=== PATIENT | female | born 1975 | race Caucasian/White ===

== ENCOUNTER 2016-07-18 12:30 | Inpatient (IN) | payer OTHER, MEDICARE ==
[~2016-07-18] VITALS: Ht 170.2 cm; Wt 90.7 kg
--- NOTE | 2016-07-18 12:38 | NUR ---
SENT BY DR. ARRIAZA FOR ADMISSION FOR OSTEOMYLITIS TO BOTH FEET (TOES). C/O PAIN IN BOTH LEGS WITH FEET BURNING. PMH: NEUROPATHY.
--- NOTE | 2016-07-18 13:27 | NUR ---
PT TO ROOM 10, AWAITING PROVIDER EVAL AT THIS TIME
--- NOTE | 2016-07-18 13:42 | ED SKIN/ALLERGY COMPLAINT ---
History of Present Illness General Chief Complaint: Lower Extremity Problems Stated Complaint: PT SENT BY DR SHEPHERD ? BIALATERAL TOE INFECTION Source: patient, old records Exam Limitations: no limitations Vital Signs & Intake/Output Vital Signs & Intake/Output Vital Signs Date Time Temp Pulse Resp B/P Pulse O2 O2 Flow FiO2 Ox Delivery Rate 07/18 1438 98.5 99 16 113/53 98 Room Air 07/18 1405 99 Room Air 07/18 1239 98.6 85 18 126/77 95 Room Air Allergies Coded Allergies: Sulfa (Sulfonamide Antibiotics) (Severe, FACILA SWELLING 07/18/16) Reconcile Medications Aripiprazole 5 MG TABLET 1 TAB PO DAILY MENTAL HEALTH (Reported) Triage Note: SENT BY DR. ARRIAZA FOR ADMISSION FOR OSTEOMYLITIS TO BOTH FEET (TOES). C/O PAIN IN BOTH LEGS WITH FEET BURNING. PMH: NEUROPATHY. Triage Nurses Notes Reviewed? yes Onset: Last week Duration: week(s):, constant, continues in ED, getting worse Timing: recent history Severity: severe Location: feet Possible Factors: no cause identified No Modifying Factors: none Associated Symptoms: blisters, change in skin texture, edema, rash, swelling/ mass/lumps LMP (ages 10-50): unknown : No Patient currently breastfeeds: No HPI: Patient reports worsening pain swelling redness to bilateral toes and feet occurring 2 days prior to admission. She denies fever chills nausea vomiting diarrhea abdominal pain chest pain shortness breath headache dysuria. She revealed to nursing that she is an IV heroin abuser. Past History Travel History Traveled to [place] past 21 day No Medical History Any Pertinent Medical History? see below for history Endocrine: NEUROPATHY Surgical History Surgical History: non-contributory Psychosocial History What is your primary language [place]ar[place] Tobacco Use: Never used ETOH Use: denies use Family History Hx Contributory? No Review of Systems Review of Systems Constitutional: Reports: no symptoms. EENTM: Reports: no symptoms. Respiratory: Reports: no symptoms. Cardiovascular: Reports: no symptoms. GI: Reports: no symptoms. Genitourinary: Reports: no symptoms. Musculoskeletal: Reports: see HPI, joint pain, joint swelling. Skin: Reports: see HPI, erythema, rash. Neurological/Psychological: Reports: no symptoms. Hematologic/Endocrine: Reports: no symptoms. Immunologic/Allergic: Reports: no symptoms. All Other Systems: Reviewed and Negative Physical Exam Physical Exam General Appearance: well developed/nourished, alert, awake, anxious, severe distress, obese Head: atraumatic, normal appearance Eyes: Bilateral: normal appearance, PERRL, EOMI. Ears, Nose, Throat: normal pharynx, normal ENT inspection, hearing grossly normal Neck: normal inspection, supple, full range of motion, no midline tenderness Respiratory: normal breath sounds, chest non-tender, no respiratory distress, quiet respiration, lungs clear Cardiovascular: regular rate/rhythm, normal peripheral pulses, norml femoral pulses equa Peripheral Pulses: 4+ carotid (R), 4+ carotid (L) Gastrointestinal: normal bowel sounds, soft, non-tender, no organomegaly Back: normal inspection, normal range of motion, no vertebral tenderness Extremities: inflammation, injury present, limited range of motion, swelling, tenderness Neurologic/Psych: awake, alert, oriented x 3, normal mood/affect Reflexes: 2+: bicep (R), bicep (L). Skin: rash Skin Problem Location: lower extremities (bilateral feet toes) Skin Problem Character: drainage, erythema, rash, swelling, tenderness, thickening Lymphatic: no anterior cervical gabe Progress Differential Diagnosis: abscess/cellulitis, contact dermatitis, osteomyelitis Plan of Care: Orders Procedure Date/time Status Regular Diet 07/18 L Active C-REACTIVE PROTEIN 07/18 1426 Active MRI-FEET BILAT 07/18 1353 Active OXYGEN SETUP (GEN) 07/18 1336 Active Saline Lock 07/18 1336 Active Admit to inpatient 07/18 1336 Active Vital Signs 07/18 1336 Active Activity/Ambulation 07/18 1336 Active Code Status 07/18 1336 Active BLOOD CULTURE 07/18 1334 Active HIGH SENSITIVITY CRP 07/18 1334 Active HUMAN BETA HCG SCREEN 07/18 1334 Active GLYCOSYLATED HGB 07/18 1334 Active WESTERGREN SED RATE 07/18 1334 Active COMPREHENSIVE METABOLIC PANEL 07/18 1334 Active CBC WITHOUT DIFFERENTIAL 07/18 1334 Active Laboratory Tests 07/18/16 1426: Hemoglobin A1c Pending 07/18/16 1426: Anion Gap 10, Estimated GFR > 60, BUN/Creatinine Ratio 18.3, Glucose 115 H, Calcium 8.6, Total Bilirubin 0.6, AST 17, ALT 26, Alkaline Phosphatase 114, C- Reactive Prot, Quant Pending, C-React Prot High Sens > 15.0 H, Total Protein 7.1, Albumin 3.2 L, Globulin 3.9, Albumin/Globulin Ratio 0.8 L, Total Beta HCG Pending, CBC w Diff NO MAN DIFF REQ, RBC 4.08 L, MCV 72.8 L, MCH 23.6 L, RDW 15.2 H, MPV 6.9 L, Gran % 84.3 H, Lymphocytes % 10.9 L, Monocytes % 4.0, Eosinophils % 0.6, Basophils % 0.2, Absolute Granulocytes 10.1 H, Absolute Lymphocytes 1.3, Absolute Monocytes 0.5, Absolute Eosinophils 0.1, Absolute Basophils 0, PUBS MCHC 32.4 L, ESR Westergren Pending Microbiology 07/18 1430 BLOOD: Blood Culture - RECD 07/18 142 BLOOD: Blood Culture - RECD Diagnostic Imaging: Viewed by Me: Radiology Read. Discussed w/RAD: Radiology Read. Radiology Impression: Significant soft tissue swelling involving the first, second and third toes of the right foot. Cortical destruction and cortical indistinctness involving the distal phalanges of the first and second toes of the right foot. Also noted is cortical lucency along the lateral aspect of the distal phalanx of the third toe. These findings are suspicious for acute osteomyelitis., Progressive changes in the distal phalanx 1st toe consistent with ongoing osteomyelitis with new change in distal phalanx 2nd toe. Departure Departure Time of Disposition: 1435 Disposition: STILL A PATIENT Condition: Stable Clinical Impression Primary Impression: Osteomyelitis of foot, left, acute Secondary Impressions: Osteomyelitis of foot, right, acute Referrals: PATIENT HAS NO PRIMARY CARE DR (PCP/Family) Departure Forms: Customer Survey General Discharge Information Admission Note Spoke With: SAVANNAH PACHECO,MELIA Lobo Documentation of Exam: Documentation of any treatments & extenuating circumstances including Concerns Regarding Discharge (functional status, medication knowledge or non-compliance, living conditions, etc.) that warrant an admission rather than observation: Podiatry evaluation serial lab exams IV antibiotics psychiatric evaluation for opiate dependence prevent withdrawal
--- NOTE | 2016-07-18 14:06 | NUR ---
PT TO ED C/O BILATERAL FOOT INFECTIONS, FOOTS APPEAR GROSSLY SWOLLEN, RED, TENDER WITH PURULENT DRAINAGE FROM R SECOND TOE. SLIGHT STREAKING NOTED ON BILATERAL FEET TO APPROX ANKLE HEIGHT. PT STATES SHE HAS "BAD NEUROPATHY" IN BOTH FEET AND IS UNSURE OF WHEN THE WOUNDS BEGAN TO APPEAR. PT SAW DR. ARRIAZA YESTERDAY A NEW PATIENT AND WAS THEN REFERRED TO ED FOR ADMISSION FOR SUSPECTED OSTEO. PT DENIES ANY FEVERS, WEAKNESS, NVD. PT ENDORSES "IM A HEROIN ADDICT, I JUST DONT WANT TO GO INTO WITHDRAWALS WHILE IM HERE" MULTIPLE TRACK PRARA NOTED ON BIILATERAL ARMS, HANDS AND ANKLES. PT DENIES SHOOTING IN ANKLES.
--- NOTE | 2016-07-18 14:14 | RADIOLOGY REPORT ---
EXAMINATION: XR FOOT, LEFT CLINICAL INFORMATION: Erythematous edematous toes with ulcers. COMPARISON: 11/24/2015 TECHNIQUE: AP, lateral, and oblique views of the left foot. FINDINGS: Since the previous study there has been progressive changes with destruction of the distal phalanx of the 1st digit. In addition, there has been a lytic area developing in the distal phalanx of the 2nd digit. In the 3rd digit, the distal phalanx is missing. Flexion deformities are present at the toes. No other definite abnormality is seen. IMPRESSION: Progressive changes in the distal phalanx 1st toe consistent with ongoing osteomyelitis with new change in distal phalanx 2nd toe.
--- NOTE | 2016-07-18 14:20 | RADIOLOGY REPORT ---
EXAMINATION: XR FOOT, RIGHT CLINICAL INFORMATION: Edematous and erythematous right toes. Evaluate for osteomyelitis. COMPARISON: None. TECHNIQUE: AP, lateral, and oblique views of the right foot. FINDINGS: Multiple views of the right foot and right toes demonstrate significant soft tissue swelling involving the first, second and third digits of the right foot. Of note, there is cortical indistinctness of cortical destruction involving the distal phalanges of the first and second digits of the right foot, suspicious for acute osteomyelitis. There is also cortical indistinctness and lucency along the lateral aspect of the distal phalanx of the third toe which is suspicious for osteomyelitis. IMPRESSION: Significant soft tissue swelling involving the first, second and third toes of the right foot. Cortical destruction and cortical indistinctness involving the distal phalanges of the first and second toes of the right foot. Also noted is cortical lucency along the lateral aspect of the distal phalanx of the third toe. These findings are suspicious for acute osteomyelitis.
[2016-07-18 14:49] LABS: ABSOLUTE BASOPHIL COUNT 0 /CUMM (0.0-0.2); ABSOLUTE EOSINOPHIL COUNT 0.1 /CUMM (0.0-0.7); ABSOLUTE GRANULOCYTE CT 10.1 /CUMM (1.4-6.5); ABSOLUTE LYMPH COUNT 1.3 /CUMM (1.2-3.4); ABSOLUTE MONOCYTE COUNT 0.5 /CUMM (0.10-0.60); BASOPHIL % 0.2 % (0.0-2.0); EOSINOPHIL % 0.6 % (0-5); GRANULOCYTE % 84.3 % (42.2-75.2); HEMATOCRIT 29.7 % (37-47); MEAN CORPUSCULAR HGB 23.6 PG (27.0-31.0); MEAN CORPUSCULAR HGB CONC 32.4 G/DL (33.0-37.0); MEAN CORPUSCULAR VOLUME 72.8 FL (81.0-99.0); MEAN PLATELET VOLUME 6.9 FL (7.4-10.4); PLATELET COUNT 431 /CUMM (130-400); RBC DISTRIBUTION WIDTH 15.2 % (11.5-14.5); RED BLOOD CELL CT 4.08 /CUMM (4.20-5.40)
--- NOTE | 2016-07-18 14:59 | NUR ---
PT MEDICATED WITH UNASYN PER EMAR
[2016-07-18] MEDS ORDERED: CLONAZEPAM2 M2 PO (15:25)
[2016-07-18] MEDS ORDERED: ARIPIPRAZOLE5 M1 PO (15:25)
[2016-07-18] MEDS ORDERED: CITALOPRAM HBR40 MG PO (15:26)
--- NOTE | 2016-07-18 15:30 | NUR ---
PT GIVEN FOOD TRAY OFFERS NO COMPLAINTS AT THIS TIME
--- NOTE | 2016-07-18 15:55 | NUR ---
PT GIVEN FOOD TRAY ATE 100% OF WHAT WAS ON TRAY AND STATES SHE WAS STILL HUNGRY SECOND TRAY ORDERED
--- NOTE | 2016-07-18 16:07 | Admission Certification ---
Admission Certification Certification Statement - As attending physician, I certify that at the time of - admission, based on clinical presentation, severity of - symptoms, need for further diagnostic testing and - therapeutic interventions, and risk of adverse outcomes - without in-hospital treatment, in my clinical assessment, - this patient requires an acute hospital stay for a minimum - of two nights or longer. I have also considered psychsocial - factors such as support system, advanced age, financial - issues, cognitive issues, and failed out-patient treatments, - past re-admission history, safety of patient, and lack of - compliance as applicable. Specific rationale supporting this admission is: active IVDU with b/l osteomyelitis
--- NOTE | 2016-07-18 16:13 | Cons- Podiatry ---
General Information and HPI Consulting Request Date of Consult: 07/18/16 Requested By: SAVANNAH PACHECO,MELIA Lobo History of Present Illness: Sophia is a 41-year-old female with a long-standing history of nonhealing ulcers to her first second and third digits bilateral feet. Sophia also suffers from idiopathic peripheral neuropathy. The patient has been treating her lesions with inadequate local wound care. She denies systemic signs of infection. Denies nausea vomiting fever chills. Of note, the patient is a current user of IV heroin. Allergies/Medications Allergies: Coded Allergies: Sulfa (Sulfonamide Antibiotics) (Severe, FACILA SWELLING 07/18/16) Home Med List: Aripiprazole 5 MG TABLET 1 TAB PO DAILY MENTAL HEALTH (Reported) Citalopram Hydrobromide (Citalopram HBr) 40 MG TABLET 1 TAB PO DAILY MENTAL HEALTH (Reported) Clonazepam 2 MG TABLET 1 TAB PO TID ANXIETY (Reported) Past History Medical History Endocrine: NEUROPATHY Surgical History Pertinent Surgical History: non-contributory Psychosocial History ETOH Use: denies use Review of Systems Review of Systems: Unremarkable except for that noted in history of present illness Exam & Diagnostic Data Vital Signs and I&O Vital Signs Date Time Temp Pulse Resp B/P Pulse O2 O2 Flow FiO2 Ox Delivery Rate 07/18 1438 98.5 99 16 113/53 98 Room Air 07/18 1405 99 Room Air 07/18 1239 98.6 85 18 126/77 95 Room Air Intake & Output 07/18 1600 07/18 0800 07/18 0000 07/17 1600 07/17 0800 07/17 0000 Intake Total 40 Output Total Balance 40 Intake, Oral 40 Patient 200 lb Weight Physical Exam: Necrotic and infected digits noted to the first second third toes right foot and the first second and fourth toes left foot. Cellulitis extending to the dorsal midfoot bilaterally. Following are noted from the necrotic lesion to the distal tip of the right second digit. 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 Consider an MRI to rule out occult progression of her osteomyelitis proximal to the metatarsophalangeal joints. Will schedule patient for debridement of left right feet tomorrow. Nothing by mouth past midnight. Consult Acknowledgment - Thank you for your consult request.
--- NOTE | 2016-07-18 16:19 | NUR ---
BED ASSIGNMENT [phone]
--- NOTE | 2016-07-18 16:52 | History & Physical ---
HAMILTON SEBASTIAN MD 07/18/16 7983: General Information and HPI MD Statement: I have seen and personally examined SUSI TRENT and documented this H&P. The patient is a 41 year old F who presented with a patient stated chief complaint of bilateral feet ulcerations. Source of Information: patient Exam Limitations: no limitations History of Present Illness: Ms. Trent is a 41 year old female with PMH IV drug abuse (using IV heroine, 1 bundle 4 times a day), bipolar depression, anxiety and severe bilateral peripheral neuropathy who was sent in to the [facility] ED today by Dr. Clarence Campbell MD for bilateral feet osteomyelitis. Patient reports that last Saturday, she noted she noted blisters on both big toes, and since that time she had noticed worsening of the ulcerations bilaterally. Of note, patient reports that about 1 month ago, she had X-rays of bilateral toes that showed fractures of both big toes. Due to these ulcerations and associated bilateral lower extremity erythema and associated swelling, patient followed up with Dr. Campbell 2 days ago and he urged her to present to the ED. She did not have a ride at that time and therefore deferred coming to the ED until today. Associated symptoms include bilateral feet ulcerations, pus drainage, bilateral swelling of legs with left > right and erythema/warmth of both legs. Social history is significant for a 20 year history of IVDU. Patient had previously stopped heroine and was in a methadone program in [facility] however this past April she relapsed and started doing heroine again. She reports she was on 125 mg PO methadone during her years at the methadone program. Reproductive history is significant for normal menstrual cycles every 28 days that last 4 days and consist of a normal flow. Allergies/Medications Allergies: Coded Allergies: Sulfa (Sulfonamide Antibiotics) (Severe, FACILA SWELLING 07/18/16) Home Med list Aripiprazole 5 MG TABLET 1 TAB PO DAILY MENTAL HEALTH (Reported) Citalopram Hydrobromide (Citalopram HBr) 40 MG TABLET 1 TAB PO DAILY MENTAL HEALTH (Reported) Clonazepam 2 MG TABLET 1 TAB PO TID ANXIETY (Reported) Compliance With Home Meds: UNKNOWN Past History Travel History Traveled to [place] past 21 day No Medical History Psychiatric: bipolar disease, IV drug abuse Endocrine: NEUROPATHY Surgical History Surgical History: non-contributory Past Family/Social History Psychosocial History Where do you live? Home Who Do You Live With? 2 roomates Services at Home: None Primary Language: Thai Smoking Status: Former Smoker ETOH Use: denies use Illicit Drug Use: heroin Living Will? no Functional Ability ADLs Independent: dressing, eating, toileting, bathing. Ambulation: independent Sexual History Sexually Active Yes Employment History Employment Disability Review of Systems Review of Systems Constitutional: Denies: chills, fever. EENTM: Denies: blurred vision, visual changes, hearing changes, nasal congestion. Cardiovascular: Denies: chest pain, palpitations. Respiratory: Denies: cough, short of breath, sputum production. GI: Denies: abdominal pain, bloating, constipation, diarrhea, distention, nausea, vomiting. Genitourinary: Denies: dysuria, frequency. Musculoskeletal: Reports: joint pain (Minimal toe pain). Skin: Reports: change in skin color, erythema, lesions. Neurological/Psychological: Reports: anxiety, numbness, paresthesia. Denies: confusion, headache. Hematologic/Endocrine: Denies: bruising, bleeding. Immunologic/Allergic: Denies: splenectomy. All Other Systems: Reviewed and Negative Exam & Diagnostic Data Last 24 Hrs of Vital Signs/I&O Vital Signs Date Time Temp Pulse Resp B/P Pulse O2 O2 Flow FiO2 Ox Delivery Rate 07/18 1837 97.5 61 18 94/50 96 07/18 1438 98.5 99 16 113/53 98 Room Air 07/18 1405 99 Room Air 07/18 1239 98.6 85 18 126/77 95 Room Air Intake & Output 07/18 1600 07/18 0800 07/18 0000 Intake Total 40 Output Total Balance 40 Intake, Oral 40 Patient 200 lb Weight Physical Exam General Appearance Alert, Oriented X3, Cooperative, No Acute Distress Skin Bilateral lower extremity erythema, R>L. Bilateral toe ulcerations with obvious pus drainage. No obvious bone visible. HEENT Atraumatic, EOMI, Mucous Membr. moist/pink Neck Supple, +2 Carotid Pulse wo Bruit Lymphatic Cervical nl Cardiovascular Regular Rate, Normal S1, Normal S2 Lungs Clear to Auscultation, Normal Air Movement Abdomen Normal Bowel Sounds, Soft, No Tenderness Neurological Normal Speech, Normal Tone Extremities No Clubbing, No Cyanosis, Edema of bilateral lower extremities, right leg more profound and noted to be slightly warm to touch. non tender, no calf tenderness. Vascular Pulses Symmetrical Last 24 Hrs of Labs/Serafin: Laboratory Tests 07/18/16 1426: Hemoglobin A1c Pending 07/18/16 1426: Anion Gap 10, Estimated GFR > 60, BUN/Creatinine Ratio 18.3, Glucose 115 H, Calcium 8.6, Iron Pending, TIBC Pending, Ferritin Pending, Total Bilirubin 0.6, AST 17, ALT 26, Alkaline Phosphatase 114, C-Reactive Prot, Quant > 9.0 H, C- React Prot High Sens > 15.0 H, Total Protein 7.1, Albumin 3.2 L, Globulin 3.9, Albumin/Globulin Ratio 0.8 L, Total Beta HCG NEGATIVE, CBC w Diff NO MAN DIFF REQ, RBC 4.08 L, MCV 72.8 L, MCH 23.6 L, RDW 15.2 H, MPV 6.9 L, Gran % 84.3 H, Lymphocytes % 10.9 L, Monocytes % 4.0, Eosinophils % 0.6, Basophils % 0.2, Absolute Granulocytes 10.1 H, Absolute Lymphocytes 1.3, Absolute Monocytes 0.5, Absolute Eosinophils 0.1, Absolute Basophils 0, PUBS MCHC 32.4 L, ESR Westergren 122 H, Hepatitis A IgM Ab Pending, Hep Bs Antigen Pending, Hep B Core IgM Ab Conf Pending, Hepatitis C Antibody Pending, HIV 1&2 Ab Western Blot Pending Microbiology 07/18 1430 BLOOD: Blood Culture - RECD 07/18 1425 BLOOD: Blood Culture - RECD Diagnostic Data Other Results IMPRESSION: Progressive changes in the distal phalanx 1st toe consistent with ongoing osteomyelitis with new change in distal phalanx 2nd toe. EXAMINATION: XR FOOT, LEFT CLINICAL INFORMATION: Erythematous edematous toes with ulcers. COMPARISON: 11/24/2015 TECHNIQUE: AP, lateral, and oblique views of the left foot. FINDINGS: Since the previous study there has been progressive changes with destruction of the distal phalanx of the 1st digit. In addition, there has been a lytic area developing in the distal phalanx of the 2nd digit. In the 3rd digit, the distal phalanx is missing. Flexion deformities are present at the toes. No other definite abnormality is seen. IMPRESSION: Progressive changes in the distal phalanx 1st toe consistent with ongoing osteomyelitis with new change in distal phalanx 2nd toe. Assessment/Plan Assessment: Ms. 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 Campbell for bilateral feet osteomyelitis. Patient noticed ulcers on bilateral big toes last Saturday, and since that time the ulcerations have worsened to include the soft tissue overlaying all her toes as well as have caused bilateral lower extremity edema, left greater than right. In the ED: Vital signs showed T 98.6, HR 85, RR 18, BP 126/77 and O2 saturation of 95% on RA. Labs showed leukocytosis to 12 without bandemia, microcytic anemia with H&H 9.6/29.7 and MCV 72.8, Plt 431, ESR 122, CRP > 9 and normal BEP. Beta- HCG is negative. Patient had right foot Xray showing significant soft tissue swelling and cortical destruction of first and second toes. Left foot Xray showed first toe osteomyelitis and likely 2nd toe osteomyelitis. Patient was admitted to the general medicine floor and the following is the management: 1. Osteomyelitis, bilateral feet with overlaying acute cellulitis * Podiatry consult with Dr. Campbell done while patient as in the ED, he suggested obtaining MRI bilateral feet which was ordered, f/u results * He will take patient to OR tomorrow for bilateral debridement * Patient NPO past midnight * Patient given IV unasyn in the ED * 1 bag NS at 75 cc/h * Will continue patient on Vancomycin 1 g IV Q12 H * Monitor for fever, watch leukocytosis * For RLE edema/swelling, due to the fact that it is larger than the left, we will rule out DVT with doppler, follow up results * For pain, we will do IV dilaudid for severe pain, IV morphine for moderate and PO tylenol for mild 2. IVDU * Patient counseled on risks of continued IVDU * Social work and psych consult placed, f/u recommendations * Patient requesting methadone 125 mg PO daily as this was her prior dose, however she has not been on methadone in several months * We will order a 1 x dose of 40 mg PO methadone tonight * 20 mg PO BID starting tomorrow * Monitor for withdrawl * F/U UA/Utox * F/U hepatitis panel and HIV 3. Bipolar depression * Continue abilify daily * Celexa 40 mg PO daily 4. Microcytic anemia * Patient notes normal menstrual cycles without significant bleeding * Follow up iron studies 5. Peripher neuropathy * Consider workup for DM, we have ordered HgA1C, f/u results FULL CODE DVTP: Heparin SC NPO at midnight pending OR tomorrow Mild-severe pain pathway As Ranked By This Provider Problem List: 1. Osteomyelitis of foot, right, acute 2. Osteomyelitis of foot, left, acute 3. IV drug abuse Core Measures/Miscellaneous Acute Coronary Syndrome ACS Diagnosis: No Cerebrovascular Accident CVA/TIA Diagnosis: No Congestive Heart Failure CHF Diagnosis: No Venous Thromboembolism VTE Risk Factors: Age > 40, Obesity, Smoking VTE Prophylaxis Ordered Inpt: Mech & Pharm No Mech VTE prophylaxis d/t: No contraindications No VTE Pharm Prophylaxis d/t: No contraindications VTE Diagnosis: No VTE Type: NONE VTE Confirmed by (Test): NONE Severe Sepsis Severe Sepsis Present: No Septic Shock Septic Shock Present: No Miscellaneous Documentation Attending Case Discussed With: SAVANNAH PACHECO,MELIA Lobo Primary Care Physician: PATIENT HAS NO PRIMARY CARE DR Patient sees these Specialists Unknown. Level of Patient Care: General Medicine MELIA NUÑEZ MD 07/18/162035: Attending MD Review Statement Attending Statement Attending MD Statement: examined this patient, discuss w/resident/PA/HOME HEALTH ATTENDANT, agreed w/resident/PA/HOME HEALTH ATTENDANT, reviewed EMR data (avail), reviewed images Attending Assessment/Plan: 41 year with PMH depression, chronic benzo dependence and active IVDU sent in by Dr Campbell for bilateral osteomyelitis of toes of both feet ( distal phalanges of 1st and 2nd toes bilaterally). Both feet are very erythematous and edematous with some purulent drainage from right second toe. Given the overlying cellulitis, will give IV vanco to cover for possible MRSA. Pt already got one does of IV Unasyn in the ER . Pt will go to the OR tomorrow for debridement and possible bone biopsy to help with choice of abx. ESR is pending and blood c/s drawn in the ER Cont Citalopram, aripripazole and Alprazolam. Given active heroin use, pt is worried about opiate withdrawal. Will give her Methadone today 40mg and follow for signs of opiate withdrawal closely. Will consult psych to help with opiate withdrawal. Microctyic anemia, will chek iron indices and guaiac all stool. HIV and hepatitis testing DVT prophylaxis and f/u. ESSIE DIANA MDBRANDONMARIANO 07/18/16 2150: Resident Review Statement Resident Statement: examined this patient, discussed with sports management internship, agreed with sports management internship, reviewed EMR data (avail), discussed with nursing, discussed with case mgmt, reviewed images, amended to note Other Findings: 41 yo female with pmh of bipolar disorder/anxiety, IV heroin abuse (> 20yrs), peripheral neuropathy, hx of osteomyelitis was sent from Dr. Campbell office due to suspected cellulitis and osteomyelitis of bilateral feet. She denies any trauma. She developed blisters on bilateral toes during the weekend and 2DA she was seen by Dr. Campbell due to worsening swelling and redness. She noted purulent drainage from Rt. 2nd toe today, and she feels numb with underlying neuropathy. She denies fever/chills, chest pain/palpitation, shortness of breath, nausea/vomiting, abdominal pain. Previously, she had osteomyelitis on Lt. 3rd toe s/p distal phalanx amputation in [facility] ( December/2014). She has long standing IVDU hx > 20yrs, and she was on methadone program for 10 years from [facility]), last dose 125mg daily. She left the program and continued using IV heroin 1 bundle 4 times a day. She shares a needle with 1 person. Former smoker 1 ppd x 10yrs, denies alcohol or other drug abuse. Regular period without massive bleeding. She follows Dr. Howard, psychiatrist in [place]. V/S: 97.5F MN 61 RR 18 BP 94/50 96% on RA, on exam alert, oriented x 3, anxious, HEENT: EOM intact, PERRLA, poor dentition, moist mucosa, neck: supple, no cervical LAD, heart: regular, normal S1/S2, no murmurs, lungs: CTA, abdomen, soft, non-tender, normal bowel sounds, motor: 5/5, skin: needle stick makrs on bilateral forearm, bilateral LE pitting edema Rt > Lt, redness/warmness, necrotic Lt. 1st/2nd toes, Rt. 1st/2nd/3rd toes with purulent discharge from Rt. 2nd toe Labs: WBC 12, granulocytosis, ESR 122, Hb/Hct 9.6/29.7 MCV 72.8, Na 137, K 4.8, BUN/Cr 11/0.6, glucose 115, CRP chris, beta HCG negative X-ray Lt. foot: Progressive changes in the distal phalanx 1st toe consistent with ongoing osteomyelitis with new change in distal phalanx 2nd toe, x-ray Rt. foot: Significant soft tissue swelling involving the first, second and third toes of the right foot. Cortical destruction and cortical indistinctness involving the distal phalanges of the first and second toes of the right foot. Also noted is cortical lucency along the lateral aspect of the distal phalanx of the third toe. These findings are suspicious for acute osteomyelitis. 1. Acute cellulitis of Rt. foot with bilateral feet osteomyelitis: Pt meets criteria of sepsis with leukocytosis & hypotension. Blood cultures were sent and IV unasyn was given in ED. Will give IV vancomycin for probable MRSA cellulitis/ osteomyelitis with IVDU. Continue IV hydration, pain control with pathway. Check US for bilateral LE pitting edema Rt > Lt. NPO after midnight for OR bone bx and debridement. Folow up MRI findings 2. chronic IVDU: She was on 125mg methadone before. As opiate withdrawal is concerned, will give one dose of methadone 40mg after checking EKG (QTc prolongation). Will get psychiatry consult regardig methadone taper. Will obtain social consult as well. Check HIV/hepatitis panel, Utox. 3. Bipolar disorder/anxiety: continue home dose aripiprazole, citalopram, clonazepam. 4. Microcytic anemia: monitor Hb/Hct, check guiac stool, iron studies 5. Peripheral neuropahty: check HbA1c, Vit B12/folate/Vit D DVT ppx: SC heparin, full code
--- NOTE | 2016-07-18 17:04 | NUR ---
PT BROUGHT TO MRI VIA
[2016-07-18 22:13] VITALS: BP 112/60
--- NOTE | 2016-07-18 22:58 | NUR ---
PATIENT IN WITH WOUNDS TO BILATERAL FEET ESPECIALLY THE TOES. TOES WITH EDEMA, BLACK CALLOUS AND REDNESS ON TOP OF TOES. FEET WITH EDEMA RIGHT > LEFT. RESIDENT THOMAS AWARE. DRY DRESSING PLACED TO BOTH FEET AFTER PATIENT FEET WERE WASHED AND DRIED. PATIENT WAS TAKEN TO ULTRASOUND SHORTLY AFTER HER FEET WERE CLEANED. UNABLE TO STAGE WOUNDS AT THIS TIME. WILL CONTINUE TO MONITOR.
--- NOTE | 2016-07-18 23:15 | ULTRASOUND REPORT ---
EXAMINATION: US TRIPLEX LOWER EXTREMITY, BILATERAL CLINICAL INFORMATION: Bilateral lower extremity edema. COMPARISON: None TECHNIQUE: Color-flow triplex imaging with spectral analysis and compression Doppler were performed on the bilateral lower extremities. FINDINGS: Respiratory variation, normal compression and augmented flow are noted throughout the bilateral lower extremities. The visualized common femoral vein, superficial femoral vein, profunda femoral vein, popliteal vein and midcalf peroneal and posterior tibial venous segments show no evidence of deep venous thrombosis. There is no Morgan's cyst. Prominent bilateral inguinal lymph nodes. The largest on the right measures 1.8 cm. The largest on the left measures 2.3 cm. IMPRESSION: Normal triplex scan without evidence of deep venous thrombosis involving the bilateral lower extremities. Prominent bilateral inguinal lymph nodes.
[2016-07-19 05:53] VITALS: BP 120/62
--- NOTE | 2016-07-19 07:47 | PN- Housestaff ---
See Addendum Subjective Follow-up For: Osteomyelitis of bilateral feet IVDU (heroin) Subjective: Patient seen and examined at bedside this AM. She is mildly anxious for OR procedure and is concerned about withdrawing as she is NPO and cannot have her methadone. Patient continues to endorse bilateral feet pain 2/2 osteomyelitis/ cellulitis. Review of Systems Constitutional: Denies: chills, fever. EENTM: Denies: blurred vision, visual changes, hearing changes, nasal congestion. Cardiovascular: Denies: chest pain, palpitations. Respiratory: Denies: cough, short of breath. Gastrointestinal: Denies: abdominal pain. Genitourinary: Denies: dysuria. Musculoskeletal: Reports: joint pain (Bilateral toes). Denies: neck pain. Skin: Reports: erythema, lesions. Neurological/Psychological: Reports: see HPI. Denies: confusion, headache. Hematologic/Endocrine: Denies: bleeding. Immunologic/Allergic: Denies: splenectomy. Objective Last 24 Hrs of Vital Signs/I&O Vital Signs Date Time Temp Pulse Resp B/P Pulse O2 O2 Flow FiO2 Ox Delivery Rate 07/19 0553 98.1 64 20 120/62 98 Room Air 07/18 2213 97.1 67 18 112/60 97 Room Air 07/18 1837 97.5 61 18 94/50 96 07/18 1438 98.5 99 16 113/53 98 Room Air 07/18 1405 99 Room Air 07/18 1239 98.6 85 18 126/77 95 Room Air Intake & Output 07/19 1600 07/19 0800 07/19 0000 Intake Total 300 755 Output Total 225 Balance 75 755 Intake, IV 275 Intake, Oral 300 480 Output, Urine 225 Patient 200 lb Weight Physical Exam General Appearance: Alert, Oriented X3, Cooperative, No Acute Distress Other Physical Findings: Skin Bilateral lower extremity erythema, R>L. Bilateral toe ulcerations with obvious pus drainage. No obvious bone visible. HEENT Atraumatic, EOMI, Mucous Membr. moist/pink Neck Supple, +2 Carotid Pulse wo Bruit Lymphatic Cervical nl Cardiovascular Regular Rate, Normal S1, Normal S2 Lungs Clear to Auscultation, Normal Air Movement Abdomen Normal Bowel Sounds, Soft, No Tenderness Neurological Normal Speech, Normal Tone Extremities No Clubbing, No Cyanosis, Edema of bilateral lower extremities, right leg more profound and noted to be slightly warm to touch. non tender, no calf tenderness. Vascular Pulses Symmetrical Current Medications: Current Medications Sig/Mainor Start time Last Medication Dose Route Stop Time Status Admin Acetaminophen 650 MG Q6P PRN 07/18 1999 AC PO Ampicillin Sodium/ 0 .STK-MED ONE 07/18 1440 DC Sulbactam Sodium .ROUTE Ampicillin Sodium/ 3,000 MG ONCE ONE 07/18 1345 DC 07/18 Sulbactam Sodium IV 07/18 1414 1455 Sodium Chloride 100 ML Aripiprazole 5 MG DAILY 07/19 1000 AC PO Cholecalciferol 1,000 IU DAILY 07/19 1000 AC PO Citalopram 40 MG DAILY 07/19 1000 AC Hydrobromide PO Clonazepam 2 MG TID 07/18 2200 AC 07/18 PO 07/25 2159 2108 Cyanocobalamin 1,000 MCG DAILY 07/19 1000 AC PO Cyanocobalamin 1,000 MCG Q30D 07/19 0900 CAN IM Heparin Sodium 5,000 UNIT Q8 07/18 220 DC 07/18 (Porcine) SC 07/18 2201 2109 Hydromorphone HCl 1 MG Q6P PRN 07/18 1999 AC 07/18 IV 2108 Ketorolac 30 MG ONCE ONE 07/18 1345 DC 07/18 Tromethamine IV 07/18 1346 1436 Ketorolac 0 .STK-MED ONE 07/18 1339 DC Tromethamine .ROUTE Methadone HCl 20 MG 0800,1700 07/19 0800 AC PO Methadone HCl 40 MG ONCE ONE 07/18 2200 DC 07/18 PO 07/18 220 2108 Morphine Sulfate 2 MG Q6P PRN 07/18 1999 AC IV Sodium Chloride 1,000 ML Q13H 07/18 1930 DC 08 IV 07/19 0829 2017 Vancomycin HCl 1,000 MG Q12 07/18 2200 AC 07/18 Dextrose/Water 250 ML IV 2213 Last 24 Hrs of Lab/Serafin Results Last 24 Hrs of Labs/Mics: Laboratory Tests 07/19/16 0705: Sodium Pending, Potassium Pending, Chloride Pending, Carbon Dioxide Pending, Anion Gap Pending, BUN Pending, Creatinine Pending, BUN/Creatinine Ratio Pending , CBC w Diff Pending, WBC Pending, RBC Pending, Hgb Pending, Hct Pending, MCV Pending, MCH Pending, RDW Pending, Plt Count Pending, MPV Pending, PUBS MCHC Pending 07/19/16 0515: Methadone Screen Pending, Barbiturate Screen Pending, Ur Phencyclidine Scrn Pending, Amphetamines Screen Pending, U Benzodiazepines Scrn Pending, Urine Cocaine Screen Pending, Urine Cannabis Screen Pending, Urine Color Pending, Urine Clarity Pending, Urine pH Pending, Ur Specific [place] Pending, Urine Protein Pending, Urine Ketones Pending, Urine Nitrite Pending, Urine Bilirubin Pending, Urine Urobilinogen Pending, Ur Leukocyte Esterase Pending, Ur Microscopic Pending, Urine Hemoglobin Pending, Urine Glucose Pending 07/18/16 1426: Hemoglobin A1c Pending 07/18/16 1426: Anion Gap 10, Estimated GFR > 60, BUN/Creatinine Ratio 18.3, Glucose 115 H, Calcium 8.6, Iron 21 L, TIBC 274, Ferritin 72.1, Total Bilirubin 0.6, AST 17, ALT 26, Alkaline Phosphatase 114, C-Reactive Prot, Quant > 9.0 H, C-React Prot High Sens > 15.0 H, Total Protein 7.1, Albumin 3.2 L, Globulin 3.9, Albumin/ Globulin Ratio 0.8 L, Vitamin B12 199 L, 25-OH Vitamin D Total 11.0 L, Folate 7.1, Total Beta HCG NEGATIVE, CBC w Diff NO MAN DIFF REQ, RBC 4.08 L, MCV 72.8 L, MCH 23.6 L, RDW 15.2 H, MPV 6.9 L, Gran % 84.3 H, Lymphocytes % 10.9 L, Monocytes % 4.0, Eosinophils % 0.6, Basophils % 0.2, Absolute Granulocytes 10.1 H, Absolute Lymphocytes 1.3, Absolute Monocytes 0.5, Absolute Eosinophils 0.1, Absolute Basophils 0, PUBS MCHC 32.4 L, ESR [place] 122 H, Hepatitis A IgM Ab Pending, Hep Bs Antigen Pending, Hep B Core IgM Ab Conf Pending, Hepatitis C Antibody Pending, HIV 1&2 Ab Western Blot NONREACTIVE Microbiology 07/18 1430 BLOOD: Blood Culture - RECD 07/18 1425 BLOOD: Blood Culture - RECD Orders Radiology Findings: R foot Xray: IMPRESSION: Significant soft tissue swelling involving the first, second and third toes of the right foot. Cortical destruction and cortical indistinctness involving the distal phalanges of the first and second toes of the right foot. Also noted is cortical lucency along the lateral aspect of the distal phalanx of the third toe. These findings are suspicious for acute osteomyelitis. Left foot Xray: IMPRESSION: Progressive changes in the distal phalanx 1st toe consistent with ongoing osteomyelitis with new change in distal phalanx 2nd toe. Miscellaneous Findings: Venous Doppler: MPRESSION: Normal triplex scan without evidence of deep venous thrombosis involving the bilateral lower extremities. Prominent bilateral inguinal lymph nodes. Assessment/Plan Assessment: Ms. 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 Campbell for bilateral feet osteomyelitis. Patient noticed ulcers on bilateral big toes last Saturday, and since that time the ulcerations have worsened to include the soft tissue overlaying all her toes as well as have caused bilateral lower extremity edema, left greater than right. In the ED: Vital signs showed T 98.6, HR 85, RR 18, BP 126/77 and O2 saturation of 95% on RA. Labs showed leukocytosis to 12 without bandemia, microcytic anemia with H&H 9.6/29.7 and MCV 72.8, Plt 431, ESR 122, CRP > 9 and normal BEP. Beta- HCG is negative. Patient had right foot Xray showing significant soft tissue swelling and cortical destruction of first and second toes. Left foot Xray showed first toe osteomyelitis and likely 2nd toe osteomyelitis. Patient was admitted to the general medicine floor and the following is the management: 1. Osteomyelitis, bilateral feet with overlaying acute cellulitis * Podiatry consult with Dr. Campbell done while patient as in the ED, he suggested obtaining MRI bilateral feet which was ordered, f/u results * He will take patient to OR today for bilateral debridement, currently NPO * Patient given IV unasyn in the ED * Will continue patient on Vancomycin 1 g IV Q12 H due to severity of infection * Monitor for fever, watch leukocytosis * For RLE edema/swelling, due to the fact that it is larger than the left, we ruled out DVT with negative RLE doppler * For pain, we will do IV dilaudid for severe pain, IV morphine for moderate and PO tylenol for mild * PT consult placed, f/u recommendations 2. IVDU * Patient counseled on risks of continued IVDU * Social work and psych consult placed, f/u recommendations * Patient requesting methadone 125 mg PO daily as this was her prior dose, however she has not been on methadone in several months * We ordered a 1 x dose of 40 mg PO methadone last night, she will be started on 20 mg PO BID today * Monitor for withdrawl * F/U UA/Utox * Hepatitis panel pending, HIV non-reactive 3. Bipolar depression * Continue abilify daily * Celexa 40 mg PO daily 4. Microcytic anemia * Patient notes normal menstrual cycles without significant bleeding * Iron studies normal except for low Fe, we have started ferrous sulfate daily 5. Peripher neuropathy * Vit B12 very low, patient reports she has been vegan for 10 years, likely contributing/causing bilateral peripheral neuropathy * Vit B12 injections1,000 mcg daily due to low levels * Vit D 50,000 U PO 1xweek also ordered due to low levels * We have ordered HgA1C, f/u results FULL CODE DVTP: Heparin SC NPO at midnight pending OR tomorrow Mild-severe pain pathway Problem List: 1. Osteomyelitis of foot, left, acute 2. Osteomyelitis of foot, right, acute 3. IV drug abuse Pain Ratin Pain Location: Bilateral feet Pain Goal: Pain 4 or less Pain Plan: Dilaudid for severe pain, morphine for moderate and tylenol for mild pain. Tomorrow's Labs & Rationales: CBC (post op).
[2016-07-19 08:56] LABS: ABSOLUTE BASOPHIL COUNT 0 /CUMM (0.0-0.2); ABSOLUTE EOSINOPHIL COUNT 0.1 /CUMM (0.0-0.7); ABSOLUTE GRANULOCYTE CT 6.4 /CUMM (1.4-6.5); ABSOLUTE LYMPH COUNT 1.2 /CUMM (1.2-3.4); ABSOLUTE MONOCYTE COUNT 0.4 /CUMM (0.10-0.60); BASOPHIL % 0.3 % (0.0-2.0); EOSINOPHIL % 1.8 % (0-5); GRANULOCYTE % 78.2 % (42.2-75.2); HEMATOCRIT 26.7 % (37-47); MEAN CORPUSCULAR VOLUME 72.8 FL (81.0-99.0); MEAN PLATELET VOLUME 7.3 FL (7.4-10.4); PLATELET COUNT 358 /CUMM (130-400); RBC DISTRIBUTION WIDTH 15.4 % (11.5-14.5); RED BLOOD CELL CT 3.67 /CUMM (4.20-5.40); WHITE BLOOD CELL COUNT 8.2 /CUMM (4.8-10.8)
--- NOTE | 2016-07-19 09:02 | MRI REPORT ---
EXAMINATION: MR FOOT WITHOUT CONTRAST, RIGHT CLINICAL INFORMATION: Bilateral foot ulcers, drainage. COMPARISON: X-ray of the right foot 07/18/2016. TECHNIQUE: MRI of the right foot was performed without contrast. The study is markedly limited because of motion artifact. The patient was unable to hold still for the examination. The field of view is limited to the forefoot beginning at the mid portion of the metatarsals and extending distally. FINDINGS: 2ND TOE: There is abnormal soft tissue over the plantar aspect of the 2nd toe which appears to be at the level of the metatarsophalangeal joint. The abnormal signal extends from the skin to the joint capsule and likely the bone of the proximal phalanx. There is likely an overlying ulceration. There may be some metallic artifact contributing to some of the signal change and distortion at the skin or just deep to the skin surface. The signal abnormality extending to the joint capsule and/or bone measures up to 14 mm transverse and 13 mm AP. This could partially reflect a sinus tract along with surrounding infectious inflammatory change in the soft tissues. Because of the prominent motion artifact, it is difficult to assess the bone with certainty with regard to the signal intensity. Fine bony detail is also limited because of the artifact. Despite this limitation, I suspect that there is abnormal signal throughout all of the phalanges of the second toe beginning at the base of the proximal phalanx and extending throughout the distal phalanx. Radiographs demonstrate marked destruction of the distal phalanx which is not well seen on this examination in part due to the small size of the bone, marked bone destruction visible on the radiographs, as well as the motion artifact. There is a mild joint effusion of the 2nd metatarsophalangeal joint. This raises the question of concomitant septic arthritis given the changes in the overlying soft tissues as well as in the proximal phalanx. However, no definite marrow signal within the metatarsal head and the partially more proximal metatarsal. GREAT TOE: 1st Metatarsophalangeal Joint - Moderate joint effusion. Probable diffuse mild abnormal signal throughout most of the proximal phalanx without evidence for bone destruction. Marked signal abnormality within the distal phalanx, not well defined, likely related to destructive changes better defined on prior radiographs. Additional prominent localized abnormal signal overlying the IP joint extending from the skin or just deep to the skin to the IP joint compatible with focal inflammatory changes of the soft tissues. I do not see a definite ulceration. 3RD TOE: Difficult to evaluate because of the marked motion artifact. I suspect diffuse signal abnormality throughout the middle and distal phalanx. No definite involvement of the proximal phalanx. Mild effusion of the metatarsophalangeal joint. Effusion of the PIP joint. I do not see an overlying ulceration. 4TH TOE: Limited evaluation because of motion artifact. No definite abnormal marrow signal. Mild effusion of the metatarsophalangeal joint. 5TH TOE: Limited evaluation because of the motion artifact. Possible mild edema in the head of the 5th metatarsal of uncertain significance. This could simply reflect some arthrosis. No definite effusion. MUSCLES/TENDONS: Diffuse signal abnormality throughout all the muscles of the forefoot compatible with edema and/or myositis. No focal fluid collection or abscess is seen. SUBCUTANEOUS SOFT TISSUES: Diffuse signal abnormality throughout the subcutaneous soft tissues, most prominent dorsal. This is compatible with a combination of edema and/or cellulitis. No soft tissue collection noted dorsally. IMPRESSION: Limited examination because of marked motion artifact despite repeating sequences multiple times. The patient apparently could not hold still throughout the examination. Despite this limitation, there is some diagnostic information available. 2nd Toe: Probable ulceration and a sinus tract extending from the skin to the level of the 2nd metatarsophalangeal joint. The findings most compatible with osteomyelitis involving the proximal, middle and distal phalanges. Possible involvement of the metatarsophalangeal joint given the effusion, however, no definite involvement of the metatarsal. Great Toe: Findings indicative of osteomyelitis with destructive changes of the distal phalanx. Probable involvement of the proximal phalanx given the likely abnormal signal extending to the level of the metatarsophalangeal joint. There is also mild effusion of the metatarsophalangeal joint raising the question of concomitant septic arthritis, however, no definite involvement of the metatarsal. 3rd Toe: Findings most consistent with osteomyelitis involving the middle and distal phalanx without definite involvement proximal to this. Mild nonspecific effusion of the PIP joint and metatarsophalangeal joint. Limited evaluation of the 4th and 5th toes. No definite osteomyelitis. Questionable edema in the head of the 5th metatarsal of uncertain significance, this may simply reflect arthrosis. No effusion of the joint.
--- NOTE | 2016-07-19 09:40 | MRI REPORT ---
EXAMINATION: MR FOOT WITHOUT CONTRAST, LEFT CLINICAL INFORMATION: Osteomyelitis. COMPARISON: X-ray of the left foot performed same day. MRI and x-ray of the right foot performed same day. TECHNIQUE: MRI of the left foot was performed without contrast. Sequences were modified in an attempt to decrease motion artifact as the patient was unable to hold still throughout the examination. Because of the artifact, the exam is significantly limited with respect to the diagnostic information available. Despite this limitation, there is some information present. FINDINGS: GREAT TOE: Heterogeneous abnormal signal throughout the poorly visualized distal phalanx. Given the appearance of a fracture on radiographs, this is compatible with reactive change related to a fracture and/or pathologic fracture related to osteomyelitis. There does appear to be some overlying abnormality in the plantar aspect of the toe in the distal phalanx which could reflect chronic fibrotic inflammatory change. The distal phalanx is slightly plantar subluxed at the IP joint. Mild minimal effusion of the IP joint. Marrow signal of the proximal phalanx and the 1st metatarsal appears intact. 2ND TOE: Limited evaluation because of artifact. Diffuse abnormal signal involving the middle and distal phalanx if still present. This corresponds to the area of fracture on radiographs. Some of the abnormal signal may be related to reactive changes related to the fracture; however, in the clinical setting presented, osteomyelitis with pathologic fracture is likely. The marrow signal in the proximal phalanx and metatarsal is intact. There may be some overlying inflammatory changes in the plantar soft tissues. 3RD TOE: No definite abnormal signal in the remaining portion of the toe. There appears to been surgery with amputation distal to the PIP joint. This could be confirmed clinically. 4TH TOE: Diffuse signal abnormality within the middle and distal phalanx with comminuted overlying soft tissue abnormality circumferentially. This likely reflects osteomyelitis and overlying soft tissue infection/cellulitis. Questionable ulceration at the tip of the toe measuring approximately 1 cm. The marrow signal in the proximal phalanx and metatarsal appears to be intact. There is a mild effusion of the 4th metatarsophalangeal joint of uncertain significance. 5TH TOE: Limited evaluation because of the artifact. No definite marrow signal or joint abnormality. MUSCLES/TENDONS: Diffuse signal abnormality within the muscles of the foot compatible with myositis. A small 5 mm fluid collection along the dorsal musculature overlying the mid portion of the 2nd metatarsal which may reflect a small abscess (see axial image 1, series 6). SUBCUTANEOUS SOFT TISSUES: Diffuse signal abnormality throughout the subcutaneous soft tissues, particularly dorsally, which could reflect a combination of cellulitis and/or edema. No localized fluid collection. IMPRESSION: Limited examination because of significant motion artifact. Great toe: Probable osteomyelitis with pathologic fracture of the distal phalanx of the great toe. Second toe: Probable osteomyelitis of the middle and distal phalanx with destructive changes of the bone better depicted on prior radiographs. Postsurgical changes of the 3rd toe. No definite osteomyelitis. Fourth toe: Probable osteomyelitis of the middle and distal phalanx with overlying ulceration. Limited evaluation of the 5th toe. No definite osteomyelitis. Generalized myositis. Possible small fluid collection along the dorsal aspect of the 2nd metatarsal which could reflect a small abscess. Generalized edema and/or cellulitis of the soft tissues.
--- NOTE | 2016-07-19 15:01 | Operative Report ---
Operative/Inv Procedure Report Surgery Date: 07/19/16 Name of Procedure: 1 open incision and drainage deep to the deep fascia with exposure of the extensor and flexor tendon and tendon sheath multiple sites right foot 2 open incision and drainage deep to the deep fascia with exposure of the extensor and flexor tendon and tendon sheath multiple sites left foot 3 partial first second third ray resection right foot 4 partial first second and fourth ray resections left foot 5 intraoperative administration of ankle block anesthesia 6 excisional debridement Pre-Operative Diagnosis: 1 open infected wound right foot 2 open infected wound left foot 3 osteomyelitis right foot 4 osteomyelitis left foot 5 idiopathic neuropathy Post-Operative Diagnosis: The same Estimated Blood Loss: less than 50ml Surgeon/Elevator Adjuster: GRACE ARRIAZA DPM Anesthesia: moderate sedation, block Operative/Procedure Note Note: After obtaining informed consent the patient was brought to the operating room and placed on the operating table in the supine position. The patient isn't securely fastened to the operating table utilizing safety belt. After administration of IV sedation, 10 mL of 0.5% Marcaine plain was infiltrated about the patient's right and left ankles. The right left ankles were then scrubbed prepped and draped in usual aseptic manner. Attention was directed the right foot where a large full-thickness necrotic was identified. A 15 blade was utilized sharp sharply revised skin margins. Dissection was then carried down deep to the D fashion with exposure of the extensor and flexor tendon and tendon sheath multiple sites, both proximal and distally. All necrotic nonviable infected tissue sharply evacuated from the wound bed. A fishmouth incision compassing the distal first second third rays was then marked out digits were disarticulated and passed from the operative field. Specimen was harvested for both microbiologic and pathologic inspection. Nipple was then irrigated 3 L normal sterile saline fissure 50,000 units of bacitracin. Following this the foot was redraped and the surgeon's top pleasure changed clean gloves. Any bleeding vessels identified were cauterized or ligated as encountered. Nipple was then packed with 1 inch iodoform and 3-0 nylon retention sutures were placed. The foot was then dressed with 4 x 4's Kerlix and ABDs pad and an Allan wrap. Attention was then directed left foot where again a large necrotic was identified. A 15 blade visualized sharply revised skin margins. The dissection was then carried down deep to the D fashion with exposure of the extensor and flexor tendon and tendon sheath multiple sites, both proximally and distally. All necrotic nonviable infected tissue sharply evacuated from the wound bed. Fishmouth incision incision compassing the digits of then marked out with a skin marker. The skin was incised with 15 blade and deepened down to the capture structures the level metatarsal phalangeal joints. The digits were then disarticulated and specimen was sent for both microbiologic and pathologic inspection. Nipple was then irrigated with 3 L normal sterile saline infusion 50,000 units of bacitracin. Following this the foot was redraped and the surgeon's top gloves were changed clean gloves. Any bleeding vessels identified were cauterized a lace encountered. Nipple was then packed with iodoform and 3- 0 nylon retention sutures were placed the incisions were then dressed with 4 x 4 's EBD tense Kerlix and an Allan wrap. The patient was noted to tolerate both procedure and anesthesia well and the patient was transported from the operating room to recovery by sent stable.
--- NOTE | 2016-07-19 16:30 | NUR ---
PT RETURNED FROM OR VIA STRETCHER. ASSISTED TO BED. VITALS OBTAINED AND STABLE. DRESSINGS TO BILATERAL FEET, PT S/P AMPUTATION OF GREAT, 2ND, AND 3RD TOES TO FEET. SMALL AMOUNT OF BLOODY DRAINAGE NOTED TO LATERAL ASPECT OF RIGHT FOOT, OTHERWISE DRESSINGS C/D/I. AFTER SETTLED, PT REQUESTING PAIN MEDICATION. PT INFORMED THAT SHE HAS METHADONE ORDERED TO BE GIVEN AT THIS TIME PT IS AN ACTIVE HEROINE ABUSER. PT STATING "OK GREAT. I PROBABLY SHOULDNT TELL YOU THIS BUT I HAVE STUFF ON ME AND WAS GOING TO USE IT IF I NEEDED TO BUT IF I GET THE METHADONE I MIGHT NOT HAVE TO". PT INFORMED THAT SECURITY HAD TO BE CALLED BECAUSE OF HER STATEMENT. PT THEN STATES "WELL I DONT HAVE ANYTHING ON ME BUT I WAS GOING TO HAVE MY FRIEND BRING IT IN IF I HAD TO". PT AGAIN INFORMED THAT THIS BEHAVIOR IS NOT ALLOWED IN THE HOSPITAL. SECURITY UP TO PT'S BEDSIDE TO SEARCH BELONGINGS. NURSING [address] FOREMAN PAGED AND INFORMED. SPOOLING SUPERVISOR SUSAN AT BEDSIDE DURING SEARCH. 2 SYRINGES AND 1 PIPE FOUND AND DISGARDED BY NURSE DOUGH PANNER SUSAN IN SHARPS CONTAINER OUTSIDE OF PATIENT'S ROOM. SECURITY ALSO CONFISCATED A PAIR OF SCISSORS AND A KNIFE. THESE BELONGINGS TAKEN TO SECURITY DESK TO BE STORED PER THE [employer]. PT ALSO HAS A PAIR OF NAIL CLIPPERS AND A CLINICAL TRIALS MANAGER THAT WERE BOTH REMOVED FROM ROOM AND PLACED IN LOCKED MEDICATION ROOM ON UNIT BY NURSE DOUGH PANNER SUSAN. PT INFORMED THAT VISITORS WILL BE SCREENED IF SUSPICION OF DRUGS AND THAT VISITORS MAY BE RESTRICTED IF THERE ARE ANY FURTHER ISSUES. PT ALSO INFORMED THAT IF SHE DOES NOT FEEL THAT METHADONE DOSE IS SUFFICIENT TO HELD WITH WITHDRAWL SYMPTOMS TO LET RN KNOW. DR. KOHLER INFORMED OF INCIDENT AND STATES TO CALL IF DOSAGE NOT SUFFICIENT AND THAT IT WILL BE CONSIDERED TO UP TO DOSE. WILL MONITOR.
[2016-07-19 16:47] VITALS: BP 104/70
--- NOTE | 2016-07-19 17:00 | NUR ---
CALL PLACED TO DR ARRIAZA TO GET WEIGHT BEARING ORDER. PER DR ARRIAZA, OK TO BEAR WEIGHT TO BILATERAL HEELS.
--- NOTE | 2016-07-19 18:35 | Cons- Psychiatry ---
Psychiatric Consult Date of Consult: 07/19/16 Reason for Consult: "Opiate withdrawal" History of Present Illness: This 41-year-old female was sent to the hospital by Dr. Campbell for osteomyelitis. She is expected to have surgery and bilateral feet today. Per the HPI, the patient has a current IV heroin addiction, currently injecting one bundle 4 times per day. Also, history of bipolar depression, anxiety. She has a history of methadone maintenance, but relapsed in April 2016. Yesterday, she had exhibited signs of opiate withdrawal, and methadone 40 mg was administered as a one-time dose. The patient is also receiving opiate pain medications, as well as clonazepam, citalopram 40 mg daily and Abilify 5 mg daily. Urine toxicology on 07/19/2016 at 0515 is positive for cocaine, methadone and opiates, with nonzero result for cannabis. The patient presented to triage on 07/18/2016 at 1238, and had received methadone 40 mg and hydromorphone before urine toxicology was drawn. Allergies: Coded Allergies: Sulfa (Sulfonamide Antibiotics) (Severe, FACILA SWELLING 07/18/16) Current Medications: Current Medications Sig/Mainor Start time Last Medication Dose Route Stop Time Status Admin Acetaminophen 650 MG Q6P PRN 07/18 1999 AC PO Aripiprazole 5 MG DAILY 07/19 1000 AC 07/19 PO 0942 Cholecalciferol 1,000 IU DAILY 07/19 1000 AC 07/19 PO 0941 Citalopram 40 MG DAILY 07/19 1000 AC 07/19 Hydrobromide PO 0942 Clonazepam 2 MG TID 07/18 2200 AC 07/19 PO 07/25 2158 1630 Cyanocobalamin 1,000 MCG DAILY 07/19 1042 AC 07/19 IM 07/23 1001 1635 Cyanocobalamin 1,000 MCG DAILY 07/19 1000 DC 07/19 PO 0942 Cyanocobalamin 1,000 MCG Q30D 07/19 0900 CAN IM Ergocalciferol 50,000 IU ONCE A WEEK 07/19 1100 AC 07/19 PO 1635 Ferrous Sulfate 325 MG DAILY 07/19 1000 AC 07/19 PO 1635 Heparin Sodium 5,000 UNIT Q8 07/18 2199 DC 07/18 (Porcine) SC 07/18 220 210 Hydromorphone HCl 1 MG Q6P PRN 07/18 1999 DC 07/19 IV 0859 Methadone HCl 20 MG 0800,1700 07/19 0800 AC 07/19 PO 07/20 0000 1633 Methadone HCl 40 MG ONCE ONE 07/18 2199 DC 07/18 PO 07/18 2200 210 Morphine Sulfate 2 MG Q4-6 PRN PRN 07/19 1045 AC IV Morphine Sulfate 2 MG Q6P PRN 07/18 1999 DC IV Patient Medication 1 ED .STK-MED ONE 07/19 1335 MO Teaching ED 07/19 1336 Sodium Chloride 1,000 ML Q13H 07/18 1929 DC 07/18 IV 07/19 Vancomycin HCl 1,000 MG Q12 07/19 2199 AC Dextrose/Water 250 ML IV Vancomycin HCl 1,000 MG Q12 07/18 2199 DC 07/18 Dextrose/Water 250 ML IV 2212 Past History Past Medical History Neurological: NONE EENT: NONE Cardiovascular: NONE Respiratory: NONE Gastrointestinal: NONE Hepatic: NONE Renal: NONE Musculoskeletal: NONE Psychiatric: bipolar disease, IV drug abuse, heroin addiction Endocrine: hypothyroidism, NEUROPATHY Blood Disorders: NONE Cancer(s): NONE [employer] WORKER/Reproductive: NONE Past Surgical History Surgical History: non-contributory Assessment/Plan Mental Status Mental Status Exam: I visited the patient briefly this morning, , to 02/27/2017, after she had received hydromorphone and clonazepam. She was able to have a brief conversation with me, but became somnolent, and unable to continue the interview. The patient was oriented to person, place, day and reason for visit. She denied auditory or visual hallucinations, and presented no gonzales delusions. The patient denied suicidal or homicidal ideation. Insight and judgment are moderate. Thought processes are logical and linear. Thought content is future oriented and goal directed, the patient mentioning that she would like to return to school. Lab Results: Laboratory Tests 07/19 07/19 0705 0515 Chemistry Sodium (137 - 145 mmol/L) 139 Potassium (3.5 - 5.1 mmol/L) 4.7 Chloride (98 - 107 mmol/L) 103 Carbon Dioxide (22 - 30 mmol/L) 29 Anion Gap (5 - 16) 7 BUN (7 - 17 mg/dL) 20 H Creatinine (0.5 - 1.0 mg/dL) 0.7 Estimated GFR (>60 ml/min) > 60 BUN/Creatinine Ratio (7 - 25 %) 28.6 H Hematology CBC w Diff NO MAN DIFF REQ WBC (4.8 - 10.8 /CUMM) 8.2 RBC (4.20 - 5.40 /CUMM) 3.67 L Hgb (12.0 - 16.0 G/DL) 8.8 L Hct (37 - 47 %) 26.7 L MCV (81.0 - 99.0 FL) 72.8 L MCH (27.0 - 31.0 PG) 24.0 L RDW (11.5 - 14.5 %) 15.4 H Plt Count (130 - 400 /CUMM) 358 MPV (7.4 - 10.4 FL) 7.3 L Gran % (42.2 - 75.2 %) 78.2 H Lymphocytes % (20.5 - 51.1 %) 14.3 L Monocytes % (1.7 - 9.3 %) 5.4 Eosinophils % (0 - 5 %) 1.8 Basophils % (0.0 - 2.0 %) 0.3 Absolute Granulocytes (1.4 - 6.5 /CUMM) 6.4 Absolute Lymphocytes (1.2 - 3.4 /CUMM) 1.2 Absolute Monocytes (0.10 - 0.60 /CUMM) 0.4 Absolute Eosinophils (0.0 - 0.7 /CUMM) 0.1 Absolute Basophils (0.0 - 0.2 /CUMM) 0 PUBS MCHC (33.0 - 37.0 G/DL) 33.0 Toxicology Urine Opiates Screen (>2000 NG/ML) > 4000.00 H Methadone Screen (>300 NG/ML) > 735 H Barbiturate Screen (>200 NG/ML) 62 Ur Phencyclidine Scrn (>25 NG/ML) 7.20 Amphetamines Screen (>1000 NG/ML) < 100 U Benzodiazepines Scrn (>200 NG/ML) < 85 Urine Cocaine Screen (>300 NG/ML) > 1000 H Urine Cannabis Screen (>50 NG/ML) 5.20 Urines Urinalysis LIGHT H Urine Color (YEL,AMB,STR) AYDE Urine Clarity (CLEAR) CLEAR Urine pH (5.0 - 8.0) 6.0 Ur Specific [place] (1.001 - 1.035) 1.025 Urine Protein (NEG,<30 MG/DL) TRACE H Urine Ketones (NEG) NEG Urine Nitrite (NEG) NEG Urine Bilirubin (NEG) NEG Urine Urobilinogen (0.1 - 1.0 EU/dl) 0.2 Ur Leukocyte Esterase (NEG) NEG Ur Microscopic SEDIMENT EXAMINED Urine RBC (0 - 5 /HPF) 50-75 H Urine WBC (0 - 2 /HPF) 5-10 H Ur Epithelial Cells (NONE,FEW) MANY H Urine Mucus (FEW,NONE) PACKD H Urine Hemoglobin (NEG) MOD H Urine Glucose (N MG/DL) NEG 07/18 07/18 1426 1426 Chemistry Sodium (137 - 145 mmol/L) 137 Potassium (3.5 - 5.1 mmol/L) 4.8 Chloride (98 - 107 mmol/L) 98 Carbon Dioxide (22 - 30 mmol/L) 29 Anion Gap (5 - 16) 10 BUN (7 - 17 mg/dL) 11 Creatinine (0.5 - 1.0 mg/dL) 0.6 Estimated GFR (>60 ml/min) > 60 BUN/Creatinine Ratio (7 - 25 %) 18.3 Glucose (65 - 99 mg/dL) 115 H Hemoglobin A1c (<5.7) 5.8 H Calcium (8.4 - 10.2 mg/dL) 8.6 Iron (37 - 170 ug/dL) 21 L TIBC (265 - 497 ug/dL) 274 Ferritin (6.24 - 137 ng/mL) 72.1 Total Bilirubin (0.2 - 1.3 mg/dL) 0.6 AST (14 - 36 U/L) 17 ALT (9 - 52 U/L) 26 Alkaline Phosphatase (<127 U/L) 114 C-Reactive Prot, Quant (<1.0 mg/dL) > 9.0 H C-React Prot High Sens (1.0 - 3.0 mg/L) > 15.0 H Total Protein (6.3 - 8.2 g/dL) 7.1 Albumin (3.5 - 5.0 g/dL) 3.2 L Globulin (1.9 - 4.2 gm/dL) 3.9 Albumin/Globulin Ratio (1.1 - 2.2 %) 0.8 L Vitamin B12 (239 - 931 pg/mL) 199 L 25-OH Vitamin D Total (30 - 100 ng/ml) 11.0 L Folate (2.76 - 20.0 ng/mL) 7.1 Total Beta HCG (NEGATIVE) NEGATIVE Hematology CBC w Diff NO MAN DIFF REQ WBC (4.8 - 10.8 /CUMM) 12.0 H RBC (4.20 - 5.40 /CUMM) 4.08 L Hgb (12.0 - 16.0 G/DL) 9.6 L Hct (37 - 47 %) 29.7 L MCV (81.0 - 99.0 FL) 72.8 L MCH (27.0 - 31.0 PG) 23.6 L RDW (11.5 - 14.5 %) 15.2 H Plt Count (130 - 400 /CUMM) 431 H MPV (7.4 - 10.4 FL) 6.9 L Gran % (42.2 - 75.2 %) 84.3 H Lymphocytes % (20.5 - 51.1 %) 10.9 L Monocytes % (1.7 - 9.3 %) 4.0 Eosinophils % (0 - 5 %) 0.6 Basophils % (0.0 - 2.0 %) 0.2 Absolute Granulocytes (1.4 - 6.5 /CUMM) 10.1 H Absolute Lymphocytes (1.2 - 3.4 /CUMM) 1.3 Absolute Monocytes (0.10 - 0.60 /CUMM) 0.5 Absolute Eosinophils (0.0 - 0.7 /CUMM) 0.1 Absolute Basophils (0.0 - 0.2 /CUMM) 0 PUBS MCHC (33.0 - 37.0 G/DL) 32.4 L ESR Westergren (0 - 20 MM) 122 H Serology Hepatitis A IgM Ab (NONREACTIVE) NONREACTIVE Hep Bs Antigen (NONREACTIVE) NONREACTIVE Hep B Core IgM Ab Conf (NONREACTIVE) NONREACTIVE Hepatitis C Antibody (NONREACTIVE) NONREACTIVE HIV 1&2 Ab Western Blot (NONREACTIVE) NONREACTIVE Diffential Diagnosis: Opiate dependence, severe Cocaine use disorder Cannabis use disorder By patient report bipolar spectrum disorder NOS Impression: I discussed our treatment for opiate withdrawal with the patient. We are not licensed to participate as a methadone maintenance facility, but we are able to provide interim dosing of methadone for withdrawal purposes, provided that this is taper to off before discharge. At this time, we do not know the length of the patient's stay, so we will proceed on the assumption that we can safely provide a 5 day taper from methadone. The patient indicates that she would like to call [facility] in [place], and arrange for a walk-in appointment when she is discharged, so that she can initiate methadone maintenance the same day. We hope to have a more complete interview with the patient tomorrow, Saturday, to 03/29/2017, as the patient was somnolent after receiving medications this morning, and went to the OR in the late morning, and was unavailable for further interview. EKG of 07/18/2016 at 2008: Sinus rhythm, 64 BPM, QTC 446 ms. Provisional Treatment Plan: 1. Please initiate the following methadone taper for opiate withdrawal: a. Methadone 20 mg PO 2 times per day for 2 doses, then b. Methadone 15 mg PO 2 times per day for 2 doses, then c. Methadone 10 mg PO 2 times per day for 2 doses, then d. Methadone 5 mg PO 2 times per day for 2 doses, then stop 2. Continue the following psychotropic medications, as reported in the medication claim history: a. Citalopram 40 mg by mouth daily b. Clonazepam 2 mg PO 2 times per day c. Aripiprazole 5 mg by mouth daily. Hold for cardiac arrhythmia or QTC greater than 475 ms. 3. We will try to contact the patient's psychiatric provider. We will continue to follow along with you, and anticipate visiting the patient tomorrow, to 03/29/2017. Thank you for asking us to participate in Sophia's care. Philip Estrada APRN, pager [phone].
[2016-07-19 21:43] VITALS: BP 126/64
[2016-07-20 06:23] VITALS: BP 120/68
--- NOTE | 2016-07-20 07:26 | PN- Housestaff ---
See Addendum Subjective Follow-up For: Bilateral feel osteomyelitis Subjective: Patient seen and examined at bedside this AM. She reports she feels well and offers no complaints. We have informed her that she will go back to the OR with Dr. Campbell on Saturday for closure of her wounds. Review of Systems Constitutional: Denies: chills, fever. EENTM: Denies: blurred vision, visual changes. Cardiovascular: Denies: chest pain. Respiratory: Denies: cough. Gastrointestinal: Denies: abdominal pain. Genitourinary: Denies: dysuria. Musculoskeletal: Reports: joint pain (Bilateral toes). Denies: back pain. Skin: Reports: lesions (S/P debridement by Shannan). Neurological/Psychological: Reports: anxiety. Denies: headache. Hematologic/Endocrine: Denies: bruising, bleeding. Objective Last 24 Hrs of Vital Signs/I&O Vital Signs Date Time Temp Pulse Resp B/P Pulse O2 O2 Flow FiO2 Ox Delivery Rate 07/20 0623 98.2 77 20 120/68 97 Room Air 07/19 2143 97.9 73 20 126/64 98 07/19 1647 95.7 64 18 104/70 95 Room Air Intake & Output 07/20 1600 07/20 0800 07/20 0000 Intake Total 500 850 Output Total 300 Balance 500 550 Intake, IV 250 Intake, Oral 500 600 Output, Urine 300 Physical Exam General Appearance: Alert, Oriented X3, Cooperative, No Acute Distress Skin: Bilateral feet covered in dry dressing s/p OR with Shannan HEENT: Atraumatic, Mucous Membr. moist/pink Neck: Supple, No JVD Lymphatic: Cervical nl Cardiovascular: Regular Rate, Normal S1, Normal S2 Lungs: Normal Air Movement Abdomen: Normal Bowel Sounds, Soft, Obese Neurological: Normal Speech, Normal Tone Extremities: No Clubbing, No Cyanosis, Track carney noted in B/L UE, + edema of BL LE Vascular: Pulses Symmetrical Current Medications: Current Medications Sig/Mainor Start time Last Medication Dose Route Stop Time Status Admin Acetaminophen 650 MG Q6P PRN 07/18 1999 AC 07/20 PO 110 Aripiprazole 5 MG DAILY 07/19 999 AC 07/20 PO 0807 Cholecalciferol 1,000 IU DAILY 07/19 999 AC 07/20 PO 0808 Citalopram 40 MG DAILY 07/19 999 AC 07/20 Hydrobromide PO 0807 Clonazepam 2 MG TID 07/18 2200 AC 07/20 PO 07/25 2159 0808 Cyanocobalamin 1,000 MCG DAILY 07/19 1042 AC 07/20 IM 07/23 1001 0811 Ergocalciferol 50,000 IU ONCE A WEEK 07/19 1100 AC 07/19 PO 1635 Fentanyl Citrate 200 MCG .STK-MED ONE 07/19 1326 DC IM 07/19 1327 Ferrous Sulfate 325 MG DAILY 07/19 1000 AC 07/20 PO 0807 Hydromorphone HCl 2 MG .STK-MED ONE 07/19 1533 DC IM 07/19 1534 Methadone HCl 5 MG BID 07/22 1000 UNVr PO 07/22 220 Methadone HCl 10 MG BID 07/21 1000 UNVr PO 07/21 220 Methadone HCl 15 MG BID 07/20 1000 r 07/20 PO 07/20 2300 0808 Methadone HCl 20 MG 0800,1700 07/19 0800 DC 07/19 PO 07/20 0000 1633 Midazolam HCl 2 MG .STK-MED ONE 07/19 1326 DC IM 07/19 1327 Morphine Sulfate 2 MG Q4-6 PRN PRN 07/19 1045 AC 07/20 IV 1102 Ondansetron HCl 4 MG ONCE ONE 07/19 1999 DC 07/19 IV 07/19 Patient Medication 1 ED .STK-MED ONE 07/19 1335 DC Teaching ED 07/19 1336 Vancomycin HCl 1,000 MG Q12 07/19 2199 AC 07/20 Dextrose/Water 250 ML IV 0809 Last 24 Hrs of Lab/Serafin Results Last 24 Hrs of Labs/Mics: Laboratory Tests 07/20/16 0640: CBC w Diff NO MAN DIFF REQ, RBC 3.69 L, MCV 73.0 L, MCH 24.0 L, RDW 15.5 H, MPV 7.3 L, Gran % 73.4, Lymphocytes % 17.9 L, Monocytes % 5.6, Eosinophils % 2.7, Basophils % 0.4, Absolute Granulocytes 5.4, Absolute Lymphocytes 1.3, Absolute Monocytes 0.4, Absolute Eosinophils 0.2, Absolute Basophils 0, PUBS MCHC 32.9 L Microbiology 07/19 1430 EXTREMITIE: Gross Specimen Examination - RECD 07/19 1430 EXTREMITIE: Gram Stain - RECD 07/19 1410 EXTREMITIE: Gross Specimen Examination - RECD 07/19 1410 EXTREMITIE: Gram Stain - RECD Orders Miscellaneous Findings: Left foot MRI: IMPRESSION: Limited examination because of significant motion artifact. Great toe: Probable osteomyelitis with pathologic fracture of the distal phalanx of the great toe. Second toe: Probable osteomyelitis of the middle and distal phalanx with destructive changes of the bone better depicted on prior radiographs. Postsurgical changes of the 3rd toe. No definite osteomyelitis. Fourth toe: Probable osteomyelitis of the middle and distal phalanx with overlying ulceration. Limited evaluation of the 5th toe. No definite osteomyelitis. Generalized myositis. Possible small fluid collection along the dorsal aspect of the 2nd metatarsal which could reflect a small abscess. Generalized edema and/or cellulitis of the soft tissues. RT Foot MRI: IMPRESSION: Limited examination because of marked motion artifact despite repeating sequences multiple times. The patient apparently could not hold still throughout the examination. Despite this limitation, there is some diagnostic information available. 2nd Toe: Probable ulceration and a sinus tract extending from the skin to the level of the 2nd metatarsophalangeal joint. The findings most compatible with osteomyelitis involving the proximal, middle and distal phalanges. Possible involvement of the metatarsophalangeal joint given the effusion, however, no definite involvement of the metatarsal. Great Toe: Findings indicative of osteomyelitis with destructive changes of the distal phalanx. Probable involvement of the proximal phalanx given the likely abnormal signal extending to the level of the metatarsophalangeal joint. There is also mild effusion of the metatarsophalangeal joint raising the question of concomitant septic arthritis, however, no definite involvement of the metatarsal. 3rd Toe: Findings most consistent with osteomyelitis involving the middle and distal phalanx without definite involvement proximal to this. Mild nonspecific effusion of the PIP joint and metatarsophalangeal joint. Limited evaluation of the 4th and 5th toes. No definite osteomyelitis. Questionable edema in the head of the 5th metatarsal of uncertain significance, this may simply reflect arthrosis. No effusion of the joint. Assessment/Plan Assessment: Ms. 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 Campbell for bilateral feet osteomyelitis. Patient noticed ulcers on bilateral big toes last Saturday, and since that time the ulcerations have worsened to include the soft tissue overlaying all her toes as well as have caused bilateral lower extremity edema, left greater than right. In the ED: Vital signs showed T 98.6, HR 85, RR 18, BP 126/77 and O2 saturation of 95% on RA. Labs showed leukocytosis to 12 without bandemia, microcytic anemia with H&H 9.6/29.7 and MCV 72.8, Plt 431, ESR 122, CRP > 9 and normal BEP. Beta- HCG is negative. Patient had right foot Xray showing significant soft tissue swelling and cortical destruction of first and second toes. Left foot Xray showed first toe osteomyelitis and likely 2nd toe osteomyelitis. Patient was admitted to the general medicine floor and the following is the management: 1. Osteomyelitis, bilateral feet with overlaying acute cellulitis * Podiatry consult with Dr. Campbell appreciated * B/L feet MRI shows probable osteomyelitis in several toes of BL feet * Patient POD#1 from debridement and partial resection of bilateral feet for osteomyelitis * Patient to be taken back to OR on [facility] with Dr. Campbell for further revision and closure of wounds * F/U biopsy results * Patient given IV unasyn in the ED * Will continue patient on Vancomycin 1 g IV Q12 H due to severity of infection * Monitor for fever, watch leukocytosis * For RLE edema/swelling, due to the fact that it is larger than the left, we ruled out DVT with negative RLE doppler * For pain, we will do IV morphine Q6P for moderate-severe pain and PO tylenol for mild pain * PT consult placed, f/u recommendations 2. IVDU * Patient counseled on risks of continued IVDU * Social work and psych consult placed, f/u recommendations * Patient requesting methadone 125 mg PO daily as this was her prior dose, however she has not been on methadone in several months * As per psych recommendations, we have started patient on a methadone taper: 20 mg x 2 doses, 15 mg x 2 doses, 10 mg x 2 doses, 5 mg x 2 doses then STOP (she will finish this while admitted0 * Monitor for withdrawl * Hepatitis panel nonreactive, HIV non-reactive 3. Bipolar depression * Continue abilify daily * Celexa 40 mg PO daily 4. Microcytic anemia * Patient notes normal menstrual cycles without significant bleeding * Iron studies normal except for low Fe, we have started ferrous sulfate daily 5. Peripher neuropathy * Vit B12 very low, patient reports she has been vegan for 10 years, likely contributing/causing bilateral peripheral neuropathy * Vit B12 injections 1,000 mcg daily due to low levels * Vit D 50,000 U PO 1 x week also ordered due to low levels * We have ordered HgA1C, 5.8, will have PCP monitor FULL CODE DVTP: Heparin SC CC2 diet Mild-severe pain pathway Problem List: 1. Osteomyelitis of foot, left, acute 2. Osteomyelitis of foot, right, acute 3. IV drug abuse Pain Ratin Pain Location: Bilateral feet Pain Goal: Pain 4 or less Pain Plan: Tylenol for mild pain, morphine for severe pain. Tomorrow's Labs & Rationales: BEP (worsening BUN), magnesium.
[2016-07-20 08:10] LABS: ABSOLUTE BASOPHIL COUNT 0 /CUMM (0.0-0.2); ABSOLUTE EOSINOPHIL COUNT 0.2 /CUMM (0.0-0.7); ABSOLUTE GRANULOCYTE CT 5.4 /CUMM (1.4-6.5); ABSOLUTE LYMPH COUNT 1.3 /CUMM (1.2-3.4); ABSOLUTE MONOCYTE COUNT 0.4 /CUMM (0.10-0.60); BASOPHIL % 0.4 % (0.0-2.0); EOSINOPHIL % 2.7 % (0-5); GRANULOCYTE % 73.4 % (42.2-75.2); MEAN CORPUSCULAR HGB CONC 32.9 G/DL (33.0-37.0); MEAN PLATELET VOLUME 7.3 FL (7.4-10.4); PLATELET COUNT 370 /CUMM (130-400); RBC DISTRIBUTION WIDTH 15.5 % (11.5-14.5); RED BLOOD CELL CT 3.69 /CUMM (4.20-5.40); WHITE BLOOD CELL COUNT 7.4 /CUMM (4.8-10.8)
--- NOTE | 2016-07-20 13:03 | NUR ---
PATIENT ASKED FOR MORE PAIN MEDICATION. CONTACTED MD HAMILTON SEBASTIAN TO ASK FOR MORE PAIN MEDICATION AND DR. SEBASTIAN DID NOT WANT TO PRESCRIBE ANTHING MORE THAN WHAT IS ORDERED. WILL CONTINUE TO MONITOR.
[2016-07-20 14:23] VITALS: BP 120/80
--- NOTE | 2016-07-20 18:19 | Cons- Infect Disease ---
General Information and HPI Consulting Request Date of Consult: 07/20/16 Requested By: RAIFTA ZAMORA MD Reason for Consult: Osteomyelitis of multiple toes of both feet Source of Information: patient History of Present Illness: This is a 41-year-old woman with a history of active IV drug abuse, peripheral neuropathy of unclear etiology, status post partial left third toe amputation over 1 1/2 years prior to admission, with chronic nonhealing ulcers of the first , second and third toes of the right foot and first, second and fourth toes of the left foot, admitted on July 18 after she was sent to the emergency room for further evaluation. On admission she was afebrile. Exam revealed purulent drainage from the right second toe. Laboratory data revealed a white blood cell count of 12,000, ESR 122, BUN/creatinine 11 and 0.6, with normal liver enzymes. Urinalysis 50-75 RBC/5-10 WBCs. Urine tox screen revealed cocaine, methadone and opiates/morphine. Dopplers of both lower extremities were negative. X-ray of the left foot revealed progressive changes in the distal phalanx of the first toe consistent with osteomyelitis and new change in the distal phalanx of the second toe. X-ray of the right foot revealed cortical destruction involving the distal phalanges of the first and second toes with cortical lucency along the lateral aspect of the distal phalanx of the third toe. MRI of the left foot revealed probable osteomyelitis of the first, second and fourth toes. MRI of the right foot revealed evidence of osteomyelitis of the first, second and third toes. She was initially given Unasyn and was then changed to Vancomycin. On July 19 she was taken to the OR for partial first, second and third ray resections of the right foot and partial first, second and fourth ray resections of the left foot. Postop she was continued on Vancomycin. She has remained afebrile since admission and white blood cell count quickly normalized. At present she reports mild discomfort in both feet. Allergies/Medications Allergies: Coded Allergies: Sulfa (Sulfonamide Antibiotics) (Severe, FACILA SWELLING 07/18/16) Home Med List: Aripiprazole 5 MG TABLET 1 TAB PO DAILY MENTAL HEALTH (Reported) Citalopram Hydrobromide (Citalopram HBr) 40 MG TABLET 1 TAB PO DAILY MENTAL HEALTH (Reported) Clonazepam 2 MG TABLET 1 TAB PO TID ANXIETY (Reported) Past History Travel History Traveled to [place] past 21 day No Medical History Blood Transfusion Hx: No Neurological: peripheral neuropathy EENT: NONE Cardiovascular: NONE Respiratory: NONE Gastrointestinal: NONE Hepatic: NONE Renal: NONE Musculoskeletal: NONE Psychiatric: bipolar disease, IV drug abuse, heroin addiction Endocrine: hypothyroidism Blood Disorders: NONE Cancer(s): NONE CHIEF WARDEN/Reproductive: NONE History of MRSA: No History of VRE: No History of CDIFF: No Isolation History: Standard Surgical History Surgical History: status post partial amputation of the left third toe Psychosocial History Where Do You Live? Home Who Do You Live With? 2 roomates Services at Home: None Primary Language: Romansh Smoking Status: Former Smoker ETOH Use: denies use Illicit Drug Use: heroin Living Will? no Functional Ability ADLs Independent: dressing, eating, toileting, bathing. Ambulation: independent Sexual History Sexually Active: Yes Employment History Employment: Disability Review of Systems Review of Systems All Other Systems: Reviewed and Negative Exam & Diagnostic Data Last 24 Hrs of Vital Signs/I&O Vital Signs Date Time Temp Pulse Resp B/P Pulse O2 O2 Flow FiO2 Ox Delivery Rate 07/20 1423 98.1 58 18 120/80 99 Room Air 07/20 0623 98.2 77 20 120/68 97 Room Air 07/19 2143 97.9 73 20 126/64 98 Intake & Output 07/20 1600 07/20 0800 07/20 0000 Intake Total 850 500 850 Output Total 300 Balance 850 500 550 Intake, IV 250 250 Intake, Oral 600 500 600 Output, Urine 300 Physical Exam Other Physical Findings: She is lethargic, dozing off periodically, but easily arousable and in no acute distress. She is afebrile. Skin reveals track carney. HEENT exam is negative. Neck is supple with no adenopathy. Lungs are clear. Heart regular rhythm with no murmur. Abdomen is obese, soft, nontender with positive bowel sounds. Back no CVA tenderness. Extremities dressings intact over both feet. Neuro is without focality. Last 24 Hours of Lab Results: Laboratory Tests 07/20 0640 Hematology CBC w Diff NO MAN DIFF REQ WBC (4.8 - 10.8 /CUMM) 7.4 RBC (4.20 - 5.40 /CUMM) 3.69 L Hgb (12.0 - 16.0 G/DL) 8.9 L Hct (37 - 47 %) 27.0 L MCV (81.0 - 99.0 FL) 73.0 L MCH (27.0 - 31.0 PG) 24.0 L RDW (11.5 - 14.5 %) 15.5 H Plt Count (130 - 400 /CUMM) 370 MPV (7.4 - 10.4 FL) 7.3 L Gran % (42.2 - 75.2 %) 73.4 Lymphocytes % (20.5 - 51.1 %) 17.9 L Monocytes % (1.7 - 9.3 %) 5.6 Eosinophils % (0 - 5 %) 2.7 Basophils % (0.0 - 2.0 %) 0.4 Absolute Granulocytes (1.4 - 6.5 /CUMM) 5.4 Absolute Lymphocytes (1.2 - 3.4 /CUMM) 1.3 Absolute Monocytes (0.10 - 0.60 /CUMM) 0.4 Absolute Eosinophils (0.0 - 0.7 /CUMM) 0.2 Absolute Basophils (0.0 - 0.2 /CUMM) 0 PUBS MCHC (33.0 - 37.0 G/DL) 32.9 L Last 24 Hours of Serafin Results: Blood cultures 2 July 18 negative OR cultures of the right foot and left foot July 19 pending Diagnostic Data Recent Imaging Findings: X-ray of the left foot revealed progressive changes in the distal phalanx of the first toe consistent with osteomyelitis and new change in the distal phalanx of the second toe. X-ray of the right foot revealed cortical destruction involving the distal phalanges of the first and second toes with cortical lucency along the lateral aspect of the distal phalanx of the third toe. MRI of the left foot revealed probable osteomyelitis of the first, second and fourth toes. MRI of the right foot revealed evidence of osteomyelitis of the first, second and third toes. Assessment/Plan Assessment/Plan Impression: This is a 41-year-old woman, active IV drug abuser, with a history of a peripheral neuropathy, admitted on July 18 with chronic ulcerations of multiple toes of both feet, with x-ray and MRI evidence of osteomyelitis involving the left first, second and fourth toes and the right first, second and third toes, status post amputations of these toes yesterday, with cultures pending. Based on her MRI and OR findings there was extension of the infection to the metatarsophalangeal joints; therefore she will likely require a prolonged course of IV antibiotics (i.e. 4 weeks) postop. She can be continued on Vancomycin pending OR cultures. Suggestion: 1. Follow-up OR cultures 2. Await return to the OR next week 3. Will likely require a PICC 4. Continue Vancomycin pending above Joy Aviles MD will be covering me until July 30 Consult Acknowledgment - Thank you for your consult request.
--- NOTE | 2016-07-20 20:36 | PN- Psychiatry ---
Assessment/Plan Impression: Yesterday, when we initiated the methadone taper, we assumed a 5 day length of stay, with the understanding that the taper would be completed by the time of discharge. We understand as of today that the patient will be here probably through Saturday after noon, as she is having her wounds closed and her feet on Saturday. The patient is in agreement to enter into methadone maintenance, and reports that she can walk into [facility] methadone clinic in [place] and be treated the same day, which will likely occur on Saturday. The patient is in agreement to extend her methadone taper through Saturday. If the patient needs an additional dose of methadone 5 mg to last through Saturday evening, before presenting at the methadone clinic, that will be acceptable. Suggestion: 1. I have reinitiated the methadone taper today, : a. Methadone 20 mg PO 2 times per day for 2 doses beginning 07/20/2016 2200, then b. Methadone 15 mg PO 2 times per day for 2 doses beginning 07/21/2016 2200, then c. Methadone 10 mg PO 2 times per day for 2 doses beginning 07/22/2016 2200, then d. Methadone 5 mg PO 2 times per day for 2 doses beginning 07/23/2016 2200, then stop 2. If the patient needs an additional one or two doses of methadone 5 mg for 07/24/2016, to cover her until presentation to [facility] on Saturday, that will be acceptable. We will be available to review the scheduled with you in the patient on Saturday or Saturday next week. 3. Please continue aripiprazole 5 mg by mouth daily for bipolar disorder 4. Please continue citalopram 40 mg by mouth daily for bipolar depression 5. Please change the clonazepam to 2 mg PO 2 times per day, beginning on 2016. This is the home dosing listed in the medication claim history. We will continue to follow along with you. Philip Estrada APRN, pager [phone]. Subjective Subjective: The patient is alert and oriented, sitting on her bed calmly. She denies suicidal or homicidal ideation. She denies auditory or visual hallucinations, and presents no gonzales delusions.
--- NOTE | 2016-07-20 22:20 | NUR ---
DRESSING REINFORCED TO RIGHT LOWER EXTREMITY. DR. SHEPHERD NOTIFIED THAT THERE WAS SOME OLD BLOODY DRAINAGE ON DRESSING NO ACTIVE BLEEDING. NO NEW ORDERS AT THIS TIME. wILL CONTINUE TO MONITOR.
[2016-07-20 22:54] VITALS: BP 118/70
[2016-07-21 07:01] VITALS: BP 112/86
--- NOTE | 2016-07-21 13:40 | PN- Housestaff ---
Subjective Follow-up For: Osteomyelitis Subjective: Patient seen and examined at bedside. She appears mildly sedated and was asleep while seated on the bed. He was awakened by her simple verbal commands and she was oriented 3. Does not endorse any acute complaint of chest pain, palpitations, shortness of breath, fever, chills, abdominal pain, nausea, vomiting. Review of Systems Constitutional: Reports: no symptoms. Objective Last 24 Hrs of Vital Signs/I&O Vital Signs Date Time Temp Pulse Resp B/P Pulse O2 O2 Flow FiO2 Ox Delivery Rate 07/21 1505 98.9 74 20 122/74 96 07/21 0701 97.9 76 18 112/86 97 Room Air 07/20 2254 97.8 76 18 118/70 97 Room Air Intake & Output 07/21 1600 07/21 0800 07/21 0000 Intake Total 1600 390 Output Total Balance 1600 390 Intake, IV 270 Intake, Oral 1600 120 Physical Exam General Appearance: Alert, Oriented X3, appears mildly sedated Other Physical Findings: Skin: Bilateral feet covered in dry dressing s/p OR with Shannan HEENT: Atraumatic, Mucous Membr. moist/pink Neck: Supple, No JVD Lymphatic: Cervical nl Cardiovascular: Regular Rate, Normal S1, Normal S2 Lungs: Normal Air Movement Abdomen: Normal Bowel Sounds, Soft, Obese Neurological: Normal Speech, Normal Tone Extremities: No Clubbing, No Cyanosis, Track carney noted in B/L UE, + edema of BL LE Vascular: Pulses Symmetric Assessment/Plan Assessment: Ms. 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 Campbell for bilateral feet osteomyelitis. Patient noticed ulcers on bilateral big toes last Saturday, and since that time the ulcerations have worsened to include the soft tissue overlaying all her toes as well as have caused bilateral lower extremity edema, left greater than right. Patient was admitted to the general medicine floor and the following is the management: 1. Osteomyelitis, bilateral feet with overlaying acute cellulitis * Podiatry on board (appreciated) * Patient POD#2 from debridement and partial resection of bilateral feet for osteomyelitis * OR cultures are positive for staph aureus and group B strep. Current coverage is vancomycin will consider 2. IVDU * Patient counseled on risks of continued IVDU * Social work and psych consult placed, f/u recommendations * Patient requesting methadone 125 mg PO daily as this was her prior dose, however she has not been on methadone in several months * As per psych recommendations, we have started patient on a methadone taper: 20 mg x 2 doses, 15 mg x 2 doses, 10 mg x 2 doses, 5 mg x 2 doses then STOP (she will finish this while admitted0 * Monitor for withdrawl * Hepatitis panel nonreactive, HIV non-reactive 3. Bipolar depression * Continue abilify daily * Celexa 40 mg PO daily 4. Microcytic anemia * Patient notes normal menstrual cycles without significant bleeding * Iron studies normal except for low Fe, we have started ferrous sulfate daily 5. Peripher neuropathy * Vit B12 very low, patient reports she has been vegan for 10 years, likely contributing/causing bilateral peripheral neuropathy * Vit B12 injections 1,000 mcg daily due to low levels * Vit D 50,000 U PO 1 x week also ordered due to low levels FULL CODE DVTP: Heparin SC CC2 diet Mild-severe pain pathway Problem List: 1. Osteomyelitis of foot, right, acute 2. Osteomyelitis of foot, left, acute Pain Ratin Pain Location: Leg Pain Goal: Pain 4 or less Pain Plan: Patient is already on methadone Tomorrow's Labs & Rationales: BEP-ON VANC
--- NOTE | 2016-07-21 14:48 | PN- Att Addend ---
Attending MD Review Statement Attending Statement Attending MD Statement: examined this patient, discuss w/resident/PA/CUSTOMER EXPERIENCE CONSULTANT, agreed w/resident/PA/CUSTOMER EXPERIENCE CONSULTANT, reviewed EMR data (avail), discussed w/nursing Attending Assessment/Plan: Laboratory Tests 07/21 06 Chemistry Sodium (137 - 145 mmol/L) 141 Potassium (3.5 - 5.1 mmol/L) 4.2 Chloride (98 - 107 mmol/L) 102 Carbon Dioxide (22 - 30 mmol/L) 32 H Anion Gap (5 - 16) 8 BUN (7 - 17 mg/dL) 13 Creatinine (0.5 - 1.0 mg/dL) 0.7 Estimated GFR (>60 ml/min) > 60 BUN/Creatinine Ratio (7 - 25 %) 18.6 Magnesium (1.6 - 2.3 mg/dL) 2.0 Microbiology 07/19 1429 EXTREMITIE: Gross Specimen Examination - RES STAPH AUREUS BETA STREP GROUP B 07/19 1429 EXTREMITIE: Gram Stain - RES 07/19 1409 EXTREMITIE: Gross Specimen Examination - RES STAPH AUREUS BETA STREP GROUP B 07/19 1409 EXTREMITIE: Gram Stain - RES Vital Signs Date Time Temp Pulse Resp B/P Pulse O2 O2 Flow FiO2 Ox Delivery Rate 07/21 0701 97.9 76 18 112/86 97 Room Air 07/20 2254 97.8 76 18 118/70 97 Room Air Pt admitted with non healing wounds on toes of both feets.found to have osteomyelitis of toes on both feets on MRI. A/p- Osteomyleitis of both feet toes-Went to OR 07/19- underwent amputation and partial ray resection of multiple toes both feet. Cont iv vancomycin. IVDU with heroin iv abuse- cont methadone taper for now. Cont prn morphine for pain. d/w pt the improtance of quitting iv drug use . Pt wants to have dilaudid but gets very drowsy with dilaudid so explained her that we are not putting her back on dilaudid. Vit B12 def- started on b12 shots. Vit D def- cont on high dose supplementation.
[2016-07-21 15:05] VITALS: BP 122/74
--- NOTE | 2016-07-21 15:15 | PN- Infect Dx ---
Subjective Subjective: No fever. B/l feet mild discomfort. No BM today. Review of Systems Comments: 10 points reviewed as noted, otherwise negative. Objective Last 24 Hrs of Vital Signs/I&O Vital Signs Date Time Temp Pulse Resp B/P Pulse O2 O2 Flow FiO2 Ox Delivery Rate 07/21 1505 98.9 74 20 122/74 96 07/21 0701 97.9 76 18 112/86 97 Room Air 07/20 2254 97.8 76 18 118/70 97 Room Air Intake & Output 07/21 1600 07/21 0800 07/21 0000 Intake Total 1600 390 Output Total Balance 1600 390 Intake, IV 270 Intake, Oral 1600 120 Physical Exam Other Physical Findings: NAD; well nourished. She is afebrile. Skin reveals track carney. HEENT exam is negative. Neck is supple with no adenopathy. Lungs are clear. Heart regular rhythm with no murmur. Abdomen is soft, nontender with positive bowel sounds. Back no CVA tenderness. Extremities dressings intact over both feet. Neuro A&O x3, no CN deficit. Results Last 24 Hours of Lab Results: Laboratory Tests 07/21 06 Chemistry Sodium (137 - 145 mmol/L) 141 Potassium (3.5 - 5.1 mmol/L) 4.2 Chloride (98 - 107 mmol/L) 102 Carbon Dioxide (22 - 30 mmol/L) 32 H Anion Gap (5 - 16) 8 BUN (7 - 17 mg/dL) 13 Creatinine (0.5 - 1.0 mg/dL) 0.7 Estimated GFR (>60 ml/min) > 60 BUN/Creatinine Ratio (7 - 25 %) 18.6 Magnesium (1.6 - 2.3 mg/dL) 2.0 Last 24 Hours of Serafin Results: SPEC #: [id number] TRISTIAN: 07/19/16 STATUS: RES RECD: 07/19/[address]: GRACE ARRIAZA DPM SOURCE: EXTREMITIE ENTR: 07/19/16-[address]: NOAH PACHECO, RAFITA Menendez SPDESC: FOOT R SAVANNAH PACHECO,MELIA Lobo PATIENT HAS NO PRIMARY CARE DR ORDERED: XTRMOR COMMENT: ADDITIONAL INFORMATION: RIGHT FOOT BONE CULTURE Procedure Result > GRAM STAIN Final 07/21/16-1246 WHITE BLOOD CELLS NONE GRAM POSITIVE COCCI MODERATE IN CHAINS GRAM NEGATIVE RODS FEW > EXTREMITIES OR SPECIMEN Preliminary 07/21/16-1346 Heavy growth of: 1.STAPH AUREUS ISOLATED NOTE THIS IS A PRELIMINARY REPORT: IF: patient has had significant exposure to a healthcare setting in the past three (3) months, THEN: suspect Methicillin Resistant Staph aureus and place patient on Contact precautions PENDING susceptibility results TO FOLLOW 2.BETA STREP GROUP B Penicillin and Ampicillin are drugs of choice for beta-hemolytic streptococcal infections. Susceptibility testing of penicillins and other beta-lactams are not routinely performed because non-susceptible isolates have only rarely been reported. Note: If patient is allergic to Penicillin, the laboratory can perform Clindamycin testing upon request. Please call within 5 days of final report. Called to/Readback by ABRIL by [facility] 07/21/16 1340 Recent Imaging Studies: [facility] DATE: 07/18/16-1720 EXAM TYPE: MRI - MRI-LT FOOT W/O NOEL EXAMINATION: MR FOOT WITHOUT CONTRAST, LEFT CLINICAL INFORMATION: Osteomyelitis. COMPARISON: X-ray of the left foot performed same day. MRI and x-ray of the right foot performed same day. TECHNIQUE: MRI of the left foot was performed without contrast. Sequences were modified in an attempt to decrease motion artifact as the patient was unable to hold still throughout the examination. Because of the artifact, the exam is significantly limited with respect to the diagnostic information available. Despite this limitation, there is some information present. FINDINGS: GREAT TOE: Heterogeneous abnormal signal throughout the poorly visualized distal phalanx. Given the appearance of a fracture on radiographs, this is compatible with reactive change related to a fracture and/or pathologic fracture related to osteomyelitis. There does appear to be some overlying abnormality in the plantar aspect of the toe in the distal phalanx which could reflect chronic fibrotic inflammatory change. The distal phalanx is slightly plantar subluxed at the IP joint. Mild minimal effusion of the IP joint. Marrow signal of the proximal phalanx and the 1st metatarsal appears intact. 2ND TOE: Limited evaluation because of artifact. Diffuse abnormal signal involving the middle and distal phalanx if still present. This corresponds to the area of fracture on radiographs. Some of the abnormal signal may be related to reactive changes related to the fracture; however, in the clinical setting presented, osteomyelitis with pathologic fracture is likely. The marrow signal in the proximal phalanx and metatarsal is intact. There may be some overlying inflammatory changes in the plantar soft tissues. 3RD TOE: No definite abnormal signal in the remaining portion of the toe. There appears to been surgery with amputation distal to the PIP joint. This could be confirmed clinically. 4TH TOE: Diffuse signal abnormality within the middle and distal phalanx with comminuted overlying soft tissue abnormality circumferentially. This likely reflects osteomyelitis and overlying soft tissue infection/cellulitis. Questionable ulceration at the tip of the toe measuring approximately 1 cm. The marrow signal in the proximal phalanx and metatarsal appears to be intact. There is a mild effusion of the 4th metatarsophalangeal joint of uncertain significance. 5TH TOE: Limited evaluation because of the artifact. No definite marrow signal or joint abnormality. MUSCLES/TENDONS: Diffuse signal abnormality within the muscles of the foot compatible with myositis. A small 5 mm fluid collection along the dorsal musculature overlying the mid portion of the 2nd metatarsal which may reflect a small abscess (see axial image 1, series 6). SUBCUTANEOUS SOFT TISSUES: Diffuse signal abnormality throughout the subcutaneous soft tissues, particularly dorsally, which could reflect a combination of cellulitis and/or edema. No localized fluid collection. IMPRESSION: Limited examination because of significant motion artifact. Great toe: Probable osteomyelitis with pathologic fracture of the distal phalanx of the great toe. Second toe: Probable osteomyelitis of the middle and distal phalanx with destructive changes of the bone better depicted on prior radiographs. Postsurgical changes of the 3rd toe. No definite osteomyelitis. Fourth toe: Probable osteomyelitis of the middle and distal phalanx with overlying ulceration. Limited evaluation of the 5th toe. No definite osteomyelitis. Generalized myositis. Possible small fluid collection along the dorsal aspect of the 2nd metatarsal which could reflect a small abscess. Generalized edema and/or cellulitis of the soft tissues. DICTATED BY: CLAUDIA FINNEY MD DATE/TIME DICTATED:07/19/16834 ROUTE SUPERVISOR:TRICIA DATE/TIME TRANSCRIBED:07/19/16834 CONFIDENTIAL, DO NOT COPY WITHOUT APPROPRIATE AUTHORIZATION. <Electronically signed in Other Vendor System> SIGNED BY: CLAUDIA FINNEY MD 07/19 0941 Assessment/Plan Impression: 41-year-old woman, active IV drug abuser, with a history of a peripheral neuropathy, admitted on July 18 with chronic ulcerations of multiple toes of both feet, with x-ray and MRI evidence of osteomyelitis involving the left first , second and fourth toes and the right first, second and third toes, status post amputations of these toes on 07/19/16, with cultures + s. aureus S pending and Strep gr B. Based on MRI and OR findings there was extension of the infection to the metatarsophalangeal joints; therefore she will likely require a prolonged course of IV antibiotics (i.e. 4-6 weeks postop). Suggestion: 1. Follow-up OR cultures (S. aureus sensitivity) 2. Awaits return to the OR next week 3. Will likely require a PICC. 4. Continue Vancomycin pending above; dose per pharmacy; goal trough 15-20.
[2016-07-21 22:46] VITALS: BP 122/62
[2016-07-22 06:46] VITALS: BP 110/60
--- NOTE | 2016-07-22 07:59 | PN- Housestaff ---
Subjective Follow-up For: Bilateral osteomyelitis Subjective: Patient is seen and examined at bedside. Patient still appears somewhat drowsy , but she is easily awakened and is alert and oriented. He does not offer any acute complaints including fever, chills, increased foot pain, palpitation, chest pain, abdominal pain or dysuria. No acute overnight event reported by nursing staff. Review of Systems Constitutional: Reports: no symptoms. Objective Last 24 Hrs of Vital Signs/I&O Vital Signs Date Time Temp Pulse Resp B/P Pulse O2 O2 Flow FiO2 Ox Delivery Rate 07/22 1451 98.0 82 20 120/64 92 07/22 0800 Room Air 07/22 0646 98.3 75 18 110/60 95 Room Air 07/21 2246 98.3 74 20 122/62 97 Room Air Intake & Output 07/22 1600 07/22 0800 07/22 0000 Intake Total 217 237 0417 Output Total Balance 674 082 2574 Intake, IV 250 300 270 Intake, Oral 251 079 3855 Number 1 Bowel Movements Physical Exam General Appearance: Oriented X3, Cooperative, somewhat drowsy Other Physical Findings: Skin: Bilateral feet covered in dry dressing s/p OR with Shannan HEENT: Atraumatic, Mucous Membr. moist/pink Neck: Supple, No JVD Lymphatic: Cervical nl Cardiovascular: Regular Rate, Normal S1, Normal S2 Lungs: Normal Air Movement Abdomen: Normal Bowel Sounds, Soft, Obese Neurological: Normal Speech, Normal Tone Extremities: No Clubbing, No Cyanosis, Track carney noted in B/L UE, + edema of BL LE Vascular: Pulses Symmetric Current Medications: Current Medications Sig/Mainor Start time Last Medication Dose Route Stop Time Status Admin Acetaminophen 650 MG .STK-MED ONE 07/22 0419 DC PO 07/22 0420 Acetaminophen 650 MG Q6P PRN 07/18 1999 AC 07/22 PO 0422 Aripiprazole 5 MG DAILY 07/19 999 AC 07/22 PO 1016 Cholecalciferol 1,000 IU DAILY 07/19 1000 AC 07/22 PO 1016 Citalopram 40 MG DAILY 07/19 1000 AC 07/22 Hydrobromide PO 1016 Clonazepam 2 MG TID 07/18 2200 AC 07/22 PO 07/25 2159 1016 Cyanocobalamin 1,000 MCG DAILY 07/19 1042 AC 07/22 IM 07/23 1001 1017 Ergocalciferol 50,000 IU ONCE A WEEK 07/19 1100 AC 07/19 PO 1635 Ferrous Sulfate 325 MG DAILY 07/19 1000 AC 07/22 PO 1016 Methadone HCl 5 MG BID 07/23 2199 AC PO 07/24 1001 Methadone HCl 10 MG BID 07/22 2200 AC PO 07/23 1001 Methadone HCl 15 MG BID 07/21 2200 DC 07/22 PO 07/22 1001 1017 Morphine Sulfate 2 MG Q6P PRN 07/20 1300 AC 07/22 IV 0607 Nicotine 14 MG DAILY 07/20 1644 AC 07/22 TOP 1016 Vancomycin HCl 1,000 MG Q8 07/22 0600 AC 07/22 Dextrose/Water 250 ML IV 1309 Vancomycin HCl 1,000 MG Q12 07/19 2200 DC 07/21 Dextrose/Water 250 ML IV 07/28 2300 2245 Last 24 Hrs of Lab/Serafin Results Last 24 Hrs of Labs/Mics: Laboratory Tests 07/22/16 0615: Anion Gap 8, Estimated GFR > 60, BUN/Creatinine Ratio 11.4, CBC w Diff NO MAN DIFF REQ, RBC 3.89 L, MCV 72.1 L, MCH 24.1 L, RDW 14.8 H, MPV 7.0 L, Gran % 55.9, Lymphocytes % 33.7, Monocytes % 5.4, Eosinophils % 4.5, Basophils % 0.5, Absolute Granulocytes 3.8, Absolute Lymphocytes 2.3, Absolute Monocytes 0.4, Absolute Eosinophils 0.3, Absolute Basophils 0, PUBS MCHC 33.5 07/21/162124: Vancomycin Trough 7.2 L Assessment/Plan Assessment: Ms. 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 Campbell for bilateral feet osteomyelitis. Patient noticed ulcers on bilateral big toes last Saturday, and since that time the ulcerations have worsened to include the soft tissue overlaying all her toes as well as have caused bilateral lower extremity edema, left greater than right. Patient was admitted to the general medicine floor and the following is the management: 1. Osteomyelitis, bilateral feet with overlaying acute cellulitis * Podiatry on board (appreciated) * Patient POD#3from debridement and partial resection of bilateral feet for osteomyelitis * Switch vancomycin to 1 g every 8 hours per ID recommendation based on low trough level * OR cultures are positive for staph aureus and group B strep. Current coverage is vancomycin which is sufficient for coverage of both bugs. 2. IVDU * Patient counseled on risks of continued IVDU * Social work and psych consult placed, f/u recommendations * Patient requesting methadone 125 mg PO daily as this was her prior dose, however she has not been on methadone in several months * As per psych recommendations, we have started patient on a methadone taper: 20 mg x 2 doses, 15 mg x 2 doses, 10 mg x 2 doses, 5 mg x 2 doses then STOP (she will finish this while admitted * Monitor for withdrawl * Hepatitis panel nonreactive, HIV non-reactive 3. Bipolar depression * Continue abilify daily * Celexa 40 mg PO daily 4. Microcytic anemia * Patient notes normal menstrual cycles without significant bleeding * Iron studies normal except for low Fe, we have started ferrous sulfate daily 5. Peripher neuropathy * Vit B12 very low, patient reports she has been vegan for 10 years, likely contributing/causing bilateral peripheral neuropathy * Vit B12 injections 1,000 mcg daily due to low levels * Vit D 50,000 U PO 1 x week also ordered due to low levels FULL CODE DVTP: Heparin SC CC2 diet Mild-severe pain pathway Problem List: 1. Osteomyelitis of foot, left, acute 2. Osteomyelitis of foot, right, acute Pain Ratin Pain Location: Foot Pain Goal: Remain pain free Pain Plan: Cerumen for for mild pain Patient already on methadone which will be sufficient for moderate pain Tomorrow's Labs & Rationales: BEP-vancomycin CBC trending leukocytosis Vanco trough-therapeutic monitoring
[2016-07-22 09:21] LABS: ABSOLUTE BASOPHIL COUNT 0 /CUMM (0.0-0.2); ABSOLUTE EOSINOPHIL COUNT 0.3 /CUMM (0.0-0.7); ABSOLUTE GRANULOCYTE CT 3.8 /CUMM (1.4-6.5); ABSOLUTE LYMPH COUNT 2.3 /CUMM (1.2-3.4); ABSOLUTE MONOCYTE COUNT 0.4 /CUMM (0.10-0.60); BASOPHIL % 0.5 % (0.0-2.0); EOSINOPHIL % 4.5 % (0-5); GRANULOCYTE % 55.9 % (42.2-75.2); HEMATOCRIT 28.1 % (37-47); MEAN CORPUSCULAR HGB 24.1 PG (27.0-31.0); MEAN CORPUSCULAR HGB CONC 33.5 G/DL (33.0-37.0); MEAN CORPUSCULAR VOLUME 72.1 FL (81.0-99.0); PLATELET COUNT 429 /CUMM (130-400); RBC DISTRIBUTION WIDTH 14.8 % (11.5-14.5); RED BLOOD CELL CT 3.89 /CUMM (4.20-5.40); WHITE BLOOD CELL COUNT 6.8 /CUMM (4.8-10.8)
--- NOTE | 2016-07-22 12:16 | PN- Infect Dx ---
Subjective Subjective: No new c/o. denies fever, chills, abd pain, cough. Comfortable. Review of Systems Comments: 10 points reviewed as noted, otherwise negative. Objective Last 24 Hrs of Vital Signs/I&O Vital Signs Date Time Temp Pulse Resp B/P Pulse O2 O2 Flow FiO2 Ox Delivery Rate 07/22 0800 Room Air 07/22 0646 98.3 75 18 110/60 95 Room Air 07/21 2246 98.3 74 20 122/62 97 Room Air 07/21 1505 98.9 74 20 122/74 96 Intake & Output 07/22 1600 07/22 0800 07/22 0000 Intake Total 800 2770 Output Total Balance 800 2770 Intake, IV 300 270 Intake, Oral 500 2500 Physical Exam Other Physical Findings: NAD; well nourished. She is afebrile. Skin reveals track carney. HEENT exam is negative. Neck is supple with no adenopathy. Lungs are clear. Heart regular rhythm with no murmur. Abdomen is soft, nontender with positive bowel sounds. Back no CVA tenderness. Extremities dressings intact over both feet. Neuro A&O x3, no CN deficit. Results Last 24 Hours of Lab Results: Laboratory Tests 07/22 07/21 0615 2125 Chemistry Sodium (137 - 145 mmol/L) 138 Potassium (3.5 - 5.1 mmol/L) 4.7 Chloride (98 - 107 mmol/L) 101 Carbon Dioxide (22 - 30 mmol/L) 29 Anion Gap (5 - 16) 8 BUN (7 - 17 mg/dL) 8 Creatinine (0.5 - 1.0 mg/dL) 0.7 Estimated GFR (>60 ml/min) > 60 BUN/Creatinine Ratio (7 - 25 %) 11.4 Hematology CBC w Diff NO MAN DIFF REQ WBC (4.8 - 10.8 /CUMM) 6.8 RBC (4.20 - 5.40 /CUMM) 3.89 L Hgb (12.0 - 16.0 G/DL) 9.4 L Hct (37 - 47 %) 28.1 L MCV (81.0 - 99.0 FL) 72.1 L MCH (27.0 - 31.0 PG) 24.1 L RDW (11.5 - 14.5 %) 14.8 H Plt Count (130 - 400 /CUMM) 429 H MPV (7.4 - 10.4 FL) 7.0 L Gran % (42.2 - 75.2 %) 55.9 Lymphocytes % (20.5 - 51.1 %) 33.7 Monocytes % (1.7 - 9.3 %) 5.4 Eosinophils % (0 - 5 %) 4.5 Basophils % (0.0 - 2.0 %) 0.5 Absolute Granulocytes (1.4 - 6.5 /CUMM) 3.8 Absolute Lymphocytes (1.2 - 3.4 /CUMM) 2.3 Absolute Monocytes (0.10 - 0.60 /CUMM) 0.4 Absolute Eosinophils (0.0 - 0.7 /CUMM) 0.3 Absolute Basophils (0.0 - 0.2 /CUMM) 0 PUBS MCHC (33.0 - 37.0 G/DL) 33.5 Toxicology Vancomycin Trough (10.0 - 20.0 ug/mL) 7.2 L Last 24 Hours of Serafin Results: SPEC #: [id number] TRISTIAN: 07/19/16 STATUS: RES RECD: 07/19/[address]: GARCE ARRIAZA DPM SOURCE: [facility] ENTR: 07/19/[address]: NOAH PACHECO, RAFITA Menendez SPDESC: FOOT LEFT SAVANNAH PACHECO,MELIA Lobo PATIENT HAS NO PRIMARY CARE DR ORDERED: XTRMOR COMMENT: ADDITIONAL INFORMATION: LEFT FOOT BONE CULTURE Procedure Result > GRAM STAIN Final 07/21/16-1247 WHITE BLOOD CELLS NONE GRAM POSITIVE COCCI MODERATE IN CHAINS > EXTREMITIES OR SPECIMEN Preliminary 07/21/16-1344 Heavy growth of: 1.STAPH AUREUS ISOLATED NOTE THIS IS A PRELIMINARY REPORT: IF: patient has had significant exposure to a healthcare setting in the past three (3) months, THEN: suspect Methicillin Resistant Staph aureus and place patient on Contact precautions PENDING susceptibility results TO FOLLOW 2.BETA STREP GROUP B Penicillin and Ampicillin are drugs of choice for beta-hemolytic streptococcal infections. Susceptibility testing of penicillins and other beta-lactams are not routinely performed because non-susceptible isolates have only rarely been reported. Note: If patient is allergic to Penicillin, the laboratory can perform Clindamycin testing upon request. Please call within 5 days of final report. Called to/Readback by ABRIL by [facility] 07/21/16 3664 Recent Imaging Studies: N/A Assessment/Plan Impression: 41-year-old woman, active IV drug abuser, with a history of a peripheral neuropathy, anemia, bipolar disorder admitted on July 18 with chronic ulcerations of multiple toes of both feet, with x-ray and MRI evidence of cellulitris/osteomyelitis involving the left first, second and fourth toes and the right first, second and third toes, status post amputations of these toes on 07/19/16, with cultures + S. aureus S pending and Strep gr B. Based on MRI and OR findings there was extension of the infection to the metatarsophalangeal joints; will require a prolonged course of IV antibiotics (i.e. 4-6 weeks postop). Suggestion: 1. Follow-up OR cultures (S. aureus sensitivity still pending) 2. Awaits return to the OR next week 3. PICC line early next week. 4. Continue Vancomycin pending above; redosed (trough below 10); goal trough 15-20. Case d/w attending physician.
--- NOTE | 2016-07-22 14:16 | PN- Att Addend ---
Attending MD Review Statement Attending Statement Attending MD Statement: examined this patient, discuss w/resident/PA/[employer], agreed w/resident/PA/[employer], reviewed EMR data (avail), discussed w/nursing Attending Assessment/Plan: Laboratory Tests 07/22 07/21 1769 9315 Chemistry Sodium (137 - 145 mmol/L) 138 Potassium (3.5 - 5.1 mmol/L) 4.7 Chloride (98 - 107 mmol/L) 101 Carbon Dioxide (22 - 30 mmol/L) 29 Anion Gap (5 - 16) 8 BUN (7 - 17 mg/dL) 8 Creatinine (0.5 - 1.0 mg/dL) 0.7 Estimated GFR (>60 ml/min) > 60 BUN/Creatinine Ratio (7 - 25 %) 11.4 Hematology CBC w Diff NO MAN DIFF REQ WBC (4.8 - 10.8 /CUMM) 6.8 RBC (4.20 - 5.40 /CUMM) 3.89 L Hgb (12.0 - 16.0 G/DL) 9.4 L Hct (37 - 47 %) 28.1 L MCV (81.0 - 99.0 FL) 72.1 L MCH (27.0 - 31.0 PG) 24.1 L RDW (11.5 - 14.5 %) 14.8 H Plt Count (130 - 400 /CUMM) 429 H MPV (7.4 - 10.4 FL) 7.0 L Gran % (42.2 - 75.2 %) 55.9 Lymphocytes % (20.5 - 51.1 %) 33.7 Monocytes % (1.7 - 9.3 %) 5.4 Eosinophils % (0 - 5 %) 4.5 Basophils % (0.0 - 2.0 %) 0.5 Absolute Granulocytes (1.4 - 6.5 /CUMM) 3.8 Absolute Lymphocytes (1.2 - 3.4 /CUMM) 2.3 Absolute Monocytes (0.10 - 0.60 /CUMM) 0.4 Absolute Eosinophils (0.0 - 0.7 /CUMM) 0.3 Absolute Basophils (0.0 - 0.2 /CUMM) 0 PUBS MCHC (33.0 - 37.0 G/DL) 33.5 Toxicology Vancomycin Trough (10.0 - 20.0 ug/mL) 7.2 L Vital Signs Date Time Temp Pulse Resp B/P Pulse O2 O2 Flow FiO2 Ox Delivery Rate 07/22 0800 Room Air 07/22 0646 98.3 75 18 110/60 95 Room Air Pt admitted with non healing wounds on toes of both feets.found to have osteomyelitis of toes on both feets on MRI. A/p- Osteomyleitis of both feet toes-Went to OR 07/19- underwent amputation and partial ray resection of multiple toes both feet. Cont iv vancomycin. Vancomycin trough level low, increased dose to q8h and will check trough level saturday night. IVDU with heroin iv abuse- cont methadone taper for now. Cont prn morphine for pain. d/w pt the improtance of quitting iv drug use . Pt wants to have dilaudid but gets very drowsy with dilaudid so explained her that we are not putting her back on dilaudid. Vit B12 def- started on b12 shots. will switch to po at discharge. Vit D def- cont on high dose supplementation.
[2016-07-22 14:51] VITALS: BP 120/64
--- NOTE | 2016-07-22 15:05 | NUR ---
Referral receiveds on via electronic eating disorder specialist. This patient is a 41 year old woma, admitted to the hospital with IVDA,cellulitis,?osteomyelitis. Patient with a history of participation in a methadone maintenance program until the fall. She had been attending [facility] in [place] until she began to use actively. Methadone has been initiated while here in the hospital and there is speculation that the patient wished to reinitiate this treatment. She is scheduled for the OR on Saturday; infectious disease reports that the patient will likely need a PICC and IV antibiotics. As the patient is not currently connected to a methadone maintenance program, we will need to coordinate services. Will follow and coordinate with case management and psychiatry.
[2016-07-22 22:34] VITALS: BP 124/68
--- NOTE | 2016-07-22 22:59 | NUR ---
PATIENT ALERT AND ORIENTED X 3. PATIENT WAS CALM AND COOPERATIVE ALL SHIFT UNTIL 2229. PATIENT STATES " I WANT TO GO HOME, I HAVE AN EMERGENCY". " CAN THE DOCTOR LET ME GO HOME FOR A FEW MINUTES ? I WILL COME BACK. THE MEDICAL CLAIMS REPRESENTATIVE ALLYSSA WAS CALLED AND ASKED TO CAOME AND SPEAK WITH THE PATIENT. WILL CONTINUE TO MONITOR.
[2016-07-23 06:30] VITALS: BP 112/76
--- NOTE | 2016-07-23 06:57 | PN- Housestaff ---
See Addendum Subjective Follow-up For: Bilateral feet osteomyelitis IVDU Subjective: Patient seen and examined at bedside this AM. She is requesting discharge soon. She is amenable for surgery tomorrow and understands she will need a PICC line placed for 2 week IV antibiotics. Review of Systems Constitutional: Denies: chills, fever, malaise. EENTM: Denies: blurred vision, visual changes. Cardiovascular: Denies: chest pain, palpitations. Respiratory: Denies: cough, short of breath. Gastrointestinal: Denies: abdominal pain. Genitourinary: Denies: dysuria. Musculoskeletal: Reports: joint pain (Bilateral feet). Denies: neck pain. Skin: Denies: rash. Neurological/Psychological: Reports: paresthesia. Denies: confusion, headache. Hematologic/Endocrine: Denies: polyuria, polydipsia. Immunologic/Allergic: Denies: splenectomy. Objective Last 24 Hrs of Vital Signs/I&O Vital Signs Date Time Temp Pulse Resp B/P Pulse O2 O2 Flow FiO2 Ox Delivery Rate 07/23 0630 97.9 65 18 112/76 97 Room Air 07/22 2234 97.8 72 20 124/68 99 Room Air 07/22 1451 98.0 82 20 120/64 92 Intake & Output 07/23 1600 07/23 0800 07/23 0000 Intake Total 240 480 Output Total Balance 240 480 Intake, Oral 240 480 Physical Exam General Appearance: Alert, Oriented X3, Cooperative, No Acute Distress Skin: + track carney noted bilateral arms. HEENT: Atraumatic, Mucous Membr. moist/pink Neck: Supple, No JVD Lymphatic: Cervical nl Cardiovascular: Regular Rate, Normal S1, Normal S2, No Murmurs Lungs: Clear to Auscultation, Normal Air Movement Abdomen: Normal Bowel Sounds, Soft, No Tenderness Neurological: Normal Speech, Normal Tone Extremities: No Clubbing, No Cyanosis, Bilateral feet covered in dry dressing Current Medications: Current Medications Sig/Mainor Start time Last Medication Dose Route Stop Time Status Admin Acetaminophen 650 MG Q6P PRN 07/18 1999 AC 07/22 PO 0422 Aripiprazole 5 MG DAILY 07/19 999 AC 07/22 PO 1016 Cholecalciferol 1,000 IU DAILY 07/19 999 AC 07/22 PO 1016 Citalopram 40 MG DAILY 07/19 999 AC 02/12 Hydrobromide PO 1016 Clonazepam 2 MG TID 07/18 2200 AC 07/22 PO 07/25 2159 2151 Cyanocobalamin 1,000 MCG DAILY 07/19 1042 AC 07/22 IM 07/23 1001 1017 Ergocalciferol 50,000 IU ONCE A WEEK 07/19 1100 AC 07/19 PO 1635 Ferrous Sulfate 325 MG DAILY 07/19 1000 AC 07/22 PO 1016 Methadone HCl 5 MG BID 07/23 2200 AC PO 07/24 1001 Methadone HCl 10 MG BID 07/22 2200 AC 07/22 PO 07/23 1001 2151 Methadone HCl 15 MG BID 07/21 2200 DC 07/22 PO 07/22 1001 1017 Morphine Sulfate 2 MG Q6P PRN 07/20 1300 AC 07/23 IV 0603 Nicotine 14 MG DAILY 07/20 1644 AC 07/23 TOP 0649 Vancomycin HCl 1,000 MG Q8 07/22 0600 AC 07/23 Dextrose/Water 250 ML IV 0551 Last 24 Hrs of Lab/Serafin Results Last 24 Hrs of Labs/Mics: Laboratory Tests 07/23/16 0645: Methadone Screen Pending, Barbiturate Screen Pending, Ur Phencyclidine Scrn Pending, Amphetamines Screen Pending, U Benzodiazepines Scrn Pending, Urine Cocaine Screen Pending, Urine Cannabis Screen Pending Assessment/Plan Assessment: Ms. 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 Campbell for bilateral feet osteomyelitis. Patient noticed ulcers on bilateral big toes last Saturday, and since that time the ulcerations have worsened to include the soft tissue overlaying all her toes as well as have caused bilateral lower extremity edema, left greater than right. Patient was admitted to the general medicine floor and the following is the management: 1. Osteomyelitis, bilateral feet with overlaying acute cellulitis * B/L feet MRI shows probable osteomyelitis in several toes of BL feet * Patient POD#4 from debridement and partial resection of bilateral feet for osteomyelitis * Patient to be taken back to OR on [facility] with Dr. Campbell for further revision and closure of wounds * Biopsy showing staph aureus, beta strep group B * Patient has been on vancomycin 1 g IV Q12 H to continue (day # 5 antibiotic therapy), however this has been discontinued and patient started on IV cefazolin * We ruled out DVT with negative RLE doppler * For pain, IV morphine Q6P for moderate-severe pain and PO tylenol for mild pain * Patient will require PICC line as per podiatry, will check INR this AM then obtain PICC for total 14 day course of abx (will discuss STR with case management as patient cannot be discharged home with PICC due to IVDU) 2. IVDU * Patient counseled on risks of continued IVDU * Social work and psych consult placed and appreciated * As per psych recommendations, we have continued patient on a methadone taper: she is currently at 10 mg PO x 1 then will have 2 doses left (5 mg PO BID x2) * Monitor for withdrawl * Hepatitis panel nonreactive, HIV non-reactive 3. Bipolar depression * Continue abilify daily * Celexa 40 mg PO daily 4. Microcytic anemia * Patient notes normal menstrual cycles without significant bleeding * Iron studies normal except for low Fe, we have started ferrous sulfate daily 5. Peripher neuropathy * Vit B12 very low, patient reports she has been vegan for 10 years, likely contributing/causing bilateral peripheral neuropathy * Vit B12 injections 1,000 mcg daily due to low levels * Vit D 1,000 IU daily also ordered * Will discharge patient ed PO B12 FULL CODE DVTP: Heparin SC CC2 diet Mild-severe pain pathway Problem List: 1. Osteomyelitis of foot, left, acute 2. Osteomyelitis of foot, right, acute 3. IV drug abuse Pain Ratin Pain Location: Bilateral feet Pain Goal: Pain 4 or less Pain Plan: IV morphine 2 mg Q6P for severe pain. Tomorrow's Labs & Rationales: CBC (preop)
[2016-07-23 08:44] LABS: PT 11.3 SEC (9.4-12.5)
[2016-07-23 10:03] LABS: ABSOLUTE BASOPHIL COUNT 0 /CUMM (0.0-0.2); ABSOLUTE EOSINOPHIL COUNT 0.3 /CUMM (0.0-0.7); ABSOLUTE GRANULOCYTE CT 4.7 /CUMM (1.4-6.5); ABSOLUTE LYMPH COUNT 1.9 /CUMM (1.2-3.4); ABSOLUTE MONOCYTE COUNT 0.3 /CUMM (0.10-0.60); BASOPHIL % 0.4 % (0.0-2.0); EOSINOPHIL % 3.9 % (0-5); GRANULOCYTE % 64.4 % (42.2-75.2); HEMATOCRIT 28.5 % (37-47); MEAN CORPUSCULAR HGB 23.6 PG (27.0-31.0); MEAN CORPUSCULAR HGB CONC 32.7 G/DL (33.0-37.0); MEAN CORPUSCULAR VOLUME 72.2 FL (81.0-99.0); MEAN PLATELET VOLUME 6.9 FL (7.4-10.4); PLATELET COUNT 401 /CUMM (130-400); RED BLOOD CELL CT 3.95 /CUMM (4.20-5.40); WHITE BLOOD CELL COUNT 7.3 /CUMM (4.8-10.8)
--- NOTE | 2016-07-23 12:56 | Transfer of Care Summary ---
Hospital Course Course Hospital Course: Ms. 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 Campbell for bilateral feet osteomyelitis. Patient noticed ulcers on bilateral big toes last Saturday, and since that time the ulcerations have worsened to include the soft tissue overlaying all her toes as well as have caused bilateral lower extremity edema, left greater than right. In the ED: Vital signs showed T 98.6, HR 85, RR 18, BP 126/77 and O2 saturation of 95% on RA. Labs showed leukocytosis to 12 without bandemia, microcytic anemia with H&H 9.6/29.7 and MCV 72.8, Plt 431, ESR 122, CRP > 9 and normal BEP. Beta- HCG is negative. Patient had right foot Xray showing significant soft tissue swelling and cortical destruction of first and second toes. Left foot Xray showed first toe osteomyelitis and likely 2nd toe osteomyelitis. Physical exam on admission showed: General Appearance Alert, Oriented X3, Cooperative, No Acute Distress Skin Bilateral lower extremity erythema, R>L. Bilateral toe ulcerations with obvious pus drainage. No obvious bone visible. HEENT Atraumatic, EOMI, Mucous Membr. moist/pink Neck Supple, +2 Carotid Pulse wo Bruit Lymphatic Cervical nl Cardiovascular Regular Rate, Normal S1, Normal S2 Lungs Clear to Auscultation, Normal Air Movement Abdomen Normal Bowel Sounds, Soft, No Tenderness Neurological Normal Speech, Normal Tone Extremities No Clubbing, No Cyanosis, Edema of bilateral lower extremities, right leg more profound and noted to be slightly warm to touch. non tender, no calf tenderness. Vascular Pulses Symmetrical Patient was admitted to the general medicine floor and the following wass the management: 1. Bilateral feet osteomyelitis: Patient was evaluated by Dr. Campbell while in the emergency room and suggested patient be made NPO on first night of admission for open incision/drainage of mutiple sites on bilateral feet with partial first /second/third ray resection of right foot as well as partial first/second/fourth ray resections of left foot. Patient did not have closure of these wounds and patient had bilateral feet covered in dry dressing. She was placed on IV vancomycin from day of admission due to concerns for MRSA (in setting of IVDU). OR culture results returned and showed growth of staph aureus as well as beta strep group B, so per ID recommendations we transitioned patient to IV cefazolin 2 gm Q8H today 07/23/16. Patient is schedule for OR tomorrow 07/24/16 for closure and will be made NPO tonight pending this procedure. She is also scheduled for PICC line tomorrow as she is on day 11/21 of antibiotic therapy. Follow up podiatry recommendations after OR tomorrow for follow up and wound care dressing changes. Patient will likely require STR placement due to history of IVDU and PICC line placement for antibiotics. 2. IVDU: Patient reported 1 bundle of heroine 4 times a day since April. Prior to that, she was on a methadone program receiving 125 of methadone daily, as per patient. Patient was placed on 40 mg PO methadone night of admission and she was tapered as per psych instructions. The taper was as follows: methadone 20 mg PO 2 times per day for 2 doses, methadone 15 mg PO 2 times per day for 2 doses, methadone 10 mg PO 2 times per day for 2 doses and methadone 5 mg PO 2 times per day for 2 doses then stop. Patient also had both a hepatitis and HIV panel drawn which were both negative for infection. Patient has 2 more doses of methadone (ordered). Complete methadone taper in patient and continue current patient safety monitor to monitor closely for visitors bringing drugs. 3. Bipolar depression: Patient denied SI/HI on admission and during her stay. She was continued on abilify daily and celexa 40 mg PO daily. Continue these after discharge and follow up with her outpatient psychiatrist is highly recommended. 4. Microcytic anemia: H&H on admission noted to be low to 9.6/29.7 with MCV 72.8. Patient questioned on her menstrual cycles on admission and noted normal length/flow with each menstruation. Iron studies were drawn and normal except for low Fe levels. Patient was started on ferrous sulfate daily and will be discharged on this medication. 5. Peripheral neuropathy: Likely secondary to low vitamin B12. Vitamin B12 low to 199 (HgA1C slightly high to 5.8, hyperglycemia likely not the cause of neuropathy). Patient was started on 1g SC Vitamin B12 x 7 days then will be switched to oral B12 and given a prescription for this on discharge. 6. Code status: FULL 7. DVT Prophylaxis: Early ambulation, patient very mobile, SC heparin to start 2 /16 Complications: None. Assessment/Plan: 1. Follow up OR procedure tomorrow 07/24/16 2. Follow ID recommendations on length of therapy (IV cefazolin 2 g Q8H) 3. PICC line to be placed tomorrow 07/24/16 4. Discuss with case management STR options for 2 week abx therapy 5. Highly encourage abstinence from drugs 6. Continue sitter to monitor closely for drug use 7. Continue to follow recommendations from the following specialists: Podiatry, ID, Psych Attending MD Review Statement Documenting Attending: NOAH PACHECO,RAFITA Menendez
[2016-07-23 13:37] VITALS: BP 130/90
--- NOTE | 2016-07-23 14:27 | PN- Infect Dx ---
Subjective Subjective: Mild discomfort b/l feet; per RN patient pulling on the dressing; alredy changed twice today. No fever/chills. Review of Systems Comments: 10 points reviewed as noted, otherwise negative. Objective Last 24 Hrs of Vital Signs/I&O Vital Signs Date Time Temp Pulse Resp B/P Pulse O2 O2 Flow FiO2 Ox Delivery Rate 07/23 1337 97.9 73 20 130/90 999 Room Air 07/23 0630 97.9 65 18 112/76 97 Room Air 07/22 2234 97.8 72 20 124/68 99 Room Air 07/22 1451 98.0 82 20 120/64 92 Intake & Output 07/23 1600 07/23 0800 07/23 0000 Intake Total 240 480 Output Total Balance 240 480 Intake, Oral 240 480 Physical Exam Other Physical Findings: NAD; well nourished. She is afebrile. Skin reveals track carney. HEENT exam is negative. Neck is supple with no adenopathy. Lungs are clear. Heart regular rhythm with no murmur. Abdomen is soft, nontender with positive bowel sounds. Back no CVA tenderness. Extremities dressings over both feet; L foot dressing w/ SS drainage. Neuro A&O x3, no CN deficit. Results Last 24 Hours of Lab Results: Laboratory Tests 07/23 07/23 07/23 0810 0710 0645 Chemistry Sodium (137 - 145 mmol/L) 138 Potassium (3.5 - 5.1 mmol/L) 4.5 Chloride (98 - 107 mmol/L) 98 Carbon Dioxide (22 - 30 mmol/L) 31 H Anion Gap (5 - 16) 9 BUN (7 - 17 mg/dL) 9 Creatinine (0.5 - 1.0 mg/dL) 0.7 Estimated GFR (>60 ml/min) > 60 BUN/Creatinine Ratio (7 - 25 %) 12.9 Coagulation PT (9.4 - 12.5 SEC) 11.3 INR (0.90 - 1.19) 1.08 Hematology CBC w Diff NO MAN DIFF REQ WBC (4.8 - 10.8 /CUMM) 7.3 RBC (4.20 - 5.40 /CUMM) 3.95 L Hgb (12.0 - 16.0 G/DL) 9.3 L Hct (37 - 47 %) 28.5 L MCV (81.0 - 99.0 FL) 72.2 L MCH (27.0 - 31.0 PG) 23.6 L RDW (11.5 - 14.5 %) 15.0 H Plt Count (130 - 400 /CUMM) 401 H MPV (7.4 - 10.4 FL) 6.9 L Gran % (42.2 - 75.2 %) 64.4 Lymphocytes % (20.5 - 51.1 %) 26.6 Monocytes % (1.7 - 9.3 %) 4.7 Eosinophils % (0 - 5 %) 3.9 Basophils % (0.0 - 2.0 %) 0.4 Absolute Granulocytes (1.4 - 6.5 /CUMM) 4.7 Absolute Lymphocytes (1.2 - 3.4 /CUMM) 1.9 Absolute Monocytes (0.10 - 0.60 /CUMM) 0.3 Absolute Eosinophils (0.0 - 0.7 /CUMM) 0.3 Absolute Basophils (0.0 - 0.2 /CUMM) 0 PUBS MCHC (33.0 - 37.0 G/DL) 32.7 L Toxicology Urine Opiates Screen (>2000 NG/ML) 2231.00 H Methadone Screen (>300 NG/ML) 709 H Barbiturate Screen (>200 NG/ML) < 60 Ur Phencyclidine Scrn (>25 NG/ML) < 6.00 Amphetamines Screen (>1000 NG/ML) < 100 U Benzodiazepines Scrn (>200 NG/ML) 123 Urine Cocaine Screen (>300 NG/ML) 170 Urine Cannabis Screen (>50 NG/ML) < 5.00 Last 24 Hours of Serafin Results: SPEC #: [id number] TRISTIAN: 07/19/16 STATUS: COMP RECD: 07/19/161517 SUBM DR: GRACE ARRIAZA DPM SOURCE: EXTREMITIE ENTR: 07/19/[address]: NOAH PACHECO, RAFITA Menendez SPDESC: FOOT LEFT SAVANNAH PACHECO,MELIA Lobo PATIENT HAS NO PRIMARY CARE DR ORDERED: XTRMOR COMMENT: ADDITIONAL INFORMATION: LEFT FOOT BONE CULTURE Procedure Result > GRAM STAIN Final 07/21/16-1247 WHITE BLOOD CELLS NONE GRAM POSITIVE COCCI MODERATE IN CHAINS > EXTREMITIES OR SPECIMEN Final 07/23/16-1223 Heavy growth of: 1.STAPH AUREUS ISOLATED 2.BETA STREP GROUP B Penicillin and Ampicillin are drugs of choice for beta-hemolytic streptococcal infections. Susceptibility testing of penicillins and other beta-lactams are not routinely performed because non-susceptible isolates have only rarely been reported. Note: If patient is allergic to Penicillin, the laboratory can perform Clindamycin testing upon request. Please call within 5 days of final report. Called to/Readback by ABRIL by [facility] 07/21/16 1340 NO ANAEROBES ISOLATED. 1. STAPH AUREUS RX ABN ------ --- 1. STAPH AUREUS RX AB ------ -- CEFAZOLIN S AMOXICILLIN/CLAVULINIC ACID S AMPICILLIN/SULBACTAM S TETRACYCLINE S TRIMETHOPRIM/SULFAMETHOXAZOLE S AZITHROMYCIN S CLINDAMYCIN S ERYTHROMYCIN S OXACILLIN S VANCOMYCIN S Recent Imaging Studies: n/a Assessment/Plan Impression: 41-year-old woman, active IV drug abuser, with a history of a peripheral neuropathy, anemia, bipolar disorder admitted on July 18 with chronic ulcerations of multiple toes of both feet, with x-ray and MRI evidence of cellulitris/osteomyelitis involving the left first, second and fourth toes and the right first, second and third toes, status post amputations of these toes on 07/19/16, with cultures + MSSA and Strep gr B. Based on MRI and OR findings there was extension of the infection to the metatarsophalangeal joints; will require a prolonged course of IV antibiotics (i.e. 4-6 weeks postop). Suggestion: 1. D/C Vancomycin; starting Cefazolin 2 gm q 8 h; monitor side effects. 2. Awaits return to the OR tomorrow. 3. PICC line early next week. 4. Local wound care.
[2016-07-23 23:53] VITALS: BP 114/48
--- NOTE | 2016-07-24 04:58 | PN- Housestaff ---
Subjective Follow-up For: Bilateral feet osteomyelitis IVDU Subjective: Patient is seen at bedside, has no complaints, reports pain on the feet when walking, no fever, chills. Patient is NPO to go to the OR and close the wounds on the toes of the right and left feet. Review of Systems Constitutional: Denies: chills, fever, weakness. EENTM: Reports: no symptoms. Cardiovascular: Reports: no symptoms. Respiratory: Reports: no symptoms. Gastrointestinal: Reports: no symptoms. Genitourinary: Reports: no symptoms. Musculoskeletal: Reports: joint pain (on the toes b/l). Skin: Reports: lesions (open wounds due to infecitons). Objective Last 24 Hrs of Vital Signs/I&O Vital Signs Date Time Temp Pulse Resp B/P Pulse O2 O2 Flow FiO2 Ox Delivery Rate 07/24 0752 97.5 60 20 100/66 96 Room Air 07/23 2353 98.2 73 20 114/48 98 Room Air 07/23 1337 97.9 73 20 130/90 999 Room Air Intake & Output 07/24 1600 07/24 0800 07/24 0000 Intake Total 75 500 Output Total Balance 75 500 Intake, IV 75 Intake, Oral 500 Physical Exam General Appearance: Alert, Oriented X3, Cooperative, No Acute Distress Skin: open wounds on the toes of both feet, partially sutured, covered with tampons and gauzes, will be closed today in the OR. there is serous discharge mixed with blood on the dressings. no purulent or malodorous discharge was noted. HEENT: Atraumatic, PERRLA, EOMI, Mucous Membr. moist/pink Neck: Supple Cardiovascular: Regular Rate, Normal S1, Normal S2, No Murmurs Lungs: Clear to Auscultation, Normal Air Movement Abdomen: Normal Bowel Sounds, Soft, No Tenderness, No Hepatospenomegaly Neurological: Normal Speech, Strength at 5/5 X4 Ext, Normal Tone, Sensation Intact, Cranial Nerves 3-12 NL Extremities: No Cyanosis, Normal Pulses, No Tenderness/Swelling, toes appear edematous Vascular: Normal Pulses, Pulses Symmetrical Last 24 Hrs of Lab/Serafin Results Last 24 Hrs of Labs/Mics: Laboratory Tests 07/24/16 0605: CBC w Diff NO MAN DIFF REQ, RBC 4.01 L, MCV 72.7 L, MCH 24.0 L, RDW 14.8 H, MPV 6.8 L, Gran % 64.1, Lymphocytes % 27.5, Monocytes % 4.1, Eosinophils % 3.7, Basophils % 0.6, Absolute Granulocytes 5.1, Absolute Lymphocytes 2.2, Absolute Monocytes 0.3, Absolute Eosinophils 0.3, Absolute Basophils 0, PUBS MCHC 33.0 07/23/16 2100: Vancomycin Trough Cancelled Assessment/Plan Assessment: Ms. 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 Campbell for bilateral feet osteomyelitis. Patient noticed ulcers on bilateral big toes last Saturday, and since that time the ulcerations have worsened to include the soft tissue overlaying all her toes as well as have caused bilateral lower extremity edema, left greater than right. Patient was admitted to the general medicine floor and the following is the management: 1. Osteomyelitis, bilateral feet with overlaying acute cellulitis * B/L feet MRI shows probable osteomyelitis in several toes of BL feet * Patient POD#4 from debridement and partial resection of bilateral feet for osteomyelitis * Patient to be taken back to OR on [facility] with Dr. Campbell for further revision and closure of wounds * Biopsy showing staph aureus, beta strep group B * Patient has been on vancomycin 1 g IV Q12 H to continue (day # 5 antibiotic therapy), however this has been discontinued and patient started on IV cefazolin * We ruled out DVT with negative RLE doppler * For pain, IV morphine Q6P for moderate-severe pain and PO tylenol for mild pain * Patient will require PICC line as per podiatry, will check INR this AM then obtain PICC for total 14 day course of abx (will discuss STR with case management as patient cannot be discharged home with PICC due to IVDU) 2. IVDU * Patient counseled on risks of continued IVDU * Social work and psych consult placed and appreciated * As per psych recommendations, we have continued patient on a methadone taper: she is currently at 10 mg PO x 1 then will have 2 doses left (5 mg PO BID x2) * Monitor for withdrawl * Hepatitis panel nonreactive, HIV non-reactive 3. Bipolar depression * Continue abilify daily * Celexa 40 mg PO daily 4. Microcytic anemia * Patient notes normal menstrual cycles without significant bleeding * Iron studies normal except for low Fe, we have started ferrous sulfate daily 5. Peripher neuropathy * Vit B12 very low, patient reports she has been vegan for 10 years, likely contributing/causing bilateral peripheral neuropathy * Vit B12 injections 1,000 mcg daily due to low levels * Vit D 1,000 IU daily also ordered * Will discharge patient ed PO B12 FULL CODE DVTP: Heparin SC CC2 diet Mild-severe pain pathway Problem List: 1. Osteomyelitis of foot, right, acute 2. Osteomyelitis of foot, left, acute Pain Ratin Pain Location: toes, currently no pain Pain Goal: Pain 4 or less Pain Plan: morphine Tomorrow's Labs & Rationales: CBC osteomyelitis
[2016-07-24 07:52] VITALS: BP 100/66; BP 120/68
[2016-07-24 08:02] LABS: ABSOLUTE BASOPHIL COUNT 0 /CUMM (0.0-0.2); ABSOLUTE EOSINOPHIL COUNT 0.3 /CUMM (0.0-0.7); ABSOLUTE GRANULOCYTE CT 5.1 /CUMM (1.4-6.5); ABSOLUTE LYMPH COUNT 2.2 /CUMM (1.2-3.4); ABSOLUTE MONOCYTE COUNT 0.3 /CUMM (0.10-0.60); BASOPHIL % 0.6 % (0.0-2.0); EOSINOPHIL % 3.7 % (0-5); GRANULOCYTE % 64.1 % (42.2-75.2); HEMATOCRIT 29.1 % (37-47); MEAN CORPUSCULAR VOLUME 72.7 FL (81.0-99.0); MEAN PLATELET VOLUME 6.8 FL (7.4-10.4); PLATELET COUNT 402 /CUMM (130-400); RBC DISTRIBUTION WIDTH 14.8 % (11.5-14.5); RED BLOOD CELL CT 4.01 /CUMM (4.20-5.40)
--- NOTE | 2016-07-24 13:09 | NUR ---
PATIENT SNUCK FOOD FROM KITCHEN AND WENT IN BATHROOM TO EAT IT, PATIENT DENIES THIS HAVING OCCURED, MST AND PATIENT SAFETY MONITOR CONFIRM THAT THIS DID IN FACT OCCUR, ANESTHESIOLOGY NOTIFIED BECAUSE PATIENT TO OR THIS AFTERNOON, THEY ARE CURRENTLY MAKING DECISION TO WHETHER PATIENT WILL BE GOING TO OR AND WILL LET US KNOW, DR GASPAR WAS MADE AWARE OF SITUATION, PATIENT ADIMATLY DENIES EATING, AND WISHES TO SIGN OUT AMA IF PROCEDURE WILL NOT BE DONE. WILL MONITOR,
--- NOTE | 2016-07-24 13:42 | PN- Att Addend ---
Attending MD Review Statement Attending Statement Attending MD Statement: examined this patient, discuss w/resident/PA/CUPOLA MELTER HELPER, agreed w/resident/PA/CUPOLA MELTER HELPER, reviewed EMR data (avail), discussed w/nursing Attending Assessment/Plan: Laboratory Tests 07/24/16 0605: CBC w Diff NO MAN DIFF REQ, RBC 4.01 L, MCV 72.7 L, MCH 24.0 L, RDW 14.8 H, MPV 6.8 L, Gran % 64.1, Lymphocytes % 27.5, Monocytes % 4.1, Eosinophils % 3.7, Basophils % 0.6, Absolute Granulocytes 5.1, Absolute Lymphocytes 2.2, Absolute Monocytes 0.3, Absolute Eosinophils 0.3, Absolute Basophils 0, PUBS MCHC 33.0 07/23/16 2100: Vancomycin Trough Cancelled Vital Signs Date Time Temp Pulse Resp B/P Pulse O2 O2 Flow FiO2 Ox Delivery Rate 07/24 0752 97.5 60 20 100/66 96 Room Air 07/23 2353 98.2 73 20 114/48 98 Room Air Pt admitted with non healing wounds on toes of both feets.found to have osteomyelitis of toes on both feets on MRI. A/p- Osteomyleitis of both feet toes-Went to OR 07/19- underwent amputation and partial ray resection of multiple toes both feet. Currently on iv vancomycin. Wound culture growing MSSA, switched abx to cefazolin. Plan is to go to the OR today on 07/24/16 and we will get a PICC line today in anticipation of discharge to [facility]. IVDU with heroin iv abuse- was put on methadone taper which she finished on 07/23. Cont prn morphine for pain. d/w pt the improtance of quitting iv drug use . Pt wants to have dilaudid but gets very drowsy with dilaudid so explained her that we are not putting her back on dilaudid. Pt also is resistant to being tapered off methadone fast but given the pt drowsiness even on low dose of methadone and prn morphine, i am very cautious for increasing the dose of methadone or prolonging the taper. pt is not showing any signs of withdrawl. Vit B12 def- started on b12 shots. will switch to po at discharge. Vit D def- cont on high dose supplementation.
--- NOTE | 2016-07-24 14:03 | NUR ---
SURGERY CANCELED FOR TODAY, DR SPICER NOTIFIED. WILL SPEAK TO MARY ABOUT SITUATION.
--- NOTE | 2016-07-24 15:02 | PN- Infect Dx ---
Subjective Subjective: OR cancelled as the patient ate. No fever. "Everything hurts". Review of Systems Comments: 10 points reviewed as noted, otherwise negative. Objective Last 24 Hrs of Vital Signs/I&O Vital Signs Date Time Temp Pulse Resp B/P Pulse O2 O2 Flow FiO2 Ox Delivery Rate 07/24 0752 97.5 60 20 100/66 96 Room Air 07/23 2353 98.2 73 20 114/48 98 Room Air Intake & Output 07/24 1600 07/24 0800 07/24 0000 Intake Total 75 500 Output Total Balance 75 500 Intake, IV 75 Intake, Oral 500 Physical Exam Other Physical Findings: NAD; well nourished. She is afebrile. Skin reveals track carney. HEENT exam is negative. Neck is supple with no adenopathy. Lungs are clear. Heart regular rhythm with no murmur. Abdomen is soft, nontender with positive bowel sounds. Back no CVA tenderness. Extremities dressings over both feet; L foot dressing in place. Neuro A&O x3, no CN deficit. Results Last 24 Hours of Lab Results: Laboratory Tests 07/24 07/23 0605 2100 Hematology CBC w Diff NO MAN DIFF REQ WBC (4.8 - 10.8 /CUMM) 8.0 RBC (4.20 - 5.40 /CUMM) 4.01 L Hgb (12.0 - 16.0 G/DL) 9.6 L Hct (37 - 47 %) 29.1 L MCV (81.0 - 99.0 FL) 72.7 L MCH (27.0 - 31.0 PG) 24.0 L RDW (11.5 - 14.5 %) 14.8 H Plt Count (130 - 400 /CUMM) 402 H MPV (7.4 - 10.4 FL) 6.8 L Gran % (42.2 - 75.2 %) 64.1 Lymphocytes % (20.5 - 51.1 %) 27.5 Monocytes % (1.7 - 9.3 %) 4.1 Eosinophils % (0 - 5 %) 3.7 Basophils % (0.0 - 2.0 %) 0.6 Absolute Granulocytes (1.4 - 6.5 /CUMM) 5.1 Absolute Lymphocytes (1.2 - 3.4 /CUMM) 2.2 Absolute Monocytes (0.10 - 0.60 /CUMM) 0.3 Absolute Eosinophils (0.0 - 0.7 /CUMM) 0.3 Absolute Basophils (0.0 - 0.2 /CUMM) 0 PUBS MCHC (33.0 - 37.0 G/DL) 33.0 Toxicology Vancomycin Trough Cancelled Last 24 Hours of Serafin Results: n/a Recent Imaging Studies: n/a Assessment/Plan Impression: 41-year-old woman, active IV drug abuser, with a history of a peripheral neuropathy, anemia, bipolar disorder admitted on July 18 with chronic ulcerations of multiple toes of both feet, with x-ray and MRI evidence of cellulitris/osteomyelitis involving the left first, second and fourth toes and the right first, second and third toes, status post amputations of these toes on 07/19/16, with cultures + MSSA and Strep gr B. Based on MRI and OR findings there was extension of the infection to the metatarsophalangeal joints; will require a prolonged course of IV antibiotics (i.e. 4-6 weeks postop). Suggestion: 1. Continue Cefazolin 2 gm q 8 h D#08/07;monitor side effects. CBC, BMP, ESR weekly while on iv antibiotics 2. Awaits return to the OR 07/25. 3. PICC line planned for 07/25. 4. Local wound care.
[2016-07-24 15:25] VITALS: BP 110/58
--- NOTE | 2016-07-24 16:22 | NUR ---
PTS LFA PIV INFILATRATED AT END OF ABX , WAS REMOVED, NEW PIV TO BE PLACES LATER THIS SHIFT
[2016-07-24 21:39] VITALS: BP 100/60
--- NOTE | 2016-07-25 | NUR ---
PT REPORTS "I FEEL LIKE I AM JUMPING OUT OF MY SKIN, AND I'M ANXIOUS. I THINK I AM WITHDRAWING". HERNANDO NOBLE MD PAGED AND MADE AWARE. PT DENIES NAUSEA VOMITTING. MD AT BEDSIDE TO ASSESS. WILL FOLLOW UP.
[2016-07-25 06:30] VITALS: BP 108/60
--- NOTE | 2016-07-25 07:01 | PN- Housestaff ---
Subjective Follow-up For: Bilateral feet osteomyelitis IVDU Subjective: Patient reports she is sweating, feels she want's t get out of her skin, feels anxious and requests methadone. Does not report any pain in her feet. Is going to the OR today for wound closure. Review of Systems Constitutional: Denies: chills, fever, weakness. EENTM: Reports: no symptoms. Cardiovascular: Denies: chest pain, palpitations. Respiratory: Denies: cough, short of breath, sputum production. Gastrointestinal: Denies: abdominal pain, changes in stool. Genitourinary: Reports: no symptoms. Musculoskeletal: Reports: no symptoms. Skin: Reports: no symptoms. Neurological/Psychological: Reports: anxiety. Objective Last 24 Hrs of Vital Signs/I&O Vital Signs Date Time Temp Pulse Resp B/P Pulse O2 O2 Flow FiO2 Ox Delivery Rate 07/25 0630 97.2 85 18 108/60 96 Room Air 07/24 2139 98.9 71 20 100/60 97 07/24 1525 97.7 60 18 110/58 97 Room Air Intake & Output 07/25 1600 07/25 0800 07/25 0000 Intake Total 600 Output Total Balance 600 Intake, IV 100 Intake, Oral 500 Number 0 Bowel Movements Physical Exam General Appearance: Alert, Oriented X3, Cooperative, No Acute Distress, appears drowsy, does not appear sweaty or anxious Skin: open wounds on both feet, covered with Kerlix, dressing appears dry HEENT: Atraumatic, EOMI Neck: Supple, No JVD Cardiovascular: Regular Rate, Normal S1, Normal S2, No Murmurs Lungs: Clear to Auscultation, Normal Air Movement Abdomen: Normal Bowel Sounds, Soft, No Tenderness, No Hepatospenomegaly Neurological: Normal Speech, Normal Tone Extremities: edema on distal feet and the toes Vascular: Normal Pulses, Pulses Symmetrical Last 24 Hrs of Lab/Serafin Results Last 24 Hrs of Labs/Mics: Laboratory Tests 07/25/16 0600: CBC w Diff NO MAN DIFF REQ, RBC 4.14 L, MCV 72.3 L, MCH 23.9 L, RDW 14.9 H, MPV 6.8 L, Gran % 60.9, Lymphocytes % 30.9, Monocytes % 4.2, Eosinophils % 3.6, Basophils % 0.4, Absolute Granulocytes 4.7, Absolute Lymphocytes 2.4, Absolute Monocytes 0.3, Absolute Eosinophils 0.3, Absolute Basophils 0, PUBS MCHC 33.1 Assessment/Plan Assessment: Ms. 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 Campbell for bilateral feet osteomyelitis. Patient noticed ulcers on bilateral big toes last Saturday, and since that time the ulcerations have worsened to include the soft tissue overlaying all her toes as well as have caused bilateral lower extremity edema, left greater than right. Patient was admitted to the general medicine floor and the following is the management: 1. Osteomyelitis, bilateral feet with overlaying acute cellulitis * B/L feet MRI shows probable osteomyelitis in several toes of BL feet * Patient POD#6 from debridement and partial resection of bilateral feet for osteomyelitis * Patient to be taken back to OR tday with Dr. Campbell for further revision and closure of wounds * Biopsy showing staph aureus, beta strep group B * Patient has been on vancomycin 1 g IV Q12 H to continue (day # 7 antibiotic therapy), however this has been discontinued and patient started on IV cefazolin * We ruled out DVT with negative RLE doppler * For pain, IV morphine Q6P for moderate-severe pain and PO tylenol for mild pain * Patient will require PICC line as per podiatry, will check INR this AM then obtain PICC for total 14 day course of abx (will discuss STR with case management as patient cannot be discharged home with PICC due to IVDU) 2. IVDU Patient counseled on risks of continued IVDU. Hepatitis panel nonreactive, HIV non-reactive. * Social work and psych consult placed and appreciated * As per psych recommendations, we have completed methadone taper * Monitor for withdrawl * 0.1 mg clonidine ID PRN for withdrawal 3. Bipolar depression * Continue abilify daily * Celexa 40 mg PO daily 4. Microcytic anemia * Patient notes normal menstrual cycles without significant bleeding * Iron studies normal except for low Fe, we have started ferrous sulfate daily 5. Peripher neuropathy Vit B12 very low, patient reports she has been vegan for 10 years, likely contributing/causing bilateral peripheral neuropathy * Vit B12 injections 1,000 mcg daily due to low levels * Vit D 1,000 IU daily also ordered * Will discharge patient ed PO B12 FULL CODE DVTP: Heparin SC CC2 diet Mild-severe pain pathway Problem List: 1. IV drug abuse 2. Osteomyelitis of foot, left, acute 3. Osteomyelitis of foot, right, acute Pain Ratin Pain Location: feet Pain Goal: Pain 4 or less Pain Plan: morphine 2mg Q6 PRN Tomorrow's Labs & Rationales: CBC (anemia, osteomyelitis)
[2016-07-25 07:47] LABS: ABSOLUTE BASOPHIL COUNT 0 /CUMM (0.0-0.2); ABSOLUTE EOSINOPHIL COUNT 0.3 /CUMM (0.0-0.7); ABSOLUTE GRANULOCYTE CT 4.7 /CUMM (1.4-6.5); ABSOLUTE LYMPH COUNT 2.4 /CUMM (1.2-3.4); ABSOLUTE MONOCYTE COUNT 0.3 /CUMM (0.10-0.60); BASOPHIL % 0.4 % (0.0-2.0); EOSINOPHIL % 3.6 % (0-5); GRANULOCYTE % 60.9 % (42.2-75.2); HEMATOCRIT 29.9 % (37-47); MEAN CORPUSCULAR HGB 23.9 PG (27.0-31.0); MEAN CORPUSCULAR HGB CONC 33.1 G/DL (33.0-37.0); MEAN CORPUSCULAR VOLUME 72.3 FL (81.0-99.0); MEAN PLATELET VOLUME 6.8 FL (7.4-10.4); PLATELET COUNT 403 /CUMM (130-400); RBC DISTRIBUTION WIDTH 14.9 % (11.5-14.5); RED BLOOD CELL CT 4.14 /CUMM (4.20-5.40); WHITE BLOOD CELL COUNT 7.7 /CUMM (4.8-10.8)
[2016-07-25 14:00] VITALS: BP 112/64
--- NOTE | 2016-07-25 17:02 | NUR ---
PT ARRIVED TO FLOOR VIA STRETCHER FROM PACU, AO, RA, VSS, NO C/O PAIN AT THIS TIME, R FOOT POST OP DSG INTACT SCANT AMT OF BLDY DRAINAGE NOTED, L FOOT POTS OP DSG INTACT, SURGICAL BOOTS IN PLACE, NON-WEIGHT BEARING TO R FOOT, OOB INDEPENDENTLY, PT REPORTED SHE WANTED TO LEAVE. SITTER AT BEDSIDE, WILL CONTINUE TO MONITOR.
[2016-07-25 17:05] VITALS: BP 128/80
--- NOTE | 2016-07-25 17:25 | Operative Report ---
Operative/Inv Procedure Report Surgery Date: 07/25/16 Name of Procedure: 1 open incision and drainage deep to the deep fascia with exposure of the extensor and flexor tendon and tendon sheath multiple sites right foot 2 open incision and drainage deep to the deep fascia with exposure of the extensor and flexor tendon and tendon sheath multiple sites left foot 3 delayed primary closure of open surgical wound with local random advancement flap right foot 4 delayed primary closure of open surgical wound with local random advancement flap left foot 5 revisional ray resection right foot 6 revisional ray resection left foot 7 intraoperative administration of ankle block anesthesia 8 excisional debridement Pre-Operative Diagnosis: 1 open necrotic wound right foot 2 open necrotic wound left foot 3 osteomyelitis right foot 4 osteomyelitis left foot Post-Operative Diagnosis: Same Estimated Blood Loss: less than 50ml Surgeon/Project Management It Specialist: GRACE ARRIAZA DPM Anesthesia: moderate sedation, block Operative/Procedure Note Note: After obtaining informed consent the patient was brought to the operating room and placed on the operating table in the supine position. The patient isn't securely fastened to the operating table utilizing safety belt. After administration of IV sedation, 10 mL of 0.5% Marcaine plain was obtained about the patient's right and left ankles. The right left feet were then scrubbed prepped and draped in usual aseptic manner. Attention was directed to right foot, where a large full-thickness necrotic was identified. A 15 blade visualized sharply revised skin margins. He dissection was then carried down deep to the fashion with exposure of the extensor and flexor tendon and tendon sheath multiple sites, both proximally and distally. Mild infected tissue sharply evacuated from the wound bed. Dissection and continued onto the periosteum overlying the distal first ray which was incised reflected. Sagittal bone saw was utilized to resect the distal osseous segment. The specimen was sent for pathologic inspection. Nipple was then irrigated with 3 L normal sterile saline fissure 50,000 units of bacitracin. Following this the foot was redraped and the surgeon's top was changed clean gloves. Any bleeding vessels identified were cauterized or ligated as encountered. A dorsal flap was then developed with undermining, mobilization and advancement of the adjacent tissue towards the central portion the wound. This was held at its deep side with 3-0 Vicryl. Plantarly, the moring ligaments released and the adjacent tissues were again undermined and mobilized and advanced towards the open portion the wound. The septae stitches reapproximated 3-0 Vicryl and the skin edges reapproximated 3-0 nylon. Incision was then dressed with Xeroform 4 x 4's Kerlix and an Allan wrap. Attention was then directed to the left foot, where again a large full- thickness necrotic was identified. A 15 blade visualized sharply revised skin margins. He dissection was then carried down deep to the deep fascia with exposure of the extensor and flexor tendon and tendon sheath multiple sites with proximally and distally. All necrotic nonviable infected tissue sharply evacuated from the wound bed. The distal exposed ray of the fourth metatarsal was resected with a sagittal bone saw and the specimen sent for pathologic inspection. The open wound was then irrigated with 3 L normal sterile saline fissure 50,000 units of bacitracin. Following this the foot was redraped and the surgeon's top pleasure changed clean gloves. Any bleeding vessels identified were cauterized or ligated as encountered. A dorsal flap was then developed with undermining, mobilization and advancement of the adjacent tissue. The flap was rotated inferiorly and held centrally at its deep side with 3-0 Vicryl. Plantarly, the moring ligaments were released and the adjacent tissues were again undermined and mobilized. The flap was then rotated superiorly and held at its central aspect with 3-0 Vicryl. The subtenons tissues were then reapproximated 4-0 Vicryl and the skin is reapproximated 4-0 nylon. Incision was then dressed with Xeroform 4 x 4's Kerlix and an Allan wrap. The patient is noted tolerate both procedure and anesthesia well and the patient was transported from the operating room to recovery by sent stable best assess intact to both the dorsal and plantar flaps.
--- NOTE | 2016-07-25 17:56 | Event Note ---
Event Note Event Note: Situation: Patient was demanding to leave AMA. Brief Assesment: * Pt had had a procedure for foot osteomyelits with Dr Campbell and was scheduled for PICC line placement for IV ABX and eventual placement to STR. * Reiterated multiple times that it ws not medically safe for her to leave the hospital with an active osteomyelitis infection which requires ABX IV therapy. Explained the risks involved including worsening osteomyelitis,sepsis and even . Tried to persuade patient that she should atleast wait for the PICC line placement and instruction on ABX IV . * Pt main reason of wanting to leave was the fact that she wanted methadone tablets. She had just been tapered off during this hospitalization. * Patient was informed that if she was to be given methadone, she will lose her placement at [facility] as most facilities do not accept active methadone taking patients. * Patient fears of methadone withdrawal were addressed. She was informed that we had followed psych reccomendation and she was tapered off appropriate, and was not currently showing any signs or symptoms of withdrawal. * Patient was still admant, despite her father's and medical team persuasion to stay at the hospital. Her father commented to me by stating "she just wants to go do drugs, I know her". Assesment and Plan * Contacted Dr Campbell who reccomended that we give her 7-10 day oral Augmentin course and persuade her to follow up with him. * Medical team Attendant was also notified of the impending AMA. * Patient signed AMA form, was instructed to follow up with Dr juan, she took the Augmentin script and left.
[2016-07-25] MEDS ORDERED: AUGMENTIN 875-1 EACH PO (18:22)
--- NOTE | 2016-07-25 18:38 | Patient Discharge Instructions ---
Discharge Instructions General Discharge Information You were seen/treated for: osteomyelitis (infection involving your bones) Special Instructions: Please follow up with Dr Campbell by tomorrow (07/26/2016) Please seek immediate medical attention if you develop any fevers, or continuous bleeding form your feet. As reiterated, it is very risky for you to leave the hospital against medical advise, you medically need IV antibiotics . Acute Coronary Syndrome Inclusion Criteria At DC or during hospital stay patient has or had the following: ACS DIAGNOSIS No Discharge Core Measures Meds if any: Prescribed or Continued at Discharge Meds if any: NOT Prescribed or Continued at Discharge Congestive Heart Failure Inclusion Criteria At DC or during hospital stay patient has or had the following: CHF DIAGNOSIS No Discharge Core Measures Meds if any: Prescribed or Continued at Discharge JERMAINE/ARB for EF <40% No Meds if any: NOT Prescribed or Continued at Discharge Cerebrovascular accident Inclusion Criteria At DC or during hospital stay patient has or had the following: CVA/TIA Diagnosis No Discharge Core Measures Meds if any: Prescribed or Continued at Discharge Meds if any: NOT Prescribed or Continued at Discharge Venous thromboembolism Inclusion Criteria VTE Diagnosis No VTE Type NONE VTE Confirmed by (Test) NONE Discharge Core Measures - Per Current guidelines, there needs to be overlap - treatment for the first 5 days of Warfarin therapy. - If discharged on Warfarin prior to 5 days of - overlap therapy, the patient will need to be - assessed for post discharge needs including - *Post discharge parental anticoagulation - *Warfarin and/or parental anticoagulation education - *Follow up date to check INR post discharge At least 5 days overlap therapy as Inpatient No Meds if any: Prescribed or Continued at Discharge Note: Overlap Therapy is Warfarin and Anticoagulant Meds if any: NOT Prescribed or Continued at Discharge
--- NOTE | 2016-07-25 18:42 | NUR ---
PT INSISTANT ON LEAVING, PT SPOKE TO BOTH APPLICATION PERFORMANCE ENGINEER LAURA AND RESIDENT RAJIV ABOUT THE RISKS OF LEAVING, PT STILL CHOSE TO LEAVE AMA. IV TAKEN OUT, ITEMS IN SAFE GIVEN BACK TO PATIENT, AND PATIENT WAS INSTRUCTED TO STOP AT SECURITY FOR THE REST OF HER BELONGINGS, PT REFUSED TO STAY FOR D/C PAPERWORK BUT RECEIVED HER PERSCRIPTION FOR IV ABX. AMA PAPERWORK SIGNED. PT AMBULATED SELF OFF FLOOR.
--- NOTE | 2016-07-25 19:00 | NUR ---
CORRECTION ON PREVIOUS NOTE- PT RECEIVED PO ABX (NOT IV).
--- NOTE | 2016-07-25 21:24 | PN- Att Addend ---
Attending MD Review Statement Attending Statement Attending MD Statement: examined this patient, discuss w/resident/PA/COMMISSIONED POLICE OFFICER, agreed w/resident/PA/COMMISSIONED POLICE OFFICER, reviewed EMR data (avail), discussed w/nursing Attending Assessment/Plan: Pt went to OR today with podiatry for secondary closure of the wounds and revisions of the previous srugery. Pt after surgery decided to sign out AMA. was explained the risks associated with leaving AMA especially with recent osteomyelitis in multiple toes of both feets requiring amputations. Pt with her h/o IVDU is at risk for endocarditis, sepsis and other infectious diseases. Pt did not want to stay and was given augmentin PO at time of discharge and she was told to f/u with podiatry.
--- NOTE | 2016-07-26 05:58 | Discharge Summary ---
Visit Information Visit Dates Admission Date: 07/18/16 Discharge Date: 07/25/16 Hospital Course Course Attending Physician: NOAH PACHECO,RAFITA Menendez Primary Care Physician: PATIENT HAS NO PRIMARY CARE DR Hospital Course: Ms. 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 Campbell for bilateral feet osteomyelitis. Patient noticed worsening ulcers on bilateral big toes and included the soft tissue overlaying all her toes, which caused bilateral lower extremity edema, left greater than right. Patient was admitted to the general medicine floor and the following were addressed during her stay: Bilateral feet osteomyelitis: Patient was evaluated by Dr. Campbell while in the emergency room and suggested patient be made NPO on first night of admission for open incision/drainage of multiple sites on bilateral feet with partial first/ second/third ray resection of right foot as well as partial first/second/fourth ray resections of left foot. Patient did not have closure of these wounds and patient had bilateral feet covered in dry dressing. She was placed on IV vancomycin from day of admission due to concerns for MRSA (in setting of IVDU). OR culture results returned and showed growth of staph aureus as well as beta strep group B, so per ID recommendations we transitioned patient to IV cefazolin 2 gm Q8H on 07/23/16. Patient went to the OR on 07/25/16 for closure. She was supposed to get a PICC line before discharge for continuation of IV antibiotic treatment (received 7 days out of 14 days required), but left AMA after coming back from the OR. We were also suppoed to discuss STR with case management as patient could be discharged home with PICC due to IVDU. We explained to her that (considering her h/o IVDU) she is at risk for endocarditis, sepsis and other infectious diseases. Patient did not want to stay and was given augmentin PO at time of discharge and she was told to f/u with podiatry. IVDU: Patient reported consuming 1 bundle of heroine 4 times a day since April 2016. Prior to that, she was on a methadone program receiving 125 of methadone daily, as per patient. Patient was placed on 40 mg PO methadone on the night of admission and she was tapered as per psych instructions. The taper was as follows: methadone 20 mg PO 2 times per day for 2 doses, methadone 15 mg PO 2 times per day for 2 doses, methadone 10 mg PO 2 times per day for 2 doses and methadone 5 mg PO 2 times per day for 2 doses then stop. Patient also had both a hepatitis and HIV panel drawn which were both negative for infection. Patient completed methadone taper inpatient and was continued on safety monitor to monitor closely for visitors bringing drugs. Bipolar depression: Patient denied SI/HI on admission and during her stay. She was continued on abilify daily and celexa 40 mg PO daily. These were continued after discharge and she was advised to follow up with her outpatient psychiatrist. Microcytic anemia: H&H on admission noted to be low to 9.6/29.7 with MCV 72.8. Patient questioned on her menstrual cycles on admission and noted normal length/ flow with each menstruation. Iron studies were drawn and normal except for low Fe levels. Patient was started on ferrous sulfate daily, she was supposed to be discharged on this medication but she left AMA at night. Peripheral neuropathy: Likely secondary to low vitamin B12. Vitamin B12 low to 199 (HgA1C slightly high to 5.8, hyperglycemia likely not the cause of neuropathy). Patient was started on 1g SC Vitamin B12 x 7 days, she was supposed to be switched to oral B12 and given a prescription for this on discharge, she left AMA at night. Allergies: Coded Allergies: Sulfa (Sulfonamide Antibiotics) (Severe, FACILA SWELLING 07/18/16) Significant Procedures: SERVICE DATE: 07/18/160686 EXAM TYPE: MRI - MRI-RT FOOT W/O NOEL EXAMINATION: MR FOOT WITHOUT CONTRAST, RIGHT CLINICAL INFORMATION: Bilateral foot ulcers, drainage. COMPARISON: X-ray of the right foot 07/18/2016. TECHNIQUE: MRI of the right foot was performed without contrast. The study is markedly limited because of motion artifact. The patient was unable to hold still for the examination. The field of view is limited to the forefoot beginning at the mid portion of the metatarsals and extending distally. FINDINGS: 2ND TOE: There is abnormal soft tissue over the plantar aspect of the 2nd toe which appears to be at the level of the metatarsophalangeal joint. The abnormal signal extends from the skin to the joint capsule and likely the bone of the proximal phalanx. There is likely an overlying ulceration. There may be some metallic artifact contributing to some of the signal change and distortion at the skin or just deep to the skin surface. The signal abnormality extending to the joint capsule and/or bone measures up to 14 mm transverse and 13 mm AP. This could partially reflect a sinus tract along with surrounding infectious inflammatory change in the soft tissues. Because of the prominent motion artifact, it is difficult to assess the bone with certainty with regard to the signal intensity. Fine bony detail is also limited because of the artifact. Despite this limitation, I suspect that there is abnormal signal throughout all of the phalanges of the second toe beginning at the base of the proximal phalanx and extending throughout the distal phalanx. Radiographs demonstrate marked destruction of the distal phalanx which is not well seen on this examination in part due to the small size of the bone, marked bone destruction visible on the radiographs, as well as the motion artifact. There is a mild joint effusion of the 2nd metatarsophalangeal joint. This raises the question of concomitant septic arthritis given the changes in the overlying soft tissues as well as in the proximal phalanx. However, no definite marrow signal within the metatarsal head and the partially more proximal metatarsal. GREAT TOE: 1st Metatarsophalangeal Joint - Moderate joint effusion. Probable diffuse mild abnormal signal throughout most of the proximal phalanx without evidence for bone destruction. Marked signal abnormality within the distal phalanx, not well defined, likely related to destructive changes better defined on prior radiographs. Additional prominent localized abnormal signal overlying the IP joint extending from the skin or just deep to the skin to the IP joint compatible with focal inflammatory changes of the soft tissues. I do not see a definite ulceration. 3RD TOE: Difficult to evaluate because of the marked motion artifact. I suspect diffuse signal abnormality throughout the middle and distal phalanx. No definite involvement of the proximal phalanx. Mild effusion of the metatarsophalangeal joint. Effusion of the PIP joint. I do not see an overlying ulceration. 4TH TOE: Limited evaluation because of motion artifact. No definite abnormal marrow signal. Mild effusion of the metatarsophalangeal joint. 5TH TOE: Limited evaluation because of the motion artifact. Possible mild edema in the head of the 5th metatarsal of uncertain significance. This could simply reflect some arthrosis. No definite effusion. MUSCLES/TENDONS: Diffuse signal abnormality throughout all the muscles of the forefoot compatible with edema and/or myositis. No focal fluid collection or abscess is seen. SUBCUTANEOUS SOFT TISSUES: Diffuse signal abnormality throughout the subcutaneous soft tissues, most prominent dorsal. This is compatible with a combination of edema and/or cellulitis. No soft tissue collection noted dorsally. IMPRESSION: Limited examination because of marked motion artifact despite repeating sequences multiple times. The patient apparently could not hold still throughout the examination. Despite this limitation, there is some diagnostic information available. 2nd Toe: Probable ulceration and a sinus tract extending from the skin to the level of the 2nd metatarsophalangeal joint. The findings most compatible with osteomyelitis involving the proximal, middle and distal phalanges. Possible involvement of the metatarsophalangeal joint given the effusion, however, no definite involvement of the metatarsal. Great Toe: Findings indicative of osteomyelitis with destructive changes of the distal phalanx. Probable involvement of the proximal phalanx given the likely abnormal signal extending to the level of the metatarsophalangeal joint. There is also mild effusion of the metatarsophalangeal joint raising the question of concomitant septic arthritis, however, no definite involvement of the metatarsal. 3rd Toe: Findings most consistent with osteomyelitis involving the middle and distal phalanx without definite involvement proximal to this. Mild nonspecific effusion of the PIP joint and metatarsophalangeal joint. Limited evaluation of the 4th and 5th toes. No definite osteomyelitis. Questionable edema in the head of the 5th metatarsal of uncertain significance, this may simply reflect arthrosis. No effusion of the joint. DICTATED BY: CLAUDIA FINNEY MD DATE/TIME DICTATED:07/19/16804 CAT SWAMPER:TRICIA DATE/TIME TRANSCRIBED:07/19/16804 SERVICE DATE: 07/18/16 EXAM TYPE: MRI - MRI-LT FOOT W/O NOEL EXAMINATION: MR FOOT WITHOUT CONTRAST, LEFT CLINICAL INFORMATION: Osteomyelitis. COMPARISON: X-ray of the left foot performed same day. MRI and x-ray of the right foot performed same day. TECHNIQUE: MRI of the left foot was performed without contrast. Sequences were modified in an attempt to decrease motion artifact as the patient was unable to hold still throughout the examination. Because of the artifact, the exam is significantly limited with respect to the diagnostic information available. Despite this limitation, there is some information present. FINDINGS: GREAT TOE: Heterogeneous abnormal signal throughout the poorly visualized distal phalanx. Given the appearance of a fracture on radiographs, this is compatible with reactive change related to a fracture and/or pathologic fracture related to osteomyelitis. There does appear to be some overlying abnormality in the plantar aspect of the toe in the distal phalanx which could reflect chronic fibrotic inflammatory change. The distal phalanx is slightly plantar subluxed at the IP joint. Mild minimal effusion of the IP joint. Marrow signal of the proximal phalanx and the 1st metatarsal appears intact. 2ND TOE: Limited evaluation because of artifact. Diffuse abnormal signal involving the middle and distal phalanx if still present. This corresponds to the area of fracture on radiographs. Some of the abnormal signal may be related to reactive changes related to the fracture; however, in the clinical setting presented, osteomyelitis with pathologic fracture is likely. The marrow signal in the proximal phalanx and metatarsal is intact. There may be some overlying inflammatory changes in the plantar soft tissues. 3RD TOE: No definite abnormal signal in the remaining portion of the toe. There appears to been surgery with amputation distal to the PIP joint. This could be confirmed clinically. 4TH TOE: Diffuse signal abnormality within the middle and distal phalanx with comminuted overlying soft tissue abnormality circumferentially. This likely reflects osteomyelitis and overlying soft tissue infection/cellulitis. Questionable ulceration at the tip of the toe measuring approximately 1 cm. The marrow signal in the proximal phalanx and metatarsal appears to be intact. There is a mild effusion of the 4th metatarsophalangeal joint of uncertain significance. 5TH TOE: Limited evaluation because of the artifact. No definite marrow signal or joint abnormality. MUSCLES/TENDONS: Diffuse signal abnormality within the muscles of the foot compatible with myositis. A small 5 mm fluid collection along the dorsal musculature overlying the mid portion of the 2nd metatarsal which may reflect a small abscess (see axial image 1, series 6). SUBCUTANEOUS SOFT TISSUES: Diffuse signal abnormality throughout the subcutaneous soft tissues, particularly dorsally, which could reflect a combination of cellulitis and/or edema. No localized fluid collection. IMPRESSION: Limited examination because of significant motion artifact. Great toe: Probable osteomyelitis with pathologic fracture of the distal phalanx of the great toe. Second toe: Probable osteomyelitis of the middle and distal phalanx with destructive changes of the bone better depicted on prior radiographs. Postsurgical changes of the 3rd toe. No definite osteomyelitis. Fourth toe: Probable osteomyelitis of the middle and distal phalanx with overlying ulceration. Limited evaluation of the 5th toe. No definite osteomyelitis. Generalized myositis. Possible small fluid collection along the dorsal aspect of the 2nd metatarsal which could reflect a small abscess. Generalized edema and/or cellulitis of the soft tissues. DICTATED BY: CLAUDIA FINNEY MD DATE/TIME DICTATED:07/19/16834 CAT SWAMPER:TRICIA DATE/TIME TRANSCRIBED:07/19/16834 SERVICE DATE: 07/18/16-1334 EXAM TYPE: RAD - XRY-FOOT COMPLETE, R EXAMINATION: XR FOOT, RIGHT CLINICAL INFORMATION: Edematous and erythematous right toes. Evaluate for osteomyelitis. COMPARISON: None. TECHNIQUE: AP, lateral, and oblique views of the right foot. FINDINGS: Multiple views of the right foot and right toes demonstrate significant soft tissue swelling involving the first, second and third digits of the right foot. Of note, there is cortical indistinctness of cortical destruction involving the distal phalanges of the first and second digits of the right foot, suspicious for acute osteomyelitis. There is also cortical indistinctness and lucency along the lateral aspect of the distal phalanx of the third toe which is suspicious for osteomyelitis. IMPRESSION: Significant soft tissue swelling involving the first, second and third toes of the right foot. Cortical destruction and cortical indistinctness involving the distal phalanges of the first and second toes of the right foot. Also noted is cortical lucency along the lateral aspect of the distal phalanx of the third toe. These findings are suspicious for acute osteomyelitis. DICTATED BY: DEBORAH SKY MD DATE/TIME DICTATED:07/18/161404 CAT SWAMPER:TRICIA DATE/TIME TRANSCRIBED:07/18/161404 SERVICE DATE: 07/18/16- EXAM TYPE: US - US-EXT BILAT VENOUS DOPPLER EXAMINATION: US TRIPLEX LOWER EXTREMITY, BILATERAL CLINICAL INFORMATION: Bilateral lower extremity edema. COMPARISON: None TECHNIQUE: Color-flow triplex imaging with spectral analysis and compression Doppler were performed on the bilateral lower extremities. FINDINGS: Respiratory variation, normal compression and augmented flow are noted throughout the bilateral lower extremities. The visualized common femoral vein, superficial femoral vein, profunda femoral vein, popliteal vein and midcalf peroneal and posterior tibial venous segments show no evidence of deep venous thrombosis. There is no Morgan's cyst. Prominent bilateral inguinal lymph nodes. The largest on the right measures 1.8 cm. The largest on the left measures 2.3 cm. IMPRESSION: Normal triplex scan without evidence of deep venous thrombosis involving the bilateral lower extremities. Prominent bilateral inguinal lymph nodes. DICTATED BY: JEREMY GRAY MD DATE/TIME DICTATED:07/18/162309 CAT SWAMPER:TRICIA DATE/TIME TRANSCRIBED:07/18/162309 Surgery Date: 07/25/16 Name of Procedure: 1 open incision and drainage deep to the deep fascia with exposure of the extensor and flexor tendon and tendon sheath multiple sites right foot 2 open incision and drainage deep to the deep fascia with exposure of the extensor and flexor tendon and tendon sheath multiple sites left foot 3 delayed primary closure of open surgical wound with local random advancement flap right foot 4 delayed primary closure of open surgical wound with local random advancement flap left foot 5 revisional ray resection right foot 6 revisional ray resection left foot 7 intraoperative administration of ankle block anesthesia 8 excisional debridement Pre-Operative Diagnosis: 1 open necrotic wound right foot 2 open necrotic wound left foot 3 osteomyelitis right foot 4 osteomyelitis left foot Post-Operative Diagnosis: Same Estimated Blood Loss: less than 50ml Surgeon/Software Licensing Analyst: GRACE CAMPBELL DPM Anesthesia: moderate sedation, block Operative/Procedure Note Note: After obtaining informed consent the patient was brought to the operating room and placed on the operating table in the supine position. The patient isn't securely fastened to the operating table utilizing safety belt. After administration of IV sedation, 10 mL of 0.5% Marcaine plain was obtained about the patient's right and left ankles. The right left feet were then scrubbed prepped and draped in usual aseptic manner. Attention was directed to right foot, where a large full-thickness necrotic was identified. A 15 blade visualized sharply revised skin margins. He dissection was then carried down deep to the fashion with exposure of the extensor and flexor tendon and tendon sheath multiple sites, both proximally and distally. Mild infected tissue sharply evacuated from the wound bed. Dissection and continued onto the periosteum overlying the distal first ray which was incised reflected. Sagittal bone saw was utilized to resect the distal osseous segment. The specimen was sent for pathologic inspection. Nipple was then irrigated with 3 L normal sterile saline fissure 50,000 units of bacitracin. Following this the foot was redraped and the surgeon's top was changed clean gloves. Any bleeding vessels identified were cauterized or ligated as encountered. A dorsal flap was then developed with undermining, mobilization and advancement of the adjacent tissue towards the central portion the wound. This was held at its deep side with 3-0 Vicryl. Plantarly, the moring ligaments released and the adjacent tissues were again undermined and mobilized and advanced towards the open portion the wound. The septae stitches reapproximated 3-0 Vicryl and the skin edges reapproximated 3-0 nylon. Incision was then dressed with Xeroform 4 x 4's Kerlix and an Allan wrap. Attention was then directed to the left foot, where again a large full- thickness necrotic was identified. A 15 blade visualized sharply revised skin margins. He dissection was then carried down deep to the deep fascia with exposure of the extensor and flexor tendon and tendon sheath multiple sites with proximally and distally. All necrotic nonviable infected tissue sharply evacuated from the wound bed. The distal exposed ray of the fourth metatarsal was resected with a sagittal bone saw and the specimen sent for pathologic inspection. The open wound was then irrigated with 3 L normal sterile saline fissure 50,000 units of bacitracin. Following this the foot was redraped and the surgeon's top pleasure changed clean gloves. Any bleeding vessels identified were cauterized or ligated as encountered. A dorsal flap was then developed with undermining, mobilization and advancement of the adjacent tissue. The flap was rotated inferiorly and held centrally at its deep side with 3-0 Vicryl. Plantarly, the moring ligaments were released and the adjacent tissues were again undermined and mobilized. The flap was then rotated superiorly and held at its central aspect with 3-0 Vicryl. The subtenons tissues were then reapproximated 4-0 Vicryl and the skin is reapproximated 4-0 nylon. Incision was then dressed with Xeroform 4 x 4's Kerlix and an Allan wrap. The patient is noted tolerate both procedure and anesthesia well and the patient was transported from the operating room to recovery by sent stable best assess intact to both the dorsal and plantar flaps. DICTATED BY: GRACE CAMPBELL DPM DATE/TIME DICTATED:07/25/161717 CAT SWAMPER:BENITO DATE/TIME TRANSCRIBED:07/25/161717 REPORT NUMBER:[id number] Pertinent Lab Results: 07/25/16 0600: CBC w Diff NO MAN DIFF REQ, RBC 4.14 L, MCV 72.3 L, MCH 23.9 L, RDW 14.9 H, MPV 6.8 L, Gran % 60.9, Lymphocytes % 30.9, Monocytes % 4.2, Eosinophils % 3.6, Basophils % 0.4, Absolute Granulocytes 4.7, Absolute Lymphocytes 2.4, Absolute Monocytes 0.3, Absolute Eosinophils 0.3, Absolute Basophils 0, PUBS MCHC 33.1 07/18/16 1426: Anion Gap 10, Estimated GFR > 60, BUN/Creatinine Ratio 18.3, Glucose 115 H, Calcium 8.6, Iron Pending, TIBC Pending, Ferritin Pending, Total Bilirubin 0.6, AST 17, ALT 26, Alkaline Phosphatase 114, C-Reactive Prot, Quant > 9.0 H, C- React Prot High Sens > 15.0 H, Total Protein 7.1, Albumin 3.2 L, Globulin 3.9, Albumin/Globulin Ratio 0.8 L, Total Beta HCG NEGATIVE, CBC w Diff NO MAN DIFF REQ, RBC 4.08 L, MCV 72.8 L, MCH 23.6 L, RDW 15.2 H, MPV 6.9 L, Gran % 84.3 H, Lymphocytes % 10.9 L, Monocytes % 4.0, Eosinophils % 0.6, Basophils % 0.2, Absolute Granulocytes 10.1 H, Absolute Lymphocytes 1.3, Absolute Monocytes 0.5, Absolute Eosinophils 0.1, Absolute Basophils 0, PUBS MCHC 32.4 L, ESR Westergren 122 H, Disposition Summary Disposition Principal Diagnosis: Osteomyelitis, bilateral feet with overlaying acute cellulitis Additional Diagnosis: IVDU Bipolar depression Microcytic anemia Peripheral neuropathy and vitmin B12 deficiency Discharge Disposition: left against medical adv Discharge Instructions General Discharge Information Code Status: Full Code Patient's Diet: Regular diet Patient's Activity: As tolerated Follow-Up Instructions/Appts: Please follow up with Dr Campbell by 07/26/2016 Please seek immediate medical attention if you develop any fevers, or continuous bleeding form your feet. As reiterated, it is very risky for you to leave the hospital against medical advise, you medically need IV antibiotics. Medications at Discharge Discharge Medications: Continue taking these medications: Aripiprazole (Aripiprazole) 5 MG TABLET 1 Tablet ORAL DAILY Qty = 30 Clonazepam (Clonazepam) 2 MG TABLET 1 Tablet ORAL TWICE DAILY Qty = 60 Citalopram Hydrobromide (Citalopram HBr) 40 MG TABLET 1 Tablet ORAL DAILY Qty = 30 Start taking the following new medications: Amoxicillin/Potassium Clav (Augmentin 875-125 Tablet) 875 MG-125 MG TABLET 1 Tablet ORAL TWICE DAILY Qty = 14 No Refills Copies To: ARSALAN GREENWOOD,GRACE Attending MD Review Statement Documenting Attending: RAFTIA ZAMORA MD Other Findings: agree with the above discharge plan.
== END 2016-07-25 18:35 | disposition left against medical advice (07) | DRG 464 ==
LOC: ENRESERVDT → ENRESERVTM → ERH 12:30 → ERHI 13:36 → 2NA 13:36
PROVIDERS: Emergency Medicine; Internal Medicine; Ophthalmology; Student in an Organized Health Care Education/Training Program; ADMIT Internal Medicine
PROC: 0Y6M0Z9 Detachment at Right Foot, Partial 1st Ray, Open Approach (ICD-10-PCS; principal; 2016-07-19)
PROC: 0HXMXZZ Transfer Right Foot Skin, External Approach (ICD-10-PCS; principal; 2016-07-19)
PROC: 0JBQ0ZZ Excision of Right Foot Subcutaneous Tissue and Fascia, Open Approach (ICD-10-PCS; principal; 2016-07-19)
PROC: 0JBR0ZZ Excision of Left Foot Subcutaneous Tissue and Fascia, Open Approach (ICD-10-PCS; principal; 2016-07-19)
PROC: 0Y6S0Z3 Detachment at Left 2nd Toe, Low, Open Approach (ICD-10-PCS; principal; 2016-07-19)
PROC: 0Y6P0Z3 Detachment at Right 1st Toe, Low, Open Approach (ICD-10-PCS; principal; 2016-07-19)
PROC: 0J9Q0ZZ Drainage of Right Foot Subcutaneous Tissue and Fascia, Open Approach (ICD-10-PCS; principal; 2016-07-19)
PROC: 0Y6Q0Z3 Detachment at Left 1st Toe, Low, Open Approach (ICD-10-PCS; principal; 2016-07-19)
PROC: 0Y6R0Z3 Detachment at Right 2nd Toe, Low, Open Approach (ICD-10-PCS; principal; 2016-07-19)
PROC: 0HXNXZZ Transfer Left Foot Skin, External Approach (ICD-10-PCS; principal; 2016-07-19)
PROC: 0Y6T0Z3 Detachment at Right 3rd Toe, Low, Open Approach (ICD-10-PCS; principal; 2016-07-19)
PROC: 0Y6W0Z3 Detachment at Left 4th Toe, Low, Open Approach (ICD-10-PCS; principal; 2016-07-19)
PROC: 0J9R0ZZ Drainage of Left Foot Subcutaneous Tissue and Fascia, Open Approach (ICD-10-PCS; principal; 2016-07-19)
PROC: 0Y6N0ZD Detachment at Left Foot, Partial 4th Ray, Open Approach (ICD-10-PCS; principal; 2016-07-19)
PROC: 0Y6M0ZB Detachment at Right Foot, Partial 2nd Ray, Open Approach (ICD-10-PCS; 2016-07-25)
PROC: 0HXNXZZ Transfer Left Foot Skin, External Approach (ICD-10-PCS; 2016-07-25)
PROC: 0J9Q0ZZ Drainage of Right Foot Subcutaneous Tissue and Fascia, Open Approach (ICD-10-PCS; 2016-07-25)
PROC: 0J9R0ZZ Drainage of Left Foot Subcutaneous Tissue and Fascia, Open Approach (ICD-10-PCS; 2016-07-25)
PROC: 0Y6N0Z9 Detachment at Left Foot, Partial 1st Ray, Open Approach (ICD-10-PCS; 2016-07-25)
PROC: 0Y6N0ZD Detachment at Left Foot, Partial 4th Ray, Open Approach (ICD-10-PCS; 2016-07-25)
PROC: 0Y6N0ZB Detachment at Left Foot, Partial 2nd Ray, Open Approach (ICD-10-PCS; 2016-07-25)
PROC: 0Y6M0ZC Detachment at Right Foot, Partial 3rd Ray, Open Approach (ICD-10-PCS; 2016-07-25)
DX: M86.8X7 Other osteomyelitis, ankle and foot (principal); L03.115 Cellulitis of right lower limb; G62.9 Polyneuropathy, unspecified; F11.10 Opioid abuse, uncomplicated; D50.9 Iron deficiency anemia, unspecified; E03.9 Hypothyroidism, unspecified; F31.9 Bipolar disorder, unspecified; F41.9 Anxiety disorder, unspecified; Z87.891 Personal history of nicotine dependence
CPT/HCPCS: 2NAP; 2NASP; 75657; 87070; 87075; 87184; 36415; 73630-LT; 73630-RT; 80307; 81001; 82436; 87040; 87071; 87147; 87389; 88304; 88305; 93005; 93010; 93970; J0690; J1644; J1885; J2001; J2405; J3370; J3420; J7042; J7060

== ENCOUNTER 2016-11-02 15:18 | Emergency (ER) | payer OTHER, MEDICARE ==
[~2016-11-02] VITALS: Ht 170.2 cm; Wt 90.7 kg
[~2016-11-02 15:18] MED LIST: ARIPIPRAZOLE5 M1 PO; AUGMENTIN 875-1 EACH PO; CITALOPRAM HBR40 MG PO; CLONAZEPAM2 M2 PO
[2016-11-02 15:21] VITALS: BP 144/91
--- NOTE | 2016-11-02 16:49 | ED UPPER/LOWER EXTREMITY COMPL ---
History of Present Illness General Chief Complaint: Foot or Ankle Injury Stated Complaint: RIGHT FOOT PAIN Vital Signs & Intake/Output Vital Signs & Intake/Output Vital Signs Date Time Temp Pulse Resp B/P B/P Pulse O2 O2 Flow FiO2 Mean Ox Delivery Rate 11/02 1521 97.9 104 18 144/91 98 Room Air Allergies Coded Allergies: Sulfa (Sulfonamide Antibiotics) (Severe, FACILA SWELLING 07/18/16) Reconcile Medications Amoxicillin/Potassium Clav (Augmentin 875-125 Tablet) 875 MG-125 MG TABLET 1 TAB PO BID infection Aripiprazole 5 MG TABLET 1 TAB PO DAILY MENTAL HEALTH (Reported) Citalopram Hydrobromide (Citalopram HBr) 40 MG TABLET 1 TAB PO DAILY MENTAL HEALTH (Reported) Clonazepam 2 MG TABLET 1 TAB PO BID anxiety (Reported) Triage Note: PT SENT BY DR ARRIAZA FOR R FOOT INFECTION, PT STATES THAT SHE HAD 4 TOES AMPUTATED FROM HER R FOOT IN JULY AND ITS NOT HEALING, COMPLAINS OF DRAINAGE, AFEBRILE AT THIS TIME. SENT FOR MRIAND ABT : No Patient currently breastfeeds: No Past History Travel History Traveled to [place] past 21 day No Medical History Neurological: peripheral neuropathy EENT: NONE Cardiovascular: NONE Respiratory: NONE Gastrointestinal: NONE Hepatic: NONE Renal: NONE Musculoskeletal: NONE Psychiatric: bipolar disease, IV drug abuse, heroin addiction Endocrine: hypothyroidism Blood Disorders: NONE Cancer(s): NONE MANAGER OF HUMAN RESOURCES/Reproductive: NONE History of MRSA: No History of VRE: No History of CDIFF: No Surgical History Surgical History: status post partial amputation of the left third toe Psychosocial History Who do you live with Friend Services at Home None What is your primary language Mongolian Tobacco Use: Never used ETOH Use: denies use Illicit Drug Use: denies illicit drug use Departure Departure Condition: Stable Referrals: PATIENT HAS NO PRIMARY CARE DR (PCP/Family) Departure Forms: Customer Survey General Discharge Information
== END 2016-11-02 16:00 | disposition admitted as inpatient to this hospital (09) ==
LOC: ERH 15:18
DX: T81.89XA Other complications of procedures, not elsewhere classified, initial encounter (principal); Z53.21 Procedure and treatment not carried out due to patient leaving prior to being seen by health care provider

== ENCOUNTER 2016-11-04 22:38 | Inpatient (IN) | payer OTHER, MEDICARE ==
[~2016-11-04] VITALS: Ht 170.2 cm; Wt 97.5 kg
--- NOTE | 2016-11-04 22:59 | ED UPPER/LOWER EXTREMITY COMPL ---
See Addendum History of Present Illness General Chief Complaint: Foot or Ankle Injury Stated Complaint: R FOOT BLEEDING, SURGERY IN JUL Source: patient Exam Limitations: no limitations Vital Signs & Intake/Output Vital Signs & Intake/Output Vital Signs Date Time Temp Pulse Resp B/P B/P Pulse O2 O2 Flow FiO2 Mean Ox Delivery Rate 11/046 99.3 110 20 125/82 97 Room Air ED Intake and Output 11/05 0000 11/04 1200 Intake Total Output Total Balance Patient 215 lb Weight Weight Reported by Patient Measurement Method Allergies Coded Allergies: Sulfa (Sulfonamide Antibiotics) (Severe, FACILA SWELLING 07/18/16) Reconcile Medications Amoxicillin/Potassium Clav (Augmentin 875-125 Tablet) 875 MG-125 MG TABLET 1 TAB PO BID infection Aripiprazole 5 MG TABLET 1 TAB PO DAILY MENTAL HEALTH (Reported) Citalopram Hydrobromide (Citalopram HBr) 40 MG TABLET 1 TAB PO DAILY MENTAL HEALTH (Reported) Clonazepam 2 MG TABLET 1 TAB PO BID anxiety (Reported) Triage Note: PRESENTS TO ED FOR EVALUATION OF RIGHT FOOT SURGICAL WOUND. SHE SUFFERS OF NEUROPATHY AND IN JULY HAD [address] HUDSON. WOUND BEGAN BLEEDING MINIMALLY 3 DAYS AGO AND HAS BEEN WORSENING SINCE. DENIED FEVER. Triage Nurses Notes Reviewed? yes Onset: Gradual Duration: week(s):, waxing and waning Timing: recent history Severity: moderate Pain/Injury Location: Right: Foot. Method of Injury: h/o osteo Modifying Factors: Improves With: rest. Associated Symptoms: swelling, redness : No Patient currently breastfeeds: No HPI: 41 yo woman h/o neuropathy, h/o 3 toe amputation in jul 2016, h/o osteomyelitis, presents with bleeding, redness, tenderness and discharge from the surgical wound site for the past several days. She notes redness, increased pain, extending up her leg. She has no fever, chills. Past History Travel History Traveled to [place] past 21 day No Medical History Any Pertinent Medical History? see below for history Neurological: peripheral neuropathy EENT: NONE Cardiovascular: NONE Respiratory: NONE Gastrointestinal: NONE Hepatic: NONE Renal: NONE Musculoskeletal: NONE Psychiatric: bipolar disease, IV drug abuse, heroin addiction Endocrine: hypothyroidism Blood Disorders: NONE Cancer(s): NONE NUT SIFTER/Reproductive: NONE History of MRSA: No History of VRE: No History of CDIFF: No Surgical History Surgical History: status post partial amputation of the left third toe Psychosocial History Who do you live with Friend Services at Home None What is your primary language Maltese Tobacco Use: Current Daily Use Daily Tobacco Use Amount/Type: => 5 Cigarettes daily Family History Hx Contributory? No Review of Systems Review of Systems Constitutional: Reports: no symptoms. EENTM: Reports: no symptoms. Respiratory: Reports: no symptoms. Cardiovascular: Reports: no symptoms. Gastrointestinal/Abdominal: Reports: no symptoms. Genitourinary: Reports: no symptoms. Musculoskeletal: Reports: no symptoms. Skin: Reports: no symptoms. Neurological/Psychological: Reports: no symptoms. Hematologic/Endocrine: Reports: no symptoms. Immunological: Reports: no symptoms. All Other Systems: Reviewed and Negative Physical Exam Physical Exam General Appearance: well developed/nourished, mild distress Head: atraumatic Neck: normal inspection, supple Cardiovascular/Respiratory: normal breath sounds, normal peripheral pulses Back: normal inspection Foot Right: 3 toes amputated, drainage, erythema, tenderness, warmth and erythema up mid calf with tenderness. 1cm plantar ulceration Skin: intact, normal color, warm/dry Progress Differential Diagnosis: post-op bleeding/infection... trauma vs contusion vs other. Plan of Care: Orders Procedure Date/time Status Nothing by Mouth 11/05 B Active Saline Lock 11/05 212 Active Misc Message 11/05 212 Active ED Holding Orders 11/05 212 Active Admit to inpatient 11/05 212 Active Vital Signs 11/05 212 Active Code Status 11/05 212 Active Patient Data 11/05 202 Active EKG 11/05 0157 Active BLOOD CULTURE 11/05 2319 Active BLOOD CULTURE 11/04 2316 Active WESTERGREN SED RATE 11/04 2316 Complete COMPREHENSIVE METABOLIC PANEL 11/04 2316 Complete CBC WITHOUT DIFFERENTIAL 11/04 2316 Complete Laboratory Tests 11/04/16 2331: Anion Gap 10, Estimated GFR > 60, BUN/Creatinine Ratio 12.5, Glucose 98, Calcium 8.8, Total Bilirubin 0.7, AST 17, ALT 22, Alkaline Phosphatase 127 H, Total Protein 7.2, Albumin 3.1 L, Globulin 4.1, Albumin/Globulin Ratio 0.8 L, CBC w Diff NO MAN DIFF REQ, RBC 4.01 L, MCV 68.8 L, MCH 22.1 L, RDW 17.6 H, MPV 6.6 L, Gran % 67.2, Lymphocytes % 22.3, Monocytes % 6.9, Eosinophils % 3.2, Basophils % 0.4, Absolute Granulocytes 5.6, Absolute Lymphocytes 1.9, Absolute Monocytes 0.6, Absolute Eosinophils 0.3, Absolute Basophils 0, PUBS MCHC 32.1 L , ESR Westergren 123 H Microbiology 11/04 2331 BLOOD: Blood Culture - RECD 11/04 2314 BLOOD: Blood Culture - RECD Diagnostic Imaging: Viewed by Me: Radiology Read. Discussed w/RAD: Radiology Read. Radiology Impression: right foot xray... new erosion of 1st digit. Comments: PATIENT: SUSI SANDOVAL PRESENT AGE: 41 PATIENT ACCOUNT NO: [id number] : 73 LOCATION: [facility] ORDERING PHYSICIAN: JAN ULRICH MD SERVICE DATE: 11/04/16 EXAM TYPE: RAD - XRY-FOOT COMPLETE, R EXAMINATION: XR FOOT, RIGHT CLINICAL INFORMATION: Right foot pain, infection. Question soft tissue gas. COMPARISON: 07/18/2016 TECHNIQUE: AP, lateral, and oblique views of the right foot. FINDINGS: Since the prior radiographs, there has been resection of the first digit at the proximal interphalangeal joint and amputation of the second and third digits from the metatarsophalangeal joints. No evidence of acute fracture. Soft tissue swelling is present throughout the forefoot. No definite soft tissue gas is noted, although superficial gas at the amputation site would be difficult to exclude. There is no gas extension along the remainder of the foot. Probable erosion at the distal aspect of the first digit proximal phalanx. This appears new from previous. IMPRESSION: Prominent soft tissue swelling of the forefoot at the amputation site. No definite soft tissue gas, although superficial gas at the distal aspect of the stump is difficult to exclude. New probable erosion of the distal aspect of the first digit proximal phalanx may represent osteomyelitis. DICTATED BY: JEREMY GRAY MD DATE/TIME DICTATED:11/04/162349 LINING BASTER:TRICIA DATE/TIME TRANSCRIBED:11/04/162349 CONFIDENTIAL, DO NOT COPY WITHOUT APPROPRIATE AUTHORIZATION. <Electronically signed in Other Vendor System> SIGNED BY: JEREMY GRAY MD 11/04 1561 Departure Departure Disposition: HOME OR SELF CARE Condition: Stable Clinical Impression Primary Impression: Acute osteomyelitis-ankle/foot Referrals: PATIENT HAS NO PRIMARY CARE DR (PCP/Family) Departure Forms: Customer Survey General Discharge Information Admission Note Spoke With: FELIX PACHECO,ADONIS Documentation of Exam: Documentation of any treatments & extenuating circumstances including Concerns Regarding Discharge (functional status, medication knowledge or non-compliance, living conditions, etc.) that warrant an admission rather than observation: discussed with dr. hudson who will evaluate patient in the AM... she will likely require biopsy/debridement... It would be best to obtain this prior to starting abx to refine abx choice. Thus, will hold off on abx now.
--- NOTE | 2016-11-04 23:56 | RADIOLOGY REPORT ---
EXAMINATION: XR FOOT, RIGHT CLINICAL INFORMATION: Right foot pain, infection. Question soft tissue gas. COMPARISON: 07/18/2016 TECHNIQUE: AP, lateral, and oblique views of the right foot. FINDINGS: Since the prior radiographs, there has been resection of the first digit at the proximal interphalangeal joint and amputation of the second and third digits from the metatarsophalangeal joints. No evidence of acute fracture. Soft tissue swelling is present throughout the forefoot. No definite soft tissue gas is noted, although superficial gas at the amputation site would be difficult to exclude. There is no gas extension along the remainder of the foot. Probable erosion at the distal aspect of the first digit proximal phalanx. This appears new from previous. IMPRESSION: Prominent soft tissue swelling of the forefoot at the amputation site. No definite soft tissue gas, although superficial gas at the distal aspect of the stump is difficult to exclude. New probable erosion of the distal aspect of the first digit proximal phalanx may represent osteomyelitis.
[2016-11-05 00:04] LABS: ABSOLUTE BASOPHIL COUNT 0 /CUMM (0.0-0.2); ABSOLUTE EOSINOPHIL COUNT 0.3 /CUMM (0.0-0.7); ABSOLUTE GRANULOCYTE CT 5.6 /CUMM (1.4-6.5); ABSOLUTE LYMPH COUNT 1.9 /CUMM (1.2-3.4); ABSOLUTE MONOCYTE COUNT 0.6 /CUMM (0.10-0.60); BASOPHIL % 0.4 % (0.0-2.0); EOSINOPHIL % 3.2 % (0-5); GRANULOCYTE % 67.2 % (42.2-75.2); HEMATOCRIT 27.6 % (37-47); MEAN CORPUSCULAR HGB 22.1 PG (27.0-31.0); MEAN CORPUSCULAR HGB CONC 32.1 G/DL (33.0-37.0); MEAN CORPUSCULAR VOLUME 68.8 FL (81.0-99.0); MEAN PLATELET VOLUME 6.6 FL (7.4-10.4); PLATELET COUNT 450 /CUMM (130-400); RBC DISTRIBUTION WIDTH 17.6 % (11.5-14.5); RED BLOOD CELL CT 4.01 /CUMM (4.20-5.40); WHITE BLOOD CELL COUNT 8.4 /CUMM (4.8-10.8)
--- NOTE | 2016-11-05 02:05 | History & Physical ---
[facility] [place] 11/05/16 0204: General Information and HPI MD Statement: I have seen and personally examined JAIME,SUSI and documented this H&P. The patient is a 41 year old F who presented with a patient stated chief complaint of [redness, tenderness,bleeding of right foot]. 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 Campbell for further evaluation of possible right foot infection. 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 Campbell who recommended her to go to ER for further evaluation of right foot erythema, swelling, tenderness, with bleeding. She denies purulent discharge and foul smell. She came to the ED, but due to the long wait time, and a family emergency, she was not able to be seen. She finally got a ride to the ED on 11/04/16. Since , the redness has progressed up to mid calf. She reports 7/10 pain. She has had to change her socks about every hour due to the bleed. She denies trauma to the foot. Patient was admitted back in Jul 2016 for osteomyelitis for which she underwent toe amputation of both feet. She signed out AMA at that time, but admit to completing 14 day course of antibiotics. SHe has not been taking B12 and iron because she did not know she had to take them. She has stopped taking levothyroxine on her own about 6 months ago. She used heroin up to about 1 month ago. She has been following up with the methadone program since then, and is currently on 40 mg of methadone daily ( takes it in the morning). She gets it from [facility], . She is requesting additional pain medication and she would leave if she does not get it. 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 2 roomates Services at Home: None Primary Language: Swiss Smoking Status: Current Everyday Smoker ETOH Use: denies use Illicit Drug Use: denies illicit drug use, hx of heroin use, now on methadone Living Will? no Functional Ability ADLs Independent: dressing, eating, toileting, bathing. Ambulation: independent Review of Systems Review of Systems Constitutional: Denies: chills, fever, malaise. EENTM: Denies: visual changes. Cardiovascular: Denies: chest pain, palpitations. Respiratory: Denies: cough, short of breath. GI: Denies: abdominal pain, bloating, constipation, diarrhea. Genitourinary: Reports: dysuria. Skin: Reports: see HPI, change in skin color. Exam & Diagnostic Data Last 24 Hrs of Vital Signs/I&O Vital Signs Date Time Temp Pulse Resp B/P B/P Pulse O2 O2 Flow FiO2 Mean Ox Delivery Rate 11/05 0323 98.5 77 18 118/74 97 Room Air 11/05 0234 98.4 69 18 110/60 96 Room Air 11/04 2315 98 Room Air 11/04 2246 99.3 110 20 125/82 97 Room Air Intake & Output 11/05 0800 11/05 0000 11/04 1600 Intake Total Output Total Balance Patient 97.522 kg Weight Weight Reported by Patient Measurement Method Physical Exam General Appearance Alert, Oriented X3, Cooperative, No Acute Distress Skin Temp/Moisture Exam: Warm/Dry Sepsis Skin Exam (color): Normal for Ethnicity HEENT Atraumatic, PERRLA, EOMI, Mucous Membr. moist/pink Neck Supple Cardiovascular Regular Rate, Normal S1, Normal S2, No Murmurs, Gallops, Rubs Lungs Clear to Auscultation, Normal Air Movement Abdomen Normal Bowel Sounds, Soft, No Tenderness Neurological Normal Speech, Strength at 5/5 X4 Ext Extremities right foot erythematous up to mid calf, + edema, purulent discharge from dorsal and plantar surface. , left foot - toes amputated, no signs of infection Vascular Normal Pulses, Pulses Symmetrical Body Front and Back (Adult) 1) redness and swelling Diagnostic Data EKG Results SR rate 71 QTc 435 Other Results EXAM TYPE: RAD - XRY-FOOT COMPLETE, R EXAMINATION: XR FOOT, RIGHT CLINICAL INFORMATION: Right foot pain, infection. Question soft tissue gas. COMPARISON: 07/18/2016 TECHNIQUE: AP, lateral, and oblique views of the right foot. FINDINGS: Since the prior radiographs, there has been resection of the first digit at the proximal interphalangeal joint and amputation of the second and third digits from the metatarsophalangeal joints. No evidence of acute fracture. Soft tissue swelling is present throughout the forefoot. No definite soft tissue gas is noted, although superficial gas at the amputation site would be difficult to exclude. There is no gas extension along the remainder of the foot. Probable erosion at the distal aspect of the first digit proximal phalanx. This appears new from previous. IMPRESSION: Prominent soft tissue swelling of the forefoot at the amputation site. No definite soft tissue gas, although superficial gas at the distal aspect of the stump is difficult to exclude. New probable erosion of the distal aspect of the first digit proximal phalanx may represent osteomyelitis. DICTATED BY: MARINA PACHECO,JEREMY DATE/TIME DICTATED:11/04/162349 Assessment/Plan Assessment: 41-year-old female with PMH neuropathy sp toe amputation of both feet due to osteomyelitis with OR cx grew MSSA and Beta strep group B, treated with 14 days of antibiotics, anemia with low iron and b12, hx of IVDA heroin now on methadone (last use 1 month ago), hypothyroidism (stopped taking levothyroxine 6 months ago on her own), bipolar disorder, depression, anxiety, was sent in by Dr. Campbell for further evaluation of right foot erythema, swelling, tenderness, with bleeding. On physical exam, there was purulent discharge from dorsal and plantar surface, and there was also foul smell. Xray of foot concerning for osteomyelitis. Patient admitted to for likely biopsy/debridement with Dr. Campbell. Problem list: # Likely osteomyelitis of right foot # Anemia # Hx of heroin abuse # Possible UTI # Hypothyroidism # Likely osteomyelitis - ESR 123 * Admit to general medicine * Dr. Campbell will see patient in am * Plan for OR for biopsy/debridement on Saturday? * Hold off abx until we obtain OR Cx * Follow BCX2 * Follow up US doppler to r/o DVT * Follow up MRI of foot # Anemia - H/H 8.9/27.6, hb was 9.9 on in Jul 2016, found to have low iron and b12 at that time * Resume B12 and ferrous sulfate - ferrous sulfate 325 bid & vitamin b12 1000 daily, make sure patient takes this at discharge * guaiac all stool # Hx of heroin abuse - She used heroin up to about 1 month ago. She has been following up with the methadone program since then, and is currently on 40 mg of methadone daily ( takes it in the morning). She gets it from [facility], . * Confirm methadone dose * Follow up Utox # Possible UTI - Reports dysuria * UA,UC but WATCH OFF ABX for biopsy of foot # Hypothryroidism, but stopped taking her meds on her own * Follow up TSH/FT4 # Nicotine dependence * Nicotine patch # Continue home meds klonopin 2mg bid celexa 40 mg daily abilify 5 mg daily Diet: Regular diet for now, NPO for 11/06 PP: morphine 2 mg iv q4-6prn severe, vicodin 1 tab q6p moderate, tylenol po q6p mild DVT ppx: mech and sc heparin FULL CODE As Ranked By This Provider Problem List: 1. Osteomyelitis of foot, right, acute Core Measures/Miscellaneous Acute Coronary Syndrome ACS Diagnosis: No Cerebrovascular Accident CVA/TIA Diagnosis: No Congestive Heart Failure CHF Diagnosis: No Venous Thromboembolism VTE Risk Factors: Acute medical illness, Age > 40 No Mech VTE prophylaxis d/t: No contraindications No VTE Pharm Prophylaxis d/t: No contraindications VTE Diagnosis: No VTE Type: NONE VTE Confirmed by (Test): NONE Severe Sepsis Severe Sepsis Present: No Septic Shock Septic Shock Present: No Miscellaneous Documentation Attending Case Discussed With: FELIX PACHECO,[facility] Primary Care Physician: PATIENT HAS NO PRIMARY CARE DR Patient sees these Specialists Podiatry Dr De La Paz Level of Patient Care: General Medicine RINKU KEITH 11/05/16 0209: General Information and HPI Allergies/Medications Home Med list Aripiprazole 5 MG TABLET 1 TAB PO DAILY MENTAL HEALTH (Reported) Citalopram Hydrobromide (Citalopram HBr) 40 MG TABLET 1 TAB PO DAILY MENTAL HEALTH (Reported) Clonazepam 2 MG TABLET 1 TAB PO BID anxiety (Reported) Resident Review Statement Resident Statement: examined this patient, discussed with intern brand, agreed with intern brand, discussed with family, reviewed EMR data (avail), discussed with nursing , discussed with case mgmt, reviewed images, amended to note Other Findings: 41-year-old female with a past medical history of hypothyroidism, bipolar disease, IV drug abuse, heroine addiction and peripheral neuropathy, history of osteomyelitis status post 32 amputations in July 2016 who presents to the ED with complaints of bleeding, redness, tenderness and discharge from the surgical wound site for the past several days. According to the patient she was in her usual state of health until a few days ago when she noticed swelling, pain and redness of her right lower extremity which was associated with discharge that was bloody from the plantar aspect of her foot as well as the site of the surgical incision. Of note after having signing out from the hospital AMA on Augmentin which she reportedly completed the course of. She staets that she F/U with Dr. Campbell as an outpatient. She last saw him this past and was advised to come to the ER for further evaluation. Patient states that she came to the ER but had some emergency at home and had to leave the ED. She denies any fever, chills, does endorse pain that she grades as a 7 out of 10. She denies any foul-smelling. She denies any history of trauma. Of note there was no wound VAC in place and she does not really have a wound dressing on. However for the past 1 day gestation is been having to change her sock every hour because of the discharge from her wound. Of note she was on levothyroxine for her hypothyroidism that she stopped taking on her own about 6 months ago. She was also started on Abilify and is on Celexa 40 mg daily for bipolar disorder. She states that she is also enrolled in the methadone clinic at [place] prednisone 40 mg daily. She last did IV heparin about a month ago. She denies any chest discomfort, shortness of breath, headache, lightheadedness, palpitations, dizziness, nausea, vomiting, abdominal pain, urinary complaints including burning micturition, however he does endorse swelling of her right lower extremity which is with the most part greater than left lower extremity. Going through records revealed that she was here in July 2016 when she underwent resection of the first second and third ray of both feet. She had signed out AMA and was discharged on Augmentin 875 mg twice a day for a total of 14 days. Vitals at the time of admission blood pressure 125/82, tachycardic to 110, MAXIMUM TEMPERATURE of 99.3 respiratory rate of 20 saturating 97% on room air. On physical exam, she is alert and oriented 3 and in no acute distress lying comfortably in bed. HEENT revealed PERRLA, moist mucous membranes. Examination of the neck did not reveal an elevated JVP, no cervical lymphadenopathy. Cardiovascular exam was benign with normal S1, S2, no murmurs rubs or gallops appreciated. Chest was clear to auscultation bilaterally. Abdominal exam was benign with abdomen soft, nontender, nondistended with normal bowel sounds heard in all 4 quadrants. Neuro exam is grossly unremarkable. Examination of the lower extremities revealed right lower extremity much more swollen compared to the left lower extremity, was erythematous and much warmer extending up to mid calf. Pulses were intact bilaterally. There is serous discharge from the plantar aspect of her right foot in addition to purulent discharge from the site of amputation at the 2nd, 3rd, and 4th digit. The is also amputation of the 2nd 3rd and 4th digit on the left foot with no signs of infection. Labs pertinent for microcytic anemia with an H&H of 8.9/27.6, MCV of 68.8 and a platelet count of 450,000. ESR elevated to 123. Serum chemistries revealed a sodium of 137, potassium of 4.0, bicarbonate of 28, BUN 10 and creatinine of 0.8. LFTs unremarkable with an AST/ALT 17/22 with an alkaline phosphatase of 127. X-ray of the foot was done which showed prominent soft tissue swelling of the forefoot at the amputation site, no definite soft tissue gas of the superficial gas at the distal aspect of the stomach is difficult to exclude prove. There is a new probable erosion of the distal aspect of the first digit proximal phalanx could represent osteomyelitis. Assessment and plan Admit patient to general medicine #Right foot cellulitis, questionable osteomyelitis Will obtain an MRI of the right foot. CRP elevated to 5.4, ESR of 123. Woods off antibiotics for now given that she has no leukocytosis, is afebrile, and would benefit from having treated after cultures are obtained form the OR. F/U BC x2 Podiatry consult with Dr. Jenkins in AM. F/U Doppler of LE to r/o DVT ED physician Dr. Katz spoke with Dr. Campbell and reportedly she is on the the scheduel for the OR for Saturday. Meanhwile will optimize pain control with Vicodin and Morphine 2mg Q4-6 PRN IV. #Hx of Hypothyroidism - Not compliant with medications - Check TSH, FT4. #Iron deficiency anemia - Continue on Ferrous sulphate 325mg BID, and Vitamin B12 1000mg daily - Guiac stools. #Heroin and Nicotine dependence - Patient states that she is on Methadone 40mg daily. Please confirm her dose from [facility], in [place]. 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 have her on Nicotine patch 14mg daily. #History of Bipolar Disorder - Continue on Abilify 5mg daily, Celexa 40mg daily - DVT prophylaxis - Heparin 5000IU TID SC - Diet - Regular for now, NPO after MN for possible debridement tomorrow. - Code Status - Full Code. FELIX PACHECO, [facility] 11/05/16 0530: Attending MD Review Statement Attending Statement Attending MD Statement: examined this patient, discuss w/resident/PA/SUPERVISOR DIAGNOSTIC, agreed w/resident/PA/SUPERVISOR DIAGNOSTIC Attending Assessment/Plan: 41 yo F with h/o IVDA, opiate dependence on methadone maintenance, hypothyroidism, bipolar disorder, chronic anemia, neuropathy, recently (Jul 2016 ) treated for bilateral feet osteomyelitis (MSSA) and underwent partial first/ second/third ray resection of right foot as well as partial first/second/fourth ray resections of left foot, with a plan for prolonged antibiotics. However, patient left AMA was advised to take Augmentin for total of 14 days. She continued to follow Dr. Campbell and saw him on November 01 for c/o right foot nonhealing ulcer/wound with erythema, swelling, pain and purulent discharge for the past 1 week. She was advised to come to the ER, which she did but left the ER prior to an eval. Symptoms worsened and is now associated with swelling of the right lower leg, hence she came to the ER. She is on methadone 40 mg daily ([facility]) since past 1 month and reports using IV heroin prior to that. VSS. Right LE swelling+, right foot erythematous, nonhealing ulcer around the incision site with purulent and serosanguinous discharge. Pulses well felt. Labs: no leukocytosis, microcytic anemia H/H 8.9/27.6, ESR 123, CRP 5.4, TSH 5.430, Free T4 normal. EKG: sinus tachycardia. Right foot Xray: soft tissue swelling of forefoot, no soft tissue gas. New probable erosion of distal aspect of first digit proximal phalanx may represent osteomyelitis. 1. Right foot nonhealing ulcer with cellulitis, need to rule out osteomyelitis. GM admit, panculture, MRI of right foot, Podiatry consult with a plan for bone biopsy on Saturday, NPO after MN on Saturday. Monitor off antibiotics. Eventual ID consult. RLE doppler to rule out DVT. Pain control with IV morphine, continue methadone after confirming patient's dose. 2. Chronic anemia likely combination of iron deficiency and B12 deficiency. Please initiate iron supplements and B12 daily. DVT ppx Lovenox. Full code. Please initiate iron supplements and B12 daily. DVT ppx Lovenox. Full code.
[2016-11-05 03:23] VITALS: BP 118/74
--- NOTE | 2016-11-05 04:19 | Admission Certification ---
Admission Certification Certification Statement - As attending physician, I certify that at the time of - admission, based on clinical presentation, severity of - symptoms, need for further diagnostic testing and - therapeutic interventions, and risk of adverse outcomes - without in-hospital treatment, in my clinical assessment, - this patient requires an acute hospital stay for a minimum - of two nights or longer. I have also considered psychsocial - factors such as support system, advanced age, financial - issues, cognitive issues, and failed out-patient treatments, - past re-admission history, safety of patient, and lack of - compliance as applicable. Specific rationale supporting this admission is: Right foot nonhealing ulcer with cellulitis, need to rule out underlying osteomyelitis.
[2016-11-05 09:05] LABS: ABSOLUTE BASOPHIL COUNT 0 /CUMM (0.0-0.2); ABSOLUTE EOSINOPHIL COUNT 0.4 /CUMM (0.0-0.7); ABSOLUTE GRANULOCYTE CT 4.2 /CUMM (1.4-6.5); ABSOLUTE LYMPH COUNT 1.8 /CUMM (1.2-3.4); ABSOLUTE MONOCYTE COUNT 0.6 /CUMM (0.10-0.60); BASOPHIL % 0.4 % (0.0-2.0); EOSINOPHIL % 5.7 % (0-5); GRANULOCYTE % 59.7 % (42.2-75.2); HEMATOCRIT 24.8 % (37-47); MEAN CORPUSCULAR HGB 22.3 PG (27.0-31.0); MEAN CORPUSCULAR HGB CONC 32.3 G/DL (33.0-37.0); MEAN PLATELET VOLUME 7.1 FL (7.4-10.4); PLATELET COUNT 361 /CUMM (130-400); WHITE BLOOD CELL COUNT 7.1 /CUMM (4.8-10.8)
--- NOTE | 2016-11-05 15:49 | PN- Att Addend ---
Attending Addendum Attending Brief Note Laboratory Tests 11/05/16 0644: Anion Gap 10, Estimated GFR > 60, BUN/Creatinine Ratio 12.5, CBC w Diff NO MAN DIFF REQ, RBC 3.60 L, MCV 69.0 L, MCH 22.3 L, RDW 18.0 H, MPV 7.1 L, Gran % 59.7, Lymphocytes % 26.0, Monocytes % 8.2, Eosinophils % 5.7 H, Basophils % 0.4 , Absolute Granulocytes 4.2, Absolute Lymphocytes 1.8, Absolute Monocytes 0.6, Absolute Eosinophils 0.4, Absolute Basophils 0, PUBS MCHC 32.3 L 11/05/16 0600: Urine Opiates Screen > 4000.00 H, Methadone Screen > 735 H, Barbiturate Screen 64, Ur Phencyclidine Scrn 9.30, Amphetamines Screen 126, U Benzodiazepines Scrn < 85, Urine Cocaine Screen > 1000.0 H, Urine Cannabis Screen 7.40, Urine Color YEL, Urine Clarity HAZY H, Urine pH 6.0, Ur Specific Taylor 1.020, Urine Protein TRACE H, Urine Ketones NEG, Urine Nitrite POS H, Urine Bilirubin NEG, Urine Urobilinogen 0.2, Ur Leukocyte Esterase SMALL H, Ur Microscopic SEDIMENT EXAMINED, Urine WBC > 75 H, Ur Epithelial Cells FEW, Urine Bacteria MANY H, Urine Hemoglobin MOD H, Urine Glucose NEG 11/04/16 2331: Anion Gap 10, Estimated GFR > 60, BUN/Creatinine Ratio 12.5, Glucose 98, Calcium 8.8, Iron 21 L, TIBC 289, Ferritin 29.0, Total Bilirubin 0.7, AST 17, ALT 22, Alkaline Phosphatase 127 H, C-Reactive Prot, Quant 5.4 H, Total Protein 7.2, Albumin 3.1 L, Globulin 4.1, Albumin/Globulin Ratio 0.8 L, TSH 5.430 H, Free T4 1.35, CBC w Diff NO MAN DIFF REQ, RBC 4.01 L, MCV 68.8 L, MCH 22.1 L, RDW 17.6 H, MPV 6.6 L, Gran % 67.2, Lymphocytes % 22.3, Monocytes % 6.9, Eosinophils % 3.2, Basophils % 0.4, Absolute Granulocytes 5.6, Absolute Lymphocytes 1.9, Absolute Monocytes 0.6, Absolute Eosinophils 0.3, Absolute Basophils 0, PUBS MCHC 32.1 L, ESR Westergren 123 H Vital Signs Date Time Temp Pulse Resp B/P B/P Pulse O2 O2 Flow FiO2 Mean Ox Delivery Rate 11/05 0323 98.5 77 18 118/74 97 Room Air 11/05 0234 98.4 69 18 110/60 96 Room Air 11/04 2315 98 Room Air 11/04 2246 99.3 110 20 125/82 97 Room Air Vision seen and examined at bedside. 41-year-old female with past medical history of IV drug abuse with heroine abuse currently on methadone. Last heroin abuse was about a month ago. Patient is planned for debridement of her right foot ulcer and wound tomorrow. We'll keep her nothing by mouth past midnight for the procedure tomorrow. Told patient not to eat anything after midnight. We will continue with the current management and hold her off antibiotics. We have started her on IV fluids in preparation for surgery tomorrow. Her UA is positive we'll follow up on urine cultures and start antibiotics tomorrow after the procedure is done.
[2016-11-05 15:58] VITALS: BP 110/70
[2016-11-05 22:23] VITALS: BP 110/56
[2016-11-06 06:40] VITALS: BP 110/60
--- NOTE | 2016-11-06 08:21 | PN- Housestaff ---
BOB PACHECO,DENTON 11/06/16 0821: Subjective Follow-up For: Right foot infection ? Osteomyelitis Complaints: frequency of urination, burning, pain Subjective: Patient is seen and examined at the bedside. She was conscious and cooperative. She was complaining of increased frequency of urination and burning. We discussed about antibiotic after the debridement and she was willing for that. Review of Systems Constitutional: Reports: weakness. Denies: chills, diaphoresis, fever, malaise. Cardiovascular: Denies: chest pain, edema, orthopena, palpitations. Respiratory: Denies: cough, hemoptysis, orthopnea, short of breath. Gastrointestinal: Denies: abdominal pain, bloating, constipation, distention. Genitourinary: Reports: dysuria, frequency, nocturia, pain. Musculoskeletal: Reports: joint pain. Skin: Reports: erythema. Comments: Right foot was partially amputated and swollen. There was three superficial ulcer which were draining yellowish greenish secretion. She is nothing by mouth for possible debridement today. Objective Last 24 Hrs of Vital Signs/I&O Vital Signs Date Time Temp Pulse Resp B/P B/P Pulse O2 O2 Flow FiO2 Mean Ox Delivery Rate 11/06 1418 97.7 73 18 110/60 98 11/06 1300 96.2 60 18 120/68 97 Room Air 11/06 0640 97.7 59 18 110/60 97 Room Air 11/05 2223 98.4 66 18 110/56 95 Room Air Intake & Output 11/06 1600 11/06 0800 11/06 0000 Intake Total 408 734 5125 Output Total Balance 800 794 0252 Intake, IV 800 800 Intake, Oral 300 0 450 Physical Exam General Appearance: Alert, Oriented X3, Cooperative, No Acute Distress Skin: right foot ulcer Cardiovascular: Normal S1, Normal S2 Lungs: Clear to Auscultation, Normal Air Movement Abdomen: Soft, No Tenderness Neurological: Normal Speech Extremities: right foot amputated with ulcer and greenish , yellowish secretion at the bases Vascular: cannot be palpated because of the pain and swelling on the wound Current Medications: Current Medications Sig/Mainor Start time Last Medication Dose Route Stop Time Status Admin Acetaminophen 650 MG Q6P PRN 11/05 0230 AC PO Acetaminophen/ 1 TAB Q6P PRN 11/05 0230 AC 11/06 Hydrocodone Bitart PO 0445 Aripiprazole 5 MG DAILY 11/05 1000 AC 11/06 PO 0804 Citalopram 40 MG DAILY 11/05 1000 AC 11/06 Hydrobromide PO 0804 Clonazepam 2 MG BID 11/05 1000 AC 11/06 PO 11/12 0959 0804 Cyanocobalamin 1,000 MCG DAILY 11/05 1000 AC 11/06 PO 0805 Ferrous Sulfate 325 MG BID 11/05 1000 AC 11/06 PO 0804 Heparin Sodium 5,000 UNIT Q8 11/05 0600 DC 11/05 (Porcine) SC 1207 Methadone HCl 30 MG DAILY 11/06 1000 AC PO Morphine Sulfate 2 MG Q4-6 PRN PRN 11/05 0230 AC 11/06 IV 1559 Nicotine 14 MG DAILY 11/05 1000 AC 11/05 TOP 0821 Patient Medication 1 ED .STK-MED ONE 11/06 1353 DC Teaching ED 11/06 1354 Sodium Chloride 1,000 ML Q10H 11/05 1130 DC 11/06 IV 0445 Last 24 Hrs of Lab/Serafin Results Last 24 Hrs of Labs/Mics: Microbiology 11/06 1030 EXTREMITIE: Gross Specimen Examination - RECD 11/06 1030 EXTREMITIE: Gram Stain - RECD 11/06 1028 EXTREMITIE: Culture & Sensitivity - CAN Cancelled: OR SPECIMEN 11/06 1028 EXTREMITIE: Gram Stain - CAN Cancelled: OR SPECIMEN 11/06 0950 URINE ROUT: Urine Culture - RECD Assessment/Plan Assessment: 41-year-old female with PMH neuropathy sp toe amputation of both feet due to osteomyelitis with OR cx grew MSSA and Beta strep group B, treated with 14 days of antibiotics, anemia with low iron and b12, hx of IVDA heroin now on methadone (last use 1 month ago), hypothyroidism (stopped taking levothyroxine 6 months ago on her own), bipolar disorder, depression, anxiety, was sent in by Dr. Campbell for further evaluation of possible right foot infection. Vital signs-temperature 97.9, pulse 73, respiratory rate 18, blood pressure 110/ 60, SPO2 98% on room air Pertinent labs -urine analysis -hazy, nitrite positive, bacteria many, opiates more than 4000, WBC more than 75 Hemoglobin 8.0, WBC 7.1, granulocyte 59.7, alkaline phosphatase 127, C-reactive protein 5.4, albumin 3.1, TSH 5.4, free T4 1.35 Plan - Right foot ulcer and osteomyelitis * We kept the patient nothing by mouth for debridement today * She had debridement of the wound and part of the toes amputated and sent for bacterial culture * Pain medication according to pain scale * IV antibiotics, according to ID * We will start patient on injection Unasyn 3 grams IV 6 hourly * Blood culture and bone culture UTI * We'll encouraged the patient to increase intake of fluids * We will start the patient on antibiotic * Strict intake output charting Opiate withdrawal * We will put the patient on methadone 30mg, dose she was getting from [facility]. * He will treat symptomatically with clonidine/meclizine/diclofenac. Diet -nothing by mouth until surgery, followed by a regular diet DVT prophylaxis-we will stop heparin before the surgery and will restart after the surgery CODE STATUS-full code Problem List: 1. Drug abuse 2. Acute osteomyelitis-ankle/foot Pain Ratin Pain Location: Right foot Pain Goal: Remain pain free Pain Plan: Mild to moderate to severe Tomorrow's Labs & Rationales: CBC, BEP DVT/Prophylaxis: mechanical, pharmacological CELESTE KRAUSE 11/06/16 1139: Attending MD Review Statement Attending Statement Attending MD Statement: examined this patient, discuss w/resident/PA/DIESEL ENGINE ENGINEER, agreed w/resident/PA/DIESEL ENGINE ENGINEER, discussed with family, reviewed EMR data (avail), discussed with nursing, discussed with case mgmt, reviewed images, amended to note Attending Assessment/Plan: "41 yo F with h/o IVDA, opiate dependence on methadone maintenance, hypothyroidism, bipolar disorder, chronic anemia, neuropathy, recently (Jul 2016 ) treated for bilateral feet osteomyelitis (MSSA) and underwent partial first/ second/third ray resection of right foot as well as partial first/second/fourth ray resections of left foot, with a plan for prolonged antibiotics" ASSESSMENT 1. history of IV drug abuse with heroine abuse currently on methadone. 2. Last heroin abuse was about a month ago. 3. Cellulitis r/o OM. 4. Patient is planned for debridement of her right foot ulcer and wound PLAN admit to inpatient medical services. started on methadone here, off abx, await biopsy results from this am, consult ID cont current care gi/dvt prophylaxis full code. abstinence from drugs education provided
--- NOTE | 2016-11-06 12:36 | Operative Report ---
Operative/Inv Procedure Report Surgery Date: 11/06/16 Name of Procedure: 1 open TMA right foot 2 intraoperative administration of ankle block anesthesia Pre-Operative Diagnosis: 1 open infected wound right foot 2 osteomyelitis right foot 3 diabetic peripheral neuropathy Post-Operative Diagnosis: The same Estimated Blood Loss: less than 50ml Surgeon/Front Office Medical Assistant: GRACE ARRIAZA DPM Anesthesia: moderate sedation, block Operative/Procedure Note Note: After obtaining informed consent the patient was brought to the operating room and placed on the operating table in the supine position. The patient isn't securely fastened to the operating table utilizing safety belt. After administration of IV sedation, 10 mL of 0.5% Marcaine plain was infiltrated about the patient's right ankle. The right foot and ankle within scrubbed prepped and draped in usual aseptic manner. Attention directed the right foot, where a fishmouth-type incision encompassing the distal first second third and fourth rays was marked out with a skin marker. A 15 blade was utilized to sharply revise the skin margins. Full-thickness flaps were then developed dorsally over the distal metatarsals. Sagittal bone saw was then utilized to cut the first second third and fourth and fifth metatarsals. The distal osseous segments was freed and specimen sent for both microbiologic and pathologic inspection. The open wound was then irrigated with 3 L normal sterile saline infusion 50,000 units of bacitracin. Following this, the foot was redraped and the surgeon's top gloves were exchanged for clean gloves. Any bleeding vessels identified were cauterized or ligated as encountered. Nipple was then packed with wet-to-dry clean 2-0 nylon retention sutures were placed. The foot was dressed with 4 x 4's Kerlix and an Allan wrap. The patient was noted to tolerate both procedure and anesthesia well and the patient was transported from the operating room to recovery with vital signs stable.
[2016-11-06 13:00] VITALS: BP 120/68
[2016-11-06 14:18] VITALS: BP 110/60
--- NOTE | 2016-11-06 16:41 | Cons- Infect Disease ---
General Information and HPI Consulting Request Date of Consult: 11/06/16 Requested By: CELESTE KRAUSE MD Reason for Consult: Osteomyelitis of the right foot Source of Information: patient, old records History of Present Illness: This is a 41-year-old woman with a history of active IV drug abuse, peripheral neuropathy of unclear etiology, hospitalized over 3 months prior to admission with chronic ulcerations of multiple toes of both feet, for which she underwent amputations of the left first, second and fourth toes and the right first, second and third toes, with the pathology positive for osteomyelitis and with cultures positive for Group B strep, Staph aureus and anaerobic gram-negative rods, taken back to the OR 6 days later for closure of the wounds and revisional ray resections of both feet, treated with Unasyn and discharged on Augmentin after she signed out AMA, refusing placement of a PICC and IV antibiotics, with eventual healing of the left foot, admitted on November 04 after she was referred to the emergency room by Podiatry because of nonhealing of the right foot, with a one-week history of pain, erythema, edema and drainage with undocumented fevers and chills and with dysuria. On admission she was afebrile. Laboratory data revealed a white blood cell count of 8000, ESR 123, BUN/creatinine 10 and 0.8, alkaline phosphatase 127, TSH 5.43. Urinalysis greater than 75 WBCs. X-ray of the right foot revealed prominent soft tissue swelling of the forefoot, with new probable erosion of the distal aspect of the first digit proximal phalanx. She was followed off antibiotics and has remained afebrile with a normal white blood cell count. She was taken to the OR today for an open right transmetatarsal amputation. Allergies/Medications Allergies: Coded Allergies: Sulfa (Sulfonamide Antibiotics) (Severe, FACILA SWELLING 07/18/16) Home Med List: Aripiprazole 5 MG TABLET 1 TAB PO DAILY MENTAL HEALTH (Reported) Citalopram Hydrobromide (Citalopram HBr) 40 MG TABLET 1 TAB PO DAILY MENTAL HEALTH (Reported) Clonazepam 2 MG TABLET 1 TAB PO BID anxiety (Reported) Past History Travel History Traveled to [place] past 21 day No Medical History Blood Transfusion Hx: No Neurological: peripheral neuropathy EENT: NONE Cardiovascular: NONE Respiratory: NONE Gastrointestinal: NONE Hepatic: NONE Renal: NONE Musculoskeletal: NONE Psychiatric: bipolar disease, IV drug abuse, heroin addiction Endocrine: hypothyroidism Blood Disorders: NONE Cancer(s): NONE MANAGER SERVICE DESK/Reproductive: NONE History of MRSA: No History of VRE: No History of CDIFF: No Isolation History: Standard Surgical History Surgical History: status post partial amputation of the left third toe Psychosocial History Where Do You Live? Home Who Do You Live With? 2 roomates Services at Home: None Primary Language: Kittitian Smoking Status: Current Everyday Smoker ETOH Use: denies use Illicit Drug Use: denies illicit drug use, hx of heroin use, now on methadone Living Will? no Functional Ability ADLs Independent: dressing, eating, toileting, bathing. Ambulation: independent Review of Systems Review of Systems Cardiovascular: Denies: chest pain. Respiratory: Denies: cough, short of breath. Genitourinary: Reports: dysuria. All Other Systems: Reviewed and Negative Exam & Diagnostic Data Last 24 Hrs of Vital Signs/I&O Vital Signs Date Time Temp Pulse Resp B/P B/P Pulse O2 O2 Flow FiO2 Mean Ox Delivery Rate 11/06 1418 97.7 73 18 110/60 98 11/06 1300 96.2 60 18 120/68 97 Room Air 11/06 0640 97.7 59 18 110/60 97 Room Air 11/05 2223 98.4 66 18 110/56 95 Room Air Intake & Output 11/06 1600 11/06 0800 11/06 0000 Intake Total 842 536 7287 Output Total Balance 115 858 5644 Intake, IV 800 800 Intake, Oral 300 0 450 Physical Exam Other Physical Findings: She is awake and alert in no acute distress. She is afebrile. Skin reveals a 2 x 3 cm tender, erythematous, raised lesion. HEENT exam is negative. Neck is supple with no adenopathy. Lungs are clear. Heart regular rhythm with no murmur. Abdomen is soft, nontender with positive bowel sounds. Back no CVA tenderness. Extremities right foot dressing intact; left foot status post fourth toe amputation and partial amputations of the left first, second, third and fifth toes. Neuro neuropathy of the feet. Last 24 Hours of Lab Results: Laboratory Tests 11/05 11/05 0644 0600 Chemistry Sodium (137 - 145 mmol/L) 138 Potassium (3.5 - 5.1 mmol/L) 3.8 Chloride (98 - 107 mmol/L) 101 Carbon Dioxide (22 - 30 mmol/L) 27 Anion Gap (5 - 16) 10 BUN (7 - 17 mg/dL) 10 Creatinine (0.5 - 1.0 mg/dL) 0.8 Estimated GFR (>60 ml/min) > 60 BUN/Creatinine Ratio (7 - 25 %) 12.5 Hematology CBC w Diff NO MAN DIFF REQ WBC (4.8 - 10.8 /CUMM) 7.1 RBC (4.20 - 5.40 /CUMM) 3.60 L Hgb (12.0 - 16.0 G/DL) 8.0 L Hct (37 - 47 %) 24.8 L MCV (81.0 - 99.0 FL) 69.0 L MCH (27.0 - 31.0 PG) 22.3 L RDW (11.5 - 14.5 %) 18.0 H Plt Count (130 - 400 /CUMM) 361 MPV (7.4 - 10.4 FL) 7.1 L Gran % (42.2 - 75.2 %) 59.7 Lymphocytes % (20.5 - 51.1 %) 26.0 Monocytes % (1.7 - 9.3 %) 8.2 Eosinophils % (0 - 5 %) 5.7 H Basophils % (0.0 - 2.0 %) 0.4 Absolute Granulocytes (1.4 - 6.5 /CUMM) 4.2 Absolute Lymphocytes (1.2 - 3.4 /CUMM) 1.8 Absolute Monocytes (0.10 - 0.60 /CUMM) 0.6 Absolute Eosinophils (0.0 - 0.7 /CUMM) 0.4 Absolute Basophils (0.0 - 0.2 /CUMM) 0 PUBS MCHC (33.0 - 37.0 G/DL) 32.3 L Toxicology Urine Opiates Screen (>2000 NG/ML) > 4000.00 H Methadone Screen (>300 NG/ML) > 735 H Barbiturate Screen (>200 NG/ML) 64 Ur Phencyclidine Scrn (>25 NG/ML) 9.30 Amphetamines Screen (>1000 NG/ML) 126 U Benzodiazepines Scrn (>200 NG/ML) < 85 Urine Cocaine Screen (>300 NG/ML) > 1000.0 H Urine Cannabis Screen (>50 NG/ML) 7.40 Urines Urine Color (YEL,AMB,STR) YEL Urine Clarity (CLEAR) HAZY H Urine pH (5.0 - 8.0) 6.0 Ur Specific [place] (1.001 - 1.035) 1.020 Urine Protein (NEG,<30 MG/DL) TRACE H Urine Ketones (NEG) NEG Urine Nitrite (NEG) POS H Urine Bilirubin (NEG) NEG Urine Urobilinogen (0.1 - 1.0 EU/dl) 0.2 Ur Leukocyte Esterase (NEG) SMALL H Ur Microscopic SEDIMENT EXAMINED Urine WBC (0 - 2 /HPF) > 75 H Ur Epithelial Cells (NONE,FEW) FEW Urine Bacteria (NEG/NONE) MANY H Urine Hemoglobin (NEG) MOD H Urine Glucose (N MG/DL) NEG Urine Test NEGATIVE 11/04 2330 Chemistry Sodium (137 - 145 mmol/L) 137 Potassium (3.5 - 5.1 mmol/L) 4.0 Chloride (98 - 107 mmol/L) 99 Carbon Dioxide (22 - 30 mmol/L) 28 Anion Gap (5 - 16) 10 BUN (7 - 17 mg/dL) 10 Creatinine (0.5 - 1.0 mg/dL) 0.8 Estimated GFR (>60 ml/min) > 60 BUN/Creatinine Ratio (7 - 25 %) 12.5 Glucose (65 - 99 mg/dL) 98 Calcium (8.4 - 10.2 mg/dL) 8.8 Iron (37 - 170 ug/dL) 21 L TIBC (265 - 497 ug/dL) 289 Ferritin (6.24 - 137 ng/mL) 29.0 Total Bilirubin (0.2 - 1.3 mg/dL) 0.7 AST (14 - 36 U/L) 17 ALT (9 - 52 U/L) 22 Alkaline Phosphatase (<127 U/L) 127 H C-Reactive Prot, Quant (<1.0 mg/dL) 5.4 H Total Protein (6.3 - 8.2 g/dL) 7.2 Albumin (3.5 - 5.0 g/dL) 3.1 L Globulin (1.9 - 4.2 gm/dL) 4.1 Albumin/Globulin Ratio (1.1 - 2.2 %) 0.8 L TSH (0.270 - 4.200 uIU/mL) 5.430 H Free T4 (0.64 - 1.79 ng/dL) 1.35 Hematology CBC w Diff NO MAN DIFF REQ WBC (4.8 - 10.8 /CUMM) 8.4 RBC (4.20 - 5.40 /CUMM) 4.01 L Hgb (12.0 - 16.0 G/DL) 8.9 L Hct (37 - 47 %) 27.6 L MCV (81.0 - 99.0 FL) 68.8 L MCH (27.0 - 31.0 PG) 22.1 L RDW (11.5 - 14.5 %) 17.6 H Plt Count (130 - 400 /CUMM) 450 H MPV (7.4 - 10.4 FL) 6.6 L Gran % (42.2 - 75.2 %) 67.2 Lymphocytes % (20.5 - 51.1 %) 22.3 Monocytes % (1.7 - 9.3 %) 6.9 Eosinophils % (0 - 5 %) 3.2 Basophils % (0.0 - 2.0 %) 0.4 Absolute Granulocytes (1.4 - 6.5 /CUMM) 5.6 Absolute Lymphocytes (1.2 - 3.4 /CUMM) 1.9 Absolute Monocytes (0.10 - 0.60 /CUMM) 0.6 Absolute Eosinophils (0.0 - 0.7 /CUMM) 0.3 Absolute Basophils (0.0 - 0.2 /CUMM) 0 PUBS MCHC (33.0 - 37.0 G/DL) 32.1 L ESR Westergren (0 - 20 MM) 123 H Last 24 Hours of Serafin Results: Blood cultures 2 November 04 negative Urine culture November 05 greater than 100,000 colonies of gram negative rods OR culture right foot bone November 06 pending Diagnostic Data Recent Imaging Findings: X-ray of the right foot November 04 revealed prominent soft tissue swelling of the forefoot, with new probable erosion of the distal aspect of the first digit proximal phalanx. Assessment/Plan Assessment/Plan Impression: This is a 41-year-old woman active IV drug abuser with a peripheral neuropathy admitted 3 months prior to admission with chronic ulcerations of the toes of both feet requiring partial amputations of multiple toes, discharged on oral antibiotics after refusing IV antibiotics, with healing of the left foot but not the right, admitted on November 05 with a one week history of pain, swelling, erythema and drainage from the right foot, found to be afebrile with a normal white blood cell count, now status post open right transmetatarsal amputation earlier today for presumed residual osteomyelitis. This process is likely polymicrobial and she can be covered empirically pending OR cultures. She may well have residual osteomyelitis, which would require a prolonged course of IV antibiotics, and will need to discuss this further with Podiatry. She does report dysuria, and with pyuria and a positive urine culture, she should be treated for a possible urinary tract infection, which will hopefully be covered by the antibiotics used for her right foot. The inflammatory lesion in the medial left thigh is apparently secondary to direct injection of drugs. This may require I&D if it does not respond to the antibiotics she is given for her right foot. Her elevated TSH is noted and, with her history of hypothyroidism, she will require treatment. Suggestion: 1. Warm compresses to the left medial thigh lesion 2. Consider ultrasound of the left thigh and/or surgical evaluation if no improvement in the lesion 3. Further management of her hypothyroidism per Medicine 4. Follow-up OR and urine cultures 5. Begin Unasyn 3 g IV every 6 hours pending above Consult Acknowledgment - Thank you for your consult request.
[2016-11-06] MEDS ORDERED: AUGMENTIN 875-1 EACH PO ×2 (19:12→19:25)
--- NOTE | 2016-11-06 19:13 | Event Note ---
Event Note Event Note: Patient leaving AMA: Subjective: I was called by the nursing staff that the patient wanted to leave "AGAINST MEDICAL ADVICE". Background: 41-year-old female with past medical history of osteomyelitis and partial amputation of toes in both feet on left AGAINST MEDICAL ADVICE while on IV antibiotics, IV drug abuse with heroine now recently on methadone, hypothyroidism, bipolar disorder, depression, anxiety, who received transmetatarsal amputation earlier today on the right side for likely osteomyelitis was asking if she could leave the hospital to get heroine. Assessment: The patient seems to be partially in withdrawal, with symptoms like yawning, anxiety, but is alert, oriented to time, place, and person, is responsive and seems to understand her current medical situation, of osteomyelitis and transmetatarsal amputation on the right foot done today, and the need to undergo treatment with IV antibiotics among others, and if left untreated or partially treated, has the risk of getting worse, leading to loss of limb or even life, i.e. can lead to . She seems to have capacity to understand the situation, and clearly mentions that her priority currently is to get heroin than to get treated for her infection. She understands that discontinuation from her medication can also mean that she might not even be able to reach the emergency department, or that her treatment might be delayed significantly hampering her health depending on where she lands up for treatment. During the course of the day, she has asked to leave multiple times, was explained about her situation by the primary team/direct marketing intern and later by me as well. Outreach Coordinator of the primary team informed, my resident Dr Nitish Serna informed, and attending cutting room supervisor Dr Bindu Mao informed, who tried offering treatment of her withdrawal symptoms and the primary condition as well, to which she clearly refused. She had resused to undergo ultrasound and later to her IV lines as well. Plan: After reviewing the situation, and the possible options the patient chose to leave AGAINST MEDICAL ADVICE. Before doing that, infectious disease Angel Mandujano MD was consulted over phone, was suggested that the patient be discharged AGAINST MEDICAL ADVICE, if so be it, with oral antibiotics for one week's duration and will follow-up with Dr. Campbell, and Dr. Barney, who are her warp clamper and primary care physician respectively. She has been explained to return to emergency immediately if and when she decides to continue her care. She signed papers for AMA and nursing staff, nursing shift production supervisor made aware of the discharge AGAINST MEDICAL ADVICE.
--- NOTE | 2016-11-06 19:13 | Patient Discharge Instructions ---
Discharge Instructions General Discharge Information You were seen/treated for: Right foot osteomyelitis You had these procedures: Open right transmetatarsal amputation on 11/06/2016. Special Instructions: You are leaving AGAINST MEDICAL ADVICE with incomplete treatment. This means that there is a risk of losing a limb or even life, that is, risk of dying due to infection getting worse. Please return to emergency if and whenever you decide to get treated immediately. Diet Continue normal diet: Yes Recommended Diet: Heart Healthy Activity Full Activity/No Limits: No Activity Self Limited: Yes (Partial weight bearing on rt) Acute Coronary Syndrome Inclusion Criteria At DC or during hospital stay patient has or had the following: ACS DIAGNOSIS No Discharge Core Measures Meds if any: Prescribed or Continued at Discharge Meds if any: NOT Prescribed or Continued at Discharge Congestive Heart Failure Inclusion Criteria At DC or during hospital stay patient has or had the following: CHF DIAGNOSIS No Discharge Core Measures Meds if any: Prescribed or Continued at Discharge Meds if any: NOT Prescribed or Continued at Discharge Cerebrovascular accident Inclusion Criteria At DC or during hospital stay patient has or had the following: CVA/TIA Diagnosis No Discharge Core Measures Meds if any: Prescribed or Continued at Discharge Meds if any: NOT Prescribed or Continued at Discharge Venous thromboembolism Inclusion Criteria VTE Diagnosis No VTE Type NONE VTE Confirmed by (Test) NONE Discharge Core Measures - Per Current guidelines, there needs to be overlap - treatment for the first 5 days of Warfarin therapy. - If discharged on Warfarin prior to 5 days of - overlap therapy, the patient will need to be - assessed for post discharge needs including - *Post discharge parental anticoagulation - *Warfarin and/or parental anticoagulation education - *Follow up date to check INR post discharge At least 5 days overlap therapy as Inpatient No Meds if any: Prescribed or Continued at Discharge Note: Overlap Therapy is Warfarin and Anticoagulant Meds if any: NOT Prescribed or Continued at Discharge
--- NOTE | 2016-11-13 14:54 | PN- Att Addend ---
Attending Addendum Attending Brief Note Patient Sophia Polyanskyy suffers from peripheral neuropathy but is not a diabetic.
--- NOTE | 2016-11-20 18:30 | Discharge Summary ---
Visit Information Visit Dates Admission Date: 11/05/16 Discharge Date: 11/06/16 Hospital Course Course Attending Physician: JIMI PACHECO,CELESTE Primary Care Physician: PATIENT HAS NO PRIMARY CARE DR Hospital Course: 41-year-old female with PMH neuropathy s/p toe amputation of both feet due to osteomyelitis with OR culture grew MSSA and Beta strep group B, treated with 14 days of antibiotics, anemia with low iron and b12, hx of IVDA heroin now on methadone (last use 1 month ago, 40mg), hypothyroidism (stopped taking levothyroxine 6 months ago on her own), bipolar disorder, depression, anxiety, was sent in by Dr. Arriaza for further evaluation of possible right foot infection. On examination, right foot was erythematous swollen and tender, and there were ulcers, which was oozzing purulent secretion.X-ray of foot showed soft tissue swelling of the forefoot, superficial gas at the distal aspect of the stump, which was concerning for osteomyelitis. We admitted the patient to general medical floor. On 11/06/2016, She had debridement of foot. Bone specimen was sent for both microbiologic and pathologic examination. Postoperatively start patient on injection, Unasyn 3 grams IV every 6 hourly. Her urine culture was also growing gram-negative bacteria. On D0 11/06/2016 -in evening, On the day she left AMA. She was in withdrawal,having symptoms such as yawning, anxiety, but was alert, oriented to time, place, and person. She was having capacity to understand her medical situation. We discussed that, she has osteomyelitis and transmetatarsal amputation on the right foot, and she need to undergo treatment with IV antibiotics, and if she left untreated or partially treated, she may have the risk of getting worse, leading to loss of limb or even life, by getting septicemia i.e. can lead to . She clearly mentioned that her priority currently is to get heroin than to get treated for her infection. She understands that discontinuation from her medication can also means that she might not even be able to reach the emergency department, or that her treatment might be delayed significantly hampering her health depending on where she lands up for treatment. Attending merchandising execution manager Dr Bindu Mao informed, who tried offering treatment of her withdrawal symptoms and the primary condition as well, to which she clearly refused.She left AMA. Allergies: Coded Allergies: Sulfa (Sulfonamide Antibiotics) (Severe, FACILA SWELLING 07/18/16) Disposition Summary Disposition Principal Diagnosis: Right foot osteomyelitis, status post debriedment Additional Diagnosis: Multiple IV drug abuse hypothyroidism (stopped taking levothyroxine 6 months ago on her own), bipolar disorder, depression, anxiety, Discharge Disposition: left against medical adv Discharge Instructions General Discharge Information Code Status: Full Code Patient's Diet: Heart healthy Patient's Activity: As tolerated Follow-Up Instructions/Appts: Please follow-up with your PCP. Please take the medication as advised. You may need IV antibiotics Medications at Discharge Discharge Medications: Continue taking these medications: Aripiprazole (Aripiprazole) 5 MG TABLET 1 Tablet ORAL DAILY Qty = 30 Comments: Last Taken: 11/08/16 Time: 0800AM Clonazepam (Clonazepam) 2 MG TABLET 1 Tablet ORAL TWICE DAILY Qty = 60 Comments: Last Taken: 11/08/16 Time: 0800AM Citalopram Hydrobromide (Citalopram HBr) 40 MG TABLET 1 Tablet ORAL DAILY Qty = 30 Comments: Last Taken: 11/08/16 Time: 0800AM Start taking the following new medications: Amoxicillin/Potassium Clav (Augmentin 875-125 Tablet) 875 MG-125 MG TABLET 1 Tablet ORAL TWICE DAILY Qty = 14 No Refills Copies To: GRACE ARRIAZA DPM Attending MD Review Statement Documenting Attending: CELESTE KRAUSE MD
== END 2016-11-06 19:40 | disposition left against medical advice (07) | DRG 475 ==
LOC: ERH 22:38 → 2NA 11-05 02:13 → ERHI 11-05 02:13 → ENRESERV 11-05 02:31 → 2NA 11-05 03:22
PROVIDERS: Internal Medicine Infectious Disease; Pediatrics; ADMIT Student in an Organized Health Care Education/Training Program
PROC: 0Y6M0ZB Detachment at Right Foot, Partial 2nd Ray, Open Approach (ICD-10-PCS; principal; 2016-11-06)
PROC: 0Y6M0ZF Detachment at Right Foot, Partial 5th Ray, Open Approach (ICD-10-PCS; principal; 2016-11-06)
PROC: 0Y6M0Z9 Detachment at Right Foot, Partial 1st Ray, Open Approach (ICD-10-PCS; principal; 2016-11-06)
PROC: 0Y6M0ZD Detachment at Right Foot, Partial 4th Ray, Open Approach (ICD-10-PCS; principal; 2016-11-06)
PROC: 0Y6M0ZC Detachment at Right Foot, Partial 3rd Ray, Open Approach (ICD-10-PCS; principal; 2016-11-06)
DX: M86.171 Other acute osteomyelitis, right ankle and foot (principal); L03.115 Cellulitis of right lower limb; F17.200 Nicotine dependence, unspecified, uncomplicated; D50.9 Iron deficiency anemia, unspecified; E53.8 Deficiency of other specified B group vitamins; F11.23 Opioid dependence with withdrawal; L97.519 Non-pressure chronic ulcer of other part of right foot with unspecified severity; E03.9 Hypothyroidism, unspecified; F31.9 Bipolar disorder, unspecified; F41.9 Anxiety disorder, unspecified; D64.9 Anemia, unspecified
CPT/HCPCS: 2NAP; 87070; 87075; 87184; 36415; 73630-RT; 80307; 81001; 81025; 82436; 87040; 87086; 87147; 88307; 93005; 93010; J1100; J1644; J2001; J2405

== ENCOUNTER 2016-11-07 12:56 | Inpatient (IN) | payer OTHER, MEDICARE ==
[~2016-11-07] VITALS: Ht 170.2 cm; Wt 97.5 kg
--- NOTE | 2016-11-07 13:23 | ED GENERAL ADULT ---
History of Present Illness General Chief Complaint: General Adult Stated Complaint: SENT BY [facility] FOR IV ANTIBIOTICS Source: patient, old records Exam Limitations: no limitations Vital Signs & Intake/Output Vital Signs & Intake/Output Vital Signs Date Time Temp Pulse Resp B/P B/P Pulse O2 O2 Flow FiO2 Mean Ox Delivery Rate 11/07 1444 98 Room Air 11/07 1300 99.0 113 20 131/83 99 Room Air Allergies Coded Allergies: Sulfa (Sulfonamide Antibiotics) (Severe, FACILA SWELLING 07/18/16) Reconcile Medications Amoxicillin/Potassium Clav (Augmentin 875-125 Tablet) 875 MG-125 MG TABLET 1 TAB PO BID OSTEOMYELITIS Aripiprazole 5 MG TABLET 1 TAB PO DAILY MENTAL HEALTH (Reported) Citalopram Hydrobromide (Citalopram HBr) 40 MG TABLET 1 TAB PO DAILY MENTAL HEALTH (Reported) Clonazepam 2 MG TABLET 1 TAB PO BID anxiety (Reported) Triage Note: PT SENT TO ED BY DR ARRIAZA FOR ADMISSION. PT HAD RIGHT FOOT SURGERY YESTERDAY, WAS ADMITTED TO THE FLOOR AND THEN LEFT AMA FOR A FAMILY EMERGENCY. SENT BACK FOR ADMISSION FOR IV ABX. PT HAD PARTIAL RIGHT FOOT AMPUTATION AND THE REST OF HER TOES AMUPTATED YESTERDAY. ALSO C/O UTI S/S. Triage Nurses Notes Reviewed? yes Onset: yesterday Duration: day(s): (1) Timing: remote history Injury Environment: home Severity: moderate Severity Numbers: 7 Modifying Factors: Improves With: immobilization. Worsens With: medication. : No Patient currently breastfeeds: No HPI: Patient is a 41-year-old female presenting to the emergency department with chief complaint of "I need to be admitted for IV antibiotics". Patient reports that she had her last to right toes amputated yesterday and left AGAINST MEDICAL ADVICE because a family emergency [place]. Patient denying any fevers or chills no nausea or vomiting. She reports that she's been trying to not put any weight on her foot but she admits that has been difficult. She denies taking off the dressing since leaving yesterday evening around 8 PM. She has been taking oral Augmentin as prescribed since discharge. Denies any increased pain compared to yesterday. Denies any nausea or vomiting. No abdominal pain. Walking on the foot makes it worse nothing seems to make it better. (ADRIANA SHANNON RHOADES) Past History Travel History Traveled to [place] past 21 day No Medical History Any Pertinent Medical History? see below for history Neurological: peripheral neuropathy EENT: NONE Cardiovascular: NONE Respiratory: NONE Gastrointestinal: NONE Hepatic: NONE Renal: NONE Musculoskeletal: osteomyelitis Psychiatric: bipolar disease, IV drug abuse, heroin addiction Endocrine: hypothyroidism Blood Disorders: NONE Cancer(s): NONE STNA/Reproductive: NONE History of MRSA: No History of VRE: No History of CDIFF: No Surgical History Surgical History: status post partial amputation of the left third toe Psychosocial History Who do you live with Friend Services at Home None What is your primary language Micronesian Tobacco Use: Current Daily Use Daily Tobacco Use Amount/Type: => 5 Cigarettes daily ETOH Use: denies use Illicit Drug Use: denies illicit drug use Family History Hx Contributory? No (SHANNON VASQUEZ) Review of Systems Review of Systems Constitutional: Reports: no symptoms. Comments Review of systems: See HPI, All other systems negative. Constitutional, no chills fever or weight loss HEENT: No visual changes no sore throat no congestion Cardiovascular: No chest pain ,palpitation , orthopnea or ankle swelling Skin, no jaundice no rashes Respiratory: No dyspnea cough sputum or hemoptysis GI: No nausea no vomiting : No dysuria No hematuria Muscle skeletal: no back pain, no neck pain, Neurologic: No numbness no confusion Psych: No increased stress anxiety Immunology: No splenectomy or history of AIDS (SHANNON VASQUEZ) Physical Exam Physical Exam General Appearance: well developed/nourished, no apparent distress, alert, awake , comfortable Comments: Well-developed well-nourished person in no acute distress HEENT: Pupils equally round and reactive to light and accommodation. Nose is atraumatic. Neck: Normal inspection Back: Nontender Cardiovascular: Regular rate and rhythms no murmurs rubs or gallops, normal JVP Respiratory: No respiratory distress.CTA BILATERALLY. Extremity: No edema, no calf tenderness to palpation, TENDER TO PALPATION OVER THE DISTAL ASPECT OF THE RIGHT FOOT. TENSION SUTURES IN PLACE OVER RIGHT FOOT, ALL TOES AMPUTATED ON RIGHT FOOT. DRESSING WAS FULL OF BLOOD. no surrounding erythema or edema. Neuro: Alert oriented x3, diminished sensation to feet bilaterally. Skin: No appreciable rash on exposed skin, skin is warm and dry. Psych: Mood and affect is normal, memory and judgment is normal. Core Measures ACS in differential dx? No CVA/TIA Diagnosis: No Severe Sepsis Present: No Septic Shock Present: No (ADRIANA RHOADES,SHANNON) Progress Differential Diagnoses I considered the following diagnoses in my evaluation of the patient: Osteomyelitis, cellulitis, need for IV antibiotics, Plan of Care: Orders Procedure Date/time Status Heart Healthy Diet 11/07 D Active Pathway - chart 11/07 1541 Active Pathway - chart 11/07 1538 Active House Staff 11/07 1538 Active Patient Data 11/07 1538 Active Code Status 11/07 1538 Active Intake & Output 11/07 1443 Active Patient Data 11/07 1429 Active URINE DRUG SCREEN FOR ER ONLY 11/07 142 Active URINALYSIS 11/07 1424 Complete Admit to inpatient 11/07 1419 Active Vital Signs 11/07 1419 Active Code Status 11/07 1419 Complete House Staff 11/07 UNK Active VTE Mechanical Prophylaxis 11/07 UNK Active Current Medications Sig/Mainor Start time Last Medication Dose Stop Time Status Admin Ampicillin Sodium/ 3,000 MG Q6 11/07 1800 AC Sulbactam Sodium (Unasyn) Sodium Chloride 100 ML (Normal Saline 0.9%) Acetaminophen 1,000 MG ONCE ONE 11/07 1545 AC 11/07 (Ofirmev) 11/07 1559 1546 N/A 1 UNIT (No Carrier) Laboratory Tests 11/07/16 1535: Methadone Screen Pending, Barbiturate Screen Pending, Ur Phencyclidine Scrn Pending, Amphetamines Screen Pending, U Benzodiazepines Scrn Pending, Urine Cocaine Screen Pending, Urine Cannabis Screen Pending, Urine Color YEL, Urine Clarity CLEAR, Urine pH 6.0, Ur Specific [place] 1.015, Urine Protein NEG, Urine Ketones NEG, Urine Nitrite NEG, Urine Bilirubin NEG, Urine Urobilinogen 0.2, Ur Leukocyte Esterase SMALL H, Ur Microscopic SEDIMENT EXAMINED, Urine RBC 1-3, Urine WBC 15-25 H, Ur Epithelial Cells FEW, Urine Bacteria FEW H, Urine Hemoglobin SMALL H, Urine Glucose NEG Initial ED EKG: none Comments: Spoke with Dr. Arriaza, patient's podiatrists, he is highly recommending patient be readmitted to medicine for IV antibiotics. He reports that the wound is still open and will likely need further closure. Patient should be back on IV Unasyn. Patient compliant, willing to be admitted for IV antibiotics. d/w dr bautista and hillary mackey with plan. (SHANNON VASQUEZ) Departure Departure Time of Disposition: 1446 Disposition: STILL A PATIENT Condition: Stable Clinical Impression Primary Impression: Toe amputation status Qualifiers: Laterality: right Qualified Code: Z89.421 - Acquired absence of other right toe(s) Referrals: PATIENT HAS NO PRIMARY CARE DR (PCP/Family) Departure Forms: Customer Survey General Discharge Information Admission Note Spoke With: MELIA NUÑEZ MD Documentation of Exam: Documentation of any treatments & extenuating circumstances including Concerns Regarding Discharge (functional status, medication knowledge or non-compliance, living conditions, etc.) that warrant an admission rather than observation: Patient had recent surgical amputation of right fourth and fifth toe, left against advice yesterday, returning today for IV antibiotics. Patient requiring IV antibiotics, most likely further closure of right foot wound. Monitoring for any signs of infection. POOR outpatient candidate as patient is unreliable. (SHANNON VASQUEZ) PA/CATEGORY CONSULTANT Co-Sign Statement Statement: ED Attending supervision documentation- [] I saw and evaluated the patient. I have also reviewed all the pertinent lab results and diagnostic results. I agree with the findings and the plan of care as documented in the PA's/CATEGORY CONSULTANT's documentation. [X] I have reviewed the ED Record and agree with the PA's/CATEGORY CONSULTANT's documentation. [] Additions or exceptions (if any) to the PAs/CATEGORY CONSULTANT's note and plan are summarized below: [] (LAVERN SHEPARD,MAX Herrera) Critical Care Note Critical Care Note Critical Care Time: non-applicable (SHANNON VASQUEZ)
--- NOTE | 2016-11-07 14:34 | History & Physical ---
MARK BURNETT 11/07/16 1433: General Information and HPI MD Statement: I have seen and personally examined JAIME,SUSI and documented this H&P. The patient is a 41 year old F who presented with a patient stated chief complaint of to continue treatment for left foot osteomyelitis status post debridement on 11/05/2016. she signed out AMA on 11/06/2016 after biopsy and debridement. Source of Information: patient, old records Exam Limitations: no limitations History of Present Illness: 41-year-old female with PMH neuropathy sp toe amputation of both feet due to osteomyelitis with OR cx grew MSSA and Beta strep group B, treated with 14 days of antibiotics, anemia with low iron and b12, hx of IVDA heroin, now on methadone (last use 1 month ago), hypothyroidism (stopped taking levothyroxine 6 months ago on her own), bipolar disorder, depression, anxiety presented to [facility] emergency room to continue treatment for right foot osteomyelitis status post debridement on 11/05/2016. Of note she left AMA on after biopsy and debridement of right foot for family emergency. she underwent amputations of the left first, second and fourth toes and the right first, second and third toes, with the pathology positive for osteomyelitis and with cultures positive for Group B strep, Staph aureus and anaerobic gram-negative rods, taken back to the OR 6 days later for closure of the wounds and revisional ray resections of both feet, treated with Unasyn and discharged on Augmentin after she signed out AMA, refusing placement of a PICC and IV antibiotics. she was admitted on November 04 after she was referred to the emergency room by Podiatry because of nonhealing of the right foot, with a one-week history of pain, erythema, edema and drainage with undocumented fevers and chills and with dysuria. On admission she was afebrile. Laboratory data revealed a white blood cell count of 8000, ESR 123, BUN/creatinine 10 and 0.8, alkaline phosphatase 127 , TSH 5.43. Urinalysis greater than 75 WBCs. X-ray of the right foot revealed prominent soft tissue swelling of the forefoot, with new probable erosion of the distal aspect of the first digit proximal phalanx. She was followed off antibiotics and has remained afebrile with a normal white blood cell count. She was taken to the OR 11/05 for an open right transmetatarsal amputation. She denies any pain at the site of amputation. Denied any fever, chills. She offers no other complaints in the emergency room. SHe has not been taking B12 and iron because she did not know she had to take them. She has stopped taking levothyroxine on her own about 6 months ago. She used heroin up to about 1 month ago. She has been following up with the methadone program since then, and is currently on 40 mg of methadone daily ( takes it in the morning). She gets it from [facility], . She is requesting additional pain medication and she would leave if she does not get it. Allergies/Medications Allergies: Coded Allergies: Sulfa (Sulfonamide Antibiotics) (Severe, FACILA SWELLING 07/18/16) Home Med list Amoxicillin/Potassium Clav (Augmentin 875-125 Tablet) 875 MG-125 MG TABLET 1 TAB PO BID OSTEOMYELITIS Aripiprazole 5 MG TABLET 1 TAB PO DAILY MENTAL HEALTH (Reported) Citalopram Hydrobromide (Citalopram HBr) 40 MG TABLET 1 TAB PO DAILY MENTAL HEALTH (Reported) Clonazepam 2 MG TABLET 1 TAB PO BID anxiety (Reported) Compliance With Home Meds: GOOD Past History Travel History Traveled to [place] past 21 day No Medical History Neurological: peripheral neuropathy EENT: NONE Cardiovascular: NONE Respiratory: NONE Gastrointestinal: NONE Hepatic: NONE Renal: NONE Musculoskeletal: osteomyelitis Psychiatric: bipolar disease, IV drug abuse, heroin addiction Endocrine: hypothyroidism Blood Disorders: NONE Cancer(s): NONE QM NURSE/Reproductive: NONE History of MRSA: No History of VRE: No History of CDIFF: No Surgical History Surgical History: status post partial amputation of the left third toe Past Family/Social History Psychosocial History Who Do You Live With? 2 roomates Services at Home: None Primary Language: Yi Smoking Status: Current Everyday Smoker ETOH Use: denies use Illicit Drug Use: cocaine, heroin, marijuana Living Will? no Functional Ability ADLs Independent: dressing, eating, toileting, bathing. Ambulation: independent Review of Systems Review of Systems Constitutional: Denies: chills, diaphoresis, fever, malaise, weakness. EENTM: Denies: see HPI. Cardiovascular: Denies: chest pain, edema, orthopena, palpitations, peripheral edema, syncope. Respiratory: Denies: cough, hemoptysis, orthopnea, short of breath, sputum production, stridor, wheezing. GI: Denies: constipation, diarrhea, distention, melena, nausea, changes in stool, vomiting. Genitourinary: Denies: discharge, dysuria, frequency. Musculoskeletal: Denies: back pain, gout, joint pain. Skin: Denies: dryness, erythema. Neurological/Psychological: Denies: anxiety, ataxia, confusion, depressed, dementia, emotional problems, headache, numbness. Exam & Diagnostic Data Last 24 Hrs of Vital Signs/I&O Vital Signs Date Time Temp Pulse Resp B/P B/P Pulse O2 O2 Flow FiO2 Mean Ox Delivery Rate 11/07 1444 98 Room Air 11/07 1300 99.0 113 20 131/83 99 Room Air Intake & Output 11/07 1600 11/07 0800 11/07 0000 Intake Total Output Total Balance Patient 97.522 kg Weight Weight Reported by Patient Measurement Method Physical Exam General Appearance Alert, Oriented X3, Cooperative, No Acute Distress Skin right transmetatarsal amputation HEENT Atraumatic, PERRLA, EOMI, Mucous Membr. moist/pink Neck Supple, No JVD Lymphatic Cervical nl Cardiovascular Normal S1, Normal S2 Lungs Normal Air Movement Abdomen Normal Bowel Sounds, Soft, No Tenderness Neurological Strength at 5/5 X4 Ext, Normal Tone, Sensation Intact, Cranial Nerves 3-12 NL Extremities No Clubbing, No Cyanosis, No Edema Vascular Pulses Symmetrical Last 24 Hrs of Labs/Serafin: Laboratory Tests 11/07/16 1535: Urine Opiates Screen > 4000.00 H, Methadone Screen > 735 H, Barbiturate Screen 72, Ur Phencyclidine Scrn 9.60, Amphetamines Screen < 100, U Benzodiazepines Scrn 755 H, Urine Cocaine Screen > 1000 H, Urine Cannabis Screen 8.30, Urine Color YEL, Urine Clarity CLEAR, Urine pH 6.0, Ur Specific [place] 1.015, Urine Protein NEG, Urine Ketones NEG, Urine Nitrite NEG, Urine Bilirubin NEG, Urine Urobilinogen 0.2, Ur Leukocyte Esterase SMALL H, Ur Microscopic SEDIMENT EXAMINED, Urine RBC 1-3, Urine WBC 15-25 H, Ur Epithelial Cells FEW, Urine Bacteria FEW H, Urine Hemoglobin SMALL H, Urine Glucose NEG Assessment/Plan Assessment: 41-year-old female with PMH neuropathy sp toe amputation of both feet due to osteomyelitis with OR cx grew MSSA and Beta strep group B, treated with 14 days of antibiotics, anemia with low iron and b12, hx of IVDA heroin, now on methadone (last use 1 month ago), hypothyroidism (stopped taking levothyroxine 6 months ago on her own), bipolar disorder, depression, anxiety presented to [facility] emergency room to continue treatment for right foot osteomyelitis status post debridement on 11/05/2016. Of note she left AMA on after biopsy and debridement of right foot for family emergency. Vitals on admission-afebrile, heart rate 110, respiratory rate 20, blood pressure 110/70, saturating at room air. 11/05 Labs pertinent for microcytic anemia with an H&H of 8.9/27.6, MCV of 68.8 and a platelet count of 450,000. ESR elevated to 123. Serum chemistries revealed a sodium of 137, potassium of 4.0, bicarbonate of 28, BUN 10 and creatinine of 0.8. LFTs unremarkable with an AST/ALT 17/22 with an alkaline phosphatase of 127. Urine toxicology 531 positive for methadone, opiates, cocaine, benzos. X-ray of the foot 11/05 was done which showed prominent soft tissue swelling of the forefoot at the amputation site, no definite soft tissue gas of the superficial gas at the distal aspect of the stomach is difficult to exclude prove. There is a new probable erosion of the distal aspect of the first digit proximal phalanx could represent osteomyelitis. Problem list: # osteomyelitis of right foot # Anemia # Hx of heroin abuse # Possible UTI # Hypothyroidism # Likely osteomyelitis she was admitted on November 04 after she was referred to the emergency room by Podiatry because of nonhealing of the right foot, with a one-week history of pain, erythema, edema and drainage with undocumented fevers and chills and with dysuria. X-ray of the right foot revealed prominent soft tissue swelling of the forefoot, with new probable erosion of the distal aspect of the first digit proximal phalanx. She was followed off antibiotics and has remained afebrile with a normal white blood cell count. She was taken to the OR 11/05 for an open right transmetatarsal amputation. * Admit to general medicine * Dr. Campbell will see patient in am * She is status post right transmetatarsal amputation day 3 * Continue Unasyn 3 g every 6 hours * Follow BCX2 * ID on board * Will follow ID recommendation * Monitor for fever, chills, leukocytosis * Monitor WBC # Anemia - H/H 8.9/27.6, hb was 9.9 on in Jul 2016, found to have low iron and b12 at that time * Resume B12 and ferrous sulfate - ferrous sulfate 325 bid & vitamin b12 1000 daily, make sure patient takes this at discharge * guaiac all stool # Hx of heroin abuse - She used heroin up to about 1 month ago. She has been following up with the methadone program since then, and is currently on 40 mg of methadone daily ( takes it in the morning). She gets it from [facility], . * Confirm methadone dose * Follow up Utox # Possible UTI * Reports dysuria * Urine analysis showed small esterases, 15-25 WBC with few bacteria * Will follow up urine culture- GNR # Hypothryroidism, * but stopped taking her meds on her own * Follow up TSH/FT4- 5.4 and 1.35 # Nicotine dependence * Nicotine patch # Continue home meds for depression and anxiety klonopin 2mg bid celexa 40 mg daily abilify 5 mg daily Diet: Regular diet for now PP: Tylenol, Percocet, Dilaudid DVT ppx: mech and sc heparin FULL CODE As Ranked By This Provider Problem List: 1. Osteomyelitis of foot, right, acute 2. Toe amputation status Qualifiers Laterality: right Qualified Code: Z89.421 - Acquired absence of other right toe (s) 3. Drug abuse Core Measures/Miscellaneous Acute Coronary Syndrome ACS Diagnosis: No Cerebrovascular Accident CVA/TIA Diagnosis: No Congestive Heart Failure CHF Diagnosis: No Venous Thromboembolism VTE Risk Factors: Age > 40 No Mech VTE prophylaxis d/t: No contraindications No VTE Pharm Prophylaxis d/t: No contraindications VTE Diagnosis: No VTE Type: NONE VTE Confirmed by (Test): NONE Severe Sepsis Severe Sepsis Present: No Septic Shock Septic Shock Present: No Miscellaneous Documentation Attending Case Discussed With: JIMI PACHECO,CELESTE Primary Care Physician: PATIENT HAS NO PRIMARY CARE DR Patient sees these Specialists podiatry Level of Patient Care: General Medicine LIVAN MARCUS 11/07/16 1528: Resident Review Statement Resident Statement: examined this patient, discussed with computer science intern, agreed with computer science intern, reviewed EMR data (avail), reviewed images Other Findings: This is a 41 YO lady w/PMH significant for active IV drug abuse, peripheral neuropathy of unclear etiology, history of multiple hospitalizations for chronic ulcerations of multiple toes of both feet, recent hospital admission on 11/05/17 for presumed left foot osteomyelitis (signed out AMA on 11/06/16 after having biopsy/debridement ) presents to continue treatment. VSS, NAD, AAOx3, HEENT: HNCAT, PERRLA, EOMI Neck: Supple, no LAD, CV: RRR, No murmur. Lungs: CTABL. Abd: NL BS, NT, ND. No CVA tenderness. RLE dressing intact , Left foot status post fourth toe amputation and partial amputations of the left first, second, third and fifth toes. No admission labs available. Assessment: #RLE cellulitis r/o OM #S/P debridement of RLE #IVDA Plan: * Admit to Gen med * VS per protocol * IV Unasyn 3 g q6 * ID and podiatry consult * Follow urine toxicology screen * F/U cultures * Psych and social consult * DVT PPX * Full code CELESTE KRAUSE 11/07/16 1538: Attending MD Review Statement Attending Statement Attending MD Statement: examined this patient, discuss w/resident/PA/ASSISTANT OPERATIONS MANAGER, agreed w/resident/PA/ASSISTANT OPERATIONS MANAGER, discussed with family, reviewed EMR data (avail), discussed with nursing, discussed with case mgmt, reviewed images, amended to note Attending Assessment/Plan: "41 yo F with h/o IVDA, opiate dependence on methadone maintenance, hypothyroidism, bipolar disorder, chronic anemia, neuropathy, recently (Jul 2016 ) treated for bilateral feet osteomyelitis (MSSA) and underwent partial first/ second/third ray resection of right foot as well as partial first/second/fourth ray resections of left foot, with a plan for prolonged antibiotics" Patient recently left [place] from [place] and came today to ER for further evalaution and being admitted ASSESSMENT 1. history of IV drug abuse with heroine abuse currently on methadone. 2. Last heroin abuse was about a month ago. 3. Cellulitis r/o OM. 4. Patient is s/p debridement of her right foot ulcer and wound 5. CHECK URINE DRUG SCREEN PLAN admit to inpatient medical services. start i/v unasyn q 6, follow biopsy/culture results from OR. notify ID and podiatry. pain control and supportive management gi/dvt prophylaxis full code. abstinence from drugs education provided plan of care d/wed patient in ER.
[2016-11-07 19:08] VITALS: BP 108/68
[2016-11-07 22:52] VITALS: BP 106/60
[2016-11-08 06:14] VITALS: BP 100/60
--- NOTE | 2016-11-08 08:30 | PN- Housestaff ---
MARK BURNETT 11/08/16 0830: Subjective Follow-up For: Right foot osteomyelitis Lower urinary tract infection Complaints: pain scale (0-10) Subjective: Patient was seen and examined this morning. She is alert, awake and oriented to time place and person. No acute eventS NOTICED overnight She reports 10/10 pain right foot. She is requesting for methadone. And she wants to smoke. Willing to leave the hospital against medical advice. She denied any fever, chills, frequency, urgency, dysuria, flank pain Reports no urinary symptoms Vitals stable Review of Systems Constitutional: Denies: chills, diaphoresis, fever, malaise. Objective Last 24 Hrs of Vital Signs/I&O Vital Signs Date Time Temp Pulse Resp B/P B/P Pulse O2 O2 Flow FiO2 Mean Ox Delivery Rate 11/08 0614 97.5 65 20 100/60 97 Room Air 11/07 2252 98.0 63 20 106/60 98 Room Air 11/07 1908 97.6 84 20 108/68 98 Room Air 11/07 1804 97.5 71 18 100/51 97 11/07 1444 98 Room Air 11/07 1300 99.0 113 20 131/83 99 Room Air Intake & Output 11/08 1600 11/08 0800 06 0000 Intake Total 150 300 Output Total 400 Balance 150 -100 Intake, IV 150 Intake, Oral 300 Output, Urine 400 Patient 97.522 kg Weight Weight Reported by Patient Measurement Method Physical Exam General Appearance: Alert, Oriented X3, Cooperative, No Acute Distress Skin: right foot tma HEENT: Atraumatic, PERRLA, EOMI, Mucous Membr. moist/pink Neck: Supple, No JVD Lymphatic: Cervical nl Cardiovascular: Normal S1, Normal S2 Lungs: Normal Air Movement Abdomen: Normal Bowel Sounds, Soft, No Tenderness Extremities: No Clubbing, No Cyanosis, No Edema Vascular: Normal Pulses Current Medications: Current Medications Sig/Mainor Start time Last Medication Dose Route Stop Time Status Admin Acetaminophen 325 MG Q6P PRN 11/07 1715 DCD PO Acetaminophen 0 .STK-MED ONE 11/07 1548 DC IV Acetaminophen 1,000 MG ONCE ONE 11/07 1545 DC 11/07 N/A 1 UNIT IV 11/07 1559 1546 Ampicillin Sodium/ 0 .STK-MED ONE 11/07 1822 DC Sulbactam Sodium .ROUTE Ampicillin Sodium/ 3,000 MG Q6 11/07 1800 DCD 11/08 Sulbactam Sodium IV 1127 Sodium Chloride 100 ML Ampicillin Sodium/ 0 .STK-MED ONE 11/07 1440 DC Sulbactam Sodium .ROUTE Ampicillin Sodium/ 3,000 MG ONCE ONE 11/07 1415 DC 11/07 Sulbactam Sodium IV 11/07 1444 1441 Sodium Chloride 100 ML Aripiprazole 5 MG DAILY 11/07 1857 DCD 11/08 PO 0856 Citalopram 40 MG DAILY 11/07 1858 DCD 11/08 Hydrobromide PO 0856 Clonazepam 2 MG BID 11/07 2199 DCD 11/08 PO 11/14 2159 0856 Cyanocobalamin 1,000 MCG DAILY 11/07 1857 DCD 11/08 PO 0856 Ferrous Sulfate 325 MG BID 11/07 2199 DCD 11/08 PO 0855 Hydromorphone HCl 2 MG Q4P PRN 11/08 0930 DCD IV Hydromorphone HCl 1 MG Q4P PRN 11/07 1715 DC IV Nicotine 21 MG DAILY 11/07 1900 DCD 11/08 TOP 0724 Oxycodone/ 1 TAB Q6P PRN 11/07 171 DCD 11/08 Acetaminophen PO 0856 Last 24 Hrs of Lab/Serafin Results Last 24 Hrs of Labs/Mics: Laboratory Tests 11/07/16 1535: Urine Opiates Screen > 4000.00 H, Methadone Screen > 735 H, Barbiturate Screen 72, Ur Phencyclidine Scrn 9.60, Amphetamines Screen < 100, U Benzodiazepines Scrn 755 H, Urine Cocaine Screen > 1000 H, Urine Cannabis Screen 8.30, Urine Color YEL, Urine Clarity CLEAR, Urine pH 6.0, Ur Specific [place] 1.015, Urine Protein NEG, Urine Ketones NEG, Urine Nitrite NEG, Urine Bilirubin NEG, Urine Urobilinogen 0.2, Ur Leukocyte Esterase SMALL H, Ur Microscopic SEDIMENT EXAMINED, Urine RBC 1-3, Urine WBC 15-25 H, Ur Epithelial Cells FEW, Urine Bacteria FEW H, Urine Hemoglobin SMALL H, Urine Glucose NEG Assessment/Plan Assessment: 41-year-old female with PMH neuropathy sp toe amputation of both feet due to osteomyelitis with OR cx grew MSSA and Beta strep group B, treated with 14 days of antibiotics, anemia with low iron and b12, hx of IVDA heroin, now on methadone (last use 1 month ago), hypothyroidism (stopped taking levothyroxine 6 months ago on her own), bipolar disorder, depression, anxiety presented to [facility] emergency room to continue treatment for right foot osteomyelitis status post debridement on 11/05/2016. Of note she left AMA on after biopsy and debridement of right foot for family emergency. Vitals on admission-afebrile, heart rate 110, respiratory rate 20, blood pressure 110/70, saturating at room air. 11/05 Labs pertinent for microcytic anemia with an H&H of 8.9/27.6, MCV of 68.8 and a platelet count of 450,000. ESR elevated to 123. Serum chemistries revealed a sodium of 137, potassium of 4.0, bicarbonate of 28, BUN 10 and creatinine of 0.8. LFTs unremarkable with an AST/ALT 17/22 with an alkaline phosphatase of 127. Urine toxicology 531 positive for methadone, opiates, cocaine, benzos. X-ray of the foot 11/05 was done which showed prominent soft tissue swelling of the forefoot at the amputation site, no definite soft tissue gas of the superficial gas at the distal aspect of the stomach is difficult to exclude prove. There is a new probable erosion of the distal aspect of the first digit proximal phalanx could represent osteomyelitis. Problem list: # osteomyelitis of right foot # Anemia # Hx of heroin abuse # Possible UTI # Hypothyroidism # Likely osteomyelitis she was admitted on November 04 after she was referred to the emergency room by Podiatry because of nonhealing of the right foot, with a one-week history of pain, erythema, edema and drainage with undocumented fevers and chills and with dysuria. X-ray of the right foot revealed prominent soft tissue swelling of the forefoot, with new probable erosion of the distal aspect of the first digit proximal phalanx. She was followed off antibiotics and has remained afebrile with a normal white blood cell count. She was taken to the OR 11/05 for an open right transmetatarsal amputation. * AdmitED to general medicine * She is status post right transmetatarsal amputation day 3 * ContinueD Unasyn 3 g every 6 hours pending cultures * Follow BCX2 * ID on board * Will follow ID recommendation * Monitor for fever, chills, leukocytosis * Monitor WBC # Anemia - H/H 8.9/27.6, hb was 9.9 on in Jul 2016, found to have low iron and b12 at that time * Resume B12 and ferrous sulfate - ferrous sulfate 325 bid & vitamin b12 1000 daily, make sure patient takes this at discharge * guaiac all stool # Hx of heroin abuse - She used heroin up to about 1 month ago. She has been following up with the methadone program since then, and is currently on 40 mg of methadone daily ( takes it in the morning). She gets it from [facility], . * ConfirmED methadone dose-she received her last dose at methadone clinic on 30 mg methadone was given * Follow up Utox-cocaine, heroin, methadone, benzos, opiates # Possible UTI * Reports dysuria * Urine analysis showed small esterases, 15-25 WBC with few bacteria * Will follow up urine culture- GNR * Received antibiotics for 3 days for lower urinary tract infection * Remained afebrile with a normal WBC count * Denied any urinary symptoms # Hypothryroidism, * but stopped taking her meds on her own * Follow up TSH/FT4- 5.4 and 1.35 # Nicotine dependence * Nicotine patch # Continue home meds for depression and anxiety klonopin 2mg bid celexa 40 mg daily abilify 5 mg daily Diet: Regular diet for now PP: Tylenol, Percocet, Dilaudid DVT ppx: mech and sc heparin FULL CODE OR cultures growing group B strep and staph aureus. She needs 6 weeks of IV antibiotics for osteomyelitis. Patient refused to stay in the hospital, she wants to leave AMA. She is not willing to get IV antibiotics at this point. She wants to leave AMA. Risks of leaving hospital was explained Problem List: 1. Osteomyelitis of foot, right, acute Pain Ratin Pain Location: RIGHT FOOT Pain Goal: Remain pain free Pain Plan: Morphine and Percocet Tomorrow's Labs & Rationales: None CELESTE KRAUSE 11/08/16 1212: Attending MD Review Statement Attending Statement Attending MD Statement: examined this patient, discuss w/resident/PA/SUPERVISOR PROPERTIES, agreed w/resident/PA/SUPERVISOR PROPERTIES, discussed with family, reviewed EMR data (avail), discussed with nursing, discussed with case mgmt, reviewed images, amended to note Attending Assessment/Plan: "41 yo F with h/o IVDA, opiate dependence on methadone maintenance, hypothyroidism, bipolar disorder, chronic anemia, neuropathy, recently (Jul 2016 ) treated for bilateral feet osteomyelitis (MSSA) and underwent partial first/ second/third ray resection of right foot as well as partial first/second/fourth ray resections of left foot, with a plan for prolonged antibiotics" Patient recently left [place] from [place] and came today to ER for further evalaution and being admitted ASSESSMENT 1. history of IV drug abuse with heroine abuse currently on methadone. 2. Last heroin abuse was about a month ago. 3. Cellulitis r/o OM. 4. Patient is s/p debridement of her right foot ulcer and wound 5. CHECK URINE DRUG SCREEN + COCAINE PLAN admit to inpatient medical services. c/w i/v unasyn q 6, follow biopsy/culture results from OR. f/u ID and podiatry. pain control and supportive management gi/dvt prophylaxis full code. abstinence from drugs education provided Patient again wants to leave against medical advice, patient explained risks/ benefits of hospitalsiation and continued medical care, aaox3 oriented, able to make decisions.
[2016-11-08] MEDS ORDERED: FERROUS SULFAT325 M2 PO (11:50)
[2016-11-08] MEDS ORDERED: VITAMIN B-121000 MC3 PO (11:50)
--- NOTE | 2016-11-08 11:51 | Patient Discharge Instructions ---
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 Diet Continue normal diet: Yes Activity Full Activity/No Limits: Yes Acute Coronary Syndrome Inclusion Criteria At DC or during hospital stay patient has or had the following: ACS DIAGNOSIS No Discharge Core Measures Meds if any: Prescribed or Continued at Discharge Meds if any: NOT Prescribed or Continued at Discharge Congestive Heart Failure Inclusion Criteria At DC or during hospital stay patient has or had the following: CHF DIAGNOSIS No Discharge Core Measures Meds if any: Prescribed or Continued at Discharge Meds if any: NOT Prescribed or Continued at Discharge Cerebrovascular accident Inclusion Criteria At DC or during hospital stay patient has or had the following: CVA/TIA Diagnosis No Discharge Core Measures Meds if any: Prescribed or Continued at Discharge Meds if any: NOT Prescribed or Continued at Discharge Venous thromboembolism Inclusion Criteria VTE Diagnosis No VTE Type NONE VTE Confirmed by (Test) NONE Discharge Core Measures - Per Current guidelines, there needs to be overlap - treatment for the first 5 days of Warfarin therapy. - If discharged on Warfarin prior to 5 days of - overlap therapy, the patient will need to be - assessed for post discharge needs including - *Post discharge parental anticoagulation - *Warfarin and/or parental anticoagulation education - *Follow up date to check INR post discharge At least 5 days overlap therapy as Inpatient No Meds if any: Prescribed or Continued at Discharge Note: Overlap Therapy is Warfarin and Anticoagulant Meds if any: NOT Prescribed or Continued at Discharge
--- NOTE | 2016-11-08 12:30 | Event Note ---
Event Note Event Note: OR cultures growing group B strep and staph aureus. She needs 6 weeks of IV antibiotics for osteomyelitis. Patient refused to stay in the hospital, she wants to leave AMA. She is not willing to get IV antibiotics at this point. She wants to leave AMA. Risks of leaving hospital was explained. Address her to follow-up with Dr. Milligan as an outpatient for her right foot osteomyelitis.
--- NOTE | 2016-11-08 12:35 | Discharge Summary ---
Visit Information Visit Dates Admission Date: 11/07/16 Discharge Date: 11/08/16 Hospital Course Course Attending Physician: CELESTE KRAUSE MD Primary Care Physician: PATIENT HAS NO PRIMARY CARE DR Hospital Course: 41-year-old female with PMH neuropathy sp toe amputation of both feet due to osteomyelitis with OR cx grew MSSA and Beta strep group B, treated with 14 days of antibiotics, anemia with low iron and b12, hx of IVDA heroin, now on methadone (last use 1 month ago), hypothyroidism (stopped taking levothyroxine 6 months ago on her own), bipolar disorder, depression, anxiety presented to [facility] emergency room to continue treatment for right foot osteomyelitis status post debridement on 11/05/2016. Of note she left AMA on after biopsy and debridement of right foot for family emergency. Vitals on admission-afebrile, heart rate 110, respiratory rate 20, blood pressure 110/70, saturating at room air. 11/05 Labs pertinent for microcytic anemia with an H&H of 8.9/27.6, MCV of 68.8 and a platelet count of 450,000. ESR elevated to 123. Serum chemistries revealed a sodium of 137, potassium of 4.0, bicarbonate of 28, BUN 10 and creatinine of 0.8. LFTs unremarkable with an AST/ALT 17/22 with an alkaline phosphatase of 127. Urine toxicology 531 positive for methadone, opiates, cocaine, benzos. X-ray of the foot 11/05 was done which showed prominent soft tissue swelling of the forefoot at the amputation site, no definite soft tissue gas of the superficial gas at the distal aspect of the stomach is difficult to exclude prove. There is a new probable erosion of the distal aspect of the first digit proximal phalanx could represent osteomyelitis. Problem list: # osteomyelitis of right foot # Anemia # Hx of heroin abuse # Possible UTI # Hypothyroidism # osteomyelitis of right foot she was admitted on November 04 after she was referred to the emergency room by Podiatry because of nonhealing of the right foot, with a one-week history of pain, erythema, edema and drainage with undocumented fevers and chills and with dysuria. X-ray of the right foot revealed prominent soft tissue swelling of the forefoot, with new probable erosion of the distal aspect of the first digit proximal phalanx. She was followed off antibiotics and has remained afebrile with a normal white blood cell count. She was taken to the OR 11/05 for an open right transmetatarsal amputation. She was admitted to general medicine floor for continuity of care for right foot osteomyelitis status post right metatarsal amputation day 3. She was continued on Unasyn 3 g every 6 hours. OR cultures preliminary reports-staph aureus and group B streptococcus. Final cultures and sensitivities were pending. Blood culture reports were pending. # Anemia - H/H 8.9/27.6, hb was 9.9 on in Jul 2016, found to have low iron and b12 at that time ferrous sulfate 325 bid & vitamin b12 1000 daily # Hx of heroin abuse - She used heroin up to about 1 month ago. She has been following up with the methadone program since then, and is currently on 30 mg of methadone daily ( takes it in the morning). She gets it from [facility], [phone]. we ConfirmED methadone dose-she received her last dose at methadone clinic on - 30 mg methadone was given. .Follow up Utox-cocaine, heroin, methadone, benzos, opiates # Possible UTI She reported dysuria. Urine analysis showed small esterases, 15-25 WBC with few bacteria. She completed 3 day antibiotic course for lower urinary tract infection. She remained afebrile with normal WBC count. Urine cultures were growing gram-negative rods. Sensitivities and the organism reports are pending # Hypothryroidism, but stopped taking her meds on her own Follow up TSH/FT4- 5.4 and 1.35 # Nicotine dependence Nicotine patch # Continue home meds for depression and anxiety klonopin 2mg bid celexa 40 mg daily abilify 5 mg daily Diet: Regular diet for now PP: Tylenol, Percocet, Dilaudid DVT ppx: mech and sc heparin FULL CODE OR cultures growing group B strep and staph aureus. She needs 6 weeks of IV antibiotics for osteomyelitis. Patient refused to stay in the hospital, she wants to leave AMA. She is not willing to get IV antibiotics at this point. Risks of leaving hospital was explained-explained about losing limb and life- patient was aware and was able to make decisions Left AMA on 11/08/2016 1 PM Complications: none Allergies: Coded Allergies: Sulfa (Sulfonamide Antibiotics) (Severe, FACILA SWELLING 07/18/16) Significant Procedures: none Pertinent Lab Results: nnone Disposition Summary Disposition Principal Diagnosis: Lower urinary tract infection Right foot osteomyelitis status post transmetatarsal amputation Additional Diagnosis: IV drug abuse Discharge Disposition: left against medical adv Discharge Instructions General Discharge Information Code Status: Full Code Patient's Diet: As tolerated Patient's Activity: As tolerated Follow-Up Instructions/Appts: Follow-up with Dr. Milligan construction superintendent as an outpatient in one week f/u your primary care doctor in 1-2 weeks Medications at Discharge Discharge Medications: Stop taking the following medications: Amoxicillin/Potassium Clav (Augmentin 875-125 Tablet) 875 MG-125 MG TABLET ORAL TWICE DAILY Qty = 14 Continue taking these medications: Aripiprazole (Aripiprazole) 5 MG TABLET 1 Tablet ORAL DAILY Qty = 30 Comments: Last Taken: 11/08/16 Time: 0800AM Clonazepam (Clonazepam) 2 MG TABLET 1 Tablet ORAL TWICE DAILY Qty = 60 Comments: Last Taken: 11/08/16 Time: 0800AM Citalopram Hydrobromide (Citalopram HBr) 40 MG TABLET 1 Tablet ORAL DAILY Qty = 30 Comments: Last Taken: 11/08/16 Time: 0800AM Start taking the following new medications: Cyanocobalamin (Vitamin B-12) 1,000 MCG TABLET 1,000 Microgram ORAL DAILY Qty = 30 No Refills Comments: Last Taken: 11/08/16 Time: 0800AM Ferrous Sulfate (Ferrous Sulfate) 325 MG (65 MG IRON) TABLET. 325 Milligram ORAL TWICE DAILY Qty = 30 No Refills Comments: Last Taken: 11/08/16 Time: 0800AM Copies To: GRACE ARRIAZA DPM
== END 2016-11-08 12:29 | disposition left against medical advice (07) | DRG 540 ==
LOC: ERH 12:56 → ERHI 14:19 → ENRESERV 15:41 → ENTRNSPT 18:12 → 2NB 18:52 → CMPTRNSPT 18:54 → 2NB 18:56
PROVIDERS: ADMIT Internal Medicine
DX: M86.171 Other acute osteomyelitis, right ankle and foot (principal); F11.20 Opioid dependence, uncomplicated; N39.0 Urinary tract infection, site not specified; E03.9 Hypothyroidism, unspecified; F31.9 Bipolar disorder, unspecified; F17.210 Nicotine dependence, cigarettes, uncomplicated; D64.9 Anemia, unspecified; Z89.421 Acquired absence of other right toe(s); G62.9 Polyneuropathy, unspecified; B95.61 Methicillin susceptible Staphylococcus aureus infection as the cause of diseases classified elsewhere; B95.1 Streptococcus, group B, as the cause of diseases classified elsewhere; F41.9 Anxiety disorder, unspecified
CPT/HCPCS: 2NBSP; 80307; 81001; 96365; J0131

== ENCOUNTER 2016-11-27 16:52 | Inpatient (IN) | payer OTHER, MEDICARE ==
[~2016-11-27] VITALS: Ht 170.2 cm; Wt 98.0 kg
[~2016-11-27 16:52] MED LIST changes: +FERROUS SULFAT325 M2 PO; +VITAMIN B-121000 MC3 PO
--- NOTE | 2016-11-27 16:56 | NUR ---
PT STATES SHE WAS SENT IN BY DR. SHEPHERD. PT HAD SURGERY ON RIGHT FOOT AND WOUND WAS NEVER CLOSED. PT IS TO BE ADMITED AND HAVE WOUND CLOSED
--- NOTE | 2016-11-27 17:43 | NUR ---
PT REPORTS HAVING SURGERY ON RIGHT FOOT APPROX 2 WEEKS AGO. STATES THAT IT HAS PROGRESSIVELY GOTTEN WORSE. PT HAS A FOUL ODOR TO FOOT AND IS DRAINING YELLOW/GREENISH LIQUID ALONG WITH SOME SEROSANGINOUS FLUID. THERE ARE SUTURES PRESENT. PT REPORTS NOT HAVING GUAZE AND WAS USING PAPER TOWELS.
--- NOTE | 2016-11-27 17:49 | ED SKIN/ALLERGY COMPLAINT ---
History of Present Illness General Chief Complaint: General Adult Stated Complaint: PT WAS SIB FOR CLOSE UP THE WOUND Source: patient, old records Exam Limitations: no limitations Vital Signs & Intake/Output Vital Signs & Intake/Output Vital Signs Date Time Temp Pulse Resp B/P B/P Pulse O2 O2 Flow FiO2 Mean Ox Delivery Rate 11/28 0002 98.6 91 20 108/60 97 Room Air 11/27 2204 95.7 73 20 101/52 98 Room Air 11/27 2014 96.4 80 20 106/59 98 Room Air 11/27 1656 98.9 120 16 161/93 95 Room Air ED Intake and Output 11/28 0000 11/27 1200 Intake Total 1500 Output Total Balance 1500 Intake, IV 1100 Intake, Oral 400 Patient 215 lb Weight Weight Reported by Patient Measurement Method Allergies Coded Allergies: Sulfa (Sulfonamide Antibiotics) (Severe, FACIAL SWELLING 11/27/16) clonidine (WEAKNESS ALL OVER 11/27/16) Reconcile Medications Aripiprazole 5 MG TABLET 1 TAB PO DAILY MENTAL HEALTH (Reported) Citalopram Hydrobromide (Citalopram HBr) 40 MG TABLET 1 TAB PO DAILY MENTAL HEALTH (Reported) Clonazepam 2 MG TABLET 1 TAB PO BID anxiety (Reported) Cyanocobalamin (Vitamin B-12) 1,000 MCG TABLET 1,000 MCG PO DAILY supplement Ferrous Sulfate 325 MG (65 MG IRON) TABLET.DR 325 MG PO BID supplement Suvorexant (Belsomra) (Unknown Strength) TABLET (Unknown Dose) PO QPM SLEEP ( Reported) Triage Note: PT STATES SHE WAS SENT IN BY DR. SHEPHERD. PT HAD SURGERY ON RIGHT FOOT AND WOUND WAS NEVER CLOSED. PT IS TO BE ADMITED AND HAVE WOUND CLOSED Triage Nurses Notes Reviewed? yes Onset: Abrupt Duration: week(s): (2), constant, continues in ED, getting worse Timing: single episode today Severity: mild, moderate Severity Numbers: 8 Location: none (right), feet No Modifying Factors: none Associated Symptoms: blisters, edema, swelling, discharge, erythema LMP (ages 10-50): unknown : No Patient currently breastfeeds: No HPI: 21-year-old female with past medical history of substance abuse neuropathy and osteomyelitis presents for evaluation of right foot pain swelling and discharge. Patient reports that she had surgery with Dr. Shepherd for removal of the toes on her right foot for recurrent osteomyelitis. Was supposed to follow-up one week after the surgery for wound closure but reports that she was nervous to come back in the hospital because she is addicted to heroin and did not want to go into withdrawal. He reports pain swelling and redness in the right lower extremity extending into her right calf. Pain is worse than any type of movement and is rated as a 7 out of 10. She is not taking any medication for the pain. She denies any fevers, chest pain, shortness of breath, and knee pain , hip pain, hx of DVT or any other associated symptoms. (CATRINA RICKS PA-C) Past History Travel History Traveled to [place] past 21 day No Medical History Any Pertinent Medical History? 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 Yes (CATRINA RICKS PA-C) Review of Systems Review of Systems Constitutional: Reports: no symptoms. EENTM: Reports: no symptoms. Respiratory: Reports: no symptoms. Cardiovascular: Reports: no symptoms. GI: Reports: no symptoms. Genitourinary: Reports: no symptoms. Musculoskeletal: Reports: see HPI. Skin: Reports: no symptoms. Neurological/Psychological: Reports: no symptoms. Hematologic/Endocrine: Reports: no symptoms. Immunologic/Allergic: Reports: no symptoms. All Other Systems: Reviewed and Negative (CATRINA RICKS PA-C) Physical Exam Physical Exam General Appearance: well developed/nourished, no apparent distress, alert, awake , mild distress Head: atraumatic, normal appearance Eyes: Bilateral: normal appearance, PERRL, EOMI. Ears, Nose, Throat: normal pharynx, normal ENT inspection, hearing grossly normal Neck: normal inspection, supple, full range of motion Respiratory: normal breath sounds, chest non-tender, no respiratory distress Cardiovascular: regular rate/rhythm Peripheral Pulses: 2+ radial (R), 2+ radial (L), 2+ tibialis posterior (R), 2+ tibialis posterior ( L) Gastrointestinal: normal bowel sounds, soft, non-tender, no organomegaly Back: normal inspection, normal range of motion Extremities: digits of the right lower extremity are surgically removed. There is a large open wound at the distal aspect of the right lower extremity. There is a large amount of swelling, erythema and pus discharge. Entire right lower extremity is swollen. There is pain with palpation around the distal right lower extremity. No lymphatic streaking. Full range of motion is intact neurovascular supply is intact. Very foul odor coming from the right lower extremity. Neurologic/Psych: no motor/sensory deficits, awake, alert, oriented x 3, normal mood/affect Reflexes: 2+: knee (R), knee (L). Skin: intact, normal color, warm/dry Skin Problem Location: lower extremities (RIGHT FOOT) Lymphatic: no anterior cervical gabe (BLACK PA-C,CATRINA) Progress Differential Diagnosis: abscess/cellulitis, angioedema, contact dermatitis, wound infection, necrosis, osteomyelitis, DVT, sepsis Plan of Care: Orders Procedure Date/time Status Nothing by Mouth 11/28 B Active CBC WITHOUT DIFFERENTIAL 11/28 06 Active BASIC ELECTROLYTES PLUS BUN&CR 11/28 06 Active Vital Signs 11/28 5 Active Teach/Educate 11/28 5 Active Pain Treatment and Response 11/28 5 Active Nutritional Intake, Monitor 11/28 5 Active Isolation 11/28 5 Active Intake & Output 11/28 5 Active Patient Care Conference 11/286 Active Activity/Ambulation 11/286 Active Vital Signs 11/28 0002 Active CULTURE,URINE 11/27 2218 Active US-UNILATERAL VENOUS DOPPLER 11/27 2217 Active Pathway - chart 11/27 2133 Active House Staff 11/27 213 Active Code Status 11/27 213 Active Patient Data 11/28 2119 Active Admit to inpatient 11/27 2114 Active Add-on Test (ER Only) 11/27 192 Active Add-on Test (ER Only) 11/27 183 Active URINE DRUG SCREEN FOR ER ONLY 11/27 1832 Complete THYROID STIMULATING HORMONE 11/27 1826 Active GLYCOSYLATED HGB 11/27 1826 Active FREE T4 11/27 182 Active WESTERGREN SED RATE 11/27 1826 Complete C-REACTIVE PROTEIN 11/27 1826 Active EXTREMETIES CULTURE 11/27 1813 Active LACTIC ACID 11/27 1807 Complete EKG 11/27 180 Active BLOOD CULTURE 11/27 1759 Active URINE 11/27 175 Complete URINALYSIS 11/27 175 Complete COMPREHENSIVE METABOLIC PANEL 11/27 175 Active CBC WITHOUT DIFFERENTIAL 11/27 175 Complete Intake & Output 11/27 1748 Active Lab Add-on Test 11/27 UNK Active VTE Mechanical Prophylaxis 11/27 UNK Active Current Medications Sig/Mainor Start time Last Medication Dose Stop Time Status Admin Aripiprazole 5 MG DAILY 11/28 1000 AC (Abilify) Citalopram 40 MG DAILY 11/28 1000 AC Hydrobromide (Celexa) Nicotine 14 MG DAILY 11/28 1000 AC (Nicotine Cq) Methadone HCl 40 MG 0800 11/28 0800 AC (Dolophine) Ampicillin Sodium/ 3,000 MG Q6 11/27 2359 CAN Sulbactam Sodium (Unasyn) Sodium Chloride 100 ML (Normal Saline 0.9%) Clonazepam 2 MG BID 11/27 2230 AC 11/27 (Klonopin 1MG Tab) 12/04 2229 2251 Vancomycin HCl 1,000 MG DAILY 11/27 2215 AC 11/27 Sodium Chloride 250 ML 2251 (Normal Saline 0.9%) Ceftazidime 2,000 MG Q12 11/27 2212 AC 11/27 (Fortaz) 2245 Acetaminophen 650 MG Q6P PRN 11/27 2145 AC (Tylenol) Ketorolac 15 MG Q6P PRN 11/27 2145 AC Tromethamine (Toradol) Morphine Sulfate 2 MG Q4P PRN 11/27 2145 AC 11/27 (Morphine) 2245 Sodium Chloride 1,000 ML .Q10H 11/27 2145 AC 11/27 (Normal Saline 0.9%) 2146 Enoxaparin Sodium 40 MG DAILY 11/27 213 AC (Lovenox) Laboratory Tests 11/27/162106: Lactic Acid Cancelled 11/27/16 1930: Urine Opiates Screen > 4000.00 H, Methadone Screen 455 H, Barbiturate Screen 77, Ur Phencyclidine Scrn 8.60, Amphetamines Screen < 100, U Benzodiazepines Scrn < 85, Urine Cocaine Screen > 1000 H, Urine Cannabis Screen 51.70 H, Urine Color ORANG H, Urine Clarity HAZY H, Urine pH 6.0, Ur Specific Cuthbert >= 1.030, Urine Protein 30 H, Urine Ketones NEG, Urine Nitrite NEG, Urine Bilirubin NEG@ICTO, Urine Urobilinogen 1.0, Ur Leukocyte Esterase TRACE H, Ur Microscopic SEDIMENT EXAMINED, Urine RBC 5-10 H, Urine WBC 15-25 H, Ur Epithelial Cells MANY H, Urine Bacteria MOD H, Urine Mucus MOD H, Urine Hemoglobin MOD H, Urine Glucose NEG, Urine Test NEGATIVE 11/27/16 1929: C-Reactive Prot, Quant Cancelled, ESR Westergren Cancelled 11/27/16 1826: Anion Gap 8, Estimated GFR > 60, BUN/Creatinine Ratio 17.1, Glucose 141 H, Hemoglobin A1c Pending, Calcium 8.5, Total Bilirubin 0.7, AST 30, ALT 49, Alkaline Phosphatase 147 H, C-Reactive Prot, Quant > 9.0 H, Total Protein 7.1, Albumin 3.0 L, Globulin 4.1, Albumin/Globulin Ratio 0.7 L, TSH 3.600, Free T4 1.58, CBC w Diff NO MAN DIFF REQ, RBC 3.74 L, MCV 67.6 L, MCH 21.6 L, RDW 18.6 H, MPV 6.6 L, Gran % 76.3 H, Lymphocytes % 16.9 L, Monocytes % 4.1, Eosinophils % 2.2, Basophils % 0.5, Absolute Granulocytes 6.8 H, Absolute Lymphocytes 1.5, Absolute Monocytes 0.4, Absolute Eosinophils 0.2, Absolute Basophils 0, PUBS MCHC 31.9 L, ESR Westergren > 130 H 11/27/16 1807: Lactic Acid 1.2 Microbiology 11/27 221 URINE ROUT: Urine Culture - ORD 11/27 185 BLOOD: Blood Culture - RECD 11/27 1814 EXTREMITIE: Culture & Sensitivity - RECD 11/27 1814 EXTREMITIE: Gram Stain - RECD 11/27 1810 BLOOD: Blood Culture - RECD 6:22 PM: Spoke with Dr. Campbell. Patient will be given IV fluids, IV Unasyn, IV morphine. Blood cultures and lactic acid drawn EKG. . Sedimentation rate ordered to assess for possible recurrent osteomyelitis. Patient will be admitted to medicine and Dr. Campbell put her on the schedule tentatively for tomorrow. Dr. Campbell is concerned due to patient's history of leaving AMA due to her heroin addiction. 9:17 PM blood work is back lactic acid is within normal limits. No white blood cell count. She is not showing any signs of sepsis currently. Spoke to hospitalist and she will be admitted for IV antibiotics, IV hydration, serial labs, infectious disease consult, crisis consult, podiatry consult and surgery. Case discussed with Dr. Davenport and he agrees the plan. (CATRINA RICKS PA-C) Initial ED EKG: sinus rhythm, left atrial abn, borderline T wave abn in anterior leads (CATRINA RICKS PA-C) Departure Departure Disposition: STILL A PATIENT Condition: Stable Clinical Impression Primary Impression: Wound infection after surgery Qualifiers: Encounter type: initial encounter Qualified Code: T81.4XXA - Infection following a procedure, initial encounter Referrals: PATIENT HAS NO PRIMARY CARE DR (PCP/Family) Departure Forms: Customer Survey General Discharge Information Admission Note Spoke With: FELIX PACHECO,ADONIS Documentation of Exam: Documentation of any treatments & extenuating circumstances including Concerns Regarding Discharge (functional status, medication knowledge or non-compliance, living conditions, etc.) that warrant an admission rather than observation: IV antibiotics, IV hydration, IV pain control, serial labs, infectious disease consult, crisis consult, podiatry consult and surgery. (CATRINA RICKS PA-C) PA/PERSONNEL RESEARCH PSYCHOLOGIST Co-Sign Statement Statement: ED Attending supervision documentation- [] I saw and evaluated the patient. I have also reviewed all the pertinent lab results and diagnostic results. I agree with the findings and the plan of care as documented in the PA's/PERSONNEL RESEARCH PSYCHOLOGIST's documentation. [X] I have reviewed the ED Record and agree with the PA's/PERSONNEL RESEARCH PSYCHOLOGIST's documentation. [] Additions or exceptions (if any) to the PAs/PERSONNEL RESEARCH PSYCHOLOGIST's note and plan are summarized below: [] (LAMAR PACHECO,STACEY Fernandez)
--- NOTE | 2016-11-27 18:38 | NUR ---
LABS AND 1ST SET OF BLOOD CULTURES DRAWN AND SENT
[2016-11-27 18:42] LABS: ABSOLUTE BASOPHIL COUNT 0 /CUMM (0.0-0.2); ABSOLUTE EOSINOPHIL COUNT 0.2 /CUMM (0.0-0.7); ABSOLUTE GRANULOCYTE CT 6.8 /CUMM (1.4-6.5); ABSOLUTE LYMPH COUNT 1.5 /CUMM (1.2-3.4); ABSOLUTE MONOCYTE COUNT 0.4 /CUMM (0.10-0.60); BASOPHIL % 0.5 % (0.0-2.0); EOSINOPHIL % 2.2 % (0-5); GRANULOCYTE % 76.3 % (42.2-75.2); HEMATOCRIT 25.3 % (37-47); MEAN CORPUSCULAR HGB 21.6 PG (27.0-31.0); MEAN CORPUSCULAR HGB CONC 31.9 G/DL (33.0-37.0); MEAN CORPUSCULAR VOLUME 67.6 FL (81.0-99.0); MEAN PLATELET VOLUME 6.6 FL (7.4-10.4); PLATELET COUNT 450 /CUMM (130-400); RBC DISTRIBUTION WIDTH 18.6 % (11.5-14.5); RED BLOOD CELL CT 3.74 /CUMM (4.20-5.40); WHITE BLOOD CELL COUNT 8.9 /CUMM (4.8-10.8)
[2016-11-27] MEDS ORDERED: BELSOMRA5 MG PO (18:55)
--- NOTE | 2016-11-27 21:38 | History & Physical ---
FELICIA PACHECO,[facility] 11/27/16 2138: General Information and HPI MD Statement: I have seen and personally examined JAIME,SUSI and documented this H&P. The patient is a 41 year old F who presented with a patient stated chief complaint of [right foot pain]. Source of Information: patient, old records Exam Limitations: poor historian History of Present Illness: Ms. 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 Patient had recent right metatarsal amputation on 11/06/2016, was discharged AMA for family emergency. Patient was scheduled for outpatient surgical revision on November [address] Campbell , ends up not having the procedure and left AMA. Patient reported severe pain of right foot, 7/10, right leg swelling that started 2-3 days ago. Patient reported having IV heroin 3 bags today, pain improved a little bit afterwards, used street methadone and smokes 1 marijuana. Patient didn't have a follow up after last debridement in November 06 is, was discharged on Augmentin antibiotic seemed to be noncompliant, reported yellow discharge from the wound, denied blood, denied weakness or numbness. Patient has been ambulating without assistance. She denied any chest pain, palpitation, shortness of breath. Patient had recent history of UTI with urine culture growing Escherichia coli, reported dysuria, dark urine, denied any blood, no urinary frequency. Patient denied any abdominal pain, nausea, vomiting, diarrhea or constipation. Allergies/Medications Allergies: Coded Allergies: Sulfa (Sulfonamide Antibiotics) (Severe, FACIAL SWELLING 11/27/16) clonidine (WEAKNESS ALL OVER 11/27/16) Home Med list Aripiprazole 5 MG TABLET 1 TAB PO DAILY MENTAL HEALTH (Reported) Citalopram Hydrobromide (Citalopram HBr) 40 MG TABLET 1 TAB PO DAILY MENTAL HEALTH (Reported) Clonazepam 2 MG TABLET 1 TAB PO BID anxiety (Reported) Cyanocobalamin (Vitamin B-12) 1,000 MCG TABLET 1,000 MCG PO DAILY supplement Ferrous Sulfate 325 MG (65 MG IRON) TABLET. 325 MG PO BID supplement Suvorexant (Belsomra) (Unknown Strength) TABLET (Unknown Dose) PO QPM SLEEP ( Reported) Past History Travel History Traveled to [place] past 21 day No Medical History Neurological: peripheral neuropathy EENT: NONE Cardiovascular: NONE Respiratory: NONE Gastrointestinal: NONE Hepatic: NONE Renal: NONE Musculoskeletal: osteomyelitis Psychiatric: anxiety, opioid dependence, heroin addiction Endocrine: hypothyroidism Blood Disorders: NONE Cancer(s): NONE CHOIR DIRECTOR/Reproductive: NONE History of MRSA: No History of VRE: No History of CDIFF: No Surgical History Surgical History: status post partial amputation of the left third toe Past Family/Social History Psychosocial History Who Do You Live With? 2 roomates Services at Home: None Primary Language: Bulgarian ETOH Use: denies use Illicit Drug Use: heroin Living Will? no Functional Ability ADLs Independent: dressing, eating, toileting, bathing. Ambulation: independent Review of Systems Review of Systems Constitutional: Reports: see HPI. Exam & Diagnostic Data Last 24 Hrs of Vital Signs/I&O Vital Signs Date Time Temp Pulse Resp B/P B/P Pulse O2 O2 Flow FiO2 Mean Ox Delivery Rate 11/28 0002 98.6 91 20 108/60 97 Room Air 11/27 2204 95.7 73 20 101/52 98 Room Air 11/27 2014 96.4 80 20 106/59 98 Room Air 11/27 1656 98.9 120 16 161/93 95 Room Air Intake & Output 11/28 0800 11/28 0000 11/27 1600 Intake Total 1500 Output Total Balance 1500 Intake, IV 1100 Intake, Oral 400 Patient 97.522 kg Weight Weight Reported by Patient Measurement Method Physical Exam General Appearance Alert, Oriented X3, Cooperative, No Acute Distress Skin No Rashes Skin Temp/Moisture Exam: Warm/Dry HEENT Atraumatic, PERRLA, EOMI, Mucous Membr. moist/pink Neck Supple, No JVD Lymphatic no cervical lymphadenopathy Cardiovascular Regular Rate, Normal S1, Normal S2, No Murmurs Lungs Clear to Auscultation, Normal Air Movement Abdomen Normal Bowel Sounds, Soft, No Tenderness, No Hepatospenomegaly, No Masses Neurological Normal Speech, Strength at 5/5 X4 Ext, Normal Tone, Sensation Intact, Cranial Nerves 3-12 NL, Reflexes 2+ Extremities No Clubbing, No Cyanosis, Normal Pulses, LEFT FOOT METATARSAL AMPUTATION RIGHT FOOT METATARSAL OPEN WOUND WITH GRANULATION TISSUE, NECROTIC TISSUE, PUS DISCHARGE Assessment/Plan Assessment: Ms. 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 On admission Vital signs temperature 98.9, pulse 120, blood pressure 161/93, respiratory rate 16 with saturation 95% on room air Labs WBC 8.9, H&H 8.1/25.3, platelets 450, sodium 137, potassium 3.8, BUN/ creatinine 12/0.7, glucose 141, lactic acid 1.2, CRP>9 and ESR>130 Urine tox positive for opioids, methadone, cocaine and cannabis UA positive for leukocyte esterase, negative for nitrate Problem list #Osteomyelitis right foot status post metatarsal amputation #Polysubstance abuse #Hypothyroidism #Bipolar, depression and anxiety disorder #Osteomyelitis right foot status post metatarsal amputation -Admit to general medical floor -Podiatry consultation -Nothing by mouth for possible debridement in a.m. -Adequate pain management with morphine -Vancomycin and ceftaz -IV fluid normal saline 100 cc/h -ID consultation in a.m. -Venous Doppler ultrasound of right lower extremity to rule out DVT #Polysubstance abuse -Methadone 40 mg in a.m. -Patient has extensive history of polysubstance abuse and used to sign out AMA seeking for drugs -Nicotine patch #Bipolar, depression and anxiety disorder -Continue home medication citalopram, aripiprazole DVT prophylaxis Lovenox on hold for surgery Diet nothing by mouth Code full Consultation podiatry, ID As Ranked By This Provider Problem List: 1. Osteomyelitis of foot, right, acute 2. Drug abuse Core Measures/Miscellaneous Acute Coronary Syndrome ACS Diagnosis: No Cerebrovascular Accident CVA/TIA Diagnosis: No Congestive Heart Failure CHF Diagnosis: No VTE (View Protocol) VTE Risk Factors: Age > 40 [facility] d/t: No contraindications, LE Edema No VTE Pharm Prophylaxis d/t: Surgical contraindication VTE Diagnosis: No VTE Type: NONE VTE Confirmed by (Test): DUPLEX VENOUS EXTREM UNI Sepsis (View Protocol) Severe Sepsis Present: No Septic Shock Septic Shock Present: No Miscellaneous Documentation Attending Case Discussed With: ADONIS WASHINGTON MD Primary Care Physician: PATIENT HAS NO PRIMARY CARE DR Patient sees these Specialists Podiatry Level of Patient Care: General Medicine JEANIE ATWOOD MD 11/27/16 6123: Resident Review Statement Resident Statement: examined this patient, discussed with internal specialist, agreed with internal specialist Other Findings: 41-year-old female with PMH of neuropathy s/p bilateral amputation of all her toes due to osteomyelitis, chronic anemia with low iron and b12, substance abuse , hx of methadone use , hypothyroidism (stopped taking levothyroxine 6 months ago on her own), bipolar disorder, depression and anxiety who presents with Rt LE pain, swelling and redness with purulent drainage from her Rt foot. She reports that she used 3 bags of heroin, used cocaine and marijuana yesterday and has been taking methadone off the streets. Patient was said to have left AMA on 11/06/2016 after biopsy and debridement of right foot beacse she was afraid she would withraw from heroin if she stayed longer in hospital. Utox is positive for methadone, cocaine and cannabis WBC 8.9, H&H 8.1, 25.3, ESR >130; CRP >90 Problem list: # Wound infectiona and possible osteomyelitis of right foot # Chronic Anemia # Heroin abuse/Substance abuse # UTI # Hypothyroidism # Nicotine dependence Plan -Admit to GM -Will start IV vanco/ceftaz-Her last OR cultures on November 06, 2016 gre Beta-Strep Grop B, MSSA, Pseudomonas and anerobic gram neg rods. Her wound however looks badly infected with a foul smelling purulent discharge which is concerning for possible MRSA -ID consult in AM -Podiatry Consult in AM -She says she was taking 40mg daily of methadone before she stopped following up with the methadone clinic due to financial issues; Start Methadone 40mg daily from AM -She reports dysuria and UA is positive; Will order Urine cutures -Check doppler of her Rt LE to R/O DVT -Repeat TSH/FT4 -Nicotine patch -Continue her home dose of klonopin 2mg bid, celexa 40 mg daily and abilify 5 mg daily for anxiety/depression -Pain control with IV morphine, toradol and tylenol -Keep NPO for possible OR in AM -SC lovenox for DVT ppx There is high risk of her leaving AMAm again due to her substance abuse issues. May consider getting psych input in AM. FELIX PACHECO, [facility] 11/28/16 3797: Attending MD Review Statement Attending Statement Attending MD Statement: examined this patient, discuss w/resident/PA/SHIP KEEPER, agreed w/resident/PA/SHIP KEEPER Attending Assessment/Plan: 41 yo F active smoker and IV drug user, opiate dependence was on methadone maintenance, hypothyroidism, bipolar disorder, chronic anemia, neuropathy, bilateral feet chronic ulcerations and osteomyelitis (MSSA, group B strep and anaerobic GNR) s/p previous left foot partial ray resection (Jul 2016), recently admitted (November 05) underwent right open TMA by Dr. Campbell but she left AMA, readmitted on November 07 to continue IV antibiotics but decided to once again leave AMA and hence has not completed the 6 week course of antibiotics. She is an active IV drug abuser, did 3 bags of IV heroin today, took off the street methadone and smoked cocaine and marijuana. She has not been able to continue methadone program due to previous bills being unpaid. She was to get an outpatient revision and closure of her right foot wound on November 10, however she left without getting the procedure as her surgery was delayed. She did not follow up with Dr. Campbell, and noted that the right foot wound was draining purulent material, right foot was red, swollen and tender for the past few days. Dr. Campbell advised her to come back for IV antibiotics. Vitals stable except for tachycardia. Right foot s/p TMA with open nonhealing wound with necrotic tissue and purulent discharge, sutures+. Right calf and foot swollen, erythema and warmth noted to right foot. Pulses well felt. Labs: no leukocytosis, microcytic anemia H/H 8.1/25.3, ESR >130, lactic acid 1.2, CRP > 9.0, normal TSH and free T4. UA ++, Utox positive for opiates, methadone, cocaine and cannabis. EKG: SR. 1. Right foot osteomyelitis s/p TMA with open nonhealing wound with cellulitis. [facility] admit, panculture, bone cultures (November 06) have grown anaerobic GNR, strep B , pseudomonas and staph aureus. I spoke with Dr. Campbell who plans to take her to OR for revision tomorrow. NPO after midnight. Will cover with IV ceftaz and Vanco (concern for MRSA given purulent discharge) for now. IV fluids. Obtain right LE doppler to rule out DVT. Obtain ID consult. Patient has a tendency to leave AMA for need for opiates/heroin as she feels she may go into withdrawal. I will resume methadone from AM, and will cover with IV morphine for pain as needed. She has unpaid bills for her methadone clinic hence is unable to resume care with [facility]. Please obtain social work consult to see how we could help this patient. Smoking cessation counseling done. 2. Chronic anemia likely combination of iron deficiency and B12 deficiency. Resume iron supplements and B12 daily. 3. UTI. Reports persistent symptoms. She has grown pansensitive Ecoli, hence the above antibiotics will suffice. Follow urine culture. DVT ppx Lovenox. Full code.
--- NOTE | 2016-11-27 22:00 | NUR ---
PT'S RM ASSIGNMENT 227 BED 1
--- NOTE | 2016-11-27 23:28 | NUR ---
PT REPORTS DOING A "BUNDLE"(10 bags) OF HEROIN IV DAILY
--- NOTE | 2016-11-27 23:37 | NUR ---
REPORT CALLED TO RN
[2016-11-28 00:02] VITALS: BP 108/60
--- NOTE | 2016-11-28 01:02 | NUR ---
PATIENT WAS ADMITTIED TO FLOOR AT 0000 11/28/16 BY WHEELCHAIR AND CARRIED HER POSSESSION IN HER LAP. SHE WAS ORIENTATED TO ROOM AND NURSE, VITALS STABLE. SHE WAS GIVEN 2 MGS OF MORPHINE PRIOR TO COMING UP TO FLOOR IN ED AND STATED NO PAIN. SHE WAS VERY NICE AND COOPERATIVE. WILL CONTINUE TO MONITOR.
--- NOTE | 2016-11-28 01:04 | NUR ---
PATIENT HAS SOCK COVERING RIGHT OPEN WOUND. WOUND IS OPEN ON RIGHT FOOT AND LEAKING SEROSAGNOUS FLUID AND PUS. WOUND SMELLS FOUL. WOUND MEASURES [id number]. MD DUARTE PAGED. SHE STATED TO COVER IN DRY DRESSING AND SURGERY IS SET FOR 11/28/16
--- NOTE | 2016-11-28 02:51 | Admission Certification ---
Admission Certification Certification Statement - As attending physician, I certify that at the time of - admission, based on clinical presentation, severity of - symptoms, need for further diagnostic testing and - therapeutic interventions, and risk of adverse outcomes - without in-hospital treatment, in my clinical assessment, - this patient requires an acute hospital stay for a minimum - of two nights or longer. I have also considered psychsocial - factors such as support system, advanced age, financial - issues, cognitive issues, and failed out-patient treatments, - past re-admission history, safety of patient, and lack of - compliance as applicable. Specific rationale supporting this admission is: Right foot osteomyelitis with chronic nonhealing wound.
[2016-11-28 06:36] VITALS: BP 122/76
[2016-11-28 08:15] LABS: ABSOLUTE BASOPHIL COUNT 0 /CUMM (0.0-0.2); ABSOLUTE EOSINOPHIL COUNT 0.3 /CUMM (0.0-0.7); ABSOLUTE GRANULOCYTE CT 4.2 /CUMM (1.4-6.5); ABSOLUTE LYMPH COUNT 1.4 /CUMM (1.2-3.4); ABSOLUTE MONOCYTE COUNT 0.5 /CUMM (0.10-0.60); BASOPHIL % 0.4 % (0.0-2.0); EOSINOPHIL % 4.5 % (0-5); GRANULOCYTE % 65.4 % (42.2-75.2); HEMATOCRIT 23.3 % (37-47); MEAN CORPUSCULAR HGB 21.6 PG (27.0-31.0); MEAN CORPUSCULAR HGB CONC 31.9 G/DL (33.0-37.0); MEAN CORPUSCULAR VOLUME 67.8 FL (81.0-99.0); MEAN PLATELET VOLUME 7.2 FL (7.4-10.4); PLATELET COUNT 377 /CUMM (130-400); RBC DISTRIBUTION WIDTH 18.3 % (11.5-14.5); RED BLOOD CELL CT 3.44 /CUMM (4.20-5.40); WHITE BLOOD CELL COUNT 6.4 /CUMM (4.8-10.8)
--- NOTE | 2016-11-28 08:19 | PN- Housestaff ---
MARK BURNETT 11/28/16 0819: Subjective Follow-up For: Right foot osteomyelitis status post transmetatarsal amputation with open nonhealing wound with cellulitis Chronic anemia Complaints: pain scale (0-10) Subjective: Patient was seen and examined this morning. She is alert awake and oriented to time place and person. no acute events noticed overnight She denied any fever, chills. She continues to report 10 out of 10 pain at right foot associated with swelling, redness, purulent discharge from chronic left heel wound. She continues to report withdrawal symptoms from opiate abuse. She reports nausea, vomiting, diarrhea, muscle aches. Of note she did take 3 bags of IV heroine, marijuana, cocaine yesterday before coming to the hospital. Vitals remained stable she is afebrile, heart rate 84, respiratory rate 20, blood pressure 120/70, saturating at 97 on room air. She is nothing by mouth going to or later. Review of Systems Constitutional: Reports: no symptoms. Objective Last 24 Hrs of Vital Signs/I&O Vital Signs Date Time Temp Pulse Resp B/P B/P Pulse O2 O2 Flow FiO2 Mean Ox Delivery Rate 11/28 0636 98.4 80 20 122/76 95 Room Air 11/28 0002 98.6 91 20 108/60 97 Room Air 11/27 2204 95.7 73 20 101/52 98 Room Air 11/27 2015 96.4 80 20 106/59 98 Room Air 11/27 1656 98.9 120 16 161/93 95 Room Air Intake & Output 11/28 1600 11/28 0800 11/28 0000 Intake Total 1500 Output Total 350 Balance -350 1500 Intake, IV 1100 Intake, Oral 400 Output, Urine 350 Patient 97.522 kg Weight Weight Reported by Patient Measurement Method Physical Exam General Appearance: Alert, Oriented X3, Cooperative, No Acute Distress Skin: Right transmetatarsal amputation with chronic nonhealing wound and purulent discharge. HEENT: Atraumatic, PERRLA, EOMI, Mucous Membr. moist/pink Neck: Supple, No JVD Lymphatic: Cervical nl Cardiovascular: Normal S1, Normal S2 Lungs: Normal Air Movement Abdomen: Normal Bowel Sounds, Soft, No Tenderness Extremities: No Clubbing, No Cyanosis, No Edema Vascular: Pulses Symmetrical Current Medications: Current Medications Sig/Mainor Start time Last Medication Dose Route Stop Time Status Admin Acetaminophen 650 MG Q6P PRN 06/20 2145 AC PO Ampicillin Sodium/ 3,000 MG Q6 11/27 2359 CAN Sulbactam Sodium IV Sodium Chloride 100 ML Ampicillin Sodium/ 0 .STK-MED ONE 11/28 2143 DC Sulbactam Sodium .ROUTE Ampicillin Sodium/ 0 .STK-MED ONE 11/27 1920 DC Sulbactam Sodium .ROUTE Ampicillin Sodium/ 3,000 MG ONCE ONE 11/27 181 DC 11/27 Sulbactam Sodium IV 11/27 1844 1927 Sodium Chloride 100 ML Aripiprazole 5 MG DAILY 11/28 1000 AC 11/28 PO 0842 Ceftazidime 2,000 MG Q12 11/28 1000 AC 11/28 IV 0842 Ceftazidime 0 .STK-MED ONE 11/27 2225 DC .ROUTE Ceftazidime 2,000 MG Q12 11/27 2212 DC 11/27 IV 2245 Citalopram 40 MG DAILY 11/28 1000 AC 11/28 Hydrobromide PO 0842 Clonazepam 0 .STK-MED ONE 11/27 2253 DC PO Clonazepam 2 MG BID 11/27 2230 AC 11/28 PO 12/04 2229 0843 Clonidine 0.1 MG ONCE ONE 11/28 0830 DC PO 11/28 0831 Dextrose/Sodium 1,000 ML .Q6H40M 11/28 0830 AC 11/28 Chloride IV 0843 Enoxaparin Sodium 0 .STK-MED ONE 11/27 2144 DC SC Enoxaparin Sodium 40 MG DAILY 11/27 2134 DC SC Hyoscyamine 0.125 MG Q4 HRS NEEDED PRN 11/28 1000 AC PO Ketorolac 15 MG Q6P PRN 11/27 2145 AC 11/28 Tromethamine IV 0843 Methadone HCl 30 MG DAILY 11/29 1000 AC PO 12/03 0959 Methadone HCl 40 MG 0800 11/28 0800 DC 11/28 PO 0745 Morphine Sulfate 0 .STK-MED ONE 11/27 2244 DC .ROUTE Morphine Sulfate 2 MG Q4P PRN 11/27 2145 AC 11/28 IV 1042 Morphine Sulfate 0 .STK-MED ONE 11/27 1920 DC .ROUTE Morphine Sulfate 2 MG ONCE ONE 11/27 1815 DC 11/27 IV 11/27 [id number] Nicotine 14 MG DAILY 11/28 1000 CAN TOP Nicotine 21 MG DAILY 11/28 1000 AC 11/28 TOP 0949 Ondansetron HCl 4 MG Q4P PRN 11/28 1000 AC PO Sodium Chloride 1,000 ML .Q10H 11/27 2145 DC 11/27 IV 2146 Sodium Chloride 1,000 ML BOLUS ONE 11/27 1830 DC 11/27 IV 11/27 192 1927 Vancomycin HCl 1,500 MG Q12 11/28 1000 AC 11/28 Sodium Chloride 500 ML IV 0844 Vancomycin HCl 1,000 MG DAILY 11/27 2215 DC 11/27 Sodium Chloride 250 ML IV 2251 Last 24 Hrs of Lab/Serafin Results Last 24 Hrs of Labs/Mics: Laboratory Tests 11/28/16 0645: Anion Gap 6, Estimated GFR > 60, BUN/Creatinine Ratio 18.3, CBC w Diff NO MAN DIFF REQ, RBC 3.44 L, MCV 67.8 L, MCH 21.6 L, RDW 18.3 H, MPV 7.2 L, Gran % 65.4, Lymphocytes % 22.6, Monocytes % 7.1, Eosinophils % 4.5, Basophils % 0.4, Absolute Granulocytes 4.2, Absolute Lymphocytes 1.4, Absolute Monocytes 0.5, Absolute Eosinophils 0.3, Absolute Basophils 0, PUBS MCHC 31.9 L 11/27/162106: Lactic Acid Cancelled 11/27/160: Urine Opiates Screen > 4000.00 H, Methadone Screen 455 H, Barbiturate Screen 77, Ur Phencyclidine Scrn 8.60, Amphetamines Screen < 100, U Benzodiazepines Scrn < 85, Urine Cocaine Screen > 1000 H, Urine Cannabis Screen 51.70 H, Urine Color ORANG H, Urine Clarity HAZY H, Urine pH 6.0, Ur Specific [place] >= 1.030, Urine Protein 30 H, Urine Ketones NEG, Urine Nitrite NEG, Urine Bilirubin NEG@ICTO, Urine Urobilinogen 1.0, Ur Leukocyte Esterase TRACE H, Ur Microscopic SEDIMENT EXAMINED, Urine RBC 5-10 H, Urine WBC 15-25 H, Ur Epithelial Cells MANY H, Urine Bacteria MOD H, Urine Mucus MOD H, Urine Hemoglobin MOD H, Urine Glucose NEG, Urine Test NEGATIVE 11/27/161928: C-Reactive Prot, Quant Cancelled, ESR Westergren Cancelled 11/27/16 1826: Anion Gap 8, Estimated GFR > 60, BUN/Creatinine Ratio 17.1, Glucose 141 H, Hemoglobin A1c 5.7, Calcium 8.5, Total Bilirubin 0.7, AST 30, ALT 49, Alkaline Phosphatase 147 H, C-Reactive Prot, Quant > 9.0 H, Total Protein 7.1, Albumin 3.0 L, Globulin 4.1, Albumin/Globulin Ratio 0.7 L, TSH 3.600, Free T4 1.58, CBC w Diff NO MAN DIFF REQ, RBC 3.74 L, MCV 67.6 L, MCH 21.6 L, RDW 18.6 H, MPV 6.6 L, Gran % 76.3 H, Lymphocytes % 16.9 L, Monocytes % 4.1, Eosinophils % 2.2, Basophils % 0.5, Absolute Granulocytes 6.8 H, Absolute Lymphocytes 1.5, Absolute Monocytes 0.4, Absolute Eosinophils 0.2, Absolute Basophils 0, PUBS MCHC 31.9 L, ESR Westergren > 130 H 11/27/16 1807: Lactic Acid 1.2 Microbiology 11/28 1340 EXTREMITIE: Gross Specimen Examination - RECD 11/28 1340 EXTREMITIE: Gram Stain - RECD 11/28 0530 URINE ROUT: Urine Culture - RECD 11/27 1850 BLOOD: Blood Culture - RES 11/27 181 EXTREMITIE: Culture & Sensitivity - RES BETA STREP GROUP B GRAM NEGATIVE RODS 11/27 1814 EXTREMITIE: Gram Stain - RES 11/27 181 BLOOD: Blood Culture - RES Assessment/Plan Assessment: 41-year-old female with PMH right foot osteomyelitis status post right transmetatarsal amputation, never treated with antibiotics, 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 she has past medical history significant for right foot osteomyelitis status post debridement on 11/05/2016. Of note she left AMA on 11/06/2016 after biopsy and debridement of right foot for family emergency. She was admitted on 2016 for continuity of care, however she left AMA on 11/08/2016. She went to Dr. Redman on 11/10/2016 for revision surgery however she couldn't tolerate and she left AMA. On admission Vital signs temperature 98.9, pulse 120, blood pressure 161/93, respiratory rate 16 with saturation 95% on room air Labs WBC 8.9, H&H 8.1/25.3, platelets 450, sodium 137, potassium 3.8, BUN/ creatinine 12/0.7, glucose 141, lactic acid 1.2, CRP>9 and ESR>130 Urine tox positive for opioids, methadone, cocaine and cannabis UA positive for leukocyte esterase, negative for nitrate Problem List: 1. Non-healing foot wound 2/2 osteomyelitis 2. Polysubstance abuse 3. Anemia 4. Hypothyroidism 5. Depression and Anxiety 6. Possible UTI Non-healing foot wound 2/2 osteomyelitis: she has past medical history significant for right foot osteomyelitis status post transmetatarsal amputation / debridement on 11/05/2016. Of note she left AMA on 11/06/2016 after biopsy and debridement of right foot for family emergency. She was admitted on 11/07/2016 for continuity of care, however she left AMA on 11/08/2016. She went to Dr. Redman on 11/10/2016 for revision surgery however she couldn't tolerate and she left AMA. She was never treated with antibiotics for osteomyelitis. Her previous over cultures grew staph aureus, group B strep-all sensitive to antibiotics. This is the 3rd admission for this same issue since 11/05/16. Has not been compliant with hospitalization, medication, or followup. On this admission, she is afebrile with a normal WBC count. Wound Cultures were sent - growing Beta hemolytic GBS, GNR. * Admitted to general medicine floor for further management * Monitor vitals closely every shift * Monitor for fever, leukocytosis * Received 3g IV Unasyn x1 dose and Vancomycin 1g IV x1 dose in ED; has been receiving Ceftazidime 2g IV q12h and Vancomycin 1.5g q12h since admission. * To OR with Dr. Campbell for surgical management * Continue Vancomycin 1.5g, Ceftazidime 2g day 2 * Follow up blood cx * Follow up surgical specimen cx * Continue IVF * Consult ID * Follow recommendations from Dr. Campbell Polysubstance abuse: Addicted to heroin (injection), cocaine (smoking), marijuana. Was previously going to Methadone clinic, but has since been discharged d/t non-compliance. Has been using street Methadone. Expresses desire to stop using illicit drugs. Wants help getting into a new detox center after discharge from hospital. * Methadone 40mg today, taper to 30mg tomorrow * Limit opiate use * Symptomatic management for withdrawal - * Clonidine 0.1 mg x1 dose given, * Hyoscyamine 0.125mg q4h PRN for abdominal pain, * Zofran 4mg q4h PRN for nausea * HBV, HCV, HIV in 07/2016 were all Non-Reactive * Psych consulted * Social Work/Case Management consults. Anemia: Appears to be chronic in nature, although unclear etiology. No obvious source of massive blood loss, although H&H dropped from 8.1/25.3 on admission to 7.4/23.3 today. Should be taking iron supplementation as outpatient, but is not compliant. * Will obtain more detailed history and attempt to obtain prior medical records regarding this * Guiac stools to evaluate for GI losses * Daily CBC while inpatient * Consider PRBC transfusion if Hb drops below 7 Hypothyroidism: Is not on any medication for this as outpatient. * TSH and free T4 were normal on this admission. * Recommend followup with outpatient PCP for further management Depression and Anxiety: Taking Aripiprazole 5mg daily, Citalopram 40mg daily, Clonazepam 2mg daily as outpatient. * Continue all outpatient medications * Consult Psych Possible UTI: * UA on admission showing moderate bacteria, leukocyte esterase, RBCs and WBCs. * Urine culture sent. * Patient complains of frequency, dysuria, and dark urine. * Follow up Urine Cx results Current smoker * Nicotine patch 21 mg daily Code Status: Full Diet: Will resume after surgery DVT prophylaxis: Lovenox on hold d/t surgery Pain Management: Tylenol 650mg q6h PRN, Toradol 15mg q6h PRN, Morphine 2mg q4h PRN Problem List: 1. Osteomyelitis of foot, right, acute Pain Ratin Pain Location: right foot Pain Goal: Remain pain free Pain Plan: on methadone Tomorrow's Labs & Rationales: CBC in the setting of anemia PEMA MONTES MD 11/28/16 1215: Attending MD Review Statement Attending Statement Attending MD Statement: examined this patient, discuss w/resident/PA/MAT MAN, agreed w/resident/PA/MAT MAN, reviewed EMR data (avail), discussed with nursing, discussed with case mgmt, reviewed images, amended to note Attending Assessment/Plan: Patient seen and examined, she was drowsy this morning. Patient is admitted with nonhealing right foot wound. She has undergone debridement by Dr. Campbell and multiple times had left AGAINST MEDICAL ADVICE without completing the treatment. She leaves AGAINST MEDICAL ADVICE because she is afraid off opiate withdrawal symptoms. Vital Signs Date Time Temp Pulse Resp B/P B/P Pulse O2 O2 Flow FiO2 Mean Ox Delivery Rate 11/28 0636 98.4 80 20 122/76 95 Room Air 11/28 0002 98.6 91 20 108/60 97 Room Air 11/27 2204 95.7 73 20 101/52 98 Room Air 11/27 2014 96.4 80 20 106/59 98 Room Air 11/27 1656 98.9 120 16 161/93 95 Room Air on exam; drowsy but arousable. cv; s1,s2, rrr resp; clear abd; soft, nt, bs+ ext; no edema skin : Open wound on the right foot at the site of metatarsal amputation. There is erythema and swelling around it right otic some is also swollen. Laboratory Tests 11/28 11/27 0645 2107 Chemistry Sodium (137 - 145 mmol/L) 138 Potassium (3.5 - 5.1 mmol/L) 4.2 Chloride (98 - 107 mmol/L) 105 Carbon Dioxide (22 - 30 mmol/L) 28 Anion Gap (5 - 16) 6 BUN (7 - 17 mg/dL) 11 Creatinine (0.5 - 1.0 mg/dL) 0.6 Estimated GFR (>60 ml/min) > 60 BUN/Creatinine Ratio (7 - 25 %) 18.3 Lactic Acid Cancelled Hematology CBC w Diff NO MAN DIFF REQ WBC (4.8 - 10.8 /CUMM) 6.4 RBC (4.20 - 5.40 /CUMM) 3.44 L Hgb (12.0 - 16.0 G/DL) 7.4 *L Hct (37 - 47 %) 23.3 L MCV (81.0 - 99.0 FL) 67.8 L MCH (27.0 - 31.0 PG) 21.6 L RDW (11.5 - 14.5 %) 18.3 H Plt Count (130 - 400 /CUMM) 377 MPV (7.4 - 10.4 FL) 7.2 L Gran % (42.2 - 75.2 %) 65.4 Lymphocytes % (20.5 - 51.1 %) 22.6 Monocytes % (1.7 - 9.3 %) 7.1 Eosinophils % (0 - 5 %) 4.5 Basophils % (0.0 - 2.0 %) 0.4 Absolute Granulocytes (1.4 - 6.5 /CUMM) 4.2 Absolute Lymphocytes (1.2 - 3.4 /CUMM) 1.4 Absolute Monocytes (0.10 - 0.60 /CUMM) 0.5 Absolute Eosinophils (0.0 - 0.7 /CUMM) 0.3 Absolute Basophils (0.0 - 0.2 /CUMM) 0 PUBS MCHC (33.0 - 37.0 G/DL) 31.9 L 11/279 Chemistry C-Reactive Prot, Quant Cancelled [facility] Canc[facility] Toxicology Urine Opiates Screen (>2000 NG/ML) > 4000.00 H Methadone Screen (>300 NG/ML) 455 H Barbiturate Screen (>200 NG/ML) 77 Ur Phencyclidine Scrn (>25 NG/ML) 8.60 Amphetamines Screen (>1000 NG/ML) < 100 U Benzodiazepines Scrn (>200 NG/ML) < 85 Urine Cocaine Screen (>300 NG/ML) > 1000 H Urine Cannabis Screen (>50 NG/ML) 51.70 H Urines Urine Color (YEL,AMB,STR) ORANG H Urine Clarity (CLEAR) HAZY H Urine pH (5.0 - 8.0) 6.0 Ur Specific [place] (1.001 - 1.035) >= 1.030 Urine Protein (NEG,<30 MG/DL) 30 H Urine Ketones (NEG) NEG Urine Nitrite (NEG) NEG Urine Bilirubin (NEG) NEG@ICTO Urine Urobilinogen (0.1 - 1.0 EU/dl) 1.0 Ur Leukocyte Esterase (NEG) TRACE H Ur Microscopic SEDIMENT EXAMINED Urine RBC (0 - 5 /HPF) 5-10 H Urine WBC (0 - 2 /HPF) 15-25 H Ur Epithelial Cells (NONE,FEW) MANY H Urine Bacteria (NEG/NONE) MOD H Urine Mucus (FEW,NONE) MOD H Urine Hemoglobin (NEG) MOD H Urine Glucose (N MG/DL) NEG Urine Test NEGATIVE 11/27 11/27 1826 1807 Chemistry Sodium (137 - 145 mmol/L) 137 Potassium (3.5 - 5.1 mmol/L) 3.8 Chloride (98 - 107 mmol/L) 101 Carbon Dioxide (22 - 30 mmol/L) 28 Anion Gap (5 - 16) 8 BUN (7 - 17 mg/dL) 12 Creatinine (0.5 - 1.0 mg/dL) 0.7 Estimated GFR (>60 ml/min) > 60 BUN/Creatinine Ratio (7 - 25 %) 17.1 Glucose (65 - 99 mg/dL) 141 H Hemoglobin A1c (4.2 - 5.8 %) 5.7 Lactic Acid (0.7 - 2.1 mmol/L) 1.2 Calcium (8.4 - 10.2 mg/dL) 8.5 Total Bilirubin (0.2 - 1.3 mg/dL) 0.7 AST (14 - 36 U/L) 30 ALT (9 - 52 U/L) 49 Alkaline Phosphatase (<127 U/L) 147 H C-Reactive Prot, Quant (<1.0 mg/dL) > 9.0 H Total Protein (6.3 - 8.2 g/dL) 7.1 Albumin (3.5 - 5.0 g/dL) 3.0 L Globulin (1.9 - 4.2 gm/dL) 4.1 Albumin/Globulin Ratio (1.1 - 2.2 %) 0.7 L TSH (0.270 - 4.200 uIU/mL) 3.600 Free T4 (0.64 - 1.79 ng/dL) 1.58 Hematology CBC w Diff NO MAN DIFF REQ WBC (4.8 - 10.8 /CUMM) 8.9 RBC (4.20 - 5.40 /CUMM) 3.74 L Hgb (12.0 - 16.0 G/DL) 8.1 L Hct (37 - 47 %) 25.3 L MCV (81.0 - 99.0 FL) 67.6 L MCH (27.0 - 31.0 PG) 21.6 L RDW (11.5 - 14.5 %) 18.6 H Plt Count (130 - 400 /CUMM) 450 H MPV (7.4 - 10.4 FL) 6.6 L Gran % (42.2 - 75.2 %) 76.3 H Lymphocytes % (20.5 - 51.1 %) 16.9 L Monocytes % (1.7 - 9.3 %) 4.1 Eosinophils % (0 - 5 %) 2.2 Basophils % (0.0 - 2.0 %) 0.5 Absolute Granulocytes (1.4 - 6.5 /CUMM) 6.8 H Absolute Lymphocytes (1.2 - 3.4 /CUMM) 1.5 Absolute Monocytes (0.10 - 0.60 /CUMM) 0.4 Absolute Eosinophils (0.0 - 0.7 /CUMM) 0.2 Absolute Basophils (0.0 - 0.2 /CUMM) 0 PUBS MCHC (33.0 - 37.0 G/DL) 31.9 L ESR Westergren (0 - 20 MM) > 130 H A/P; 41 y/o M with pmh sig for neuropathy status post bilateral metatarsal amputation due to osteomyelitis, substance abuse (IV heroin, methadone), hypothyroidism, bipolar disorder, depression, anxiety disorder who had been admitted before for ear infection, underwent debridement and then left AGAINST MEDICAL ADVICE twice. This time admitted with nonhealing right foot wound which now seems to be infected. Patient also has swelling of the right lower extremity. She is chronic opiate dependence with use of heavy heroine. She was given 40 mg of methadone this morning and she seems to be sleepy. Methadone will be tapered down. Will avoid any other narcotics. We'll treat her symptomatically for any withdrawal symptoms from opiates. Please consult psychiatry. Patient has been started on vancomycin and cefepime. Infectious disease consult will be obtained. Patient undergo debridement with Dr. Campbell today. DVT prophylaxis: Lovenox.
--- NOTE | 2016-11-28 09:19 | NUR ---
PT TO ULTRASOUND AT 0919.
--- NOTE | 2016-11-28 09:50 | NUR ---
PT BACK FROM ULTRASOUND 09
--- NOTE | 2016-11-28 12:40 | ULTRASOUND REPORT ---
EXAMINATION: US TRIPLEX LOWER EXTREMITY, RIGHT CLINICAL INFORMATION: Right lower extremity pain, swelling and redness. COMPARISON: None TECHNIQUE: Color-flow triplex imaging with spectral analysis and compression Doppler were performed on the lower extremity. FINDINGS: Respiratory variation, normal compression and augmented flow are noted throughout the left lower extremity. The visualized common femoral vein, superficial femoral vein, profunda femoral vein, popliteal vein and midcalf peroneal and posterior tibial venous segments show no evidence of deep venous thrombosis. Hypoechoic fluid collection within the right popliteal fossa measuring 4.5 x 1.2 x 1.6 cm. Incidental note is made of multiple enlarged lymph nodes in the right groin and upper thigh region, the largest of which measures 4.5 cm in transverse dimension. Although quite enlarged, this lymph node maintains a normal appearing fatty echogenic hilum but does demonstrate increased vascularity. Other lymph nodes appear to have lost their hyperechoic fatty hilum. IMPRESSION: 1. No evidence of deep venous thrombosis involving the lower extremity. 2. Incidental note is made of right groin and upper thigh lymphadenopathy. Clinical correlation recommended. Some lymph nodes maintain normal nephrology although are pathologically enlarged, other lymph nodes appear to have lost their normal morphology. 3. Hypoechoic fluid collection within the popliteal fossa consistent with Morgan's cyst.
--- NOTE | 2016-11-28 14:29 | PN- Student ---
Subjective Subjective: Medical Student Daily Progress Note: Sophia Trent is a 41 yo F who is well known to [facility]. She was admitted on 11/27/16 for a non-healing right foot wound 2/2 osteomyelitis s/p partial metatarsal amputation and debridement, complicated by non-compliance with followup and medication regimens. This morning she is upset and on the verge of leaving AMA for the third time within the past month. She is worried about going through opiate withdrawal and says, "I cannot handle going through it. My body can't handle it." After a discussion of the gravity of the situation, she has agreed that it is in her best interest to stay and complete treatment. She also calmed down after receiving 40mg Methadone and being reassured that she could have her nicotine patch. She complains of significant right foot pain, 9/10 in severity with minimal improvement with current pain regimen. This pain is radiating through the entire RLE. She notices significant RLE swelling, and drainage from the wound. She complains of increased urinary frequency and dark urine. She denies BAILEY, cough, SOB, palpitations, weakness, fatigue, or GI discomfort. Current Medications Sig/Mainor Start time Last Medication Dose Route Stop Time Status Admin Acetaminophen 650 MG Q6P PRN 11/275 AC PO Ampicillin Sodium/ 3,000 MG Q6 11/27 2359 CAN Sulbactam Sodium IV Sodium Chloride 100 ML Ampicillin Sodium/ 0 .STK-MED ONE 11/27 2144 DC Sulbactam Sodium .ROUTE Ampicillin Sodium/ 0 .STK-MED ONE 11/27 1920 DC Sulbactam Sodium .ROUTE Ampicillin Sodium/ 3,000 MG ONCE ONE 11/27 1815 DC 11/27 Sulbactam Sodium IV 11/27 1844 1927 Sodium Chloride 100 ML Aripiprazole 5 MG DAILY 11/28 1000 AC 11/28 PO 0842 Ceftazidime 2,000 MG Q12 11/28 1000 AC 11/28 IV 0842 Ceftazidime 0 .STK-MED ONE 11/27 2225 DC .ROUTE Ceftazidime 2,000 MG Q12 11/27 2212 DC 11/27 IV 2245 Citalopram 40 MG DAILY 11/28 1000 AC 11/28 Hydrobromide PO 0842 Clonazepam 0 .STK-MED ONE 11/27 2253 DC PO Clonazepam 2 MG BID 11/27 2230 AC 11/28 PO 12/04 2229 0843 Clonidine 0.1 MG ONCE ONE 11/28 0830 DC PO 11/28 0831 Dextrose/Sodium 1,000 ML .Q6H40M 11/28 0830 AC 11/28 Chloride IV 0843 Enoxaparin Sodium 0 .STK-MED ONE 11/27 2144 DC SC Enoxaparin Sodium 40 MG DAILY 11/27 2134 DC SC Hyoscyamine 0.125 MG Q4 HRS NEEDED PRN 11/28 1000 AC PO Ketorolac 15 MG Q6P PRN 11/27 2145 AC 11/28 Tromethamine IV 0843 Methadone HCl 30 MG DAILY 11/29 1000 AC PO 12/03 0959 Methadone HCl 40 MG 0800 11/28 0800 DC 11/28 PO 0745 Morphine Sulfate 0 .STK-MED ONE 11/27 2244 DC .ROUTE Morphine Sulfate 2 MG Q4P PRN 11/27 2145 AC 11/28 IV 1042 Morphine Sulfate 0 .STK-MED ONE 11/27 1920 DC .ROUTE Morphine Sulfate 2 MG ONCE ONE 11/27 1815 DC 11/27 IV 11/27 1816 1927 Nicotine 14 MG DAILY 11/28 1000 CAN TOP Nicotine 21 MG DAILY 11/28 1000 AC 11/28 TOP 0949 Ondansetron HCl 4 MG Q4P PRN 11/28 1000 AC PO Sodium Chloride 1,000 ML .Q10H 11/27 2145 DC 11/27 IV 2146 Sodium Chloride 1,000 ML BOLUS ONE 11/27 1830 DC 11/27 IV 11/27 1929 1927 Vancomycin HCl 1,500 MG Q12 11/28 1000 AC 11/28 Sodium Chloride 500 ML IV 0844 Vancomycin HCl 1,000 MG DAILY 11/27 2215 DC 11/27 Sodium Chloride 250 ML IV 2251 Objective Objective: Vital Signs Date Time Temp Pulse Resp B/P B/P Pulse O2 O2 Flow FiO2 Mean Ox Delivery Rate 11/29 635 98.4 80 20 122/76 95 Room Air 11/28 0002 98.6 91 20 108/60 97 Room Air 11/28 2203 95.7 73 20 101/52 98 Room Air 11/27 2014 96.4 80 20 106/59 98 Room Air 11/27 165 98.9 120 16 161/93 95 Room Air Intake & Output 11/28 1600 11/28 0800 11/28 0000 Intake Total 1500 Output Total 350 Balance -350 1500 Intake, IV 1100 Intake, Oral 400 Output, Urine 350 Patient 215 lb Weight Weight Reported by Patient Measurement Method General: A&O x3, resting in bed CV: RRR, no murmurs or gallops Pulmonary: CTA with normal air movement GI: abdomen is soft, non-tender. Bowel sounds present Extremities: No clubbing or cyanosis. Significant RLE non-pitting edema. Dressing is saturated with yellow purulent drainage, tinged with serosanguineous drainage. Neuro: sensation and movement grossly intact. Psych: anxious about current situation and impending withdrawals, expresses need for help with detox and social support Results Results: Laboratory Tests 11/28/16 0645: Anion Gap 6, Estimated GFR > 60, BUN/Creatinine Ratio 18.3, CBC w Diff NO MAN DIFF REQ, RBC 3.44 L, MCV 67.8 L, MCH 21.6 L, RDW 18.3 H, MPV 7.2 L, Gran % 65.4, Lymphocytes % 22.6, Monocytes % 7.1, Eosinophils % 4.5, Basophils % 0.4, Absolute Granulocytes 4.2, Absolute Lymphocytes 1.4, Absolute Monocytes 0.5, Absolute Eosinophils 0.3, Absolute Basophils 0, PUBS MCHC 31.9 L 11/27/16 1930: Urine Opiates Screen > 4000.00 H, Methadone Screen 455 H, Barbiturate Screen 77, Ur Phencyclidine Scrn 8.60, Amphetamines Screen < 100, U Benzodiazepines Scrn < 85, Urine Cocaine Screen > 1000 H, Urine Cannabis Screen 51.70 H, Urine Color ORANG H, Urine Clarity HAZY H, Urine pH 6.0, Ur Specific [place] >= 1.030, Urine Protein 30 H, Urine Ketones NEG, Urine Nitrite NEG, Urine Bilirubin NEG@ICTO, Urine Urobilinogen 1.0, Ur Leukocyte Esterase TRACE H, Ur Microscopic SEDIMENT EXAMINED, Urine RBC 5-10 H, Urine WBC 15-25 H, Ur Epithelial Cells MANY H, Urine Bacteria MOD H, Urine Mucus MOD H, Urine Hemoglobin MOD H, Urine Glucose NEG, Urine Test NEGATIVE 11/27/16 1807: Lactic Acid 1.2 Microbiology 11/28 1340 EXTREMITIE: Gross Specimen Examination - RECD 11/28 1340 EXTREMITIE: Gram Stain - RECD 11/28 0530 URINE ROUT: Urine Culture - RECD 11/27 1850 BLOOD: Blood Culture - RES 11/27 1814 EXTREMITIE: Culture & Sensitivity - RES BETA STREP GROUP B GRAM NEGATIVE RODS 11/27 1814 EXTREMITIE: Gram Stain - RES 11/27 1810 BLOOD: Blood Culture - RES 11/28/16 US RLE: IMPRESSION: 1. No evidence of deep venous thrombosis involving the lower extremity. 2. Incidental note is made of right groin and upper thigh lymphadenopathy. Clinical correlation recommended. Some lymph nodes maintain normal nephrology although are pathologically enlarged, other lymph nodes appear to have lost their normal morphology. 3. Hypoechoic fluid collection within the popliteal fossa consistent with Morgan's cyst. Assessment/Plan Assessment: Sophia Trent is a 41 yo F who is well known to [facility]. She was admitted on 11/27/16 for a non-healing right foot wound 2/2 osteomyelitis s/p partial metatarsal amputation and debridement, complicated by non-compliance with followup and medication regimens. Problem List: 1. Non-healing foot wound 2/2 osteomyelitis 2. Polysubstance abuse 3. Anemia 4. Hypothyroidism 5. Depression and Anxiety 6. Possible UTI Plan: Non-healing foot wound 2/2 osteomyelitis: This is the 3rd admission for this same issue since 11/05/16. Has not been compliant with hospitalization, medication, or followup. On this admission, cultures were sent - growing Beta hemolytic GBS, GNR. Received 3g IV Unasyn x1 dose and Vancomycin 1g IV x1 dose in ED; has been receiving Ceftazidime 2g IV q12h and Vancomycin 1.5g q12h since admission. To OR with Dr. Campbell for surgical management * Continue Vancomycin 1.5g, Ceftazidime 2g as mentioned above * Follow up blood cx * Follow up surgical specimen cx * Continue IVF * Consult ID * Follow recommendations from Dr. Campbell Polysubstance abuse: Addicted to heroin (injection), cocaine (smoking), marijuana. Was previously going to Methadone clinic, but has since been discharged d/t non-compliance. Has been using street Methadone. Expresses desire to stop using illicit drugs. Wants help getting into a new detox center after discharge from hospital. * Methadone 40mg today, taper to 30mg tomorrow * Limit opiate use * Symptomatic management for withdrawal - Clonidine 0.1 mg x1 dose given, Hyoscyamine 0.125mg q4h PRN for abdominal pain, Zofran 4mg q4h PRN for nausea * HBV, HCV, HIV in 07/2016 were all Non-Reactive * Psych consult * Social Work/Case Management consults Anemia: Appears to be chronic in nature, although unclear etiology. No obvious source of massive blood loss, although H&H dropped from 8.1/25.3 on admission to 7.4/23.3 today. Should be taking iron supplementation as outpatient, but is not compliant. * Will obtain more detailed history and attempt to obtain prior medical records regarding this * Guiac stools to evaluate for GI losses * Daily CBC while inpatient * Consider PRBC transfusion if Hb drops below 7 Hypothyroidism: Is not on any medication for this as outpatient. TSH and free T4 were normal on this admission. * Recommend followup with outpatient PCP for further management Depression and Anxiety: Taking Aripiprazole 5mg daily, Citalopram 40mg daily, Clonazepam 2mg daily as outpatient. * Continue all outpatient medications * Consult Psych Possible UTI: UA on admission showing moderate bacteria, leukocyte esterase, RBCs and WBCs. Urine culture sent. Patient complains of frequency, dysuria, and dark urine. * Follow up Urine Cx results Code Status: Full Diet: Will resume after surgery DVT prophylaxis: Lovenox on hold d/t surgery Pain Management: Tylenol 650mg q6h PRN, Toradol 15mg q6h PRN, Morphine 2mg q4h PRN
[2016-11-28 16:00] VITALS: BP 116/80
--- NOTE | 2016-11-28 16:36 | Cons- Infect Disease ---
General Information and HPI Consulting Request Date of Consult: 11/28/16 Requested By: FELIX PACHECO,ADONIS Reason for Consult: Osteomyelitis right foot Source of Information: patient, old records History of Present Illness: This is a 41-year-old woman, active IV drug abuse, with a peripheral neuropathy of unclear etiology, status post partial left third toe amputation nearly 2 years prior to admission, hospitalized 4 months prior to admission with chronic ulcerations of multiple toes of both feet, requiring amputations of the left first, second and fourth toes and the right first, second and third toes, with IV antibiotics recommended but refused by patient, who signed out AMA, readmitted nearly 4 weeks prior to admission with nonhealing of the right foot, for which she underwent an open right TMA, with IV antibiotics again recommended but refused by patient, who again signed out AMA, admitted on November 27 after she presented to the emergency room with persistent pain and inflammation of the right foot, with foul-smelling drainage reported. On admission she was afebrile. Laboratory data revealed a white blood cell count of 9000, ESR greater than 130, BUN/creatinine 12 and 0.7, alk phosphatase 147. Urinalysis 5- 10 RBC/15-25 WBCs. Urine tox screen was positive for cocaine, opiates/morphine and cannabis. Doppler of the right leg revealed a right popliteal fossa Morgan's cyst with no evidence of DVT. She was given a dose of Unasyn and then begun on Vancomycin and Ceftazidime. She has remained afebrile overnight. This afternoon she was taken to the OR for a revision of her right TMA. Presently she does report discomfort in the right foot but has no other complaints. Allergies/Medications Allergies: Coded Allergies: Sulfa (Sulfonamide Antibiotics) (Severe, FACIAL SWELLING 11/27/16) clonidine (WEAKNESS ALL OVER 11/27/16) Home Med List: Aripiprazole 5 MG TABLET 1 TAB PO DAILY MENTAL HEALTH (Reported) Citalopram Hydrobromide (Citalopram HBr) 40 MG TABLET 1 TAB PO DAILY MENTAL HEALTH (Reported) Clonazepam 2 MG TABLET 1 TAB PO BID anxiety (Reported) Cyanocobalamin (Vitamin B-12) 1,000 MCG TABLET 1,000 MCG PO DAILY supplement Ferrous Sulfate 325 MG (65 MG IRON) TABLET.DR 325 MG PO BID supplement Suvorexant (Belsomra) (Unknown Strength) TABLET (Unknown Dose) PO QPM SLEEP ( Reported) Past History Travel History Traveled to [place] past 21 day No Medical History Neurological: peripheral neuropathy EENT: NONE Cardiovascular: NONE Respiratory: NONE Gastrointestinal: NONE Hepatic: NONE Renal: NONE Musculoskeletal: osteomyelitis Psychiatric: anxiety, opioid dependence, heroin addiction Endocrine: hypothyroidism Blood Disorders: NONE Cancer(s): 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 Home Who Do You Live With? 2 roomates Services at Home: None Primary Language: Nigerien Smoking Status: Current Everyday Smoker ETOH Use: denies use Illicit Drug Use: heroin Living Will? no Functional Ability ADLs Independent: dressing, eating, toileting, bathing. Ambulation: independent Review of Systems Review of Systems All Other Systems: Reviewed and Negative Exam & Diagnostic Data Last 24 Hrs of Vital Signs/I&O Vital Signs Date Time Temp Pulse Resp B/P B/P Pulse O2 O2 Flow FiO2 Mean Ox Delivery Rate 11/28 0636 98.4 80 20 122/76 95 Room Air 11/28 0002 98.6 91 20 108/60 97 Room Air 11/27 2204 95.7 73 20 101/52 98 Room Air 11/27 2015 96.4 80 20 106/59 98 Room Air 11/27 1656 98.9 120 16 161/93 95 Room Air Intake & Output 11/28 1600 11/28 0800 11/28 0000 Intake Total 1500 Output Total 350 Balance -350 1500 Intake, IV 1100 Intake, Oral 400 Output, Urine 350 Patient 215 lb Weight Weight Reported by Patient Measurement Method Physical Exam Other Physical Findings: She is awake and alert in no acute distress. She is afebrile. Skin reveals no rash. HEENT exam is negative. Neck is supple with no adenopathy. Lungs are clear. Heart regular rhythm with no murmur. Abdomen is soft, nontender with positive bowel sounds. Back no CVA tenderness. Extremities status post left first through fourth toe amputations, well-healed, with 2+ pulses; right foot dressing intact. Neuro neuropathy of the feet. Last 24 Hours of Lab Results: Laboratory Tests 11/2824 2107 Chemistry Sodium (137 - 145 mmol/L) 138 Potassium (3.5 - 5.1 mmol/L) 4.2 Chloride (98 - 107 mmol/L) 105 Carbon Dioxide (22 - 30 mmol/L) 28 Anion Gap (5 - 16) 6 BUN (7 - 17 mg/dL) 11 Creatinine (0.5 - 1.0 mg/dL) 0.6 Estimated GFR (>60 ml/min) > 60 BUN/Creatinine Ratio (7 - 25 %) 18.3 Lactic Acid Cancelled Hematology CBC w Diff NO MAN DIFF REQ WBC (4.8 - 10.8 /CUMM) 6.4 RBC (4.20 - 5.40 /CUMM) 3.44 L Hgb (12.0 - 16.0 G/DL) 7.4 *L Hct (37 - 47 %) 23.3 L MCV (81.0 - 99.0 FL) 67.8 L MCH (27.0 - 31.0 PG) 21.6 L RDW (11.5 - 14.5 %) 18.3 H Plt Count (130 - 400 /CUMM) 377 MPV (7.4 - 10.4 FL) 7.2 L Gran % (42.2 - 75.2 %) 65.4 Lymphocytes % (20.5 - 51.1 %) 22.6 Monocytes % (1.7 - 9.3 %) 7.1 Eosinophils % (0 - 5 %) 4.5 Basophils % (0.0 - 2.0 %) 0.4 Absolute Granulocytes (1.4 - 6.5 /CUMM) 4.2 Absolute Lymphocytes (1.2 - 3.4 /CUMM) 1.4 Absolute Monocytes (0.10 - 0.60 /CUMM) 0.5 Absolute Eosinophils (0.0 - 0.7 /CUMM) 0.3 Absolute Basophils (0.0 - 0.2 /CUMM) 0 PUBS MCHC (33.0 - 37.0 G/DL) 31.9 L 11/27 Chemistry C-Reactive Prot, Quant Cancelled Hematology ESR Westergren Cancelled Toxicology Urine Opiates Screen (>2000 NG/ML) > 4000.00 H Methadone Screen (>300 NG/ML) 455 H Barbiturate Screen (>200 NG/ML) 77 Ur Phencyclidine Scrn (>25 NG/ML) 8.60 Amphetamines Screen (>1000 NG/ML) < 100 U Benzodiazepines Scrn (>200 NG/ML) < 85 Urine Cocaine Screen (>300 NG/ML) > 1000 H Urine Cannabis Screen (>50 NG/ML) 51.70 H Urines Urine Color (YEL,AMB,STR) ORANG H Urine Clarity (CLEAR) HAZY H Urine pH (5.0 - 8.0) 6.0 Ur Specific [place] (1.001 - 1.035) >= 1.030 Urine Protein (NEG,<30 MG/DL) 30 H Urine Ketones (NEG) NEG Urine Nitrite (NEG) NEG Urine Bilirubin (NEG) NEG@ICTO Urine Urobilinogen (0.1 - 1.0 EU/dl) 1.0 Ur Leukocyte Esterase (NEG) TRACE H Ur Microscopic SEDIMENT EXAMINED Urine RBC (0 - 5 /HPF) 5-10 H Urine WBC (0 - 2 /HPF) 15-25 H Ur Epithelial Cells (NONE,FEW) MANY H Urine Bacteria (NEG/NONE) MOD H Urine Mucus (FEW,NONE) MOD H Urine Hemoglobin (NEG) MOD H Urine Glucose (N MG/DL) NEG Urine Test NEGATIVE 11/27 11/27 1826 1807 Chemistry Sodium (137 - 145 mmol/L) 137 Potassium (3.5 - 5.1 mmol/L) 3.8 Chloride (98 - 107 mmol/L) 101 Carbon Dioxide (22 - 30 mmol/L) 28 Anion Gap (5 - 16) 8 BUN (7 - 17 mg/dL) 12 Creatinine (0.5 - 1.0 mg/dL) 0.7 Estimated GFR (>60 ml/min) > 60 BUN/Creatinine Ratio (7 - 25 %) 17.1 Glucose (65 - 99 mg/dL) 141 H Hemoglobin A1c (4.2 - 5.8 %) 5.7 Lactic Acid (0.7 - 2.1 mmol/L) 1.2 Calcium (8.4 - 10.2 mg/dL) 8.5 Total Bilirubin (0.2 - 1.3 mg/dL) 0.7 AST (14 - 36 U/L) 30 ALT (9 - 52 U/L) 49 Alkaline Phosphatase (<127 U/L) 147 H C-Reactive Prot, Quant (<1.0 mg/dL) > 9.0 H Total Protein (6.3 - 8.2 g/dL) 7.1 Albumin (3.5 - 5.0 g/dL) 3.0 L Globulin (1.9 - 4.2 gm/dL) 4.1 Albumin/Globulin Ratio (1.1 - 2.2 %) 0.7 L TSH (0.270 - 4.200 uIU/mL) 3.600 Free T4 (0.64 - 1.79 ng/dL) 1.58 Hematology CBC w Diff NO MAN DIFF REQ WBC (4.8 - 10.8 /CUMM) 8.9 RBC (4.20 - 5.40 /CUMM) 3.74 L Hgb (12.0 - 16.0 G/DL) 8.1 L Hct (37 - 47 %) 25.3 L MCV (81.0 - 99.0 FL) 67.6 L MCH (27.0 - 31.0 PG) 21.6 L RDW (11.5 - 14.5 %) 18.6 H Plt Count (130 - 400 /CUMM) 450 H MPV (7.4 - 10.4 FL) 6.6 L Gran % (42.2 - 75.2 %) 76.3 H Lymphocytes % (20.5 - 51.1 %) 16.9 L Monocytes % (1.7 - 9.3 %) 4.1 Eosinophils % (0 - 5 %) 2.2 Basophils % (0.0 - 2.0 %) 0.5 Absolute Granulocytes (1.4 - 6.5 /CUMM) 6.8 H Absolute Lymphocytes (1.2 - 3.4 /CUMM) 1.5 Absolute Monocytes (0.10 - 0.60 /CUMM) 0.4 Absolute Eosinophils (0.0 - 0.7 /CUMM) 0.2 Absolute Basophils (0.0 - 0.2 /CUMM) 0 PUBS MCHC (33.0 - 37.0 G/DL) 31.9 L ESR Westergren (0 - 20 MM) > 130 H Last 24 Hours of Serafin Results: Blood cultures 2 November 27 negative Superficial culture right foot November 27 positive for beta strep Group B and lactose fermenting gram-negative rods Urine culture November 28 pending OR culture labeled right foot bone November 28 pending Assessment/Plan Assessment/Plan Impression: This is a 41-year-old woman, active IV drug abuser, status post amputations of the left first, second and fourth toes 4 months prior to admission, with healing and status post right TMA 3 weeks prior to admission, with nonhealing, admitted on November 27 with pain, swelling and drainage from the right foot now status post open revision of the right TMA. She presumably has residual osteomyelitis of the right foot and she will require a prolonged course of IV antibiotics directed against the organisms isolated from her recent OR cultures. She has been noncompliant in the past and has signed out AMA on all of her recent hospitalizations; therefore am concerned that she will not comply with the recommended therapy. In any event, for now, she can be treated with IV antibiotics pending OR cultures. Suggestion: 1. Follow-up OR cultures 2. Discontinue Vancomycin and Ceftazidime 3. Begin Unasyn 3 g IV every 6 hours pending above Consult Acknowledgment - Thank you for your consult request.
--- NOTE | 2016-11-28 22:54 | NUR ---
a/ox3.anxious at times and klonopin given with fair effect.c'o right foot pain and morphine given with good effect. meds reviewed with and pt related to pain and sleeping medications.+popliteal pulses to right leg. right foot dsg cdi.new po well.plan of care reviewed
[2016-11-28 23:14] VITALS: BP 134/62
[2016-11-29 06:00] VITALS: BP 112/76
[2016-11-29 07:56] LABS: ABSOLUTE BASOPHIL COUNT 0 /CUMM (0.0-0.2); ABSOLUTE EOSINOPHIL COUNT 0.3 /CUMM (0.0-0.7); ABSOLUTE GRANULOCYTE CT 2.9 /CUMM (1.4-6.5); ABSOLUTE LYMPH COUNT 1.7 /CUMM (1.2-3.4); ABSOLUTE MONOCYTE COUNT 0.4 /CUMM (0.10-0.60); BASOPHIL % 0.7 % (0.0-2.0); EOSINOPHIL % 5.5 % (0-5); GRANULOCYTE % 53.8 % (42.2-75.2); HEMATOCRIT 24.5 % (37-47); MEAN CORPUSCULAR HGB 21.5 PG (27.0-31.0); MEAN CORPUSCULAR HGB CONC 31.8 G/DL (33.0-37.0); MEAN CORPUSCULAR VOLUME 67.6 FL (81.0-99.0); MEAN PLATELET VOLUME 7.3 FL (7.4-10.4); PLATELET COUNT 387 /CUMM (130-400); RBC DISTRIBUTION WIDTH 18.4 % (11.5-14.5); RED BLOOD CELL CT 3.63 /CUMM (4.20-5.40); WHITE BLOOD CELL COUNT 5.4 /CUMM (4.8-10.8)
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
--- NOTE | 2016-11-29 13:35 | PN- Student ---
Subjective Subjective: Medical Student Daily Progress Note: Sophia amanda a 41 yo F was admitted on 11/27/16 for a non-healing right foot wound 2/2 osteomyelitis s/p partial metatarsal amputation and debridement, c/b non-compliance with followup and medication regimens. The patient remained stable and afebrile overnight. She complains this morning of withdrawal symptoms, including abdominal cramping and pain, nausea, watering eyes, muscle spasms, anxiety, sweats and chills, and fidgeting. She states she cannot get comfortable and is rating pain as 8/10. She is requesting more pain and anxiety medication. She again threatens to leave AMA. She denies headache, shortness of breath, chest pains, vomiting, diarrhea, or any new symptoms. 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 She does not use condoms during these encounters. Her most recent sexual contact was approximately 1 week prior to presentation. She additionally revealed that she has been sharing needles with her closest friend, who also injects heroin. Her last HIV, HBV, HCV evaluation was in 07/2016, and she was non-reactive at that time. She has been involved in prostitution multiple times since that testing. Objective Objective: Vital Signs Date Time Temp Pulse Resp B/P B/P Pulse O2 O2 Flow FiO2 Mean Ox Delivery Rate 11/29 0600 98.2 63 18 112/76 98 Room Air 11/28 2314 98.1 75 20 134/62 98 Room Air 11/28 1600 97.2 72 18 116/80 100 Room Air Intake & Output 11/29 1600 11/29 0800 11/29 0000 Intake Total 560 Output Total Balance 560 Intake, Oral 560 General: A&O x3, uncomfortable HEENT: oral mucosa is pink and moist. poor dentition noted. Neck: supple without lymphadenopathy CV: RRR, no murmurs or gallops Pulmonary: CTA with normal air movement GI: soft, non-tender, bowel sounds positive. No organomegaly appreciated Extremities: RLE swelling improved as compared to yesterday. Right foot in post- op dressing without obvious saturation. Track carney noted on right thigh. Lymph: left axillary lymphadenopathy, tender to touch. Right inguinal lymphadenopathy prominent. No other lymphadenopathy appreciated. Psych: anxious, upset about withdrawals Results Results: Laboratory Tests 11/29/16 0905: HIV 1&2 Ab Western Blot NONREACTIVE 11/29/16 0700: CBC w Diff NO MAN DIFF REQ, RBC 3.63 L, MCV 67.6 L, MCH 21.5 L, RDW 18.4 H, MPV 7.3 L, Gran % 53.8, Lymphocytes % 31.9, Monocytes % 8.1, Eosinophils % 5.5 H, Basophils % 0.7, Absolute Granulocytes 2.9, Absolute Lymphocytes 1.7, Absolute Monocytes 0.4, Absolute Eosinophils 0.3, Absolute Basophils 0, PUBS MCHC 31.8 L, Retic Count 3.07 H Microbiology 11/28 1340 EXTREMITIE: Gross Specimen Examination - RES STAPH AUREUS 11/28 1340 EXTREMITIE: Gram Stain - RES 11/28 0530 URINE ROUT: Urine Culture - RES 11/27 1850 BLOOD: Blood Culture - RES 11/27 181 EXTREMITIE: Culture & Sensitivity - RES BETA STREP GROUP B ESCHERICHIA COLI GRAM POSITIVE COCCI 11/27 1814 EXTREMITIE: Gram Stain - RES 11/27 181 BLOOD: Blood Culture - RES Assessment/Plan Assessment: Sophia Trent is a 41 yo F who is well known to [facility]. She was admitted on 11/27/16 for a non-healing right foot wound 2/2 osteomyelitis s/p partial metatarsal amputation and debridement, complicated by non-compliance with followup and medication regimens. Problem List: 1. Non-healing foot wound 2/2 osteomyelitis 2. Polysubstance abuse 3. Anemia 4. Hypothyroidism 5. Depression and Anxiety 6. Possible UTI Plan: Non-healing foot wound 2/2 osteomyelitis: Wound cultures growing Beta hemolytic GBS, GPC, and pansensitive E. coli. Bone specimens from surgical revision on showing S. aureus, final sensitivities pending. D/C'd Ceftazidime and Vancomycin yesterday; Restarted Unasyn 3g IV q6h. * Continue Unasyn as described above * Blood Cx are preliminarily NEGATIVE * Follow up final sensitivities from surgical specimen * Continue IVF * ID recommendations on duration of antibiotic therapy * Follow recommendations from Dr. Campbell, will return to OR tomorrow for debridement Polysubstance abuse: Addicted to heroin (injection), cocaine (smoking), marijuana. Was previously going to Methadone clinic, but has since been discharged d/t non-compliance. Has been using street Methadone. Expresses desire to stop using illicit drugs. Wants help getting into a new detox center after discharge from hospital. In light of recent revelations and axillary lymphadenopathy, will need to r/o HIV infection. * Methadone 30mg, to taper * Limit opiate use * Symptomatic management for withdrawal - Hyoscyamine 0.125mg q4h PRN for abdominal pain, Zofran 4mg q4h PRN for nausea, Ativan 2mg one time dose for anxiety. * COWS scale: nursing staff educated on COWS. Medication adjustments made based on UpToDate recommendations for opiate withdrawal * Clonazepam changed to 1.5mg TID, Clonidine changed * HIV Ab screening on this admission is NON-REACTIVE * Psych consult and recommendations to follow * Social Work/Case Management consults Anemia: Appears to be chronic in nature, although unclear etiology. No obvious source of massive blood loss. Should be taking iron and B12 supplementation as outpatient, but is not compliant d/t financial concerns. Is unable to provide more detail on diagnosis and prior evaluation for this anemia. H&H recovered to 7.8/24.5 on this morning's labs. Is likely d/t poor nutritional status. * Guiac stools to evaluate for GI losses * Daily CBC while inpatient * Consider PRBC transfusion if Hb drops below 7 Hypothyroidism: Is not on any medication for this as outpatient. TSH and free T4 were normal on this admission. * Recommend followup with outpatient PCP for further management Depression and Anxiety: Taking Aripiprazole 5mg daily, Citalopram 40mg daily, Clonazepam 2mg daily as outpatient. * Change Clonazepam to 1.5mg TID, continue all other outpatient medications as described * Consult Psych and await their recommendations Possible UTI: UA on admission showing moderate bacteria, leukocyte esterase, RBCs and WBCs. Urine culture sent. Patient complains of frequency, dysuria, and dark urine. * Culture results are preliminarily negative Code Status: Full Diet: Regular DVT prophylaxis: ALPs Pain Management: Tylenol 650mg q6h PRN, Toradol 15mg q6h PRN, Morphine 2mg q4h PRN
--- NOTE | 2016-11-29 13:50 | NUR ---
1030- PT VERBALIZING THAT HER WITHDRAWL SYMPTOMS ARE NOT TOLERABLE AND SHE WILL LEAVE IF THE DOCTOR DOES NOT GIVE HER MORE MEDS. DR. BURNETT NOTIFIED OF ABOVE AND TO ASSESS PT WITH THE MEDICAL TEAM. 1100- DR. QUINONES ORDERED MEDICATIONS FOR WITHDRAWAL TO BE GIVEN PRN. ATIVAN 2MG IV GIVEN.
[2016-11-29 14:35] VITALS: BP 114/64
--- NOTE | 2016-11-29 16:48 | PN- Infect Dx ---
Subjective Subjective: Afebrile. She does note pain in the right foot. Objective Last 24 Hrs of Vital Signs/I&O Vital Signs Date Time Temp Pulse Resp B/P B/P Pulse O2 O2 Flow FiO2 Mean Ox Delivery Rate 11/29 1435 97.4 62 18 114/64 95 Room Air 11/29 0600 98.2 63 18 112/76 98 Room Air 11/28 2314 98.1 75 20 134/62 98 Room Air Intake & Output 11/29 1600 11/29 0800 11/29 0000 Intake Total 720 560 Output Total 650 Balance 70 560 Intake, Oral 720 560 Output, Urine 650 Physical Exam Other Physical Findings: She appears comfortable in no acute distress Extremities right foot dressing intact; right leg swelling persists Results Last 24 Hours of Lab Results: Laboratory Tests 11/29 11/29 11/29 0905 0905 0700 Hematology CBC w Diff NO MAN DIFF REQ WBC (4.8 - 10.8 /CUMM) 5.4 RBC (4.20 - 5.40 /CUMM) 3.63 L Hgb (12.0 - 16.0 G/DL) 7.8 L Hct (37 - 47 %) 24.5 L MCV (81.0 - 99.0 FL) 67.6 L MCH (27.0 - 31.0 PG) 21.5 L RDW (11.5 - 14.5 %) 18.4 H Plt Count (130 - 400 /CUMM) 387 MPV (7.4 - 10.4 FL) 7.3 L Gran % (42.2 - 75.2 %) 53.8 Lymphocytes % (20.5 - 51.1 %) 31.9 Monocytes % (1.7 - 9.3 %) 8.1 Eosinophils % (0 - 5 %) 5.5 H Basophils % (0.0 - 2.0 %) 0.7 Absolute Granulocytes (1.4 - 6.5 /CUMM) 2.9 Absolute Lymphocytes (1.2 - 3.4 /CUMM) 1.7 Absolute Monocytes (0.10 - 0.60 /CUMM) 0.4 Absolute Eosinophils (0.0 - 0.7 /CUMM) 0.3 Absolute Basophils (0.0 - 0.2 /CUMM) 0 PUBS MCHC (33.0 - 37.0 G/DL) 31.8 L Retic Count (0.5 - 2.0 %) 3.07 H Serology RPR Titer/FTA Pending HIV 1&2 Ab Western Blot (NONREACTIVE) NONREACTIVE Last 24 Hours of Serafin Results: OR culture right foot bone November 28 positive for Staph aureus, sensitivities pending, with gram stain revealing no white blood cells and no organisms Blood cultures 2 November 27 negative Superficial culture right foot November 27 positive for Group B strep, Escherichia coli and a second gram-positive cocci Urine culture November 28 negative Recent Imaging Studies: Doppler of the right lower extremity November 28 reveals a hypoechoic fluid collection within the popliteal fossa consistent with a Morgan's cyst Assessment/Plan Impression: Stable, with temperatures and white blood cell count remaining normal on Unasyn Day 2 of treatment for osteomyelitis of the right foot, status post TMA 4 weeks prior to admission, with the bone culture so far only growing Staph aureus. The superficial culture is growing multiple organisms, which are of unclear significance as they may represent skin contamination. She is scheduled for return to the OR in the a.m. for further debridement and, if she remains compliant, will require at least a four-week course of IV antibiotics from the most recent debridement. Suggestion: 1. Follow-up final OR culture 2. Await return to the OR in the a.m. 3. Will need to consider placement of a PICC 4. Continue Unasyn pending above
[2016-11-29 21:27] VITALS: BP 122/78
--- NOTE | 2016-11-29 21:46 | NUR ---
PT WANTED TO SPEAK WITH MD REGARDING MEDICATION. DR. SAMANTHA DUARTE #[id number] MADE AWARE.
[2016-11-29 22:12] VITALS: BP 108/58
[2016-11-30 06:02] VITALS: BP 90/60
--- NOTE | 2016-11-30 07:45 | PN- Student ---
Subjective Subjective: Medical Student Daily Progress Note: Sophia Trent is a 41 yo F was admitted on 11/27/16 for a non-healing right foot wound 2/2 osteomyelitis s/p partial metatarsal amputation and debridement, c/b non-compliance with followup and medication regimens. She remained afebrile overnight. She complains of withdrawal symptoms, including myalgias, muscle spasms, abdominal cramping, and pain. Her pain is mostly located in her right foot and radiates to the remainder of her RLE. She rates it as a 7/10. She otherwise denies any new or worsening symptoms. Her only concerns at the moment are continuing to make it through the withdrawal process. Of note, she was scheduled for a revision of the right foot debridement. She was made NPO at midnight for impending procedure, but she "couldn't make it all the way to 3:30 without eating or drinking." Therefore, the surgery today was cancelled and will be rescheduled for the beginning of next week. Current Medications Sig/Mainor Start time Last Medication Dose Route Stop Time Status Admin Acetaminophen 650 MG Q6P PRN 11/27 2145 AC PO Ampicillin Sodium/ 3,000 MG Q6 11/28 1800 AC 11/30 Sulbactam Sodium IV 1202 Sodium Chloride 100 ML Aripiprazole 5 MG DAILY 11/28 1000 AC 11/30 PO 0914 Baclofen 10 MG Q6PRN PRN 11/29 1630 AC 11/30 PO 0852 Citalopram 40 MG DAILY 11/28 1000 AC 11/30 Hydrobromide PO 0914 Clonazepam 1.5 MG Q8 11/29 2200 AC 11/30 PO 12/06 215 0518 Clonazepam 1.5 MG Q6 11/29 1800 DC PO 12/06 1759 Clonazepam 2 MG BID 11/27 2230 DC 11/29 PO 12/04 2228 0927 Dextrose/Sodium 1,000 ML Q6H 11/30 0900 DC 11/30 Chloride IV 11/30 2058 0937 Dicyclomine HCl 20 MG 4 TIMES/DAY PRN 11/29 1630 AC PO Enoxaparin Sodium 40 MG 1800 11/30 1800 AC SC Enoxaparin Sodium 40 MG DAILY 11/29 1534 DC 11/29 SC 1900 Hyoscyamine 0.125 MG Q4 HRS NEEDED PRN 11/28 1000 AC PO Ketorolac 15 MG .STK-MED ONE 11/30 0158 DC Tromethamine IM 11/30 0159 Ketorolac 15 MG Q6P PRN 11/27 2145 AC 11/30 Tromethamine IV 0158 Methadone HCl 5 MG 1000 12/02 1000 AC PO 12/02 1001 Methadone HCl 10 MG 1000 12/01 1000 AC PO 12/01 1001 Methadone HCl 20 MG 1000 11/30 1000 DC 11/30 PO 11/30 1001 0915 Morphine Sulfate 2 MG Q4P PRN 11/27 2145 AC 11/30 IV 0937 Nicotine 21 MG DAILY 11/28 1000 AC 11/30 TOP 0914 Ondansetron HCl 4 MG Q4P PRN 11/28 1000 AC PO Zolpidem Tartrate 5 MG AT BEDTIME PRN 11/30 0230 AC 11/30 PO 0245 Objective Objective: Vital Signs Date Time Temp Pulse Resp B/P B/P Pulse O2 O2 Flow FiO2 Mean Ox Delivery Rate 11/30 0602 98.5 61 20 90/60 97 Room Air 11/29 221 97.8 80 18 108/58 94 11/29 2127 84 122/78 100 Room Air 11/29 1953 Room Air 11/29 1435 97.4 62 18 114/64 95 Room Air Intake & Output 11/30 0800 11/30 0000 11/29 1600 Intake Total 120 720 Output Total 650 Balance 120 70 Intake, Oral 120 720 Output, Urine 650 General: Resting in bed, restless HEENT: moist oral mucosa, lacrimation noted Neck: supple without adenopathy CV: RRR, normal S1, S2 Pulmonary: CTA with normal air movement GI: abdomen soft, non-tender. Bowel sounds present. Extremities: Swelling of RLE persists. Right foot in bandage, has old/dried blood on dressing Lymph: left axillary lymphadenopathy, right inguinal lymphadenopathy Psych: anxious, lacks impulse control Results Results: Laboratory Tests 11/30/16 0700: Urine Opiates Screen 1258.00, Methadone Screen 364 H, Barbiturate Screen < 60, Ur Phencyclidine Scrn < 6.00, Amphetamines Screen < 100, U Benzodiazepines Scrn < 85, Urine Cocaine Screen 549 H, Urine Cannabis Screen < 5.00 11/30/16 0642: CBC w Diff NO MAN DIFF REQ, RBC 3.47 L, MCV 66.7 L, MCH 21.5 L, RDW 18.1 H, MPV 6.9 L, Gran % 48.7, Lymphocytes % 37.1, Monocytes % 8.2, Eosinophils % 5.5 H, Basophils % 0.5, Absolute Granulocytes 2.7, Absolute Lymphocytes 2.1, Absolute Monocytes 0.5, Absolute Eosinophils 0.3, Absolute Basophils 0, PUBS MCHC 32.3 L 11/29/16 0905: RPR Titer/FTA NONREACTIVE 11/29/16 0905: HIV 1&2 Ab Western Blot NONREACTIVE Microbiology 11/28 1340 EXTREMITIE: Gross Specimen Examination - COMP STAPH AUREUS 11/28 1340 EXTREMITIE: Gram Stain - COMP 11/28 0530 URINE ROUT: Urine Culture - COMP 11/27 185 BLOOD: Blood Culture - RES 11/27 1814 EXTREMITIE: Culture & Sensitivity - RES BETA STREP GROUP B ESCHERICHIA COLI STAPH AUREUS 11/27 1814 EXTREMITIE: Gram Stain - RES 11/27 1810 BLOOD: Blood Culture - RES Assessment/Plan Assessment: Sophia Trent is a 41 yo F who is well known to [facility]. She was admitted on 11/27/16 for a non-healing right foot wound 2/2 osteomyelitis s/p partial metatarsal amputation and debridement, complicated by non-compliance with followup and medication regimens. Problem List: 1. Non-healing foot wound 2/2 osteomyelitis 2. Polysubstance abuse 3. Anemia 4. Hypothyroidism 5. Depression and Anxiety 6. Possible UTI Plan: Non-healing foot wound 2/2 osteomyelitis: Wound cultures growing Beta hemolytic GBS, GPC, and pansensitive E. coli. Bone specimens from surgical revision on showing MSSA. D/C'd Ceftazidime and Vancomycin after 1 day; Restarted Unasyn 3g IV q6h. * Continue Unasyn as described above * Continue IVF * Blood Cx are preliminarily NEGATIVE * Surgical specimen growing MSSA * ID recommends 4 weeks IV antibiotics - will have to consider PICC, facility placement * Follow recommendations from Dr. Campbell, will return to OR beginning of next week for debridement Polysubstance abuse: Addicted to heroin (injection), cocaine (smoking), marijuana. Was previously going to Methadone clinic, but has since been discharged d/t non-compliance. Has been using street Methadone. Expresses desire to stop using illicit drugs. Wants help getting into a new detox center after discharge from hospital. * Methadone 20mg, to taper * Limit opiate use * Symptomatic management for withdrawal - Hyoscyamine 0.125mg q4h PRN for abdominal pain, Zofran 4mg q4h PRN for nausea * COWS scale: nursing staff educated on COWS. Medication adjustments made based on UpToDate recommendations for opiate withdrawal * Clonazepam changed to 1.5mg TID * Clonidine scale based on COWS * HIV Ab screening and RPR on this admission are NON-REACTIVE * Psych consult - agrees with COWS and current management, added Baclofen 10mg PO q6h PRN, Dicyclomine 20mg PO q6h PRN * Social Work/Case Management consults for rehab placement/Methadone treatment facility Anemia: Appears to be chronic in nature, although unclear etiology. No obvious source of massive blood loss. Should be taking iron and B12 supplementation as outpatient, but is not compliant d/t financial concerns. Is unable to provide more detail on diagnosis and prior evaluation for this anemia. H&H recovered to 7.8/24.5 on this morning's labs. Is likely d/t poor nutritional status. * Guiac stools to evaluate for GI losses * Daily CBC while inpatient * Consider PRBC transfusion if Hb drops below 7 Hypothyroidism: Is not on any medication for this as outpatient. TSH and free T4 were normal on this admission. * Recommend followup with outpatient PCP for further management Depression and Anxiety: Taking Aripiprazole 5mg daily, Citalopram 40mg daily, Clonazepam 2mg daily as outpatient. * Change Clonazepam to 1.5mg TID, continue all other outpatient medications as described * Taper Clonazepam back to home dose prior to discharge * Psych consult - continue outpatient medications Possible UTI: UA on admission showing moderate bacteria, leukocyte esterase, RBCs and WBCs. Urine culture sent. Patient complains of frequency, dysuria, and dark urine. * Culture results are preliminarily negative Code Status: Full Diet: Regular DVT prophylaxis: ALPs, Lovenox Pain Management: Tylenol 650mg q6h PRN, Toradol 15mg q6h PRN, Morphine 2mg q4h PRN
[2016-11-30 08:02] LABS: ABSOLUTE BASOPHIL COUNT 0 /CUMM (0.0-0.2); ABSOLUTE EOSINOPHIL COUNT 0.3 /CUMM (0.0-0.7); ABSOLUTE MONOCYTE COUNT 0.5 /CUMM (0.10-0.60); HEMATOCRIT 23.1 % (37-47); WHITE BLOOD CELL COUNT 5.6 /CUMM (4.8-10.8)
[2016-11-30 08:24] LABS: ABSOLUTE GRANULOCYTE CT 2.7 /CUMM (1.4-6.5); ABSOLUTE LYMPH COUNT 2.1 /CUMM (1.2-3.4); BASOPHIL % 0.5 % (0.0-2.0); EOSINOPHIL % 5.5 % (0-5); GRANULOCYTE % 48.7 % (42.2-75.2); MEAN CORPUSCULAR HGB 21.5 PG (27.0-31.0); MEAN CORPUSCULAR HGB CONC 32.3 G/DL (33.0-37.0); MEAN CORPUSCULAR VOLUME 66.7 FL (81.0-99.0); MEAN PLATELET VOLUME 6.9 FL (7.4-10.4); PLATELET COUNT 379 /CUMM (130-400); RBC DISTRIBUTION WIDTH 18.1 % (11.5-14.5); RED BLOOD CELL CT 3.47 /CUMM (4.20-5.40)
--- NOTE | 2016-11-30 08:32 | PN- Housestaff ---
MARK BURNETT 11/30/16 0832: Subjective Follow-up For: Right foot osteomyelitis status post transmetatarsal amputation with open nonhealing wound with cellulitis Status post revision surgery, excisional debridement Chronic anemia Complaints: pain scale (0-10) Subjective: Patient was seen and examined this morning. She is alert awake and oriented to time place and person. no acute events noticed overnight She denied any fever, chills. She continues to report 7 out of 10 pain at right foot, status post debridement She continues to report withdrawal symptoms from opiate abuse. She reports nausea, vomiting, diarrhea, muscle aches. Of note she took 3 bags of IV heroine, marijuana, cocaine before coming to the hospital. Vitals remained stable she is afebrile, heart rate 84, respiratory rate 20, blood pressure 120/70, saturating at 97 on room air. She is supposed to go to operating room for debridement this morning however she was hungry and she ate breakfast and the surgery was postponed to Saturday, 2016 Review of Systems Constitutional: Reports: see HPI. Objective Last 24 Hrs of Vital Signs/I&O Vital Signs Date Time Temp Pulse Resp B/P B/P Pulse O2 O2 Flow FiO2 Mean Ox Delivery Rate 11/30 1434 97.0 70 18 116/60 97 Room Air 11/30 0943 122/76 11/30 0602 98.5 61 20 90/60 97 Room Air 11/29 2212 97.8 80 18 108/58 94 11/29 2127 84 122/78 100 Room Air 11/29 1953 Room Air Intake & Output 11/30 1600 11/30 0800 11/30 0000 Intake Total 850 120 Output Total 650 Balance 200 120 Intake, IV 130 Intake, Oral 720 120 Output, Urine 650 Patient 97.976 kg Weight Physical Exam General Appearance: Alert, Oriented X3, Cooperative, No Acute Distress Skin: No Rashes HEENT: Atraumatic, PERRLA, EOMI, Mucous Membr. moist/pink Neck: Supple, No JVD Lymphatic: Cervical nl Cardiovascular: Normal S1, Normal S2 Lungs: Normal Air Movement Abdomen: Normal Bowel Sounds, Soft, No Tenderness Neurological: Strength at 5/5 X4 Ext, Normal Tone, Sensation Intact, Cranial Nerves 3-12 NL Extremities: No Clubbing, No Cyanosis, No Edema, RLE TMT AMPUTATION WITH DRESSING INTACT Vascular: Normal Pulses, Pulses Symmetrical Current Medications: Current Medications Sig/Mainor Start time Last Medication Dose Route Stop Time Status Admin Acetaminophen 650 MG Q6P PRN 11/27 2145 AC PO Ampicillin Sodium/ 3,000 MG Q6 11/28 1800 AC 11/30 Sulbactam Sodium IV 1202 Sodium Chloride 100 ML Aripiprazole 5 MG DAILY 11/28 1000 AC 11/30 PO 0914 Baclofen 10 MG Q6PRN PRN 11/29 1630 AC 11/30 PO 0852 Citalopram 40 MG DAILY 11/28 1000 AC 11/30 Hydrobromide PO 0914 Clonazepam 1.5 MG Q8 11/29 2200 AC 11/30 PO 12/06 215 0518 Clonazepam 1.5 MG Q6 11/29 1800 DC PO 12/06 1759 Dextrose/Sodium 1,000 ML Q6H 11/30 0900 DC 11/30 Chloride IV 11/30 2058 0937 Dicyclomine HCl 20 MG 4 TIMES/DAY PRN 11/29 1630 AC PO Docusate Sodium 100 MG DAILY NEEDED PRN 11/30 1445 AC PO Enoxaparin Sodium 40 MG 1800 11/30 1800 AC SC Enoxaparin Sodium 40 MG DAILY 11/29 1534 DC 11/29 SC 1900 Hyoscyamine 0.125 MG Q4 HRS NEEDED PRN 11/28 1000 AC PO Ketorolac 15 MG .STK-MED ONE 11/30 0158 DC Tromethamine IM 11/30 0159 Ketorolac 15 MG Q6P PRN 11/27 2145 AC 11/30 Tromethamine IV 0158 Methadone HCl 5 MG 1000 12/02 1000 AC PO 12/02 1001 Methadone HCl 10 MG 1000 12/01 1000 AC PO 12/01 1001 Methadone HCl 20 MG 1000 11/30 1000 DC 11/30 PO 11/30 1001 0915 Morphine Sulfate 2 MG Q4P PRN 11/27 2145 AC 11/30 IV 0937 Nicotine 21 MG DAILY 11/28 1000 AC 11/30 TOP 0914 Ondansetron HCl 4 MG Q4P PRN 11/28 1000 AC PO Polyethylene Glycol 17 GM DAILY NEEDED PRN 11/30 1445 AC PO Senna/Docusate Sodium 2 TAB DAILY NEEDED PRN 11/30 1445 AC PO Zolpidem Tartrate 5 MG AT BEDTIME 11/30 2200 AC PO Zolpidem Tartrate 5 MG AT BEDTIME PRN 11/30 0230 DC 11/30 PO 0245 Last 24 Hrs of Lab/Serafin Results Last 24 Hrs of Labs/Mics: Laboratory Tests 11/30/16 0700: Urine Opiates Screen 1258.00, Methadone Screen 364 H, Barbiturate Screen < 60, Ur Phencyclidine Scrn < 6.00, Amphetamines Screen < 100, U Benzodiazepines Scrn < 85, Urine Cocaine Screen 549 H, Urine Cannabis Screen < 5.00 11/30/16 0642: CBC w Diff NO MAN DIFF REQ, RBC 3.47 L, MCV 66.7 L, MCH 21.5 L, RDW 18.1 H, MPV 6.9 L, Gran % 48.7, Lymphocytes % 37.1, Monocytes % 8.2, Eosinophils % 5.5 H, Basophils % 0.5, Absolute Granulocytes 2.7, Absolute Lymphocytes 2.1, Absolute Monocytes 0.5, Absolute Eosinophils 0.3, Absolute Basophils 0, PUBS MCHC 32.3 L Assessment/Plan Assessment: 41-year-old female with PMH right foot osteomyelitis status post right transmetatarsal amputation, never treated with antibiotics, 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 she has past medical history significant for right foot osteomyelitis status post debridement on 11/05/2016. Of note she left AMA on 11/06/2016 after biopsy and debridement of right foot for family emergency. She was admitted on 2016 for continuity of care, however she left AMA on 11/08/2016. She went to Dr. Redman on 11/10/2016 for revision surgery however she couldn't tolerate and she left AMA. On admission Vital signs temperature 98.9, pulse 120, blood pressure 161/93, respiratory rate 16 with saturation 95% on room air Labs WBC 8.9, H&H 8.1/25.3, platelets 450, sodium 137, potassium 3.8, BUN/ creatinine 12/0.7, glucose 141, lactic acid 1.2, CRP>9 and ESR>130 Urine tox positive for opioids, methadone, cocaine and cannabis UA positive for leukocyte esterase, negative for nitrate Problem List: 1. Non-healing foot wound 2/2 osteomyelitis 2. Polysubstance abuse 3. Anemia 4. Hypothyroidism 5. Depression and Anxiety 6. Possible UTI Non-healing foot wound 2/2 osteomyelitis: she has past medical history significant for right foot osteomyelitis status post transmetatarsal amputation / debridement on 11/05/2016. Of note she left AMA on 11/06/2016 after biopsy and debridement of right foot for family emergency. She was admitted on 11/07/2016 for continuity of care, however she left AMA on 11/08/2016. She went to Dr. Redman on 11/10/2016 for revision surgery however she couldn't tolerate and she left AMA. She was never treated with antibiotics for osteomyelitis. Her previous over cultures grew staph aureus, group B strep-all sensitive to antibiotics. This is the 3rd admission for this same issue since 11/05/16. Has not been compliant with hospitalization, medication, or followup. On this admission, she is afebrile with a normal WBC count. Wound Cultures were sent - growing Beta hemolytic GBS, Escherichia coli, gram-positive cocci. OR cultures growing Staphylococcus aureus MSSA. * Admitted to general medicine floor for further management * Monitor vitals closely every shift * Monitor for fever, leukocytosis * Received 3g IV Unasyn x1 dose and Vancomycin 1g IV x1 dose in ED;received Ceftazidime 2g IV q12h and Vancomycin 1.5g q12h for one day. * switched to Unasyn-day 3 * been to OR with Dr. Campbell for surgical management, second debridement on . * Follow up blood cx * Follow up surgical specimen cx * Consulted ID * Follow recommendations from Dr. Campbell Polysubstance abuse: Addicted to heroin (injection), cocaine (smoking), marijuana. Was previously going to Methadone clinic, but has since been discharged d/t non-compliance. Has been using street Methadone. Expresses desire to stop using illicit drugs. Wants help getting into a new detox center after discharge from hospital. * Methadone 40mg, 30mg, 20 mg, 10 mg, 5 mg. * Limit opiate use * Symptomatic management for withdrawal * Bentyl 20 mg 4 times by mouth when necessary * Hyoscyamine 0.125mg q4h PRN for abdominal pain, * Zofran 4mg q4h PRN for nausea * Baclofen 10 mg every 6 when necessary * COWS scale: nursing staff educated on COWS. Medication adjustments made based on UpToDate recommendations for opiate withdrawal * Can give clonidine 0.2 mg for withdrawal symptoms if blood pressure above 85/ 55 and heart rate above 60. * HBV, HCV, HIV in 07/2016 were all Non-Reactive * Retested for [id number] * Psych consulted * Social Work/Case Management consults. Anemia: Appears to be chronic in nature, although unclear etiology. No obvious source of massive blood loss. Should be taking iron and B12 supplementation as outpatient, but is not compliant d/t financial concerns. Is unable to provide more detail on diagnosis and prior evaluation for this anemia. H&H recovered to 7.8/24.5 on this morning's labs. Is likely d/t poor nutritional status. * Guiac stools to evaluate for GI losses * Daily CBC while inpatient * Consider PRBC transfusion if Hb drops below 7 Hypothyroidism: Is not on any medication for this as outpatient. * TSH and free T4 were normal on this admission. * Recommend followup with outpatient PCP for further management Depression and Anxiety: Taking Aripiprazole 5mg daily, Citalopram 40mg daily, Clonazepam 2mg daily as outpatient. * Change Clonazepam to 1.5mg TID, continue all other outpatient medications as described * Consulted Psych Possible UTI: * UA on admission showing moderate bacteria, leukocyte esterase, RBCs and WBCs. * Urine culture sent. * Patient complains of frequency, dysuria, and dark urine. 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 She does not use condoms during these encounters. Her most recent sexual contact was approximately 1 week prior to presentation. She additionally revealed that she has been sharing needles with her closest friend, who also injects heroin. * Her last HIV, HBV, HCV evaluation was in 07/2016, and she was non-reactive at that time. * She has been involved in prostitution multiple times since that testing. * HIV negative 11/29/2016 Code Status: Full Diet: REG DVT prophylaxis: Lovenox Pain Management: Tylenol 650mg q6h PRN, Toradol 15mg q6h PRN, Morphine 2mg q4h PRN Problem List: 1. Osteomyelitis of foot, right, acute 2. Cellulitis Pain Ratin Pain Location: Right foot Pain Goal: Remain pain free Pain Plan: On methadone tapering doses Tomorrow's Labs & Rationales: None JYOTI PACHECO,PEMA 11/30/16 1148: Attending MD Review Statement Attending Statement Attending MD Statement: examined this patient, discuss w/resident/PA/CONSULTING SERVICES PROJECT MANAGER, agreed w/resident/PA/CONSULTING SERVICES PROJECT MANAGER, reviewed EMR data (avail), discussed with nursing, discussed with case mgmt, reviewed images, amended to note Attending Assessment/Plan: Patient seen and examined, she was scheduled to have a division off her right foot nonhealing wound today scheduled at 3:[address] Campbell. Unfortunately she went into the kitchen and 8 because she was hungry. Surgery is canceled and will be scheduled for Saturday. Vital Signs Date Time Temp Pulse Resp B/P B/P Pulse O2 O2 Flow FiO2 Mean Ox Delivery Rate 11/30 0943 122/76 11/30 0602 98.5 61 20 90/60 97 Room Air 11/29 2212 97.8 80 18 108/58 94 11/29 2127 84 122/78 100 Room Air 11/29 1953 Room Air 11/29 1435 97.4 62 18 114/64 95 Room Air on exam; aox3, nad. cv; s1, s2, rrr resp; clear abd: soft, nt, bs+ ext; + chetan wrap on right foot. Laboratory Tests 11/30 11/30 0700 0642 Hematology CBC w Diff NO MAN DIFF REQ WBC (4.8 - 10.8 /CUMM) 5.6 RBC (4.20 - 5.40 /CUMM) 3.47 L Hgb (12.0 - 16.0 G/DL) 7.5 L Hct (37 - 47 %) 23.1 L MCV (81.0 - 99.0 FL) 66.7 L MCH (27.0 - 31.0 PG) 21.5 L RDW (11.5 - 14.5 %) 18.1 H Plt Count (130 - 400 /CUMM) 379 MPV (7.4 - 10.4 FL) 6.9 L Gran % (42.2 - 75.2 %) 48.7 Lymphocytes % (20.5 - 51.1 %) 37.1 Monocytes % (1.7 - 9.3 %) 8.2 Eosinophils % (0 - 5 %) 5.5 H Basophils % (0.0 - 2.0 %) 0.5 Absolute Granulocytes (1.4 - 6.5 /CUMM) 2.7 Absolute Lymphocytes (1.2 - 3.4 /CUMM) 2.1 Absolute Monocytes (0.10 - 0.60 /CUMM) 0.5 Absolute Eosinophils (0.0 - 0.7 /CUMM) 0.3 Absolute Basophils (0.0 - 0.2 /CUMM) 0 PUBS MCHC (33.0 - 37.0 G/DL) 32.3 L Toxicology Urine Opiates Screen (>2000 NG/ML) 1258.00 Methadone Screen (>300 NG/ML) 364 H Barbiturate Screen (>200 NG/ML) < 60 Ur Phencyclidine Scrn (>25 NG/ML) < 6.00 Amphetamines Screen (>1000 NG/ML) < 100 U Benzodiazepines Scrn (>200 NG/ML) < 85 Urine Cocaine Screen (>300 NG/ML) 549 H Urine Cannabis Screen (>50 NG/ML) < 5.00 A/P; 41 y/o M with pmh sig for neuropathy status post bilateral metatarsal amputation due to osteomyelitis, substance abuse (IV heroin, methadone), hypothyroidism, bipolar disorder, depression, anxiety disorder who had been admitted before for ear infection, underwent debridement and then left AGAINST MEDICAL ADVICE twice. This time admitted with nonhealing right foot wound which now seems to be infected. Patient underwent first debridement 2 days ago and the cultures are growing multiple organisms. Patient was rescheduled for the revision today but unfortunately she 8. Surgery is canceled and will be scheduled for Saturday morning. Patient was educated about the importance of remaining nothing by mouth for the schedule surgery. Currently on Unasyn per infectious disease. Will likely need a PICC line. With patient's history, she is not a good candidate to be discharged home with a PICC line P the either she needs to go to 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 or stay here to get the 4 weeks course of antibiotics. Patient also on methadone as well as other symptomatically treatment for opiate withdrawal. She was also educated about taking those medications. She was educated about not leaving AGAINST MEDICAL ADVICE this time as this would jeopardize her overall health and she was also told that because of the sepsis complication, people can . Patient is requesting something for sleep. DVT prophylaxis: Lovenox. She should be kept nothing by mouth after midnight on Saturday night.
[2016-11-30 09:43] VITALS: BP 122/76
--- NOTE | 2016-11-30 12:40 | Operative Report ---
Operative/Inv Procedure Report Surgery Date: 11/28/16 Name of Procedure: 1 open incision and drainage deep to the deep fascia with exposure of the extensor and flexor tendon and tendon sheath multiple sites right foot 2 revisional ray resection right foot 3 intraoperative administration of ankle block anesthesia 4 excisional debridement Pre-Operative Diagnosis: 1 open necrotic wound right foot 2 osteomyelitis right foot Post-Operative Diagnosis: The same Estimated Blood Loss: less than 50ml Surgeon/Body Mechanic Apprentice: GRACE ARRIAZA DPM Anesthesia: moderate sedation, block Operative/Procedure Note Note: After obtaining informed consent the patient was brought to the operating room and placed on the operating table in supine position. The patient isn't securely fastened to the operating table utilizing safety belt. After Mr.'s of IV sedation, 10 mL of 0.5% Marcaine plain was infiltrated about the patient's right ankle. The right foot and ankle then scrubbed prepped and draped in usual aseptic manner. Attention was directed to the right foot, where a large full- thickness necrotic was identified. A 15 blade visualized sharply revised skin margins. The dissection was then carried down deep to the D fashion with exposure of the extensor and flexor tendon and tendon sheath multiple sites, both proximally and distally. All necrotic nonviable infected tissue sharply evacuated from the wound bed. The periosteum was then elevated off of the stumps of the distal metatarsals which were resected with a sagittal bone saw. Specimen was sent for both microbiologic and pathologic inspection. Nipple was then irrigated with 3 L normal sterile saline infusion 50,000 units of bacitracin. Following this foot was redraped and surgeon's top gloves were changed clean gloves. Any bleeding vessels identified were cauterized or ligated as encountered. The foot was then packed with wet-to-dry dressing followed by EBD pads Kerlix and an Allan wrap. The patient was noted to tolerate both procedure and anesthesia well and the patient was transported from the operating room to recovery with vital signs stable.
--- NOTE | 2016-11-30 12:53 | PN- Infect Dx ---
Subjective Subjective: Afebrile without complaints. She apparently ate this morning though she was supposed to be NPO for surgery; therefore the surgery was canceled. Objective Last 24 Hrs of Vital Signs/I&O Vital Signs Date Time Temp Pulse Resp B/P B/P Pulse O2 O2 Flow FiO2 Mean Ox Delivery Rate 11/30 0943 122/76 11/30 0602 98.5 61 20 90/60 97 Room Air 11/29 2212 97.8 80 18 108/58 94 11/29 2127 84 122/78 100 Room Air 11/29 1953 Room Air 11/29 1435 97.4 62 18 114/64 95 Room Air Intake & Output 11/30 1600 11/30 0800 11/30 0000 Intake Total 120 Output Total Balance 120 Intake, Oral 120 Patient 216 lb Weight Physical Exam Other Physical Findings: She appears comfortable in no acute distress Extremities right foot dressing intact Results Last 24 Hours of Lab Results: Laboratory Tests 11/30 11/30 0700 0642 Hematology CBC w Diff NO MAN DIFF REQ WBC (4.8 - 10.8 /CUMM) 5.6 RBC (4.20 - 5.40 /CUMM) 3.47 L Hgb (12.0 - 16.0 G/DL) 7.5 L Hct (37 - 47 %) 23.1 L MCV (81.0 - 99.0 FL) 66.7 L MCH (27.0 - 31.0 PG) 21.5 L RDW (11.5 - 14.5 %) 18.1 H Plt Count (130 - 400 /CUMM) 379 MPV (7.4 - 10.4 FL) 6.9 L Gran % (42.2 - 75.2 %) 48.7 Lymphocytes % (20.5 - 51.1 %) 37.1 Monocytes % (1.7 - 9.3 %) 8.2 Eosinophils % (0 - 5 %) 5.5 H Basophils % (0.0 - 2.0 %) 0.5 Absolute Granulocytes (1.4 - 6.5 /CUMM) 2.7 Absolute Lymphocytes (1.2 - 3.4 /CUMM) 2.1 Absolute Monocytes (0.10 - 0.60 /CUMM) 0.5 Absolute Eosinophils (0.0 - 0.7 /CUMM) 0.3 Absolute Basophils (0.0 - 0.2 /CUMM) 0 PUBS MCHC (33.0 - 37.0 G/DL) 32.3 L Toxicology Urine Opiates Screen (>2000 NG/ML) 1258.00 Methadone Screen (>300 NG/ML) 364 H Barbiturate Screen (>200 NG/ML) < 60 Ur Phencyclidine Scrn (>25 NG/ML) < 6.00 Amphetamines Screen (>1000 NG/ML) < 100 U Benzodiazepines Scrn (>200 NG/ML) < 85 Urine Cocaine Screen (>300 NG/ML) 549 H Urine Cannabis Screen (>50 NG/ML) < 5.00 Last 24 Hours of Serafin Results: OR culture November 28 right foot bone positive for Staph aureus sensitive to Oxacillin Superficial culture November 27 right foot positive for Group B strep, Escherichia coli and Staph aureus Blood cultures 2 November 27 remain negative Assessment/Plan Impression: Stable, with temperatures and white blood cell count remaining normal on Unasyn Day 3 of treatment for osteomyelitis of the right foot, status post TMA 4 weeks prior to admission, with the bone culture growing Staph aureus. The superficial culture is growing multiple organisms, which are of unclear significance as they may represent skin contamination. She was scheduled for the OR this a.m. but she apparently insisted on eating; therefore her surgery will need to be deferred until next week. She will require at least a four-week course of IV antibiotics from her last debridement. Suggestion: 1. Await return to the OR next week 2. Will need to consider placement of a PICC 3. Continue Unasyn
--- NOTE | 2016-11-30 14:18 | NUR ---
0930- PT NPO FOR OR THIS AFTERNOON WITH DR. ARRIAZA. IVF IN PLACE. PT STATING SHE CANNOT BE WITHOUT FOOD OR DRINK FOR THAT LONG, "I NEED TO EAT AND THAT'S IT". PT STATES NOT EATING MAKES HER DETOX SYMPTOMS WORSE. BACLOFEN GIVEN FOR SPASM AND SCHEDULED METHADONE GIVEN. PT WANTS HER SURGERY TIME MOVED UP. EXPLAINED IMPORTANCE OF PROCEDURE TO PT AND IMPORTANCE OF NPO. ABOVE REPORTED TO DR. QUINONES AND DR. BURNETT. 1000- PT FOUND IN KITCHEN EATING COOKIES AND DRINKING MILK. PT STATES "I TOLD YOU I NEED TO EAT. MY SURGERY NEEDS TO BE FIRST THING IN THE MORNING. I HAVE TO EAT". ABOVE REPORTED TO DR. BURNETT. PT SURGERY CANCELLED FOR TODAY AND TO BE RESCHEDULED.
[2016-11-30 14:34] VITALS: BP 116/60
--- NOTE | 2016-11-30 14:35 | NUR ---
1430- SPOKE TO DR. BURNETT REGARDING SURGICAL DRESSING TO R FOOT. PT SURGERY FOR TODAY CANCELLED DUE TO PT BEING NONCOMPLIANT WITH NPO. PT HAS STRIKE THROUGH BLEEDING TO R FOOT. PT HAD TOE AMPUTATIONS TO R FOOT ON 11/28 AND SURGICAL DRESSING STILL IN PLACE. DR. BURNETT TO CALL DR. ARRIAZA TO OBTAIN WOUND CARE/ DRESSING ORDERS FOR R FOOT. BOWEL REGIMINE ALSO TO BE ORDERED.
--- NOTE | 2016-11-30 15:18 | NUR ---
wound care: md watkins to evaluate pt for skin alteration present on admission - mds looking for recommednation for topical wound management and tx recommendations - hx obtained from pt and mds - nonadherent ivda s/p right tma presents with full thickness wound + bone xposure + osteo currently tx with iv abt - right foot noted wtih a full thcnkess wound probing to bone 7.5 x 13 x 2 cm depth pink nonviable hue - large amounts of serosang drng old dressing - pt educated re risks and understood - wound cleansed with betadine scrub and dakins moist gauze applied - recommednation: non weight bearing - irrigate wound with ns fb 1/4 str dakins moist gauze and bulky dressing daily - podiatry consult for stump revision - would consider application of wound vac as pt is unlikely to heal independently without adjunctive assitance and prior hx of non adherence - to note, discussed above npwt recommednation with md watkins - deferred at this time by md as pt is pending revision of stump with sx as reported by
--- NOTE | 2016-11-30 20:38 | NUR ---
PT REPORTS WANTS TO LEAVE AMA. PT REPORTS SHE GAVE $60 TO [employer] TO BUY THINGS FOR HER AND NEVER CAME BACK. PT REPORTS THAT IS ALL THE MONEY SHE HAD. NOTIFIED SAMANTHA DUARTE MD AMD MEKHI RODRÍGUEZ MD.
--- NOTE | 2016-11-30 21:00 | NUR ---
PT REPORTS FAMILY EMERGENCY AND HAS TO LEAVE AMA. MEKHI RODRÍGUEZ MD AND SAMANTHA DUARTE MD REVIEWED RISKS TO LEAVING AMA. PT STATES SHE UNDERSTANDS. PT WAS QUESTIONED ABOUT IF IT WAS AN ISSUE OF PAIN MANAGEMENT. PT DENIES, STATING THAT PAIN IS CONTROLLED AND THAT IS NOT AN ISSUE. SWITCHED TO PO ABX PER MD AND WAITING FOR TRANSPORT TO ESCORT PT OUT OF THE BUILDING.
--- NOTE | 2016-11-30 21:02 | NUR ---
PT REPORTS THAT SHE CDOES NOT WANT TO LEAVE AMASAMANTHA MD NOTIFIED.
--- NOTE | 2016-11-30 21:30 | Patient Discharge Instructions ---
See Addendum Discharge Instructions General Discharge Information Special Instructions: -Please follow up with your PCP after discharge -Please follow up with Dr. Campbell after discharge Acute Coronary Syndrome Inclusion Criteria At DC or during hospital stay patient has or had the following: ACS DIAGNOSIS No Discharge Core Measures Meds if any: Prescribed or Continued at Discharge Meds if any: NOT Prescribed or Continued at Discharge Congestive Heart Failure Inclusion Criteria At DC or during hospital stay patient has or had the following: CHF DIAGNOSIS No Discharge Core Measures Meds if any: Prescribed or Continued at Discharge Meds if any: NOT Prescribed or Continued at Discharge Cerebrovascular accident Inclusion Criteria At DC or during hospital stay patient has or had the following: CVA/TIA Diagnosis No Discharge Core Measures Meds if any: Prescribed or Continued at Discharge Meds if any: NOT Prescribed or Continued at Discharge Venous thromboembolism Inclusion Criteria VTE Diagnosis No VTE Type NONE VTE Confirmed by (Test) NONE Discharge Core Measures - Per Current guidelines, there needs to be overlap - treatment for the first 5 days of Warfarin therapy. - If discharged on Warfarin prior to 5 days of - overlap therapy, the patient will need to be - assessed for post discharge needs including - *Post discharge parental anticoagulation - *Warfarin and/or parental anticoagulation education - *Follow up date to check INR post discharge At least 5 days overlap therapy as Inpatient Yes Meds if any: Prescribed or Continued at Discharge Note: Overlap Therapy is Warfarin and Anticoagulant Meds if any: NOT Prescribed or Continued at Discharge
[2016-11-30] MEDS ORDERED: AUGMENTIN 875-1 EACH PO ×3 (21:42→21:48)
--- NOTE | 2016-11-30 22:25 | NUR ---
PT LEFT AMA VIA WHEELCHAIR @ 2209.
--- NOTE | 2016-11-30 22:26 | NUR ---
PT IV REMOVED BEFORE LEAVING AMA.
--- NOTE | 2016-12-01 05:15 | Event Note ---
See Addendum Event Note Event Note: Situation Received pager at 9 PM stating that patient wants to be discharged AMA due to family emergency. 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 This is the 3rd admission for this same issue since 11/05/16. Has not been compliant with hospitalization, medication, or followup. Patient was scheduled for debridement this morning however she was hungry and intentionally ate breakfast and the surgery was postponed to 12/03/2016. Assessment Myself and the resident went promptly to evaluate the patient, she was found to be alert and oriented 3, reported family emergency and the urgency to leave today, she mentioned that she will come Saturday or Sunday 12/03 to the hospital for the scheduled debridement. Recommendation -The attending was made aware. -Decision was made to release the patient AMA based on her request, patient's capacity was evaluated, she accepted the potential risks of her discharge AGAINST MEDICAL ADVICE. -Patient was asked if she feels pain or needs proper pain management, patient mentioned that her pain is "manageable" and she needs to leave for family emergency today. -Patient was given 1 dose of Augmentin 875 prior discharge. -Patient was given a prescription of Augmentin 875 twice a day for 2 days. -Patient was instructed to come back on Saturday or Saturday 12/02 for the scheduled debridement.
--- NOTE | 2016-12-01 09:03 | Discharge Summary ---
Visit Information Visit Dates Admission Date: 11/27/16 Discharge Date: 11/30/16 Hospital Course Course Attending Physician: FELIX PACHECO,ADONIS Primary Care Physician: PATIENT HAS NO PRIMARY CARE DR Other Care Providers: dr. 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 she has past medical history significant for right foot osteomyelitis status post debridement on 11/05/2016. Of note she left AMA on 11/06/2016 after biopsy and debridement of right foot for family emergency. She was admitted on 2016 for continuity of care, however she left AMA on 11/08/2016. She went to Dr. Redman on 11/10/2016 for revision surgery however she couldn't tolerate LONG WAITING PERIOD and she left AMA. On admission Vital signs temperature 98.9, pulse 120, blood pressure 161/93, respiratory rate 16 with saturation 95% on room air Labs WBC 8.9, H&H 8.1/25.3, platelets 450, sodium 137, potassium 3.8, BUN/ creatinine 12/0.7, glucose 141, lactic acid 1.2, CRP>9 and ESR>130 Urine tox positive for opioids, methadone, cocaine and cannabis UA positive for leukocyte esterase, negative for nitrate Problem List: 1. Non-healing foot wound 2/2 osteomyelitis 2. Polysubstance abuse 3. Anemia 4. Hypothyroidism 5. Depression and Anxiety 6. Possible UTI Non-healing foot wound 2/2 osteomyelitis: she has past medical history significant for right foot osteomyelitis status post transmetatarsal amputation / debridement on 11/05/2016. Of note she left AMA on 11/06/2016 after biopsy and debridement of right foot for family emergency. She was admitted on 11/07/2016 for continuity of care, however she left AMA on 11/08/2016. She went to Dr. Redman on 11/10/2016 for revision surgery however she couldn't tolerate the waiting period and she left AMA. She was never treated with antibiotics for osteomyelitis. Her previous OR cultures grew staph aureus, group B strep-all sensitive to antibiotics. This is the 3rd admission for this same issue since 11/05/16. Has not been compliant with hospitalization, medication, or followup. On this admission, she is afebrile with a normal WBC count. Superficial Wound Cultures were sent - growing Beta hemolytic GBS, Escherichia coli, gram-positive cocci. She underwent a revisional transmetatarsal debridement on 11/29/2016. OR cultures growing Staphylococcus aureus MSSA. She was given Ceftaz and vancomycin initially however switched to Unasyn 3 g 3 times a day. She received 3 days of antibiotics in the hospital. Dr. Milligan was planning to take her to or for further debridement on 12/03/2016. However she left AMA on 11/30/2016. She was given prescriptions for Augmentin twice a day for 2 days and advised her to come back for her debridement on 12/03/2016. Polysubstance abuse: Addicted to heroin (injection), cocaine (smoking), marijuana. Was previously going to Methadone clinic, but has since been discharged d/t non-compliance. Has been using street Methadone. Expresses desire to stop using illicit drugs. Wants help getting into a new detox center after discharge from hospital. She was on methadone taper in the hospital 40 mg, 30, 10, 5 at the time of discharge. She was treated symptomatically for opiate withdrawal. She was given hyoscyamine as required for abdominal cramps. She was given Zofran as needed for nausea. She was given baclofen every 6 hours as needed for muscle pain. She was given clonidine 0.2 mg for withdrawal symptoms. Psychiatrically and social studies department chair were on board. Anemia: Appears to be chronic in nature, although unclear etiology. No obvious source of massive blood loss. Should be taking iron and B12 supplementation as outpatient, but is not compliant d/t financial concerns. Is unable to provide more detail on diagnosis and prior evaluation for this anemia. H&H recovered to 7.8/24.5 at the time of discharge. Is likely d/t poor nutritional status. Guiac stools was negative. Hypothyroidism: Is not on any medication for this as outpatient. TSH and free T4 were normal on this admission. Recommend followup with outpatient PCP for further management Depression and Anxiety: Taking Aripiprazole 5mg daily, Citalopram 40mg daily, Clonazepam 2mg daily as outpatient. continued all medications as described Consulted Psych during this admission. Possible UTI: UA on admission showing moderate bacteria, leukocyte esterase, RBCs and WBCs. Urine cultures were sent Patient complained of frequency, dysuria, and dark urine. 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 She does not use condoms during these encounters. Her most recent sexual contact was approximately 1 week prior to presentation. She additionally revealed that she has been sharing needles with her closest friend, who also injects heroin. Her last HIV, HBV, HCV evaluation was in 07/2016, and she was non-reactive at that time. She has been involved in prostitution multiple times since that testing. Retested for HIV- HIV negative 11/29/2016. Counselling was provided about safe sex practices. Code Status: Full Diet: REG DVT prophylaxis: Lovenox Pain Management: Tylenol 650mg q6h PRN, Toradol 15mg q6h PRN, Morphine 2mg q4h PRN Complications: none Allergies: Coded Allergies: Sulfa (Sulfonamide Antibiotics) (Severe, FACIAL SWELLING 11/27/16) clonidine (WEAKNESS ALL OVER 11/27/16) Significant Procedures: Name of Procedure: 1 open incision and drainage deep to the deep fascia with exposure of the extensor and flexor tendon and tendon sheath multiple sites right foot 2 revisional ray resection right foot 3 intraoperative administration of ankle block anesthesia 4 excisional debridement Pre-Operative Diagnosis: 1 open necrotic wound right foot 2 osteomyelitis right foot Post-Operative Diagnosis: The same Estimated Blood Loss: less than 50ml Surgeon/Napping Machine Operator: GRACE ARRIAZA DPM Anesthesia: moderate sedation, block Operative/Procedure Note Note: After obtaining informed consent the patient was brought to the operating room and placed on the operating table in supine position. The patient isn't securely fastened to the operating table utilizing safety belt. After Mr.'s of IV sedation, 10 mL of 0.5% Marcaine plain was infiltrated about the patient's right ankle. The right foot and ankle then scrubbed prepped and draped in usual aseptic manner. Attention was directed to the right foot, where a large full- thickness necrotic was identified. A 15 blade visualized sharply revised skin margins. The dissection was then carried down deep to the D fashion with exposure of the extensor and flexor tendon and tendon sheath multiple sites, both proximally and distally. All necrotic nonviable infected tissue sharply evacuated from the wound bed. The periosteum was then elevated off of the stumps of the distal metatarsals which were resected with a sagittal bone saw. Specimen was sent for both microbiologic and pathologic inspection. Nipple was then irrigated with 3 L normal sterile saline infusion 50,000 units of bacitracin. Following this foot was redraped and surgeon's top gloves were changed clean gloves. Any bleeding vessels identified were cauterized or ligated as encountered. The foot was then packed with wet-to-dry dressing followed by EBD pads Kerlix and an Allan wrap. The patient was noted to tolerate both procedure and anesthesia well and the patient was transported from the operating room to recovery with vital signs stable. Pertinent Lab Results: RLE DVT IMPRESSION: 1. No evidence of deep venous thrombosis involving the lower extremity. 2. Incidental note is made of right groin and upper thigh lymphadenopathy. Clinical correlation recommended. Some lymph nodes maintain normal nephrology although are pathologically enlarged, other lymph nodes appear to have lost their normal morphology. 3. Hypoechoic fluid collection within the popliteal fossa consistent with Morgan's cyst. Disposition Summary Disposition Principal Diagnosis: 1. Right foot osteomyelitis status post transmetatarsal amputation with open nonhealing wound with cellulitis 2. Status post revision surgery, excisional debridement 3. Chronic anemia Additional Diagnosis: polysubstance abuse Discharge Disposition: left against medical adv Discharge Instructions General Discharge Information Code Status: Full Code Patient's Diet: as tolerated Patient's Activity: heel touch weight bearing Follow-Up Instructions/Appts: -Patient was given 1 dose of Augmentin 875 prior discharge. -Patient was given a prescription of Augmentin 875 twice a day for 2 days. -Patient was instructed to come back on Saturday night or Saturday 12/02 for the scheduled debridement. -advised to f/u pcp in one week -advised to f/u dr. tai at his clinic Medications at Discharge Discharge Medications: Continue taking these medications: Aripiprazole (Aripiprazole) 5 MG TABLET 1 Tablet ORAL DAILY Qty = 30 Comments: Last Taken: 11/08/16 Time: 0800AM Clonazepam (Clonazepam) 2 MG TABLET 1 Tablet ORAL TWICE DAILY Qty = 60 Comments: Last Taken: 11/08/16 Time: 0800AM Citalopram Hydrobromide (Citalopram HBr) 40 MG TABLET 1 Tablet ORAL DAILY Qty = 30 Comments: Last Taken: 11/08/16 Time: 0800AM Cyanocobalamin (Vitamin B-12) 1,000 MCG TABLET 1,000 Microgram ORAL DAILY Qty = 30 Comments: Last Taken: 11/08/16 Time: 0800AM Ferrous Sulfate (Ferrous Sulfate) 325 MG (65 MG IRON) TABLET. 325 Milligram ORAL TWICE DAILY Qty = 30 Comments: Last Taken: 11/08/16 Time: 0800AM Suvorexant (Belsomra) (Unknown Strength) TABLET Unknown Dose ORAL Every night Start taking the following new medications: Amoxicillin/Potassium Clav (Augmentin 875-125 Tablet) 875 MG-125 MG TABLET 1 Tablet ORAL TWICE DAILY Qty = 4 No Refills Instructions: .. Copies To: GRACE ARRIAZA DPM Time: 0800AM Suvorexant (Belsomra) (Unknown Strength) TABLET Unknown Dose ORAL Every night Start taking the following new medications: Amoxicillin/Potassium Clav (Augmentin 875-125 Tablet) 875 MG-125 MG TABLET 1 Tablet ORAL TWICE DAILY Qty = 4 No Refills Instructions: .. Copies To: GRACE ARRIAZA DPM
== END 2016-11-30 22:10 | disposition left against medical advice (07) | DRG 857 ==
LOC: ERH 16:52 → 2NA 21:15 → ERHI 21:15 → ENRESERV 21:58 → ENTRNSPT 23:37 → 2NA 11-28 00:01 → CMPTRNSPT 11-28 07:00 → 2NA 11-30 22:10
PROVIDERS: Hospitalist; Physician Assistant Medical; Student in an Organized Health Care Education/Training Program; ADMIT Student in an Organized Health Care Education/Training Program
PROC: 0Y6M0Z9 Detachment at Right Foot, Partial 1st Ray, Open Approach (ICD-10-PCS; principal; 2016-11-28)
PROC: 0Y6M0Z9 Detachment at Right Foot, Partial 1st Ray, Open Approach (ICD-10-PCS; 2016-11-28)
PROC: 0Y6M0ZB Detachment at Right Foot, Partial 2nd Ray, Open Approach (ICD-10-PCS; 2016-11-28)
PROC: 0Y6M0ZC Detachment at Right Foot, Partial 3rd Ray, Open Approach (ICD-10-PCS; 2016-11-28)
PROC: 0Y6M0ZD Detachment at Right Foot, Partial 4th Ray, Open Approach (ICD-10-PCS; 2016-11-28)
PROC: 0Y6M0ZF Detachment at Right Foot, Partial 5th Ray, Open Approach (ICD-10-PCS; 2016-11-28)
DX: T81.4XXA Infection following a procedure, initial encounter (principal); F11.20 Opioid dependence, uncomplicated; M86.171 Other acute osteomyelitis, right ankle and foot; F14.20 Cocaine dependence, uncomplicated; N39.0 Urinary tract infection, site not specified; F11.23 Opioid dependence with withdrawal; L03.115 Cellulitis of right lower limb; L08.89 Other specified local infections of the skin and subcutaneous tissue; F12.20 Cannabis dependence, uncomplicated; F31.9 Bipolar disorder, unspecified; Z91.19 Patient's noncompliance with other medical treatment and regimen; G62.9 Polyneuropathy, unspecified; Z89.421 Acquired absence of other right toe(s); E03.9 Hypothyroidism, unspecified; F41.9 Anxiety disorder, unspecified; D64.9 Anemia, unspecified; F17.210 Nicotine dependence, cigarettes, uncomplicated; B95.61 Methicillin susceptible Staphylococcus aureus infection as the cause of diseases classified elsewhere; M71.21 Synovial cyst of popliteal space [Baker], right knee; B96.20 Unspecified Escherichia coli [E. coli] as the cause of diseases classified elsewhere; B95.1 Streptococcus, group B, as the cause of diseases classified elsewhere
CPT/HCPCS: 2NAP; 87070; 87075; 87184; ERO; 36415; 80307; 81001; 81025; 82436; 87040; 87086; 87147; 87389; 93005; 93010; 96365; 96375; J0713; J1200; J1650; J2001; J3101; J3370; J7040; J7042

== ENCOUNTER 2016-12-08 19:43 | Inpatient (IN) | payer OTHER, MEDICARE ==
[~2016-12-08] VITALS: Ht 170.2 cm; Wt 97.5 kg
[~2016-12-08 19:43] MED LIST changes: +BELSOMRA5 MG PO
[2016-12-08 20:09] LABS: ABSOLUTE BASOPHIL COUNT 0.1 /CUMM (0.0-0.2); ABSOLUTE EOSINOPHIL COUNT 0.1 /CUMM (0.0-0.7); ABSOLUTE GRANULOCYTE CT 9.1 /CUMM (1.4-6.5); ABSOLUTE LYMPH COUNT 1.8 /CUMM (1.2-3.4); ABSOLUTE MONOCYTE COUNT 0.7 /CUMM (0.10-0.60); BASOPHIL % 0.5 % (0.0-2.0); HEMATOCRIT 25.3 % (37-47); MEAN CORPUSCULAR HGB 21.4 PG (27.0-31.0); MEAN CORPUSCULAR HGB CONC 31.8 G/DL (33.0-37.0); MEAN CORPUSCULAR VOLUME 67.4 FL (81.0-99.0); MEAN PLATELET VOLUME 6.3 FL (7.4-10.4); PLATELET COUNT 455 /CUMM (130-400); RBC DISTRIBUTION WIDTH 18.2 % (11.5-14.5); RED BLOOD CELL CT 3.75 /CUMM (4.20-5.40); WHITE BLOOD CELL COUNT 11.8 /CUMM (4.8-10.8)
[2016-12-08 20:10] LABS: GRANULOCYTE % 77.1 % (42.2-75.2)
--- NOTE | 2016-12-08 20:17 | ED UPPER/LOWER EXTREMITY COMPL ---
History of Present Illness General Chief Complaint: Lower Extremity Problems Stated Complaint: "RT FOOT INFECTION S/P SURGERY 2WKS AGO" Source: patient, old records Exam Limitations: no limitations Vital Signs & Intake/Output Vital Signs & Intake/Output Vital Signs Date Time Temp Pulse Resp B/P B/P Pulse O2 O2 Flow FiO2 Mean Ox Delivery Rate 12/09 1516 97.5 51 18 100/54 98 Room Air 12/09 0644 97.6 64 18 100/60 98 Room Air 12/09 0223 97.8 82 18 118/70 98 Room Air 12/09 0051 97.9 78 16 114/73 97 Room Air 12/08 2315 98.0 87 15 111/55 99 Room Air ED Intake and Output 12/09 0000 12/08 1200 Intake Total Output Total Balance Patient 215 lb Weight Allergies Coded Allergies: Sulfa (Sulfonamide Antibiotics) (Severe, FACIAL SWELLING 11/27/16) clonidine (WEAKNESS ALL OVER 11/27/16) Reconcile Medications Aripiprazole 5 MG TABLET 1 TAB PO DAILY MENTAL HEALTH (Reported) Citalopram Hydrobromide (Citalopram HBr) 40 MG TABLET 1 TAB PO DAILY MENTAL HEALTH (Reported) Clonazepam 2 MG TABLET 1 TAB PO BID anxiety (Reported) Cyanocobalamin (Vitamin B-12) 1,000 MCG TABLET 1,000 MCG PO DAILY supplement Ferrous Sulfate 325 MG (65 MG IRON) TABLET.DR 325 MG PO BID supplement Suvorexant (Belsomra) (Unknown Strength) TABLET (Unknown Dose) PO QPM SLEEP ( Reported) Triage Note: PER PT INFECTION IN RT FOOT S/P SURGERY 2 WEEKS AGO FOR TOES AMPUTATION. CO FEVERS AND SWELLING TO RLE ALSO DRAINAGE. PT RLE SWOLLEN TO KNEE, RED AND WARM Triage Nurses Notes Reviewed? yes : No Patient currently breastfeeds: No HPI: Patient presents for evaluation of worsening pain and swelling and drainage from a surgical site. About 2 weeks ago patient had amputation of the toes of her right foot secondary to osteomyelitis and infection. She presents today because the ankle and leg has now become swollen warm and red. She is also having increasing drainage from the surgical site. She states she delayed coming to the emergency department (Dr. Campbell told her midweek that she should return to the emergency department for admission) due to her opiate addiction. She was afraid she would go into withdrawal. Past History Travel History Traveled to [place] past 21 day No Medical History Any Pertinent Medical History? 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 No Review of Systems Review of Systems Constitutional: Reports: no symptoms. EENTM: Reports: no symptoms. Respiratory: Reports: no symptoms. Cardiovascular: Reports: no symptoms. Gastrointestinal/Abdominal: Reports: no symptoms. Genitourinary: Reports: no symptoms. Musculoskeletal: Reports: see HPI. Skin: Reports: see HPI. Neurological/Psychological: Reports: no symptoms. Hematologic/Endocrine: Reports: no symptoms. Immunological: Reports: no symptoms. All Other Systems: Reviewed and Negative Physical Exam Physical Exam General Appearance: SEE BELOW Comments: Gen.: Well-nourished, well-developed, no acute respiratory distress. Head: Normocephalic, atraumatic. Eyes: Normal inspection bilaterally Ears: Normal inspection bilaterally Nose: Normal inspection, nasal cannula in place Throat/mouth : Moist mucosa Neck: Supple, full range of motion, no goiter Heart: Regular rate and rhythm Lungs: Quiet respirations Back: Normal range of motion Extremities: Right foot/ankle: Surgical site with purulent drainage, diffuse soft tissue swelling. Right leg: Diffuse soft tissue swelling erythema and warmth. Neurologic: Cranial nerves grossly intact, speech is clear Skin: warm and dry Psychiatric: Calm, cooperative, no apparent delusions or hallucinations Progress Differential Diagnosis: POSTOPERATIVE INFECTION, OSTEOMYELITIS, CELLULITIS, DEEP TISSUE SPACE INFECTION Plan of Care: Orders Procedure Date/time Status CBC WITHOUT DIFFERENTIAL 12/10 599 Active BASIC ELECTROLYTES PLUS BUN&CR 12/10 06 Active Regular Diet 12/09 B Active BLOOD PRODUCT PICKUP 12/09 1438 Active LEUKOCYTE POOR (PACKED CELLS) 12/09 1230 Active TYPE & SCREEN (NOT X-MATCH) 12/09 1218 Complete CBC WITHOUT DIFFERENTIAL 12/09 1000 Complete BASIC ELECTROLYTES PLUS BUN&CR 12/09 1000 Complete Vital Signs 12/09 0746 Active Teach/Educate 12/09 0746 Active Pain Treatment and Response 12/09 0746 Active Nutritional Intake, Monitor 12/09 0746 Active Isolation 12/09 0746 Active Intake & Output 12/09 0746 Active Patient Care Conference 12/09 0746 Active Activity/Ambulation 12/09 0746 Active Change service to 12/09 0722 Active Wound Care/Dressing 12/09 0333 Active Vital Signs 12/09 0218 Active Teach/Educate 12/09 0218 Active Pain Treatment and Response 12/09 0218 Active Nutritional Intake, Monitor 12/09 0218 Active Isolation 12/09 0218 Active Intake & Output 12/09 0218 Active Patient Care Conference 12/09 0218 Active Activity/Ambulation 12/09 0218 Active URINE DRUGS OF ABUSE 12/09 0058 Complete URINALYSIS 12/09 0058 Complete Pathway - chart 12/09 0052 Active House Staff 12/09 0052 Active Patient Data 12/09 0052 Active Code Status 12/09 0052 Active Pathway - chart 12/09 0000 Active House Staff 12/09 0000 Active Patient Data 12/09 0000 Active Code Status 12/09 0000 Complete House Staff 12/09 UNK Active Lab Add-on Test 12/09 UNK Active VTE Mechanical Prophylaxis 12/09 UNK Active MISSING MEDICATION FORM 12/09 UNK Active SOCIAL WORK CONSULT 12/09 UNK Active Misc Message 12/08 2355 Active ED Holding Orders 12/08 2355 Active Vital Signs 12/08 2355 Active Code Status 12/08 2355 Complete Admit to inpatient 12/08 2313 Active Patient Data 12/08 2305 Active Intake & Output 12/09 2011 Active C-REACTIVE PROTEIN 12/09 1999 Complete Current Medications Sig/Mainor Start time Last Medication Dose Stop Time Status Admin Methadone HCl 5 MG ONCE ONE 12/14 799 CAN (Dolophine) 12/13 800 Methadone HCl 5 MG ONCE ONE 12/13 799 AC (Dolophine) 12/12 800 Methadone HCl 10 MG ONCE ONE 12/11 0245 AC (Dolophine) 12/11 024 Methadone HCl 20 MG ONCE ONE 12/10 08 AC (Dolophine) 12/10 08 Aripiprazole 5 MG DAILY 12/09 1000 AC 12/09 (Abilify) 0924 Citalopram 40 MG DAILY 12/09 1000 AC 12/09 Hydrobromide 0924 (Celexa) Clonazepam 2 MG DAILY 12/09 1000 AC 12/09 (Klonopin 1MG Tab) 12/16 958 0924 Enoxaparin Sodium 40 MG DAILY 12/09 1000 AC 12/09 (Lovenox) 09 Nicotine 21 MG DAILY 12/09 1000 AC 12/09 (Nicoderm) 0926 Clonidine 0.1 MG TID PRN 12/09 0300 AC (Catapres) Baclofen 10 MG Q6 PRN 12/09 0245 AC (Lioresal 10MG Tablet) Dicyclomine HCl 20 MG Q6-PRN PRN 12/09 0245 AC (Bentyl) Acetaminophen 650 MG Q6P PRN 12/09 0100 AC (Tylenol) Hydromorphone HCl 0.5 MG Q4P PRN 12/09 0100 AC (Dilaudid) Ketorolac 15 MG Q6P PRN 12/09 0100 AC 12/09 Tromethamine 1704 (Toradol) Ampicillin Sodium/ 3,000 MG Q6 12/09 0053 AC 12/09 Sulbactam Sodium 1754 (Unasyn) Sodium Chloride 100 ML (Normal Saline 0.9%) Laboratory Tests 12/09/16 1652: Urine Opiates Screen > 4000.00 H, Methadone Screen > 735 H, Barbiturate Screen 71, Ur Phencyclidine Scrn 7.70, Amphetamines Screen < 100, U Benzodiazepines Scrn < 85, Urine Cocaine Screen > 1000 H, Urine Cannabis Screen 11.30, Urinalysis LIGHT H, Urine Color YEL, Urine Clarity CLEAR, Urine pH 6.0, Ur Specific [place] 1.020, Urine Protein TRACE H, Urine Ketones TRACE H, Urine Nitrite NEG, Urine Bilirubin NEG@ICTO, Urine Urobilinogen 2.0 H, Ur Leukocyte Esterase NEG, Ur Microscopic SEDIMENT EXAMINED, Urine RBC RARE, Urine WBC 1-3 H , Ur Epithelial Cells MOD H, Urine Bacteria FEW H, Urine Mucus MOD H, Urine Hemoglobin TRACE-INTACT, Urine Glucose NEG 12/09/16 1005: Anion Gap 6, Estimated GFR > 60, BUN/Creatinine Ratio 10.0, CBC w Diff NO MAN DIFF REQ, RBC 3.41 L, MCV 66.8 L, MCH 21.1 L, RDW 18.5 H, MPV 6.8 L, Gran % 64.4, Lymphocytes % 23.6, Monocytes % 7.1, Eosinophils % 4.5, Basophils % 0.4, Absolute Granulocytes 4.7, Absolute Lymphocytes 1.7, Absolute Monocytes 0.5, Absolute Eosinophils 0.3, Absolute Basophils 0, PUBS MCHC 31.6 L 12/08/16 2305: Lactic Acid 1.0 Diagnostic Imaging: Discussed w/RAD: CT Scan. Radiology Impression: PATIENT: SUSI SANDOVAL PRESENT AGE: 41 PATIENT ACCOUNT NO: [id number] : 73 LOCATION: [facility] ORDERING PHYSICIAN: MAX BRENNAN MD SERVICE DATE: 12/08/16 EXAM TYPE: CAT - CT LOWER EXT W IV CONTRAST Indication: Question infection EXAMINATION: Contrast enhanced CT of the lower extremity. Right. FINDINGS: 94 mL Optiray 320. Imaging obtained from just above the patella through the foot. : Tib-fib region is demonstrating subcutaneous edema.. Cannot exclude thrombus of a deep vain Some enhancing structures posterior to the knee may be lymph nodes. There is no convincing evidence for a loculated collection in the tib-fib though there is fluid interspersing in the muscular tissue and fascial tissue. There is no evidence of suspicious periosteal bony change in the tib-fib. More distally in the tarsal region extending to the amputated extremities there is significant soft tissue change here. There is erosive appearing changes to the base of the third metatarsal and adjacent cuneiform as well as abnormal appearing bone in the residual distal first digit as well as second digit and fourth and fifth digits with fluffy periosteal change. Findings may well be consistent with osteomyelitis. IMPRESSION: In the leg there is no finding in the bony tib-fib and the soft tissue is demonstrating edematous change but no loculated collection is identified here. As described I cannot exclude thrombus of a deep vein. More distally in the foot marked abnormality with several areas of periosteal change and bony distraction. Most noted is bases of the third metatarsal and adjacent cuneiform bone. The remainder of the residual bone show fluffy periosteal change. Osteomyelitis must be suspected. There is significant surrounding soft tissue change in this area. Certainly osteomyelitis considered. Cannot exclude abscess formation in the region. Recommend MRI to further evaluate. DICTATED BY: MAX EDWARDS MD DATE/TIME DICTATED:12/08/162211 EYE CLINIC MANAGER:TRICIA DATE/TIME TRANSCRIBED:12/08/162211 CONFIDENTIAL, DO NOT COPY WITHOUT APPROPRIATE AUTHORIZATION. <Electronically signed in Other Vendor System> SIGNED BY: MAX EDWARDS MD 12/08/16 222 Comments: 12/08/2016 10:44:42 PM I discussed this patient's case with case management and Dr. W[place]. Departure Departure Disposition: STILL A PATIENT Condition: Stable Clinical Impression Primary Impression: Osteomyelitis Qualifiers: Osteomyelitis type: subacute Osteomyelitis location: foot Laterality: right Qualified Code: M86.271 - Subacute osteomyelitis, right ankle and foot Secondary Impressions: Cellulitis Qualifiers: Site of cellulitis: extremity Site of cellulitis of extremity: lower extremity Laterality: right Qualified Code: L03.115 - Cellulitis of right lower limb Referrals: PATIENT HAS NO PRIMARY CARE DR (PCP/Family) Departure Forms: Customer Survey General Discharge Information Admission Note [facility] Documentation of Exam: Documentation of any treatments & extenuating circumstances including Concerns Regarding Discharge (functional status, medication knowledge or non-compliance, living conditions, etc.) that warrant an admission rather than observation: Patient has CAT scan evidence of osteomyelitis of the right foot and cellulitis of the right leg. She has a history of noncompliance with medical treatment and also admits to IV heroin use. She is at risk of worsening infection, sepsis, septic shock and if not treated appropriately. I feel she is a very poor candidate for outpatient management given her history of noncompliance. I feel she now requires an aggressive management with IV antibiotics and close clinical monitoring for signs of sepsis. Podiatry consultation should be obtained and surgical debridement considered. Given patient's history of IV heroin abuse she is at risk of complicated infection and complicated clinical course. I feel she 'll require a multiple day hospitalization. Critical Care Note Critical Care Note Critical Care Time: 30-74 min
--- NOTE | 2016-12-08 22:27 | CT SCAN REPORT ---
Indication: Question infection EXAMINATION: Contrast enhanced CT of the lower extremity. Right. FINDINGS: 94 mL Optiray 320. Imaging obtained from just above the patella through the foot. : Tib-fib region is demonstrating subcutaneous edema.. Cannot exclude thrombus of a deep vain Some enhancing structures posterior to the knee may be lymph nodes. There is no convincing evidence for a loculated collection in the tib-fib though there is fluid interspersing in the muscular tissue and fascial tissue. There is no evidence of suspicious periosteal bony change in the tib-fib. More distally in the tarsal region extending to the amputated extremities there is significant soft tissue change here. There is erosive appearing changes to the base of the third metatarsal and adjacent cuneiform as well as abnormal appearing bone in the residual distal first digit as well as second digit and fourth and fifth digits with fluffy periosteal change. Findings may well be consistent with osteomyelitis. IMPRESSION: In the leg there is no finding in the bony tib-fib and the soft tissue is demonstrating edematous change but no loculated collection is identified here. As described I cannot exclude thrombus of a deep vein. More distally in the foot marked abnormality with several areas of periosteal change and bony distraction. Most noted is bases of the third metatarsal and adjacent cuneiform bone. The remainder of the residual bone show fluffy periosteal change. Osteomyelitis must be suspected. There is significant surrounding soft tissue change in this area. Certainly osteomyelitis considered. Cannot exclude abscess formation in the region. Recommend MRI to further evaluate.
--- NOTE | 2016-12-08 23:59 | History & Physical ---
CHRISTOFER MONTANO 12/08/16 2649: General Information and HPI MD Statement: I have seen and personally examined SUSI SANDOVAL and documented this H&P. The patient is a 41 year old F who presented with a patient stated chief complaint of worsening right lower extremity edema and pain for few days []. 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 Or culture grew MSSA and beta strep be, anemia with low vitamin B12, history of intravenous drug abuse he remained, cocaine, marijuana completed methadone taper , hypothyroidism currently not on any medications, bipolar disorder, depression, anxiety, multiple recent admissions with same complaint very noncompliant with her medications as well as hospital stays. She had debridement of her right wound on 11/05/2016 and she left AMA on 12/07/2016 after biopsy and debridement of right foot. She was admitted again on November 07 for continued to of care however she left AMA on 11/08/2016. She again admitted on November 27 and left AMA again on November 30. On last admission she was instructed to come back on December 03 for diversion surgery and she never came back. Currently she is complaining of worsening lower extremity edema and pain. She describes pain as sharp 8 out of 10 in intensity. She continues to use heroin and last use was this morning where she injected herself on right lower extremity around her knee. She used cocaine yesterday. She denied any fever, chills, cough, chest pain, palpitations, dizziness, any urinary or bowel complaints at the moment. Patient was seen by Dr. Campbell at [facility] in previous admissions and plan was to do reversion surgery and PICC LINE placement and she would need at least 4 weeks course of antibiotics. Her labs at admission were WBC count 11.8, hemoglobin 8.0, hematocrit 25.3, platelet count 455, sodium 136, potassium 4.0, chloride 96, BUNs 9, creatinine 0.7, glucose 146, initial lactic acid was 2.2 and repeat was 1.0. Her U tox and UA is pending Allergies/Medications Allergies: Coded Allergies: Sulfa (Sulfonamide Antibiotics) (Severe, FACIAL SWELLING 11/27/16) clonidine (WEAKNESS ALL OVER 11/27/16) Home Med list Aripiprazole 5 MG TABLET 1 TAB PO DAILY MENTAL HEALTH (Reported) Citalopram Hydrobromide (Citalopram HBr) 40 MG TABLET 1 TAB PO DAILY MENTAL HEALTH (Reported) Clonazepam 2 MG TABLET 1 TAB PO BID anxiety (Reported) Cyanocobalamin (Vitamin B-12) 1,000 MCG TABLET 1,000 MCG PO DAILY supplement Ferrous Sulfate 325 MG (65 MG IRON) TABLET.DR 325 MG PO BID supplement Suvorexant (Belsomra) (Unknown Strength) TABLET (Unknown Dose) PO QPM SLEEP ( Reported) Compliance With Home Meds: POOR Past History Travel History Traveled to [place] past 21 day No Medical History Neurological: peripheral neuropathy EENT: NONE Cardiovascular: NONE Respiratory: NONE Gastrointestinal: NONE Hepatic: NONE Renal: NONE Musculoskeletal: osteomyelitis Psychiatric: anxiety, opioid dependence, heroin addiction Endocrine: hypothyroidism Blood Disorders: NONE Cancer(s): NONE 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 2 roomates Services at Home: None Primary Language: [place] Living Will? no Functional Ability ADLs Independent: dressing, eating, toileting, bathing. Ambulation: independent Review of Systems Review of Systems Constitutional: Denies: chills, fever, malaise. EENTM: Denies: blurred vision, double vision. Cardiovascular: Reports: edema. Denies: chest pain. Respiratory: Denies: cough, hemoptysis, orthopnea. GI: Denies: bloating, constipation, diarrhea. Genitourinary: Denies: dysuria, frequency. Musculoskeletal: Reports: muscle pain. Skin: Reports: cysts, erythema. Exam & Diagnostic Data Last 24 Hrs of Vital Signs/I&O Vital Signs Date Time Temp Pulse Resp B/P B/P Pulse O2 O2 Flow FiO2 Mean Ox Delivery Rate 12/09 0051 97.9 78 16 114/73 97 Room Air 12/08 2315 98.0 87 15 111/55 99 Room Air 12/088 88 16 99 Room Air 12/08 2006 92 19 97 Room Air 12/08 1946 99.9 118 22 155/88 97 Room Air Intake & Output 12/09 0800 12/09 0000 12/08 1600 Intake Total Output Total Balance Patient 215 lb Weight Physical Exam General Appearance Alert, Oriented X3, Cooperative, No Acute Distress Skin right lower extremity edema and erythema, large open wound on transmetatarsal incision, MULTIPLE TRACK PARRA FOUND RIGHT knee Skin Temp/Moisture Exam: Warm/Dry Sepsis Skin Exam (color): Flushed HEENT PERRLA Neck Supple Cardiovascular Regular Rate, Normal S1, Normal S2, No Murmurs Lungs Normal Air Movement Abdomen Soft, No Tenderness Extremities right lower extremity edema and erythema Body Front and Back (Adult) 1) Last 24 Hrs of Labs/Serafin: Laboratory Tests 12/08/162304: Lactic Acid 1.0 12/08/161999: Anion Gap 11, Estimated GFR > 60, BUN/Creatinine Ratio 12.9, Glucose 146 H, Lactic Acid 2.2 H, Calcium 8.8, Total Bilirubin 0.8, AST 19, ALT 26, Alkaline Phosphatase 133 H, Total Protein 7.2, Albumin 3.1 L, Globulin 4.1, Albumin/ Globulin Ratio 0.8 L, CBC w Diff NO MAN DIFF REQ, RBC 3.75 L, MCV 67.4 L, MCH 21.4 L, RDW 18.2 H, MPV 6.3 L, Gran % 77.1 H, Lymphocytes % 15.2 L, Monocytes % 6.2, Eosinophils % 1.0, Basophils % 0.5, Absolute Granulocytes 9.1 H, Absolute Lymphocytes 1.8, Absolute Monocytes 0.7 H, Absolute Eosinophils 0.1 , Absolute Basophils 0.1, PUBS MCHC 31.8 L, ESR Westergren > 130 H Microbiology 12/08 2054 BLOOD: Blood Culture - RECD 12/09 1999 BLOOD: Blood Culture - RECD Diagnostic Data Other Results IMPRESSION: In the leg there is no finding in the bony tib-fib and the soft tissue is demonstrating edematous change but no loculated collection is identified here. As described I cannot exclude thrombus of a deep vein. More distally in the foot marked abnormality with several areas of periosteal change and bony distraction. Most noted is bases of the third metatarsal and adjacent cuneiform bone. The remainder of the residual bone show fluffy periosteal change. Osteomyelitis must be suspected. There is significant surrounding soft tissue change in this area. Certainly osteomyelitis considered. Cannot exclude abscess formation in the region. Recommend MRI to further evaluate. Assessment/Plan Assessment: 41 year old female with history of polysubstance abuse, IV drug abuse, osteomyelitis of right lower extremity not on long-term antibiotics for now, very noncompliant with her medications and hospital stays came with worsening right lower extremity edema and pain most likely due to her osteomyelitis. We will admit patient on general medical floor and will take care for the following problems Problem #1 nonhealing foot ulcer/wound secondary to osteomyelitis lower extremity edema and erythema 1. We will consult Dr. Campbell in a.m. Most likely she will need reversion surgery soon and we will prepare her accordingly. 2. We will start patient on Unasyn as her work cultures are sensitive to Unasyn. We will watch patient on any signs of sepsis. 3. We will request ID consultation for Saturday 4. We will trend WBCs 5. Right lower extremity CAT scan was done that showed evidence of osteomyelitis but DVT would not be ruled out. Patient had recent Doppler ultrasound which was negative for any lower extremity deep vein thrombosis. Given her persistent right lower stability edema without significant change we will hold on lower extremity Doppler but if indicated we can do in a.m. Problem #2 polysubstance abuse 1. Patient had last here injection this morning and she also had cocaine yesterday. We will watch her for any withdrawal. 2. We will provide her with nicotine patch 3. And if needed we will treat her symptomatically with Zofran/hyoscyamine, baclofen and clonidine if needed. 3 anemia 1. We will monitor H&H daily 2. Continue home medications Problem #4 history of depression and anxiety. We will continue her home dose of aripiprazole, citalopram and clonazepam Patient is full code Regular diet Pharmacological DVT prophylaxis As Ranked By This Provider Problem List: 1. Osteomyelitis Qualifiers Osteomyelitis type: subacute Osteomyelitis location: foot Laterality: right Qualified Code: M86.271 - Subacute osteomyelitis, right ankle and foot 2. Drug abuse Core Measures/Miscellaneous Acute Coronary Syndrome ACS Diagnosis: No Cerebrovascular Accident CVA/TIA Diagnosis: No Congestive Heart Failure CHF Diagnosis: No VTE (View Protocol) VTE Risk Factors: Age > 40 No Mech VTE prophylaxis d/t: LE Edema No VTE Pharm Prophylaxis d/t: No contraindications VTE Diagnosis: No VTE Type: NONE VTE Confirmed by (Test): NONE Sepsis (View Protocol) Severe Sepsis Present: No Septic Shock Septic Shock Present: No Miscellaneous Documentation Attending Case Discussed With: ADONIS WASHINGTON MD Primary Care Physician: PATIENT HAS NO PRIMARY CARE DR Patient sees these Specialists NONE Level of Patient Care: General Medicine Resident Review Statement Resident Statement: examined this patient JESSICA WASHINGTON MD 12/09/16 0231: Attending MD Review Statement Attending Statement Attending MD Statement: examined this patient, discuss w/resident/PA/CASHIER GAMBLING, agreed w/resident/PA/CASHIER GAMBLING Attending Assessment/Plan: 41 yo F active smoker and IV heroin user, opiate dependence was on methadone maintenance (not anymore), hypothyroidism, bipolar disorder, chronic anemia, neuropathy, bilateral feet chronic ulcerations and osteomyelitis (MSSA, group B strep and anaerobic GNR) s/p left foot partial ray resection (Jul 2016), underwent right open TMA (November 05) by Dr. Campbell but she left PLANO, readmitted on November 07 to continue IV antibiotics but decided to once again leave AMA on November 08, and hence has not completed the 6 week course of antibiotics. She was to get an outpatient revision and closure of her right foot wound on November 10, however she left without getting the procedure as her surgery was delayed. She was admitted on November 27 for necrotic right foot wound, underwent I&D, revision ray resection of right foot by Dr. Campbell on November 28. OR cultures grew sensitive staph aureus. She was to return to OR for closure/debridement on December 03 but she again left AMA on November 30. She states her father was unwell, so she had to leave AMA. But reports using IV heroin about 2-3 bags daily and smoked cocaine. She returns today for worsening right foot pain, swelling and discharge. VSS. Right foot s/p TMA with open nonhealing wound with slough+. Right calf and foot swollen. Labs: WBC 11.8, microcytic anemia H/H 8.0/25.3, ESR >130, lactic acid 2.2-->1.0. UA and Utox pending. CT Right LE: Soft tissue edematous change, no loculated collection, cannot exclude thrombus of a deep vein. Residual osteomyelitis+. 1. Right foot s/p TMA with open nonhealing wound with residual osteomyelitis. GM admit, panculture, bone cultures (November 28) grew sensitive staph aureus, will initiate IV Unasyn. Consult Dr. Campbell (called by ER). Plan for ?revision surgery. Obtain ID consult on Saturday. Pain management with IV morphine PRN. Patient had a RLE Ultrasound on November 28 which was negative for DVT. I am holding off on repeat LE doppler, as her edema is the same that I had last seen her. If concern persists, will get doppler in AM. 2. Opiate dependence, IVDA. Please note: patient has a tendency to leave AMA for need for opiates/heroin as she feels she may go into withdrawal. Will give her a rapid methadone taper. For opiate withdrawal symptoms: will given clonidine 0.1 mg TID PRN, baclofen 10 mg Q6PRN for muscle cramps and dicyclomine 20 mg PO Q6 PRN for GI cramps. Social work consult. Smoking cessation counseling, nicotine patch. 3. Bipolar disorder. Continue abilify, citalopram and klonopin. DVT ppx Lovenox. Full code.
--- NOTE | 2016-12-09 01:20 | Admission Certification ---
Admission Certification Certification Statement - As attending physician, I certify that at the time of - admission, based on clinical presentation, severity of - symptoms, need for further diagnostic testing and - therapeutic interventions, and risk of adverse outcomes - without in-hospital treatment, in my clinical assessment, - this patient requires an acute hospital stay for a minimum - of two nights or longer. I have also considered psychsocial - factors such as support system, advanced age, financial - issues, cognitive issues, and failed out-patient treatments, - past re-admission history, safety of patient, and lack of - compliance as applicable. Specific rationale supporting this admission is: Right foot osteomyelitis s/p TMA, chronic nonhealing wound.
[2016-12-09 02:23] VITALS: BP 118/70
[2016-12-09 06:44] VITALS: BP 100/60
[2016-12-09 10:44] LABS: ABSOLUTE BASOPHIL COUNT 0 /CUMM (0.0-0.2); ABSOLUTE EOSINOPHIL COUNT 0.3 /CUMM (0.0-0.7); ABSOLUTE GRANULOCYTE CT 4.7 /CUMM (1.4-6.5); ABSOLUTE LYMPH COUNT 1.7 /CUMM (1.2-3.4); ABSOLUTE MONOCYTE COUNT 0.5 /CUMM (0.10-0.60); BASOPHIL % 0.4 % (0.0-2.0); EOSINOPHIL % 4.5 % (0-5); GRANULOCYTE % 64.4 % (42.2-75.2); HEMATOCRIT 22.8 % (37-47); MEAN CORPUSCULAR HGB 21.1 PG (27.0-31.0); MEAN CORPUSCULAR HGB CONC 31.6 G/DL (33.0-37.0); MEAN CORPUSCULAR VOLUME 66.8 FL (81.0-99.0); MEAN PLATELET VOLUME 6.8 FL (7.4-10.4); PLATELET COUNT 376 /CUMM (130-400); RBC DISTRIBUTION WIDTH 18.5 % (11.5-14.5); RED BLOOD CELL CT 3.41 /CUMM (4.20-5.40); WHITE BLOOD CELL COUNT 7.4 /CUMM (4.8-10.8)
--- NOTE | 2016-12-09 11:10 | PN- Att Addend ---
Attending Addendum Attending Brief Note Patient seen and examined. Plan of care discussed with the medical team and the patient. Available lab work and radiology test reports were reviewed. Patient is somewhat sleepy. She states that she was unable to see for last night. She complains of moderate pain in the right foot but denies any fever or chills. She denies any difficulty breathing or abdominal pain nausea or vomiting. Vital Signs Date Time Temp Pulse Resp B/P B/P Pulse O2 O2 Flow FiO2 Mean Ox Delivery Rate 12/09 0644 97.6 64 18 100/60 98 Room Air 12/09 0223 97.8 82 18 118/70 98 Room Air 12/09 0051 97.9 78 16 114/73 97 Room Air 12/08 2315 98.0 87 15 111/55 99 Room Air 12/08 2058 88 16 99 Room Air 12/08 2006 92 19 97 Room Air 12/08 1947 99.9 118 22 155/88 97 Room Air Intake & Output 12/09 1600 / 0800 12/09 0000 Intake Total 370 Output Total Balance 370 Intake, IV 130 Intake, Oral 240 Patient 215 lb 215 lb Weight Weight Reported by Patient Measurement Method Exam: General: Patient awake but drowsy and oriented without any distress CVS: S1 plus S2 without any murmur or gallops Chest: Few scattered crepitation without any wheeze. There is no respiratory distress. Abdomen: Soft nontender, bowel sound present, no guarding or rebound LABEL PRINTER: Awake alert oriented without any focal neuro deficit and follows command appropriately Extremities: No edema; no clubbing or cyanosis noted; skin is pale; right foot was examined. Right foot is status post trans-metatarsal amputation with open wound area with granulation tissue and pus Laboratory Tests 12/09 12/08 1005 2305 Chemistry Sodium (137 - 145 mmol/L) 138 Potassium (3.5 - 5.1 mmol/L) 3.8 Chloride (98 - 107 mmol/L) 101 Carbon Dioxide (22 - 30 mmol/L) 31 H Anion Gap (5 - 16) 6 BUN (7 - 17 mg/dL) 7 Creatinine (0.5 - 1.0 mg/dL) 0.7 Estimated GFR (>60 ml/min) > 60 BUN/Creatinine Ratio (7 - 25 %) 10.0 Lactic Acid (0.7 - 2.1 mmol/L) 1.0 Hematology CBC w Diff NO MAN DIFF REQ WBC (4.8 - 10.8 /CUMM) 7.4 RBC (4.20 - 5.40 /CUMM) 3.41 L Hgb (12.0 - 16.0 G/DL) 7.2 *L Hct (37 - 47 %) 22.8 L MCV (81.0 - 99.0 FL) 66.8 L MCH (27.0 - 31.0 PG) 21.1 L RDW (11.5 - 14.5 %) 18.5 H Plt Count (130 - 400 /CUMM) 376 MPV (7.4 - 10.4 FL) 6.8 L Gran % (42.2 - 75.2 %) 64.4 Lymphocytes % (20.5 - 51.1 %) 23.6 Monocytes % (1.7 - 9.3 %) 7.1 Eosinophils % (0 - 5 %) 4.5 Basophils % (0.0 - 2.0 %) 0.4 Absolute Granulocytes (1.4 - 6.5 /CUMM) 4.7 Absolute Lymphocytes (1.2 - 3.4 /CUMM) 1.7 Absolute Monocytes (0.10 - 0.60 /CUMM) 0.5 Absolute Eosinophils (0.0 - 0.7 /CUMM) 0.3 Absolute Basophils (0.0 - 0.2 /CUMM) 0 PUBS MCHC (33.0 - 37.0 G/DL) 31.6 L 12/09 1999 Chemistry Sodium (137 - 145 mmol/L) 136 L Potassium (3.5 - 5.1 mmol/L) 4.0 Chloride (98 - 107 mmol/L) 96 L Carbon Dioxide (22 - 30 mmol/L) 29 Anion Gap (5 - 16) 11 BUN (7 - 17 mg/dL) 9 Creatinine (0.5 - 1.0 mg/dL) 0.7 Estimated GFR (>60 ml/min) > 60 BUN/Creatinine Ratio (7 - 25 %) 12.9 Glucose (65 - 99 mg/dL) 146 H Lactic Acid (0.7 - 2.1 mmol/L) 2.2 H Calcium (8.4 - 10.2 mg/dL) 8.8 Total Bilirubin (0.2 - 1.3 mg/dL) 0.8 AST (14 - 36 U/L) 19 ALT (9 - 52 U/L) 26 Alkaline Phosphatase (<127 U/L) 133 H C-Reactive Prot, Quant (<1.0 mg/dL) > 9.0 H Total Protein (6.3 - 8.2 g/dL) 7.2 Albumin (3.5 - 5.0 g/dL) 3.1 L Globulin (1.9 - 4.2 gm/dL) 4.1 Albumin/Globulin Ratio (1.1 - 2.2 %) 0.8 L Hematology CBC w Diff NO MAN DIFF REQ WBC (4.8 - 10.8 /CUMM) 11.8 H RBC (4.20 - 5.40 /CUMM) 3.75 L Hgb (12.0 - 16.0 G/DL) 8.0 L Hct (37 - 47 %) 25.3 L MCV (81.0 - 99.0 FL) 67.4 L MCH (27.0 - 31.0 PG) 21.4 L RDW (11.5 - 14.5 %) 18.2 H Plt Count (130 - 400 /CUMM) 455 H MPV (7.4 - 10.4 FL) 6.3 L Gran % (42.2 - 75.2 %) 77.1 H Lymphocytes % (20.5 - 51.1 %) 15.2 L Monocytes % (1.7 - 9.3 %) 6.2 Eosinophils % (0 - 5 %) 1.0 Basophils % (0.0 - 2.0 %) 0.5 Absolute Granulocytes (1.4 - 6.5 /CUMM) 9.1 H Absolute Lymphocytes (1.2 - 3.4 /CUMM) 1.8 Absolute Monocytes (0.10 - 0.60 /CUMM) 0.7 H Absolute Eosinophils (0.0 - 0.7 /CUMM) 0.1 Absolute Basophils (0.0 - 0.2 /CUMM) 0.1 PUBS MCHC (33.0 - 37.0 G/DL) 31.8 L ESR Westergren (0 - 20 MM) > 130 H Microbiology Date/Time Procedure - Status Source Growth 12/08 2054 Blood Culture - RECD BLOOD 12/09 1999 Blood Culture - RECD BLOOD CT lower extremity IMPRESSION: In the leg there is no finding in the bony tib-fib and the soft tissue is demonstrating edematous change but no loculated collection is identified here. As described I cannot exclude thrombus of a deep vein. More distally in the foot marked abnormality with several areas of periosteal change and bony distraction. Most noted is bases of the third metatarsal and adjacent cuneiform bone. The remainder of the residual bone show fluffy periosteal change. Osteomyelitis must be suspected. There is significant surrounding soft tissue change in this area. Certainly osteomyelitis considered. Cannot exclude abscess formation in the region. Recommend MRI to further evaluate. Assessment * Right foot osteomyelitis * Heroin abuse * Hypothyroidism * Bipolar disorder * Chronic anemia * History of neuropathy * Chronic right foot wound * History of MSSA osteomyelitis * Noncompliance with medical regimen and frequent episodes of leaving AMA Plan * Continue Unasyn * Leg elevation * Podiatry consult- patient likely will need debridement * ID consult * The patient is excessively drowsy I will suggest cutting down on methadone dose to 20 mg for tomorrow
--- NOTE | 2016-12-09 11:40 | PN- Housestaff ---
Subjective Follow-up For: Osteomyelitis, polysubstance abuse Subjective: I have personally seen and examined this patient. She is drowsy but arousable. Complains of moderate pain in her right foot but denies any fever or chills. Review of Systems Constitutional: Denies: see HPI. Objective Last 24 Hrs of Vital Signs/I&O Vital Signs Date Time Temp Pulse Resp B/P B/P Pulse O2 O2 Flow FiO2 Mean Ox Delivery Rate 12/09 0644 97.6 64 18 100/60 98 Room Air 12/09 0223 97.8 82 18 118/70 98 Room Air 12/09 0051 97.9 78 16 114/73 97 Room Air 12/08 2315 98.0 87 15 111/55 99 Room Air 12/08 2058 88 16 99 Room Air 12/08 2006 92 19 97 Room Air 12/08 1947 99.9 118 22 155/88 97 Room Air Intake & Output 12/09 1600 12/09 0800 12/09 0000 Intake Total 370 Output Total Balance 370 Intake, IV 130 Intake, Oral 240 Patient 215 lb 215 lb Weight Weight Reported by Patient Measurement Method Physical Exam General Appearance: Oriented X3, Cooperative, No Acute Distress Other Physical Findings: Skin No Rashes HEENT Atraumatic, PERRLA, EOMI Neck Supple, No JVD Cardiovascular Regular Rate, Normal S1, Normal S2, No Murmurs Lungs Clear to Auscultation, Normal Air Movement Abdomen Normal Bowel Sounds, Soft, No Tenderness, No Hepatospenomegaly, No Masses Neurological Normal Gait, Normal Speech, Strength at 5/5 X4 Ext, Normal Tone, Sensation Intact Extremities No Clubbing, No Cyanosis, No Edema, Normal Pulses, Normal Capillary Refill Vascular Normal Pulses Current Medications: Current Medications Sig/Mainor Start time Last Medication Dose Route Stop Time Status Admin Acetaminophen 650 MG Q6P PRN 12/09 0100 AC PO Ampicillin Sodium/ 3,000 MG Q6 12/09 0053 AC 12/09 Sulbactam Sodium IV 1202 Sodium Chloride 100 ML Aripiprazole 5 MG DAILY 12/09 1000 AC 12/09 PO 0924 Baclofen 10 MG Q6 PRN 12/09 0245 AC PO Citalopram 40 MG DAILY 12/09 1000 AC 12/09 Hydrobromide PO 0924 Clonazepam 2 MG DAILY 12/09 1000 AC 12/09 PO 12/16 0959 0924 Clonazepam 2 MG BID 12/09 0056 DC PO 12/16 0055 Clonidine 0.1 MG TID PRN 12/09 0300 AC PO Clonidine 0.1 MG TID PRN 12/09 0245 DC PO Dicyclomine HCl 20 MG Q6-PRN PRN 12/09 0245 AC PO Enoxaparin Sodium 40 MG DAILY 12/09 1000 AC 12/09 SC 0926 Hydromorphone HCl 0.5 MG Q4P PRN 12/09 010 AC IV Ketorolac 15 MG Q6P PRN 12/09 0100 AC 12/09 Tromethamine IV 0754 Methadone HCl 5 MG ONCE ONE 12/13 08 AC PO 12/13 08 Methadone HCl 10 MG ONCE ONE 12/12 08 AC PO 12/12 08 Methadone HCl 20 MG ONCE ONE 12/11 0245 AC PO 12/11 0246 Methadone HCl 30 MG ONCE ONE 12/10 0800 AC PO 12/10 08 Methadone HCl 40 MG ONCE ONE 12/09 0800 DC 12/09 PO 12/09 0801 0926 Nicotine 21 MG DAILY 12/09 1000 AC 12/09 TOP 0926 Sodium Chloride 1,000 ML ONCE ONE 12/08 2014 DC 12/08 IV 12/09 Vancomycin HCl 0 .STK-MED ONE 12/09 2047 DC .ROUTE Vancomycin HCl 1,000 MG ONCE ONE 12/08 2014 DC 12/08 Sodium Chloride 250 ML IV 12/08 Last 24 Hrs of Lab/Serafin Results Last 24 Hrs of Labs/Mics: Laboratory Tests 12/09/16 1005: Anion Gap 6, Estimated GFR > 60, BUN/Creatinine Ratio 10.0, CBC w Diff NO MAN DIFF REQ, RBC 3.41 L, MCV 66.8 L, MCH 21.1 L, RDW 18.5 H, MPV 6.8 L, Gran % 64.4, Lymphocytes % 23.6, Monocytes % 7.1, Eosinophils % 4.5, Basophils % 0.4, Absolute Granulocytes 4.7, Absolute Lymphocytes 1.7, Absolute Monocytes 0.5, Absolute Eosinophils 0.3, Absolute Basophils 0, PUBS MCHC 31.6 L 12/08/16 2305: Lactic Acid 1.0 12/08/16 2000: Anion Gap 11, Estimated GFR > 60, BUN/Creatinine Ratio 12.9, Glucose 146 H, Lactic Acid 2.2 H, Calcium 8.8, Total Bilirubin 0.8, AST 19, ALT 26, Alkaline Phosphatase 133 H, C-Reactive Prot, Quant > 9.0 H, Total Protein 7.2, Albumin 3.1 L, Globulin 4.1, Albumin/Globulin Ratio 0.8 L, CBC w Diff NO MAN DIFF REQ, RBC 3.75 L, MCV 67.4 L, MCH 21.4 L, RDW 18.2 H, MPV 6.3 L, Gran % 77.1 H, Lymphocytes % 15.2 L, Monocytes % 6.2, Eosinophils % 1.0, Basophils % 0.5, Absolute Granulocytes 9.1 H, Absolute Lymphocytes 1.8, Absolute Monocytes 0.7 H, Absolute Eosinophils 0.1, Absolute Basophils 0.1, PUBS MCHC 31.8 L, ESR Westergren > 130 H Microbiology 12/08 2054 BLOOD: Blood Culture - RES 12/09 1999 BLOOD: Blood Culture - RES Assessment/Plan Assessment: Assessment: 41 year old female with history of polysubstance abuse, IV drug abuse, osteomyelitis of right lower extremity not on long-term antibiotics for now, very noncompliant with her medications and hospital stays came with worsening right lower extremity edema and pain most likely due to her osteomyelitis. We will admit patient on general medical floor and will take care for the following problems Problem #1 nonhealing foot ulcer/wound secondary to osteomyelitis lower extremity edema and erythema 1. We will consult Dr. Campbell. Most likely she will need reversion surgery soon and we will prepare her accordingly. 2. We will start patient on Unasyn as her work cultures are sensitive to Unasyn. We will watch patient on any signs of sepsis. 3. We will request ID consultation for Saturday 4. Her WBCs is trending down, 7.4 today. 5. Right lower extremity CAT scan was done that showed evidence of osteomyelitis but DVT would not be ruled out. Patient had recent Doppler ultrasound which was negative for any lower extremity deep vein thrombosis. Given her persistent right lower stability edema without significant change we will hold on lower extremity Doppler but if indicated we can do in a.m. Problem #2 polysubstance abuse 1. Patient had last here injection this morning and she also had cocaine yesterday. We will watch her for any withdrawal. 2. Patient is very drowsy, will cut down on methadone dose to 20 mg for tomorrow 3. We will provide her with nicotine patch 4. And if needed we will treat her symptomatically with Zofran/hyoscyamine, baclofen and clonidine if needed. Problem #3 anemia 1. Her H&H dropped down to 7.2/22.8 from 02/01.3. Will trasfuse 1 unit of PRBC amd continue to monitor her H&H. 2. Continue home medications Problem #4 history of depression and anxiety. We will continue her home dose of aripiprazole, citalopram and clonazepam Patient is full code Regular diet Pharmacological DVT prophylaxis Problem List: 1. Osteomyelitis of foot, right, acute 2. Drug abuse Pain Ratin Pain Location: Right foot Pain Goal: Pain 4 or less Pain Plan: Pain Pathway Tomorrow's Labs & Rationales: CBC(Anemia,Infection)
[2016-12-09 15:16] VITALS: BP 100/54
[2016-12-09 22:30] VITALS: BP 118/60
[2016-12-10 07:24] VITALS: BP 120/60
[2016-12-10 08:02] LABS: ABSOLUTE BASOPHIL COUNT 0 /CUMM (0.0-0.2); ABSOLUTE EOSINOPHIL COUNT 0.3 /CUMM (0.0-0.7); ABSOLUTE GRANULOCYTE CT 2.1 /CUMM (1.4-6.5); ABSOLUTE LYMPH COUNT 2.1 /CUMM (1.2-3.4); ABSOLUTE MONOCYTE COUNT 0.7 /CUMM (0.10-0.60); BASOPHIL % 0.6 % (0.0-2.0); EOSINOPHIL % 6.3 % (0-5); GRANULOCYTE % 39.5 % (42.2-75.2); HEMATOCRIT 24.4 % (37-47); MEAN CORPUSCULAR HGB 21.9 PG (27.0-31.0); MEAN CORPUSCULAR HGB CONC 31.4 G/DL (33.0-37.0); MEAN CORPUSCULAR VOLUME 69.8 FL (81.0-99.0); MEAN PLATELET VOLUME 7.2 FL (7.4-10.4); PLATELET COUNT 359 /CUMM (130-400); RBC DISTRIBUTION WIDTH 19.9 % (11.5-14.5); RED BLOOD CELL CT 3.49 /CUMM (4.20-5.40); WHITE BLOOD CELL COUNT 5.2 /CUMM (4.8-10.8)
--- NOTE | 2016-12-10 08:33 | PN- Housestaff ---
Subjective Follow-up For: Osteomyelitis, polysubstance abuse Subjective: I have personally seen and examined this patient today. Sitting comfortably in her bed, eating her breakfast. Denies any overnight events. She requested to change her pain medicine from toradol to dilaudid because she thinks that works better for her. Review of Systems Constitutional: Denies: see HPI. Objective Last 24 Hrs of Vital Signs/I&O Vital Signs Date Time Temp Pulse Resp B/P B/P Pulse O2 O2 Flow FiO2 Mean Ox Delivery Rate 12/10 1451 98.1 64 20 110/58 99 Room Air 12/10 0724 97.8 60 20 120/60 99 Room Air 12/09 2230 97.6 52 20 118/60 98 Room Air Intake & Output 12/10 1600 12/10 0800 12/10 0000 Intake Total 407 121 1132 Output Total 150 600 400 Balance 470 -95 850 Intake, Blood 350 Product Intake, IV 120 225 100 Intake, Oral 500 280 800 Output, Urine 150 600 400 Physical Exam General Appearance: Alert, Oriented X3, Cooperative Other Physical Findings: Skin No Rashes HEENT Atraumatic, PERRLA, EOMI Neck Supple, No JVD Cardiovascular Regular Rate, Normal S1, Normal S2, No Murmurs Lungs Clear to Auscultation, Normal Air Movement Abdomen Normal Bowel Sounds, Soft, No Tenderness, No Hepatospenomegaly, No Masses Neurological Normal Gait, Normal Speech, Strength at 5/5 X4 Ext, Normal Tone, Sensation Intact Extremities Left toes amputated, No Cyanosis, No Edema, Normal Pulses, Normal Capillary Refill Vascular Normal Pulses Current Medications: Current Medications Sig/Mainor Start time Last Medication Dose Route Stop Time Status Admin Acetaminophen 650 MG Q6P PRN 12/09 0100 AC PO Ampicillin Sodium/ 3,000 MG Q6 12/09 0053 AC 12/10 Sulbactam Sodium IV 1111 Sodium Chloride 100 ML Aripiprazole 5 MG DAILY 12/09 1000 AC 12/10 PO 0837 Baclofen 10 MG Q6 PRN 12/09 0245 AC PO Citalopram 40 MG DAILY 12/09 1000 AC 12/10 Hydrobromide PO 0837 Clonazepam 1 MG ONCE ONE 12/10 1145 DC 12/10 PO 12/10 1146 1200 Clonazepam 2 MG DAILY 12/09 1000 AC 12/10 PO 12/16 0959 0837 Clonidine 0.1 MG TID PRN 12/09 0300 AC PO Dicyclomine HCl 20 MG Q6-PRN PRN 12/09 0245 AC PO Enoxaparin Sodium 40 MG DAILY 12/09 1000 AC 12/10 SC 0837 Hydromorphone HCl 0.5 MG Q4P PRN 12/09 0100 AC 12/10 IV 1452 Ketorolac 15 MG .STK-MED ONE 12/10 0613 DC Tromethamine IM 12/10 0614 Ketorolac 15 MG .STK-MED ONE 12/10 0019 DC Tromethamine IM 12/10 0020 Ketorolac 30 MG .STK-MED ONE 12/09 1703 DC Tromethamine IM 12/09 1704 Ketorolac 15 MG Q6P PRN 12/09 0100 AC 12/10 Tromethamine IV 0615 Methadone HCl 5 MG ONCE ONE 12/13 0800 CAN PO 12/13 0801 Methadone HCl 10 MG ONCE ONE 12/12 0800 DC PO 12/12 0801 Methadone HCl 5 MG ONCE ONE 12/12 0800 AC PO 12/12 0801 Methadone HCl 10 MG ONCE ONE 12/11 0800 AC PO 12/11 0801 Methadone HCl 20 MG ONCE ONE 12/11 0245 DC PO 12/11 0246 Methadone HCl 10 MG ONCE ONE 12/11 0245 DC PO 12/11 0246 Methadone HCl 30 MG ONCE ONE 12/10 0800 DC PO 12/10 0801 Methadone HCl 20 MG ONCE ONE 12/10 0800 DC 12/10 PO 12/10 0801 0806 Nicotine 21 MG DAILY 12/09 1000 AC 12/10 [facility] 0838 Last 24 Hrs of Lab/Serafin Results Last 24 Hrs of Labs/Mics: Laboratory Tests 12/10/16 0605: Anion Gap 6, Estimated GFR > 60, BUN/Creatinine Ratio 17.1, CBC w Diff NO MAN DIFF REQ, RBC 3.49 L, MCV 69.8 L, MCH 21.9 L, RDW 19.9 H, MPV 7.2 L, Gran % 39.5 L, Lymphocytes % 40.7, Monocytes % 12.9 H, Eosinophils % 6.3 H, Basophils % 0.6, Absolute Granulocytes 2.1, Absolute Lymphocytes 2.1, Absolute Monocytes 0.7 H, Absolute Eosinophils 0.3, Absolute Basophils 0, PUBS MCHC 31.4 L 12/09/16 1652: Urine Opiates Screen > 4000.00 H, Methadone Screen > 735 H, Barbiturate Screen 71, Ur Phencyclidine Scrn 7.70, Amphetamines Screen < 100, U Benzodiazepines Scrn < 85, Urine Cocaine Screen > 1000 H, Urine Cannabis Screen 11.30, Urinalysis LIGHT H, Urine Color YEL, Urine Clarity CLEAR, Urine pH 6.0, Ur Specific [place] 1.020, Urine Protein TRACE H, Urine Ketones TRACE H, Urine Nitrite NEG, Urine Bilirubin NEG@ICTO, Urine Urobilinogen 2.0 H, Ur Leukocyte Esterase NEG, Ur Microscopic SEDIMENT EXAMINED, Urine RBC RARE, Urine WBC 1-3 H , Ur Epithelial Cells MOD H, Urine Bacteria FEW H, Urine Mucus MOD H, Urine Hemoglobin TRACE-INTACT, Urine Glucose NEG Assessment/Plan Assessment: Assessment: 41 year old female with history of polysubstance abuse, IV drug abuse, osteomyelitis of right lower extremity not on long-term antibiotics for now, very noncompliant with her medications and hospital stays came with worsening right lower extremity edema and pain most likely due to her osteomyelitis. We will admit patient on general medical floor and will take care for the following problems Problem #1 nonhealing foot ulcer/wound secondary to osteomyelitis lower extremity edema and erythema 1. We will consult Dr. Campbell. Most likely she will need reversion surgery soon and we will prepare her accordingly. 2. We will start patient on Unasyn as her work cultures are sensitive to Unasyn. We will watch patient on any signs of sepsis. 3. ID consulted, awaiting their recommendations. 4. Vascular and podiatry consulted, awaiting their recommendations. 4. Her WBCs is trending down, 5.2 today. 5. Right lower extremity CAT scan was done that showed evidence of osteomyelitis but DVT would not be ruled out. Patient had recent Doppler ultrasound which was negative for any lower extremity deep vein thrombosis. Given her persistent right lower stability edema without significant change we will hold on lower extremity Doppler but if indicated we can do in a.m. Problem #2 polysubstance abuse 1. Patient had heroin injection and she also had cocaine before coming to ED. We are watching her for any withdrawal. 2. Will Continue methadone dose of 20 mg. 3. We will provide her with nicotine patch 4. And if needed we will treat her symptomatically with Zofran/hyoscyamine, baclofen and clonidine if needed. Problem #3 Acute on Chronic Blood Loss Anemia 1. Her H&H is 7.6/24.4 today after recieving 1 unit of PRBC yesterday. Will continue to monitor her H&H. 2. Continue home medications Problem #4 history of depression and anxiety. We will continue her home dose of aripiprazole, citalopram and clonazepam Patient is full code Regular diet Pharmacological DVT prophylaxis Problem List: 1. Osteomyelitis of foot, right, acute 2. Drug abuse Pain Ratin Pain Location: RIght foot Pain Goal: Pain 4 or less Pain Plan: Pain Pathway Tomorrow's Labs & Rationales: CBC (Anemia, Infection)
--- NOTE | 2016-12-10 11:01 | PN- Att Addend ---
Attending Addendum Attending Brief Note Patient seen and examined. Plan of care discussed with the medical team and the patient. Available lab work and radiology test reports were reviewed. Patient is somewhat sleepy. She states that she was unable to see for last night. She complains of moderate pain 8/10 in the right foot. However she was sleeping and appeared comfortable. She denies any fever or chills. She denies any difficulty breathing or abdominal pain nausea or vomiting. Vital Signs Date Time Temp Pulse Resp B/P B/P Pulse O2 O2 Flow FiO2 Mean Ox Delivery Rate 12/10 0724 97.8 60 20 120/60 99 Room Air 12/09 2230 97.6 52 20 118/60 98 Room Air 12/09 1516 97.5 51 18 100/54 98 Room Air Intake & Output 12/10 1600 12/10 0800 12/10 0000 Intake Total 505 1250 Output Total 600 400 Balance -95 850 Intake, Blood 350 Product Intake, IV 225 100 Intake, Oral 280 800 Output, Urine 600 400 Exam: General: Patient awake but drowsy and oriented without any distress CVS: S1 plus S2 without any murmur or gallops Chest: Few scattered crepitation without any wheeze. There is no respiratory distress. 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 Right foot is covered with heavy dressing and there is oozing noted from bedsheet. 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 Laboratory Tests 12/10 12/09 0605 1652 Chemistry Sodium (137 - 145 mmol/L) 140 Potassium (3.5 - 5.1 mmol/L) 3.7 Chloride (98 - 107 mmol/L) 102 Carbon Dioxide (22 - 30 mmol/L) 31 H Anion Gap (5 - 16) 6 BUN (7 - 17 mg/dL) 12 Creatinine (0.5 - 1.0 mg/dL) 0.7 Estimated GFR (>60 ml/min) > 60 BUN/Creatinine Ratio (7 - 25 %) 17.1 Hematology CBC w Diff NO MAN DIFF REQ WBC (4.8 - 10.8 /CUMM) 5.2 RBC (4.20 - 5.40 /CUMM) 3.49 L Hgb (12.0 - 16.0 G/DL) 7.6 L Hct (37 - 47 %) 24.4 L MCV (81.0 - 99.0 FL) 69.8 L MCH (27.0 - 31.0 PG) 21.9 L RDW (11.5 - 14.5 %) 19.9 H Plt Count (130 - 400 /CUMM) 359 MPV (7.4 - 10.4 FL) 7.2 L Gran % (42.2 - 75.2 %) 39.5 L Lymphocytes % (20.5 - 51.1 %) 40.7 Monocytes % (1.7 - 9.3 %) 12.9 H Eosinophils % (0 - 5 %) 6.3 H Basophils % (0.0 - 2.0 %) 0.6 Absolute Granulocytes (1.4 - 6.5 /CUMM) 2.1 Absolute Lymphocytes (1.2 - 3.4 /CUMM) 2.1 Absolute Monocytes (0.10 - 0.60 /CUMM) 0.7 H Absolute Eosinophils (0.0 - 0.7 /CUMM) 0.3 Absolute Basophils (0.0 - 0.2 /CUMM) 0 PUBS MCHC (33.0 - 37.0 G/DL) 31.4 L Toxicology Urine Opiates Screen (>2000 NG/ML) > 4000.00 H Methadone Screen (>300 NG/ML) > 735 H Barbiturate Screen (>200 NG/ML) 71 Ur Phencyclidine Scrn (>25 NG/ML) 7.70 Amphetamines Screen (>1000 NG/ML) < 100 U Benzodiazepines Scrn (>200 NG/ML) < 85 Urine Cocaine Screen (>300 NG/ML) > 1000 H Urine Cannabis Screen (>50 NG/ML) 11.30 Urines Urinalysis LIGHT H Urine Color (YEL,AMB,STR) YEL Urine Clarity (CLEAR) CLEAR Urine pH (5.0 - 8.0) 6.0 Ur Specific [place] (1.001 - 1.035) 1.020 Urine Protein (NEG,<30 MG/DL) TRACE H Urine Ketones (NEG) TRACE H Urine Nitrite (NEG) NEG Urine Bilirubin (NEG) NEG@ICTO Urine Urobilinogen (0.1 - 1.0 EU/dl) 2.0 H Ur Leukocyte Esterase (NEG) NEG Ur Microscopic SEDIMENT EXAMINED Urine RBC (0 - 5 /HPF) RARE Urine WBC (0 - 2 /HPF) 1-3 H Ur Epithelial Cells (NONE,FEW) MOD H Urine Bacteria (NEG/NONE) FEW H Urine Mucus (FEW,NONE) MOD H Urine Hemoglobin (NEG) TRACE-INTACT Urine Glucose (N MG/DL) NEG Blood culture remain negative so far Assessment * Right foot osteomyelitis * Heroin abuse * Hypothyroidism * Bipolar disorder * Chronic anemia * History of neuropathy * Chronic right foot wound * History of MSSA osteomyelitis * Noncompliance with medical regimen and frequent episodes of leaving AMA Plan * Continue Unasyn * Leg elevation * Podiatry consult- patient likely will need debridement or possible further amputation * ID consult * Continue quick methadone taper * 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
[2016-12-10 14:51] VITALS: BP 110/58
[2016-12-10 22:58] VITALS: BP 112/60
[2016-12-11 06:56] VITALS: BP 102/56
--- NOTE | 2016-12-11 08:04 | PN- Housestaff ---
Subjective Follow-up For: Osteomyelitis polysubstance abuse Subjective: I have personally seen and examined this patient today. Denies any overnight events. Compalins of pain in her right foot. Review of Systems Constitutional: Denies: see HPI. Objective Last 24 Hrs of Vital Signs/I&O Vital Signs Date Time Temp Pulse Resp B/P B/P Pulse O2 O2 Flow FiO2 Mean Ox Delivery Rate 12/11 0656 97.9 62 20 102/56 98 12/10 2258 97.8 63 18 112/60 97 Room Air 12/10 1451 98.1 64 20 110/58 99 Room Air Intake & Output 12/11 1600 12/11 0800 12/11 0000 Intake Total 280 100 Output Total 725 Balance -445 100 Intake, IV 280 100 Output, Urine 725 Physical Exam General Appearance: Alert, Oriented X3, Cooperative Other Physical Findings: Skin No Rashes HEENT Atraumatic, PERRLA, EOMI Neck Supple, No JVD Cardiovascular Regular Rate, Normal S1, Normal S2, No Murmurs Lungs Clear to Auscultation, Normal Air Movement Abdomen Normal Bowel Sounds, Soft, No Tenderness, No Hepatospenomegaly, No Masses Neurological Normal Gait, Normal Speech, Strength at 5/5 X4 Ext, Normal Tone, Sensation Intact Extremities Left toes amputated, No Cyanosis, Normal Pulses, Normal Capillary Refill Vascular Normal Pulses Current Medications: Current Medications Sig/Mainor Start time Last Medication Dose Route Stop Time Status Admin Acetaminophen 650 MG Q6P PRN 12/09 0100 AC PO Ampicillin Sodium/ 3,000 MG Q6 12/09 0053 AC 12/11 Sulbactam Sodium IV 0636 Sodium Chloride 100 ML Aripiprazole 5 MG DAILY 12/09 1000 AC 12/11 PO 0837 Baclofen 10 MG Q6 PRN 12/09 0245 AC 12/10 PO 1659 Citalopram 40 MG DAILY 12/09 1000 AC 12/11 Hydrobromide PO 0837 Clonazepam 1 MG ONCE ONE 12/10 1145 DC 12/10 PO 12/10 1146 1200 Clonazepam 2 MG DAILY 12/09 1000 AC 12/11 PO 12/16 0959 0836 Clonidine 0.1 MG TID PRN 12/09 0300 AC PO Dicyclomine HCl 20 MG Q6-PRN PRN 12/09 0245 AC 07/03 PO 1855 Enoxaparin Sodium 40 MG DAILY 12/09 1000 AC 12/11 SC 0838 Hydromorphone HCl 0.5 MG Q4P PRN 12/09 0100 AC 12/11 IV 0838 Ketorolac 30 MG .STK-MED ONE 12/101 DC Tromethamine IM 12/11 2031 Ketorolac 30 MG .STK-MED ONE 12/10 1657 DC Tromethamine IM 12/10 1658 Ketorolac 15 MG Q6P PRN 12/09 0100 AC 12/10 Tromethamine IV 203 Melatonin 3 MG .STK-MED ONE 12/11 0010 DC PO 12/11 0011 Melatonin 3 MG ONCE ONE 12/10 2345 DC 12/11 PO 12/10 2346 0015 Methadone HCl 10 MG DAILY 12/12 1000 AC PO Methadone HCl 5 MG ONCE ONE 12/12 0800 CAN PO 12/12 0801 Methadone HCl 10 MG ONCE ONE 12/11 0800 DC 12/11 PO 12/11 0801 0837 Nicotine 21 MG DAILY 12/09 1000 AC 12/11 TOP 0837 Sodium Chloride 1,000 ML Q13H 12/12 0000 CAN IV 12/12 1259 Last 24 Hrs of Lab/Serafin Results Last 24 Hrs of Labs/Mics: Laboratory Tests 12/11/16 1046: CBC w Diff Pending, WBC Pending, RBC Pending, Hgb Pending, Hct Pending, MCV Pending, MCH Pending, RDW Pending, Plt Count Pending, MPV Pending, PUBS MCHC Pending Assessment/Plan Assessment: Assessment: 41 year old female with history of polysubstance abuse, IV drug abuse, osteomyelitis of right lower extremity not on long-term antibiotics for now, very noncompliant with her medications and hospital stays came with worsening right lower extremity edema and pain most likely due to her osteomyelitis. We will admit patient on general medical floor and will take care for the following problems Problem #1 nonhealing foot ulcer/wound secondary to osteomyelitis lower extremity edema and erythema 1. We will consult Dr. Campbell. Most likely she will need reversion surgery soon and we will prepare her accordingly. 2. We will start patient on Unasyn as her work cultures are sensitive to Unasyn. We will watch patient on any signs of sepsis. 3. ID consulted, awaiting their recommendations. 4. Vascular and podiatry consulted, they recommend doing a below knee amputation on her right lower extremity. Discussed with patient, she wants to have a second opinion before proceeding with the amputation. 4. Her WBCs is trending down, 5.2 yesterday. 5. Right lower extremity CAT scan was done that showed evidence of osteomyelitis but DVT would not be ruled out. Patient had recent Doppler ultrasound which was negative for any lower extremity deep vein thrombosis. Given her persistent right lower stability edema without significant change we will hold on lower extremity Doppler but if indicated we can do in a.m. Problem #2 polysubstance abuse 1. Patient had heroin injection and she also had cocaine before coming to ED. We are watching her for any withdrawal. 2. Will Continue methadone dose of 20 mg. 3. We will provide her with nicotine patch 4. And if needed we will treat her symptomatically with Zofran/hyoscyamine, baclofen and clonidine if needed. Problem #3 Acute on Chronic Blood Loss Anemia 1. Her H&H is stable after recieving 1 unit of PRBC. Will continue to monitor her H&H. 2. Continue home medications Problem #4 history of depression and anxiety. We will continue her home dose of aripiprazole, citalopram and clonazepam Patient is full code Regular diet Pharmacological DVT prophylaxis Problem List: 1. Osteomyelitis of foot, right, acute 2. Drug abuse Pain Ratin Pain Location: Right Foot Pain Goal: Pain 4 or less Pain Plan: Pain Pathway Tomorrow's Labs & Rationales: CBC (Osteomyelitis of right foot)
--- NOTE | 2016-12-11 10:14 | PN- Att Addend ---
Attending Addendum Attending Brief Note Patient seen and examined. Plan of care discussed with the medical team and the patient. Available lab work and radiology test reports were reviewed. She complains of moderate pain 8/10 in the right foot. However she appeared comfortable and was using her phone. She denies any fever or chills. She denies any difficulty breathing or abdominal pain nausea or vomiting. Vital Signs Date Time Temp Pulse Resp B/P B/P Pulse O2 O2 Flow FiO2 Mean Ox Delivery Rate 12/11 0656 97.9 62 20 102/56 98 12/10 2258 97.8 63 18 112/60 97 Room Air 12/10 1451 98.1 64 20 110/58 99 Room Air Intake & Output 12/11 1600 12/11 0800 12/11 0000 Intake Total 280 100 Output Total 725 Balance -445 100 Intake, IV 280 100 Output, Urine 725 Exam: General: Patient awake but drowsy and oriented without any distress CVS: S1 plus S2 without any murmur or gallops Chest: Few scattered crepitation without any wheeze. There is no respiratory distress. Abdomen: Soft nontender, bowel sound present, no guarding or rebound CLIN ASST: Awake alert oriented without any focal neuro deficit and follows command appropriately Extremities: No edema; no clubbing or cyanosis noted; skin is pale; right foot was examined. Right foot is covered with heavy dressing and there is oozing noted from bedsheet. 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
[2016-12-11 11:43] LABS: ABSOLUTE BASOPHIL COUNT 0 /CUMM (0.0-0.2); ABSOLUTE EOSINOPHIL COUNT 0.4 /CUMM (0.0-0.7); ABSOLUTE GRANULOCYTE CT 3.6 /CUMM (1.4-6.5); ABSOLUTE LYMPH COUNT 2.7 /CUMM (1.2-3.4); ABSOLUTE MONOCYTE COUNT 0.6 /CUMM (0.10-0.60); BASOPHIL % 0.6 % (0.0-2.0); EOSINOPHIL % 5.7 % (0-5); GRANULOCYTE % 49.5 % (42.2-75.2); HEMATOCRIT 26.1 % (37-47); MEAN CORPUSCULAR HGB 21.9 PG (27.0-31.0); MEAN CORPUSCULAR HGB CONC 31.4 G/DL (33.0-37.0); MEAN CORPUSCULAR VOLUME 69.7 FL (81.0-99.0); MEAN PLATELET VOLUME 7.1 FL (7.4-10.4); PLATELET COUNT 393 /CUMM (130-400); RED BLOOD CELL CT 3.75 /CUMM (4.20-5.40); WHITE BLOOD CELL COUNT 7.4 /CUMM (4.8-10.8)
[2016-12-11 14:49] VITALS: BP 108/60
--- NOTE | 2016-12-11 19:37 | Event Note ---
Event Note Event Note: Paged by the nurse around 6:30pm that the patient was agitated and wanted to leave AMA as she wants a second opinion on her BKA, and was very anxious. Spoke to the patient and convinced her to stay overnight. It also seemed that she was anxious, and so ordred Ativan 0.5mg X1 PO. She stated taht she wants to see Dr. Campbell to see her in the morning.
[2016-12-11 21:53] VITALS: BP 124/72
--- NOTE | 2016-12-11 23:22 | Event Note ---
Event Note Event Note: S: Called again that the patient may want to leave AMA. The marketing intern had been notified an hour and a half ago that this patient wanted to leave AMA then. Patient reports that her symptoms are not controlled she feels like she is actually withdrawing feeling very anxious, diaphoretic and erratic. B: Patient here for osteomyelitis, may go to the OR tomorrow. A/R: Communication with the attending physician who approved the idea of giving the patient 1 time order of methadone 5 mg. We also made the patient nothing by mouth. We started the patient on gentle IV fluids owing to potential OR tomorrow morning. 1.30 PM. Patient Asleep. No Issues Reported. AM team informed us, patient is not scheduled to go to the OR. Will d/c NPO order.
[2016-12-12 06:46] VITALS: BP 120/80
[2016-12-12 07:50] LABS: ABSOLUTE BASOPHIL COUNT 0 /CUMM (0.0-0.2); ABSOLUTE EOSINOPHIL COUNT 0.3 /CUMM (0.0-0.7); ABSOLUTE GRANULOCYTE CT 2.3 /CUMM (1.4-6.5); ABSOLUTE LYMPH COUNT 2.9 /CUMM (1.2-3.4); ABSOLUTE MONOCYTE COUNT 0.3 /CUMM (0.10-0.60); BASOPHIL % 0.7 % (0.0-2.0); EOSINOPHIL % 5.6 % (0-5); GRANULOCYTE % 38.9 % (42.2-75.2); HEMATOCRIT 24.5 % (37-47); MEAN CORPUSCULAR HGB 21.9 PG (27.0-31.0); MEAN CORPUSCULAR HGB CONC 31.8 G/DL (33.0-37.0); MEAN CORPUSCULAR VOLUME 69.1 FL (81.0-99.0); MEAN PLATELET VOLUME 7.1 FL (7.4-10.4); PLATELET COUNT 387 /CUMM (130-400); RBC DISTRIBUTION WIDTH 19.9 % (11.5-14.5); RED BLOOD CELL CT 3.55 /CUMM (4.20-5.40); WHITE BLOOD CELL COUNT 5.9 /CUMM (4.8-10.8)
[2016-12-12] MEDS ORDERED: AUGMENTIN 875-1 EACH PO ×2 (08:23→08:25)
--- NOTE | 2016-12-12 12:12 | Cons- Vascular Surgery ---
General Information and HPI Consulting Request Date of Consult: 12/10/16 Requested By: DELMA TSANG MD History of Present Illness: 41-year-old lady with history of substance abuse status post right TMA and chronic ostial. The patient is noncompliant with follow-up and other management. Dr. Campbell from podiatry has been following her. According to Dr. Campbell, there is no other option to salvage the right foot. CT scan with IV contrast was consistent with osteomyelitis of the right foot. There was no significant arterial disease on CAT scan. I was asked to evaluate the patient for a major amputation. Allergies/Medications Allergies: Coded Allergies: Sulfa (Sulfonamide Antibiotics) (Severe, FACIAL SWELLING 11/27/16) clonidine (WEAKNESS ALL OVER 11/27/16) Home Med List: Amoxicillin/Potassium Clav (Augmentin 875-125 Tablet) 875 MG-125 MG TABLET 1 TAB PO BID Cellulitis Aripiprazole 5 MG TABLET 1 TAB PO DAILY MENTAL HEALTH (Reported) Citalopram Hydrobromide (Citalopram HBr) 40 MG TABLET 1 TAB PO DAILY MENTAL HEALTH (Reported) Clonazepam 2 MG TABLET 1 TAB PO BID anxiety (Reported) Cyanocobalamin (Vitamin B-12) 1,000 MCG TABLET 1,000 MCG PO DAILY supplement Ferrous Sulfate 325 MG (65 MG IRON) TABLET. 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 Home Who Do You Live With? 2 roomates Services at Home: None Primary Language: Maldivian Smoking Status: Current Everyday Smoker Living Will? no Functional Ability ADLs Independent: dressing, eating, toileting, bathing. Ambulation: independent Review of Systems Review of Systems: Patient denies headache, dizziness, cough, palpitation, diarrhea or constipation Exam & Diagnostic Data Vital Signs and I&O Vital Signs Date Time Temp Pulse Resp B/P B/P Pulse O2 O2 Flow FiO2 Mean Ox Delivery Rate 12/12 0646 98.1 68 20 120/80 98 Room Air 12/11 2153 97.7 69 18 124/72 97 12/11 1449 98.1 67 20 108/60 95 Room Air Intake & Output 12/12 1600 12/12 0800 07/ 0000 / 1600 12/11 0800 12/11 0000 Intake Total 20 900 280 100 Output Total 725 Balance 20 900 -445 100 Intake, IV 20 280 100 Intake, Oral 900 Output, Urine 725 Physical Exam: Patient is somnolent but arousable. She responds to questions appropriately. Lungs: Clear to auscultation bilaterally Cardiovascular: Regular rate and rhythm Abdomen: Soft, nontender nondistended Extremities: Bilateral feet are warm. The right foot is dressed. Palpable femoral pulses bilaterally. Assessment/Plan Assessment/Plan 40-year-old woman with history of chronic right foot osteomyelitis. She is noncompliant with management medications and follow-ups. She has a history of polysubstance abuse. She has a chronic nonhealing osteomyelitis of the right foot. Per podiatry, there is no other intervention unofficial at this time. In light of above and CT finding of right leg perfusion, I think the level of major patient will be transtibial. I will plan this operation at the earliest availability from the OR. Thank you for asking me to be involved in the care of this patient Consult Acknowledgment - Thank you for your consult request. Attending MD Review Statement Attending Statement Attending MD Statement: examined this patient, discuss w/resident/PA/PASTOR
--- NOTE | 2016-12-12 17:03 | Event Note ---
Event Note Event Note: Patient did not want to be examined and was ready to leave AMA. Patient has a history of polysubstance abuse and IV drug abuse and was admitted to the general medical floor for worsening right lower extremity edema and pain most likely due to her osteomyelitis. She was started on IV Unasyn and and also transfused 1 unit of blood because of drop in her H&H. Dr. Redman and Dr. Lopez recommended to do a below knee amputation on her but the patient wanted to have a second opinion and decided to leave AMA. Patient was informed about all the risks and benefits of the procedure and also given a prescription for Augmentin (335-125 tab) 1 tab PO BID for 14 days. She was also advised to come back to the ED in case the osteomyelitis worsens.
== END 2016-12-12 08:31 | disposition left against medical advice (07) | DRG 540 ==
LOC: ERH 19:43 → ERHI 22:44 → 2NB 23:13 → ENRESERV 12-09 00:45 → 2NB 12-09 02:02
PROVIDERS: Emergency Medicine; Internal Medicine; Internal Medicine Infectious Disease; ADMIT Student in an Organized Health Care Education/Training Program
PROC: 30233N1 Transfusion of Nonautologous Red Blood Cells into Peripheral Vein, Percutaneous Approach (ICD-10-PCS; principal; 2016-12-09)
DX: M86.171 Other acute osteomyelitis, right ankle and foot (principal); F11.20 Opioid dependence, uncomplicated; D62 Acute posthemorrhagic anemia; G62.9 Polyneuropathy, unspecified; L97.519 Non-pressure chronic ulcer of other part of right foot with unspecified severity; M86.671 Other chronic osteomyelitis, right ankle and foot; F32.9 Major depressive disorder, single episode, unspecified; D50.0 Iron deficiency anemia secondary to blood loss (chronic); Z91.19 Patient's noncompliance with other medical treatment and regimen; F14.90 Cocaine use, unspecified, uncomplicated; F41.9 Anxiety disorder, unspecified; Z89.421 Acquired absence of other right toe(s); E03.9 Hypothyroidism, unspecified; F17.200 Nicotine dependence, unspecified, uncomplicated
CPT/HCPCS: 2NBSP; 6040; ERO; 36415; 80307; 81001; 82436; 86920; 87040; 96365; 96366; G0378; J1650; J1885; J3370; P9016